=== PATIENT | male | born 1945 | race Caucasian/White ===

== ENCOUNTER → 2018-11-17 08:12 | Outpatient (CLI) | payer MEDICARE, OTHER, SELFPAY ==
[2018-11-17 09:04] LABS: Add Manual Diff / Slide Review NO; Basophils Absolute Auto 0 /uL (0-100); Basophils Percent Auto 0.6 % (0-2); Eosinophils Absolute Auto 200 /uL (0-450); Eosinophils Percent Auto 2.2 % (2-4); Hematocrit 45.5 % (41-53); Hemoglobin 15.7 g/dL (13.5-17.5); Lymphocytes Absolute Auto 2100 /uL (1100-4500); Lymphocytes Percent Auto 30.4 % (25-40); Mean Corpuscular HGB Conc 34.4 % (30-36); Mean Corpuscular Hemoglobin 31.4 PG (26-34); Mean Corpuscular Volume 91.2 fL (80-100); Monocytes Absolute Auto 500 /uL (0-900); Monocytes Percent Auto 7.4 % (3-14); Neutrophils Absolute Auto 4100 /uL (1500-7000); Neutrophils Percent Auto 59.4 % (50-75); Platelet Count 154 X10^3/uL (150-400); Red Blood Cell Count 4.99 X10^6/uL (4.5-5.9); Red Cell Distribution Width 13.3 % (11.6-14.8)
[2018-11-17 09:31] LABS: Alanine Aminotransferase 29 IU/L (21-72); Albumin 4.3 g/dL (3.5-5.0); Albumin Globulin Ratio 1.6 (1.0-2.8); Alkaline Phosphatase 43 U/L (38-126); Aspartate Aminotransferase 28 IU/L (17-59); Bilirubin Total 0.7 mg/dL (0.2-1.3); Blood Urea Nitrogen 20 mg/dL (9-20); Calcium 9.4 mg/dL (8.4-10.2); Carbon Dioxide 28 mmol/L (22-32); Chloride 106 mmol/L (98-107); Cholesterol 191 mg/dL (140-199); Estimated Glomerular Filt Rate > 60.0 mL/min (>60); Globulin 2.7 g/dL (1.7-4.1); Glucose 93 mg/dL (80-110); HDL Cholesterol 45 mg/dL (40-60); HEMOLYSIS < 15 (0-50); LDL Cholesterol Calculated 133 mg/dL (<100); Potassium 4.7 mmol/L (3.4-5.1); Sodium 143 mmol/L (137-145); Triglycerides 63 mg/dL (35-150)
[2018-11-17 09:59] LABS: Prostate Specific Antigen 1.28 ng/mL (0.10-4.00)
[2018-11-17 10:04] LABS: TSH w/ Reflex to FT4 3.96 uIU/mL (0.47-4.68)
== END ==
PROVIDERS: PCP Family Medicine; Visit Provider Family Medicine
DX: E78.00 Pure hypercholesterolemia, unspecified (principal); Z00.00 Encounter for general adult medical examination without abnormal findings; Z12.5 Encounter for screening for malignant neoplasm of prostate; Z13.220 Encounter for screening for lipoid disorders; Z13.29 Encounter for screening for other suspected endocrine disorder
CPT/HCPCS: 36415; 80053; 80061; 84153; 84443; 85025; G0103

== ENCOUNTER → 2020-01-18 11:17 | Outpatient (CLI) | payer MEDICARE, OTHER, SELFPAY ==
[2020-01-18 12:48] LABS: Free T3, Triiodothyronine Free 3.07 pg/mL (2.77-5.27); Free T4, Direct Thyroxine 0.95 ng/dL (0.78-2.19)
[2020-01-18 13:02] LABS: Thyroid Stimulating Hormone 2.58 uIU/mL (0.47-4.68)
== END ==
PROVIDERS: PCP Family Medicine; Referring Provider Family Medicine; Visit Provider Family Medicine
DX: T56.891A Toxic effect of other metals, accidental (unintentional), initial encounter (principal); E03.2 Hypothyroidism due to medicaments and other exogenous substances; R79.89 Other specified abnormal findings of blood chemistry
CPT/HCPCS: 36415; 83090; 84439; 84443; 84481

== ENCOUNTER → 2020-03-17 13:06 | Outpatient (CLI) | payer MEDICARE, OTHER, SELFPAY ==
[2020-03-19 02:36] LABS: Methylmalonic Acid,Serum 106 nmol/L (0-378)
== END ==
PROVIDERS: PCP Family Medicine; Referring Provider Family Medicine; Visit Provider Family Medicine
DX: R79.89 Other specified abnormal findings of blood chemistry (principal)
CPT/HCPCS: 36415; 83090; 83921

== ENCOUNTER 2020-09-15 14:15 | Outpatient (RCR) | payer MEDICARE, OTHER, SELFPAY ==
--- NOTE | 2020-08-18 15:55 | PT.OIE ---
Current Diagnoses Parkinson's disease (08/18/20) Past Medical History (Last Reviewed 08/12/20 @ 14:37 by Arnold Rogel MD) Allergic rhinitis (04/25/13) Cyst in hand Elevated homocysteine Foreign body of ear, left IBS (irritable bowel syndrome) Obstructive sleep apnea syndrome (04/25/13) Parkinson's disease (~09/2016) Pes planus Pure hypercholesterolemia (11/26/16) Past Surgical History (Last Reviewed 08/12/20 @ 14:37 by Arnold Rogel MD) History of tonsillectomy History of vasectomy Status post hernia repair Visit Care Team Role Provider Type Ashley Romano DO Attending Provider Physician Primary Care Provider Referring Provider Specialty: [facility] Address: [address] [place] [address], [address], [facility] Email: [email or web address] Physical Therapy Initial Evaluation PT-OP-A Visit Information Start: 08/13/20 08:05 Freq: Status: Active Protocol: Document 08/18/20 14:17 MB (Rec: 08/18/20 14:43 MB [id number]) Out-Patient Physical Therapy Visit Information Visit Information Visit Type Initial Evaluation Visit Note Medicare Visit Start Time 14:17 Visit Stop Time 15:19 Total Visit Minutes 62 Visit Number 1 Evaluation Information Evaluation Date 08/18/20 PT-OP-B Current Condition Start: 08/13/20 08:05 Freq: Status: Active Protocol: Document 08/18/20 14:17 MB (Rec: 08/18/20 14:43 MB [id number]) Current Condition History of Current Condition Onset Date 3 years since diagnosis Current Complaints Stiffness, tremor in right hand, not being able to walk as far as he'd like History of Current Condition Pt sees naturopathic doctor, Dr. Potter, for his PD. He takes Carbidopa Levodopa. He states he is on 3 pills a day but that he can take more if he does something strenuous. He has been taking four a day. He is taking a pill at 900, 1200, 1500 and 1800. His BIG referral was written by Dr. Romano, his DO and PCP. Pt states he bought the [employer] BIG videos because he was told it would be a few weeks getting into therapy. He was instructed by operations program manager to change his diet and was also put on [place] d/t he was found to have a deficiency per hair analysis. Pt states that his Carbidopa Levodopa helps him move more freely. Pt states that he gets up 3-4x/night to urinate. If he is really tired, he can get up just once a night. He notices that he wakes up and then feels like he needs to urinate. Pt reports that his first symptoms of PD was tremor in right hand. He has balance trouble. He feels like his legs are collapsing occ when he gets up to urinate at night and after he is up 15-20 minutes, he can move more readily. Pt lives with his . He has 3 steps and no rail to enter his home. Pt has a flight of steps with 1 rail once he is inside the house. Pt likes to walk for exercise. He walks 2-3 miles and would like to walk 4-5 miles. Pt has had 3 falls in the last year. He lost control of his legs one night and his had to help him up. Pt would like to work on stiffness. Pt participates with cooking and cleaning. Treatment Goals Patient/Caregiver Goals Decrease stiffness, no falls and walking further PT-OP-C Subjective Start: 08/13/20 08:05 Freq: Status: Active Protocol: Document 08/18/20 14:17 MB (Rec: 08/18/20 14:43 MB [id number]) OP-PT Subjective Patient Comments Patient Comments See history of current condition PT-OP-G Mobility & Gait Start: 08/13/20 08:05 Freq: Status: Active Protocol: Document 08/18/20 14:16 MB (Rec: 08/18/20 15:45 MB [id number]) OP Gait Assessment Gait Gait Assistance Required: Independent Distance (Feet) 1,693 Able to Maintain Weight Bearing Status Yes During Gait Assistive Devices Assistive Device Gait Belt Orthotic/Prosthetic Devices or Brace: No Comments Gait Comments Pt presents with little hip and pelvic movement with gait and decreased arm swing, greater on the left with most of arm swing happening at distal arms. He tends to keep fists closed with walking. His left shoulder is lower than the right and he occ has scuffing of his feet, right greater than left. His shoes are large as are his rain pants and this makes gait a little more difficult to assess as far as hip, knee and foot mechanics. His left knee appears to have a flexion and valgus component to weight acceptance compared to the right. PT-OP-K Range of Motion Start: 08/13/20 08:05 Freq: Status: Active Protocol: Document 08/18/20 14:16 MB (Rec: 08/18/20 15:45 MB [id number]) Shoulder Goniometric Range of Motion Shoulder Bilateral Shoulder ROM WFL Yes Testing Position Sitting PT-OP-M Strength Start: 08/13/20 08:05 Freq: Status: Active Protocol: Document 08/18/20 14:16 MB (Rec: 08/18/20 15:45 MB [id number]) Shoulder Strength Shoulder Manual Muscle Testing Left Flexion 5 Normal Abduction (C5) 5 Normal Right Flexion 5 Normal Abduction (C5) 5 Normal Elbow/Forearm Strength Elbow and Forearm Manual Muscle Testing Left Flexion (C6) 5 Normal Right Flexion (C6) 5 Normal Hip Strength Hip Manual Muscle Testing Left Flexion (L2) 4 Good Abduction 4 Good Right Flexion (L2) 4 Good Abduction 4 Good Ankle/Foot Strength Ankle and Foot Manual Muscle Testing Left Dorsiflexion (L4) 4 Good Right Dorsiflexion (L4) 5 Normal Toe Strength Toe Manual Muscle Testing Left Great Toe Extension 4 Good Right Great Toe Extension 5 Normal PT-OP-Q Treatments Start: 08/13/20 08:05 Freq: Status: Active Protocol: Document 08/18/20 14:16 MB (Rec: 08/18/20 15:45 MB [id number]) Therapeutic Exercises Sitting Exercises Sit to stands Comments 15 in 30 sec Gait Training Gait Activity 6MWT Comments Pt gait trains 1693 feet in 6 minutes, see gait comments for gait assessment. He is I with gait Self-Care/Home Management Treatment Education Other Education Education on BIG course, goals for amplitude and speed increasing with good form and amplitude, education and handouts about orthostatic hypotension and what to do and not to do, ed to talk with Dr Charisse Romano about his medication questions about how much Carbidopa Levodopa to take and at what time, Kary, can bring in , Talon, for next PT appointment to ask any questions about today, orthostasis and compression PT-OP-T Assessment and Plan Start: 08/13/20 08:05 Freq: Status: Active Protocol: Document 08/18/20 14:16 MB (Rec: 08/18/20 15:45 MB [id number]) Physical Therapy Assessment Rehab Potential Rehabilitation Potential Good Evaluation Complexity Number of Personal Factors/Comorbidities 3 or More Number of Body Systems Impaired 1-2 Clinical Presentation at Evaluation Evolving Impairments Impairments Balance,Coordination, Functional Activities,Gait, Posture,Strength Other Impairments Impaired rapid supination and pronation, worse on the left. Impaired [id number] on the left, pt is right handed. Slower B toe tap over opposite foot, [place], some memory changes. Body systems include memory, neurological and orthostatic changes. Other Concerns Fall Risk Yes Goals 4 Affiliate Marketing Coordinator Goal (LTG) Pt will perform 17 reps of sit to stand without UE support in 30 sec to improve functional strength by 09/22/20. LTG Duration 16 treatments 3 Affiliate Marketing Coordinator Goal (LTG) Pt will gait train at least 1700 feet in 6 minutes performing a cognitive task for at least 3 minutes to improve community ambulation by 09/22/20. LTG Duration 16 treatments 2 Mcfp Goal (LTG) Pt will perform WNLs on a standardized balance test to decrease fall risk by 09/22/20. LTG Duration 16 treatments 1 Affiliate Marketing Coordinator Goal (LTG) Pt will perform BIG exercises and functional activities daily with I to improve amplitude, balance and gait by 09/22/20. LTG Duration 16 treatments Assessment Summary Assessment Pt is a pleasant 65 y/o male presenting with at least 3 year history diagnosis of PD. His first symptom was a tremor in his right arm and he now has B UE tremors. He reports imbalance and that he would like to be able to walk further and be less stiff when he first gets up. He sees a operations program manager for his PD and has tried diet modification and is taking what he thinks is a lower dose of Carbidopa Levodopa than other PD patients in his support group and he wonders if he should take more. PT encourages him to talk with Dr. Romano about this concern and to make sure that Dr. Romano knows all the supplements and medications he is taking (pt reports he is taking [place] after a hair sample test). Pt reports his legs give out when he gets up to urinate and that he feels better when he is up 15 minutes or longer. Given this complaint, PT checks orthostatics and he is positive with the following large systolic and diastolic drops with BP and HR in LUE: supine 158/89, 70, standing 131/82, 77, standing 1' 115/64 , 80, standing 2' 101/73, 84, standing 3' 122/75, 80. Pt presents with postural changes with gait, dysmetric UE movement, greater on the left, and some mildly left LE weakness with MMT. He will benefit from BIG therapy course to improve gait, balance, amplitude and strength. Barriers include orthostasis and mild cognitive changes. Physical Therapy Plan Frequency and Duration Frequency of Treatment 16 treatments Duration of Treatment 16 treatments Plan of Care Start Date 08/18/20 Plan of Care End Date 09/22/20 Therapeutic Interventions Therapeutic Interventions Balance Training,Coordination Training,Gait Training,Home Exercise Program,Neuromuscular Re-education,Patient/ Caregiver Education,Self-Care/ Home Management,Therapeutic Activities,Therapeutic Exercises Modalities Cold Pack/Ice Massage,Hot Packs Other Referrals/Consults Referrals/Consults Recommended Follow-up with Dr. Romano about his medications (pt is unsure if she knows about [place] and his Carbidopa Levodopa instructions), follow -up with Dr. Romano about orthostatic hypotension Next Visit Focus/Plan Next Note Type Treatment Note Next Visit Plan Answer any questions from pt and , initiate BIG exercises
--- NOTE | 2020-08-18 15:55 | PT.OPPOC ---
Physical, Occupational & Speech Therapy At [facility] Current Diagnoses Parkinson's disease (08/18/20) Visit Care Team Role Provider Type Ashley Romano DO Attending Provider Physician Primary Care Provider Referring Provider Specialty: Family Practice Address: [address] [place] [address], [facility] [address], [place], [address] Email: [email or web address] Plan Of Care PT-OP-T Assessment and Plan Start: 08/13/20 08:05 Freq: Status: Active Protocol: Document 08/18/20 14:16 MB (Rec: 08/18/20 15:45 MB [id number]) Physical Therapy Assessment Rehab Potential Rehabilitation Potential Good Evaluation Complexity Number of Personal Factors/Comorbidities 3 or More Number of Body Systems Impaired 1-2 Clinical Presentation at Evaluation Evolving Impairments Impairments Balance,Coordination, Functional Activities,Gait, Posture,Strength Other Impairments Impaired rapid supination and pronation, worse on the left. Impaired [id number]-[id number] on the left, pt is right handed. Slower B toe tap over opposite foot, [place], some memory changes. Body systems include memory, neurological and orthostatic changes. Other Concerns Fall Risk Yes Goals 4 Staffing Branch Manager Goal (LTG) Pt will perform 17 reps of sit to stand without UE support in 30 sec to improve functional strength by 09/22/20. LTG Duration 16 treatments 3 Longterm Goal (LTG) Pt will gait train at least 1700 feet in 6 minutes performing a cognitive task for at least 3 minutes to improve community ambulation by 09/22/20. LTG Duration 16 treatments 2 Longterm Goal (LTG) Pt will perform WNLs on a standardized balance test to decrease fall risk by 09/22/20. LTG Duration 16 treatments 1 Staffing Branch Manager Goal (LTG) Pt will perform BIG exercises and functional activities daily with I to improve amplitude, balance and gait by 09/22/20. LTG Duration 16 treatments Assessment Summary Assessment Pt is a pleasant 65 y/o male presenting with at least 3 year history diagnosis of PD. His first symptom was a tremor in his right arm and he now has B UE tremors. He reports imbalance and that he would like to be able to walk further and be less stiff when he first gets up. He sees a quantitative manager for his PD and has tried diet modification and is taking what he thinks is a lower dose of Carbidopa Levodopa than other PD patients in his support group and he wonders if he should take more. PT encourages him to talk with Dr. Romano about this concern and to make sure that Dr. Romano knows all the supplements and medications he is taking (pt reports he is taking [place] after a hair sample test). Pt reports his legs give out when he gets up to urinate and that he feels better when he is up 15 minutes or longer. Given this complaint, PT checks orthostatics and he is positive with the following large systolic and diastolic drops with BP and HR in LUE: supine 158/89, 70, standing 131/82, 77, standing 1' 115/64 , 80, standing 2' 101/73, 84, standing 3' 122/75, 80. Pt presents with postural changes with gait, dysmetric UE movement, greater on the left, and some mildly left LE weakness with MMT. He will benefit from BIG therapy course to improve gait, balance, amplitude and strength. Barriers include orthostasis and mild cognitive changes. Physical Therapy Plan Frequency and Duration Frequency of Treatment 16 treatments Duration of Treatment 16 treatments Plan of Care Start Date 08/18/20 Plan of Care End Date 09/22/20 Therapeutic Interventions Therapeutic Interventions Balance Training,Coordination Training,Gait Training,Home Exercise Program,Neuromuscular Re-education,Patient/ Caregiver Education,Self-Care/ Home Management,Therapeutic Activities,Therapeutic Exercises Modalities Cold Pack/Ice Massage,Hot Packs Other Referrals/Consults Referrals/Consults Recommended Follow-up with Dr. Romano about his medications (pt is unsure if she knows about [place] and his Carbidopa Levodopa instructions), follow -up with Dr. Romano about orthostatic hypotension Next Visit Focus/Plan Next Note Type Treatment Note Next Visit Plan Answer any questions from pt and , initiate BIG exercises Plan of Care Dates Plan of Care Start Date 08/18/20 Plan of Care End Date 09/22/20 Electronically Signed by: Yeimi Meyers PT 08/18/20 [id number] Please Sign and Return: I have reviewed this Plan of Care and certify that the skilled therapy services above are required to meet the patient?s needs. Physician Signature Date Printed Name and Credentials Clinical Instructor Signature Printed Name and Credentials
--- NOTE | 2020-08-19 15:27 | PT.OTN ---
Current Diagnoses Parkinson's disease (08/19/20) Physical Therapy Treatment Note PT-OP-A Visit Information Start: 08/13/20 08:05 Freq: Status: Active Protocol: Document 08/19/20 14:15 MB (Rec: 08/19/20 14:07 MB [id number]) Out-Patient Physical Therapy Visit Information Visit Information Visit Type Treatment Note Visit Start Time 14:15 Visit Stop Time 15:15 Total Visit Minutes 60 Visit Number 2 PT-OP-B Current Condition Start: 08/13/20 08:05 Freq: Status: Active Protocol: Document 08/18/20 14:17 MB (Rec: 08/18/20 14:43 MB [id number]) Current Condition History of Current Condition Onset Date 3 years since diagnosis Current Complaints Stiffness, tremor in right hand, not being able to walk as far as he'd like History of Current Condition Pt sees naturopathic doctor, Dr. Potter, for his PD. He takes Carbidopa Levodopa. He states he is on 3 pills a day but that he can take more if he does something strenuous. He has been taking four a day. He is taking a pill at 900, 1200, 1500 and 1800. His BIG referral was written by Dr. Romano, his DO and PCP. Pt states he bought the [employer] BIG videos because he was told it would be a few weeks getting into therapy. He was instructed by regional company truck driver to change his diet and was also put on [place] d/t he was found to have a deficiency per hair analysis. Pt states that his Carbidopa Levodopa helps him move more freely. Pt states that he gets up 3-4x/night to urinate. If he is really tired, he can get up just once a night. He notices that he wakes up and then feels like he needs to urinate. Pt reports that his first symptoms of PD was tremor in right hand. He has balance trouble. He feels like his legs are collapsing occ when he gets up to urinate at night and after he is up 15-20 minutes, he can move more readily. Pt lives with his . He has 3 steps and no rail to enter his home. Pt has a flight of steps with 1 rail once he is inside the house. Pt likes to walk for exercise. He walks 2-3 miles and would like to walk 4-5 miles. Pt has had 3 falls in the last year. He lost control of his legs one night and his had to help him up. Pt would like to work on stiffness. Pt participates with cooking and cleaning. Treatment Goals Patient/Caregiver Goals Decrease stiffness, no falls and walking further PT-OP-C Subjective Start: 08/13/20 08:05 Freq: Status: Active Protocol: Document 08/19/20 14:15 MB (Rec: 08/19/20 15:27 MB [id number]) OP-PT Subjective Patient Comments Patient Comments Pt brings in worn running shoes that are most worn on B heels, greater on the left. Talon, his , comes to treatment. They are not yet interested in compression hose and he is practicing moving his legs and feet before sitting and standing to help with BP. PT-OP-G Mobility & Gait Start: 08/13/20 08:05 Freq: Status: Active Protocol: Document 08/18/20 14:16 MB (Rec: 08/18/20 15:45 MB [id number]) OP Gait Assessment Gait Gait Assistance Required: Independent Distance (Feet) 1,693 Able to Maintain Weight Bearing Status Yes During Gait Assistive Devices Assistive Device Gait Belt Orthotic/Prosthetic Devices or Brace: No Comments Gait Comments Pt presents with little hip and pelvic movement with gait and decreased arm swing, greater on the left with most of arm swing happening at distal arms. He tends to keep fists closed with walking. His left shoulder is lower than the right and he occ has scuffing of his feet, right greater than left. His shoes are large as are his rain pants and this makes gait a little more difficult to assess as far as hip, knee and foot mechanics. His left knee appears to have a flexion and valgus component to weight acceptance compared to the right. PT-OP-K Range of Motion Start: 08/13/20 08:05 Freq: Status: Active Protocol: Document 08/18/20 14:16 MB (Rec: 08/18/20 15:45 MB [id number]) Shoulder Goniometric Range of Motion Shoulder Bilateral Shoulder ROM WFL Yes Testing Position Sitting PT-OP-M Strength Start: 08/13/20 08:05 Freq: Status: Active Protocol: Document 08/18/20 14:16 MB (Rec: 03/29/21 15:45 MB [id number]) Shoulder Strength Shoulder Manual Muscle Testing Left Flexion 5 Normal Abduction (C5) 5 Normal Right Flexion 5 Normal Abduction (C5) 5 Normal Elbow/Forearm Strength Elbow and Forearm Manual Muscle Testing Left Flexion (C6) 5 Normal Right Flexion (C6) 5 Normal Hip Strength Hip Manual Muscle Testing Left Flexion (L2) 4 Good Abduction 4 Good Right Flexion (L2) 4 Good Abduction 4 Good Ankle/Foot Strength Ankle and Foot Manual Muscle Testing Left Dorsiflexion (L4) 4 Good Right Dorsiflexion (L4) 5 Normal Toe Strength Toe Manual Muscle Testing Left Great Toe Extension 4 Good Right Great Toe Extension 5 Normal PT-OP-Q Treatments Start: 08/13/20 08:05 Freq: Status: Active Protocol: Document 08/19/20 14:15 MB (Rec: 08/19/20 14:07 MB [id number]) Therapeutic Exercises Sitting Exercises BIG forward reach Sitting Exercise Name Floor to ceiling Equipment Used Mat in therapy room Reps/Minutes 5 reps after education Comments Cues for BIG reach, BIG hands, BIG finish BIG sit to stands Equipment Used Mat in therapy room Reps/Minutes 10 reps after education Comments Cues for BIG reach and hands back BIG side to side Side bilateral Equipment Used Mat in therapy room Reps/Minutes 7 reps to each side Comments Cues for BIG back leg and BIG reach with palm up Standing Exercises Side rock and reach Side bilateral Reps/Minutes 5 reps each side after education Comments Cues for BIGness, form-- feet and upper body first Forward rock and reach Side bilateral Reps/Minutes 10 reps in each position after educated Comments Cues for stance, feet and arms, decreased arm swing left Backward stepping Side bilateral Reps/Minutes 5 reps to each side after educated Comments BIG start, BIG forward hands, BIG finish Side step Side bilateral Equipment Used 5 reps to each side after educated Comments Cues for BIG start stance, BIG reach, look direction stepping and BIG finis Forward step Side bilateral Reps/Minutes 10 to each side after education Comments Cues for BIG stance start, BIG step and BIG finish. Pt tends to fall forwar PT-OP-T Assessment and Plan Start: 08/13/20 08:05 Freq: Status: Active Protocol: Document 08/19/20 14:15 MB (Rec: 08/19/20 14:07 MB [id number]) Physical Therapy Assessment Rehab Potential Rehabilitation Potential Good Evaluation Complexity Number of Personal Factors/Comorbidities 3 or More Number of Body Systems Impaired 1-2 Clinical Presentation at Evaluation Evolving Impairments Impairments Balance,Coordination, Functional Activities,Gait, Posture,Strength Other Impairments Impaired rapid supination and pronation, worse on the left. Impaired [id number] on the left, pt is right handed. Slower B toe tap over opposite foot, [place], some memory changes. Body systems include memory, neurological and orthostatic changes. Other Concerns Fall Risk Yes Goals 4 Frame Aligner Goal (LTG) Pt will perform 17 reps of sit to stand without UE support in 30 sec to improve functional strength by 09/22/20. LTG Duration 16 treatments 3 Frame Aligner Goal (LTG) Pt will gait train at least 1700 feet in 6 minutes performing a cognitive task for at least 3 minutes to improve community ambulation by 09/22/20. LTG Duration 16 treatments 2 Frame Aligner Goal (LTG) Pt will perform WNLs on a standardized balance test to decrease fall risk by 09/22/20. LTG Duration 16 treatments 1 Frame Aligner Goal (LTG) Pt will perform BIG exercises and functional activities daily with I to improve amplitude, balance and gait by 09/22/20. LTG Duration 16 treatments Assessment Summary Assessment Initiated BIG exercises today. Overall, pt has trouble coordinating lower body and upper body and tends to lunge with trunk rather than control step, picking up foot and then putting it back BIG and controlled. He has decreased left arm extension and BIG hand with forward rock and reach and this is something that we will work on with PT. His shoes appear cumbersome as far as wide toe box and his increased Enrique angle stance but unsure if this can be changed--he likes his shoes. His functional tasks will be moving in and out of bed, in and out of car, carrying golf bag and golf swing and writing a check. Physical Therapy Plan Frequency and Duration Frequency of Treatment 16 treatments Duration of Treatment 16 treatments Plan of Care Start Date 08/18/20 Plan of Care End Date 09/22/20 Therapeutic Interventions Therapeutic Interventions Balance Training,Coordination Training,Gait Training,Home Exercise Program,Neuromuscular Re-education,Patient/ Caregiver Education,Self-Care/ Home Management,Therapeutic Activities,Therapeutic Exercises Modalities Cold Pack/Ice Massage,Hot Packs Other Referrals/Consults Referrals/Consults Recommended Follow-up with Dr. Romano about his medications (pt is unsure if she knows about [place] and his Carbidopa Levodopa instructions), follow -up with Dr. Romano about orthostatic hypotension Next Visit Focus/Plan Next Note Type Treatment Note Next Visit Plan BIG exercises, start functional tasks: moving and out of bed, walking with golf bag and golf swing, getting in and out of car and writing check.
--- NOTE | 2020-08-20 15:20 | PT.OTN ---
Current Diagnoses Parkinson's disease (08/20/20) Physical Therapy Treatment Note PT-OP-A Visit Information Start: 08/13/20 08:05 Freq: Status: Active Protocol: Document 08/20/20 15:20 AW (Rec: 08/20/20 16:47 AW [id number]) Out-Patient Physical Therapy Visit Information Visit Information Visit Type Treatment Note Visit Start Time 14:30 Visit Stop Time 15:20 Total Visit Minutes 50 Visit Number 3 PT-OP-B Current Condition Start: 08/13/20 08:05 Freq: Status: Active Protocol: Document 08/18/20 14:17 MB (Rec: 08/18/20 14:43 MB [id number]) Current Condition History of Current Condition Onset Date 3 years since diagnosis Current Complaints Stiffness, tremor in right hand, not being able to walk as far as he'd like History of Current Condition Pt sees naturopathic doctor, Dr. Potter, for his PD. He takes Carbidopa Levodopa. He states he is on 3 pills a day but that he can take more if he does something strenuous. He has been taking four a day. He is taking a pill at 900, 1200, 1500 and 1800. His BIG referral was written by Dr. Romano, his DO and PCP. Pt states he bought the [email or web address] BIG videos because he was told it would be a few weeks getting into therapy. He was instructed by case aide to change his diet and was also put on [place] d/t he was found to have a deficiency per hair analysis. Pt states that his Carbidopa Levodopa helps him move more freely. Pt states that he gets up 3-4x/night to urinate. If he is really tired, he can get up just once a night. He notices that he wakes up and then feels like he needs to urinate. Pt reports that his first symptoms of PD was tremor in right hand. He has balance trouble. He feels like his legs are collapsing occ when he gets up to urinate at night and after he is up 15-20 minutes, he can move more readily. Pt lives with his . He has 3 steps and no rail to enter his home. Pt has a flight of steps with 1 rail once he is inside the house. Pt likes to walk for exercise. He walks 2-3 miles and would like to walk 4-5 miles. Pt has had 3 falls in the last year. He lost control of his legs one night and his had to help him up. Pt would like to work on stiffness. Pt participates with cooking and cleaning. Treatment Goals Patient/Caregiver Goals Decrease stiffness, no falls and walking further PT-OP-C Subjective Start: 08/13/20 08:05 Freq: Status: Active Protocol: Document 08/20/20 15:20 AW (Rec: 08/20/20 16:47 AW [id number]) OP-PT Subjective Patient Comments Patient Comments Pt arrived with his packet, ready to work. PT-OP-G Mobility & Gait Start: 08/13/20 08:05 Freq: Status: Active Protocol: Document 08/18/20 14:16 MB (Rec: 08/18/20 15:45 MB [id number]) OP Gait Assessment Gait Gait Assistance Required: Independent Distance (Feet) 1,693 Able to Maintain Weight Bearing Status Yes During Gait Assistive Devices Assistive Device Gait Belt Orthotic/Prosthetic Devices or Brace: No Comments Gait Comments Pt presents with little hip and pelvic movement with gait and decreased arm swing, greater on the left with most of arm swing happening at distal arms. He tends to keep fists closed with walking. His left shoulder is lower than the right and he occ has scuffing of his feet, right greater than left. His shoes are large as are his rain pants and this makes gait a little more difficult to assess as far as hip, knee and foot mechanics. His left knee appears to have a flexion and valgus component to weight acceptance compared to the right. PT-OP-K Range of Motion Start: 08/13/20 08:05 Freq: Status: Active Protocol: Document 08/18/20 14:16 MB (Rec: 08/18/20 15:45 MB [id number]) Shoulder Goniometric Range of Motion Shoulder Bilateral Shoulder ROM WFL Yes Testing Position Sitting PT-OP-M Strength Start: 08/13/20 08:05 Freq: Status: Active Protocol: Document 08/18/20 14:16 MB (Rec: 08/18/20 15:45 MB [id number]) Shoulder Strength Shoulder Manual Muscle Testing Left Flexion 5 Normal Abduction (C5) 5 Normal Right Flexion 5 Normal Abduction (C5) 5 Normal Elbow/Forearm Strength Elbow and Forearm Manual Muscle Testing Left Flexion (C6) 5 Normal Right Flexion (C6) 5 Normal Hip Strength Hip Manual Muscle Testing Left Flexion (L2) 4 Good Abduction 4 Good Right Flexion (L2) 4 Good Abduction 4 Good Ankle/Foot Strength Ankle and Foot Manual Muscle Testing Left Dorsiflexion (L4) 4 Good Right Dorsiflexion (L4) 5 Normal Toe Strength Toe Manual Muscle Testing Left Great Toe Extension 4 Good Right Great Toe Extension 5 Normal PT-OP-Q Treatments Start: 08/13/20 08:05 Freq: Status: Active Protocol: Document 08/20/20 15:20 AW (Rec: 08/20/20 16:47 AW [id number]) Therapeutic Exercises Sitting Exercises BIG forward reach Sitting Exercise Name Floor to ceiling Equipment Used Mat in therapy room Reps/Minutes 10 reps Comments Cues for BIG effort BIG sit to stands Equipment Used Mat in therapy room Reps/Minutes 10 reps Comments Cues for BIG forward reach on ascent and descent to improve control BIG side to side Side bilateral Equipment Used Mat in therapy room Reps/Minutes 5 reps to each side Comments Cued upright posture for increased hip flexor stretch Standing Exercises Side rock and reach Side bilateral Reps/Minutes 10 reps each side Comments Cues for increased rotation Forward rock and reach Side bilateral Reps/Minutes 10 reps each side Comments max cues for arm swing Backward stepping Side bilateral Reps/Minutes 10 reps each side Comments cued BIG step back to start position Side step Side bilateral Equipment Used 10 reps each side Comments cued BIG step back to start position Forward step Side bilateral Reps/Minutes 10 reps each side Comments cued BIG step back to start position Therapeutic Activity Therapeutic Activity writing Name checks and signature Reps/Minutes 5 min Comments Assessed writing today with little evidence of micrographia but pt tends to use hand/wrist motion only. Demonstrated use of entire UE and trunk to increase efficiency and maintain amplitude Gait Training Gait Activity BIG walking Device Used 0 Surface tile, carpet Distance/Duration 10 min Treatment Focus step length Comments Cued pt to think BIG and to focus on step length. He shows good stimulability and is able to increase speed and step length with simple cues. Will need to work on arm swing in future sessions. Self-Care/Home Management Treatment Education Other Education Education on primary impairments in PD and BIG tx focus on amplitude. Pt receptive to cueing for increased effort, rating his own effort at 7/10 during exercise. Activities Self-Care/Home Management Activities Homework/carryover: Pt agrees to spend time walking with simple cue to think BIG in mind, focusing on step length. PT-OP-T Assessment and Plan Start: 08/13/20 08:05 Freq: Status: Active Protocol: Document 08/20/20 15:20 AW (Rec: 08/20/20 16:47 AW [email or web address]) Physical Therapy Assessment Rehab Potential Rehabilitation Potential Good Evaluation Complexity Number of Personal Factors/Comorbidities 3 or More Number of Body Systems Impaired 1-2 Clinical Presentation at Evaluation Evolving Impairments Impairments Balance,Coordination, Functional Activities,Gait, Posture,Strength Other Impairments Impaired rapid supination and pronation, worse on the left. Impaired [id number] on the left, pt is right handed. Slower B toe tap over opposite foot, [place], some memory changes. Body systems include memory, neurological and orthostatic changes. Other Concerns Fall Risk Yes Goals 4 [facility] Goal (LTG) Pt will perform 17 reps of sit to stand without UE support in 30 sec to improve functional strength by 09/22/20. LTG Duration 16 treatments 3 Director Of Nurses Registry Goal (LTG) Pt will gait train at least 1700 feet in 6 minutes performing a cognitive task for at least 3 minutes to improve community ambulation by 09/22/20. LTG Duration 16 treatments 2 Director Of Nurses Registry Goal (LTG) Pt will perform WNLs on a standardized balance test to decrease fall risk by 09/22/20. LTG Duration 16 treatments 1 Director Of Nurses Registry Goal (LTG) Pt will perform BIG exercises and functional activities daily with I to improve amplitude, balance and gait by 09/22/20. LTG Duration 16 treatments Assessment Summary Assessment Pt improved with execution of daily maximal exercises and definitely shows good stimulability. Pt had one posterior LOB during side step exercise. BP before exercise was 141/84 and 128/82 after stumble. Pt denied symptoms. Pt very open to education on BIG approach and has good buy- in. Physical Therapy Plan Frequency and Duration Frequency of Treatment 16 treatments Duration of Treatment 16 treatments Plan of Care Start Date 08/18/20 Plan of Care End Date 09/22/20 Therapeutic Interventions Therapeutic Interventions Balance Training,Coordination Training,Gait Training,Home Exercise Program,Neuromuscular Re-education,Patient/ Caregiver Education,Self-Care/ Home Management,Therapeutic Activities,Therapeutic Exercises Modalities Cold Pack/Ice Massage,Hot Packs Other Referrals/Consults Referrals/Consults Recommended Follow-up with Dr. Romano about his medications (pt is unsure if she knows about [place] and his Carbidopa Levodopa instructions), follow -up with Dr. Romano about orthostatic hypotension Next Visit Focus/Plan Next Note Type Treatment Note Next Visit Plan Increase functional task training; BIG walking; identify hierarchy task
--- NOTE | 2020-08-21 15:36 | PT.OTN ---
Current Diagnoses Parkinson's disease (08/21/20) Physical Therapy Treatment Note PT-OP-A Visit Information Start: 08/13/20 08:05 Freq: Status: Active Protocol: Document 08/21/20 14:15 MB (Rec: 08/21/20 15:36 MB [id number]) Out-Patient Physical Therapy Visit Information Visit Information Visit Type Treatment Note Visit Start Time 14:15 Visit Stop Time 15:15 Total Visit Minutes 60 Visit Number 4 PT-OP-B Current Condition Start: 08/13/20 08:05 Freq: Status: Active Protocol: Document 08/18/20 14:17 MB (Rec: 08/18/20 14:43 MB [id number]) Current Condition History of Current Condition Onset Date 3 years since diagnosis Current Complaints Stiffness, tremor in right hand, not being able to walk as far as he'd like History of Current Condition Pt sees naturopathic doctor, Dr. Potter, for his PD. He takes Carbidopa Levodopa. He states he is on 3 pills a day but that he can take more if he does something strenuous. He has been taking four a day. He is taking a pill at 900, 1200, 1500 and 1800. His BIG referral was written by Dr. Romano, his DO and PCP. Pt states he bought the [employer] BIG videos because he was told it would be a few weeks getting into therapy. He was instructed by ornamental iron worker apprentice to change his diet and was also put on [place] d/t he was found to have a deficiency per hair analysis. Pt states that his Carbidopa Levodopa helps him move more freely. Pt states that he gets up 3-4x/night to urinate. If he is really tired, he can get up just once a night. He notices that he wakes up and then feels like he needs to urinate. Pt reports that his first symptoms of PD was tremor in right hand. He has balance trouble. He feels like his legs are collapsing occ when he gets up to urinate at night and after he is up 15-20 minutes, he can move more readily. Pt lives with his . He has 3 steps and no rail to enter his home. Pt has a flight of steps with 1 rail once he is inside the house. Pt likes to walk for exercise. He walks 2-3 miles and would like to walk 4-5 miles. Pt has had 3 falls in the last year. He lost control of his legs one night and his had to help him up. Pt would like to work on stiffness. Pt participates with cooking and cleaning. Treatment Goals Patient/Caregiver Goals Decrease stiffness, no falls and walking further PT-OP-C Subjective Start: 08/13/20 08:05 Freq: Status: Active Protocol: Document 08/21/20 14:15 MB (Rec: 08/21/20 15:36 MB [id number]) OP-PT Subjective Patient Comments Patient Comments Pt states that he forgot to tell the PT that after he walks about 2-3 miles, he notices that he lists to one side and occ stumbles. PT-OP-G Mobility & Gait Start: 08/13/20 08:05 Freq: Status: Active Protocol: Document 08/18/20 14:16 MB (Rec: 08/18/20 15:45 MB [id number]) OP Gait Assessment Gait Gait Assistance Required: Independent Distance (Feet) 1,693 Able to Maintain Weight Bearing Status Yes During Gait Assistive Devices Assistive Device Gait Belt Orthotic/Prosthetic Devices or Brace: No Comments Gait Comments Pt presents with little hip and pelvic movement with gait and decreased arm swing, greater on the left with most of arm swing happening at distal arms. He tends to keep fists closed with walking. His left shoulder is lower than the right and he occ has scuffing of his feet, right greater than left. His shoes are large as are his rain pants and this makes gait a little more difficult to assess as far as hip, knee and foot mechanics. His left knee appears to have a flexion and valgus component to weight acceptance compared to the right. PT-OP-K Range of Motion Start: 08/13/20 08:05 Freq: Status: Active Protocol: Document 08/18/20 14:16 MB (Rec: 08/18/20 15:45 MB [id number]) Shoulder Goniometric Range of Motion Shoulder Bilateral Shoulder ROM WFL Yes Testing Position Sitting PT-OP-M Strength Start: 08/13/20 08:05 Freq: Status: Active Protocol: Document 08/18/20 14:16 MB (Rec: 08/18/20 15:45 MB [id number]) Shoulder Strength Shoulder Manual Muscle Testing Left Flexion 5 Normal Abduction (C5) 5 Normal Right Flexion 5 Normal Abduction (C5) 5 Normal Elbow/Forearm Strength Elbow and Forearm Manual Muscle Testing Left Flexion (C6) 5 Normal Right Flexion (C6) 5 Normal Hip Strength Hip Manual Muscle Testing Left Flexion (L2) 4 Good Abduction 4 Good Right Flexion (L2) 4 Good Abduction 4 Good Ankle/Foot Strength Ankle and Foot Manual Muscle Testing Left Dorsiflexion (L4) 4 Good Right Dorsiflexion (L4) 5 Normal Toe Strength Toe Manual Muscle Testing Left Great Toe Extension 4 Good Right Great Toe Extension 5 Normal PT-OP-Q Treatments Start: 08/13/20 08:05 Freq: Status: Active Protocol: Document 08/21/20 14:15 MB (Rec: 08/21/20 15:36 MB [id number]) Therapeutic Exercises Sitting Exercises BIG forward reach Sitting Exercise Name Floor to ceiling Equipment Used Brown mesh chair outside on cement Reps/Minutes 5 reps Comments Cues for BIG hands/wrists BIG sit to stands Equipment Used Brown mesh chair outside on cement Reps/Minutes 10 reps Comments Cues for BIG reach forward, shift forward and hips back to sit BIG side to side Side bilateral Equipment Used Brown mesh chair outside on cement Reps/Minutes 6 reps to each side, alternate Comments Cues for palm up, BIG back leg Standing Exercises Side rock and reach Side bilateral Equipment Used Outside on cement Reps/Minutes 7 reps each side Comments Cues for hand position, pivot on foot Forward rock and reach Side bilateral Reps/Minutes 10 reps x2 d/t education Comments Cues for stance and tactile asst for BIG left arm ( shoulder extension) Backward stepping Side bilateral Equipment Used Outside on cement Reps/Minutes 5 reps each side Comments Cues for BIG step back, BIG front toe and BIG hands/wrists Side step Side bilateral Equipment Used Outside on cement Comments Cues for BIG start stance, BIG reach, look direction stepping and BIG finis Forward step Side bilateral Equipment Used Outside on cement Reps/Minutes 10 steps, alternating Comments Cues for BIG stance Therapeutic Activity Therapeutic Activity BIG in and out of car Reps/Minutes 2 min Comments Initiated BIG in and out of his Forester, flatbed driver's side. Pt 's steering wheel is low and there is not too much clearance for getting leg in BIG but PT demos BIG in and out with BIG step back, big sit, big right leg in and then big left leg in and big door shut and reverse to get out. 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 His arm swing is uncoordinated with most movement occuring at elbows and in arms with mild circumduction movement, little shoulder extension, greatest on the left. Multiple cues, tactile, visual and verbal for arm swing on the left. He has the best carryover after stopping to perform arm swing statically in forward rock and reach position. His posture is slumped some and PT does not notice particular listing to one side with 20' walking Self-Care/Home Management Treatment Activities Self-Care/Home Management Activities Ed in homework: exercises x2 a day, BIG walking x2 a day for 10 minutes, focusing on arm swing, big on the left PT-OP-T Assessment and Plan Start: 08/13/20 08:05 Freq: Status: Active Protocol: Document 08/21/20 14:15 MB (Rec: 08/21/20 15:36 MB [id number]) Physical Therapy Assessment Rehab Potential Rehabilitation Potential Good Evaluation Complexity Number of Personal Factors/Comorbidities 3 or More Number of Body Systems Impaired 1-2 Clinical Presentation at Evaluation Evolving Impairments Impairments Balance,Coordination, Functional Activities,Gait, Posture,Strength Other Impairments Impaired rapid supination and pronation, worse on the left. Impaired [id number] on the left, pt is right handed. Slower B toe tap over opposite foot, [place], some memory changes. Body systems include memory, neurological and orthostatic changes. Other Concerns Fall Risk Yes Goals 4 Senior Care Goal (LTG) Pt will perform 17 reps of sit to stand without UE support in 30 sec to improve functional strength by 09/22/20. LTG Duration 16 treatments 3 Senior Care Goal (LTG) Pt will gait train at least 1700 feet in 6 minutes performing a cognitive task for at least 3 minutes to improve community ambulation by 09/22/20. LTG Duration 16 treatments 2 Senior Care Goal (LTG) Pt will perform WNLs on a standardized balance test to decrease fall risk by 09/22/20. LTG Duration 16 treatments 1 Weed Cooking Operator Goal (LTG) Pt will perform BIG exercises and functional activities daily with I to improve amplitude, balance and gait by 09/22/20. LTG Duration 16 treatments Assessment Summary Assessment Initiated BIG walking today. Pt does have trouble coordinating arm swing and especially left shoulder extension. He tends to keep smaller stance for big forward rock and reach and has trouble pivoting for side reach. Con't progression. Pt is very motivated, asks good questions, has no symptoms of light-headedness or legs giving way or listing today with gait. Physical Therapy Plan Frequency and Duration Frequency of Treatment 16 treatments Duration of Treatment 16 treatments Plan of Care Start Date 08/18/20 Plan of Care End Date 09/22/20 Therapeutic Interventions Therapeutic Interventions Balance Training,Coordination Training,Gait Training,Home Exercise Program,Neuromuscular Re-education,Patient/ Caregiver Education,Self-Care/ Home Management,Therapeutic Activities,Therapeutic Exercises Modalities Cold Pack/Ice Massage,Hot Packs Other Referrals/Consults Referrals/Consults Recommended Follow-up with Dr. Romano about his medications (pt is unsure if she knows about [place] and his Carbidopa Levodopa instructions), follow -up with Dr. Romano about orthostatic hypotension Next Visit Focus/Plan Next Note Type Treatment Note Next Visit Plan Review BIG in and out of car and initiate BIG bed mobility
--- NOTE | 2020-08-25 15:51 | PT.OTN ---
Current Diagnoses Parkinson's disease (08/25/20) Physical Therapy Treatment Note PT-OP-A Visit Information Start: 08/13/20 08:05 Freq: Status: Active Protocol: Document 08/25/20 14:16 MB (Rec: 08/25/20 15:50 MB [id number]) Out-Patient Physical Therapy Visit Information Visit Information Visit Type Treatment Note Visit Start Time 14:16 Visit Stop Time 15:16 Total Visit Minutes 60 Visit Number 5 PT-OP-B Current Condition Start: 08/13/20 08:05 Freq: Status: Active Protocol: Document 08/18/20 14:17 MB (Rec: 08/18/20 14:43 MB [id number]) Current Condition History of Current Condition Onset Date 3 years since diagnosis Current Complaints Stiffness, tremor in right hand, not being able to walk as far as he'd like History of Current Condition Pt sees naturopathic doctor, Dr. Potter, for his PD. He takes Carbidopa Levodopa. He states he is on 3 pills a day but that he can take more if he does something strenuous. He has been taking four a day. He is taking a pill at 900, 1200, 1500 and 1800. His BIG referral was written by Dr. Romano, his DO and PCP. Pt states he bought the [employer] BIG videos because he was told it would be a few weeks getting into therapy. He was instructed by bone grinder to change his diet and was also put on [place] d/t he was found to have a deficiency per hair analysis. Pt states that his Carbidopa Levodopa helps him move more freely. Pt states that he gets up 3-4x/night to urinate. If he is really tired, he can get up just once a night. He notices that he wakes up and then feels like he needs to urinate. Pt reports that his first symptoms of PD was tremor in right hand. He has balance trouble. He feels like his legs are collapsing occ when he gets up to urinate at night and after he is up 15-20 minutes, he can move more readily. Pt lives with his . He has 3 steps and no rail to enter his home. Pt has a flight of steps with 1 rail once he is inside the house. Pt likes to walk for exercise. He walks 2-3 miles and would like to walk 4-5 miles. Pt has had 3 falls in the last year. He lost control of his legs one night and his had to help him up. Pt would like to work on stiffness. Pt participates with cooking and cleaning. Treatment Goals Patient/Caregiver Goals Decrease stiffness, no falls and walking further PT-OP-C Subjective Start: 08/13/20 08:05 Freq: Status: Active Protocol: Document 08/25/20 14:16 MB (Rec: 08/25/20 15:50 MB [id number]) OP-PT Subjective Patient Comments Patient Comments Pt did his exercises yesterday morning and then only the hardest four yesterday evening . His family was visiting for [facility]. Pt did not perform exercises this morning and was going to do it tonight and now he thinks he should do them in the morning on therapy days. He had speech this morning. PT-OP-G Mobility & Gait Start: 08/13/20 08:05 Freq: Status: Active Protocol: Document 08/18/20 14:16 MB (Rec: 08/18/20 15:45 MB [id number]) OP Gait Assessment Gait Gait Assistance Required: Independent Distance (Feet) 1,693 Able to Maintain Weight Bearing Status Yes During Gait Assistive Devices Assistive Device Gait Belt Orthotic/Prosthetic Devices or Brace: No Comments Gait Comments Pt presents with little hip and pelvic movement with gait and decreased arm swing, greater on the left with most of arm swing happening at distal arms. He tends to keep fists closed with walking. His left shoulder is lower than the right and he occ has scuffing of his feet, right greater than left. His shoes are large as are his rain pants and this makes gait a little more difficult to assess as far as hip, knee and foot mechanics. His left knee appears to have a flexion and valgus component to weight acceptance compared to the right. PT-OP-K Range of Motion Start: 08/13/20 08:05 Freq: Status: Active Protocol: Document 08/18/20 14:16 MB (Rec: 08/18/20 15:45 MB [id number]) Shoulder Goniometric Range of Motion Shoulder Bilateral Shoulder ROM WFL Yes Testing Position Sitting PT-OP-M Strength Start: 08/13/20 08:05 Freq: Status: Active Protocol: Document 08/18/20 14:16 MB (Rec: 08/18/20 15:45 MB [id number]) Shoulder Strength Shoulder Manual Muscle Testing Left Flexion 5 Normal Abduction (C5) 5 Normal Right Flexion 5 Normal Abduction (C5) 5 Normal Elbow/Forearm Strength Elbow and Forearm Manual Muscle Testing Left Flexion (C6) 5 Normal Right Flexion (C6) 5 Normal Hip Strength Hip Manual Muscle Testing Left Flexion (L2) 4 Good Abduction 4 Good Right Flexion (L2) 4 Good Abduction 4 Good Ankle/Foot Strength Ankle and Foot Manual Muscle Testing Left Dorsiflexion (L4) 4 Good Right Dorsiflexion (L4) 5 Normal Toe Strength Toe Manual Muscle Testing Left Great Toe Extension 4 Good Right Great Toe Extension 5 Normal PT-OP-Q Treatments Start: 08/13/20 08:05 Freq: Status: Active Protocol: Document 08/25/20 14:16 MB (Rec: 08/25/20 15:50 MB [id number]) Therapeutic Exercises Sitting Exercises BIG forward reach Sitting Exercise Name Floor to ceiling Equipment Used Brown mesh chair outside on cement Reps/Minutes 5 reps Comments Milaer performance today, pt cannot yet reach the ground BIG sit to stands Equipment Used Brown mesh chair outside on cement Reps/Minutes 10 reps Comments Once again, cues to reach/ weight shift forward and not down BIG side to side Side bilateral Equipment Used Brown mesh chair outside on cement Reps/Minutes 5 reps each side Comments Cues for palm up, BIG back leg Standing Exercises Side rock and reach Side bilateral Equipment Used Outside on cement Reps/Minutes 5 reps each side Comments Better pivot, cues for hand position Forward rock and reach Side bilateral Reps/Minutes 10 reps x2 Comments Verbal and tactile cues for BIG left arm swing Backward stepping Side bilateral Equipment Used Outside on cement Reps/Minutes 5 reps each side Comments Cues for BIG step back, BIG front toe and BIG hands/wrists Side step Side bilateral Equipment Used Outside on cement Comments Cues for BIG start stance, BIG reach, look direction stepping and BIG finis Forward step Side bilateral Equipment Used Outside on cement Reps/Minutes 10 steps Comments Cues for BIG stance Therapeutic Activity Therapeutic Activity BIG in and out of car Reps/Minutes 3 min Comments 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 Several reps, cues to step BIG to car, open door BIG, step BIG and then sit BIG and move right leg BIG in and then the left, then BIG door shut. Reverse for getting out of car. Time is 21 sec at its best today Gait Training Gait Activity BIG walking Device Used Gait belt, 2 gait sets with two sticks for swing cues Level of Assistance Superv and occ tactile assist for BIG left arm Surface Sidewalk, parking lot, carpet and tile Distance/Duration 25 min Treatment Focus BIG left arm Comments Use metronome at 100 today and this does help francisco. His steps are BIG. His arm swing is uncoordinated with right arm moving much more than the left and turn his body to the left with forward swing. Decreased left arm swing, especially in extension. 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 Pt presents with improved arm swing momentarily after stopping and practicing forward rock and reach. PT-OP-T Assessment and Plan Start: 08/13/20 08:05 Freq: Status: Active Protocol: Document 08/25/20 14:16 MB (Rec: 08/25/20 15:50 MB [id number]) Physical Therapy Assessment Rehab Potential Rehabilitation Potential Good Evaluation Complexity Number of Personal Factors/Comorbidities 3 or More Number of Body Systems Impaired 1-2 Clinical Presentation at Evaluation Evolving Impairments Impairments Balance,Coordination, Functional Activities,Gait, Posture,Strength Other Impairments Impaired rapid supination and pronation, worse on the left. Impaired [id number] on the left, pt is right handed. Slower B toe tap over opposite foot, BIG LAGOON, some memory changes. Body systems include memory, neurological and orthostatic changes. Other Concerns Fall Risk Yes Goals 4 Correction Goal (LTG) Pt will perform 17 reps of sit to stand without UE support in 30 sec to improve functional strength by 09/22/20. LTG Duration 16 treatments 3 Communication And Outreach Manager Goal (LTG) Pt will gait train at least 1700 feet in 6 minutes performing a cognitive task for at least 3 minutes to improve community ambulation by 09/22/20. LTG Duration 16 treatments 2 Communication And Outreach Manager Goal (LTG) Pt will perform WNLs on a standardized balance test to decrease fall risk by 09/22/20. LTG Duration 16 treatments 1 Correction Goal (LTG) Pt will perform BIG exercises and functional activities daily with I to improve amplitude, balance and gait by 09/22/20. LTG Duration 16 treatments Assessment Summary Assessment Pt reports frustration with his performance today and PT encourages him that he is doing well and will just con't to work on BIGness. Pt con't with some mild and transient chorea-type head and neck movement when initiating some tasks. He has some delayed processing with commands (? cognitive vs decreased hearing or both) and very limited left shoulder swing with gait. Metronome does help francisco today. The weather was nice and so focused on gait and car transfers today rather than bed mobility. Physical Therapy Plan Frequency and Duration Frequency of Treatment 16 treatments Duration of Treatment 16 treatments Plan of Care Start Date 08/18/20 Plan of Care End Date 09/22/20 Therapeutic Interventions Therapeutic Interventions Balance Training,Coordination Training,Gait Training,Home Exercise Program,Neuromuscular Re-education,Patient/ Caregiver Education,Self-Care/ Home Management,Therapeutic Activities,Therapeutic Exercises Modalities Cold Pack/Ice Massage,Hot Packs Other Referrals/Consults Referrals/Consults Recommended Follow-up with Dr. Romano about his medications (pt is unsure if she knows about [place] and his Carbidopa Levodopa instructions), follow -up with Dr. Romano about orthostatic hypotension Next Visit Focus/Plan Next Note Type Treatment Note Next Visit Plan Ongoing work on BIG left arm swing and initiate BIG bed mobility, try at least one BIG car transfer with gait trials
--- NOTE | 2020-08-26 15:41 | PT.OTN ---
Current Diagnoses Parkinson's disease (08/26/20) Physical Therapy Treatment Note PT-OP-A Visit Information Start: 08/13/20 08:05 Freq: Status: Active Protocol: Document 08/26/20 14:16 MB (Rec: 08/26/20 15:41 MB [id number]) Out-Patient Physical Therapy Visit Information Visit Information Visit Type Treatment Note Visit Start Time 14:16 Visit Stop Time 15:18 Total Visit Minutes 62 Visit Number 6 PT-OP-B Current Condition Start: 08/13/20 08:05 Freq: Status: Active Protocol: Document 08/18/20 14:17 MB (Rec: 08/18/20 14:43 MB [id number]) Current Condition History of Current Condition Onset Date 3 years since diagnosis Current Complaints Stiffness, tremor in right hand, not being able to walk as far as he'd like History of Current Condition Pt sees naturopathic doctor, Dr. Potter, for his PD. He takes Carbidopa Levodopa. He states he is on 3 pills a day but that he can take more if he does something strenuous. He has been taking four a day. He is taking a pill at 900, 1200, 1500 and 1800. His BIG referral was written by Dr. Romano, his DO and PCP. Pt states he bought the [employer] BIG videos because he was told it would be a few weeks getting into therapy. He was instructed by waxer floor to change his diet and was also put on Woodfin d/t he was found to have a deficiency per hair analysis. Pt states that his Carbidopa Levodopa helps him move more freely. Pt states that he gets up 3-4x/night to urinate. If he is really tired, he can get up just once a night. He notices that he wakes up and then feels like he needs to urinate. Pt reports that his first symptoms of PD was tremor in right hand. He has balance trouble. He feels like his legs are collapsing occ when he gets up to urinate at night and after he is up 15-20 minutes, he can move more readily. Pt lives with his . He has 3 steps and no rail to enter his home. Pt has a flight of steps with 1 rail once he is inside the house. Pt likes to walk for exercise. He walks 2-3 miles and would like to walk 4-5 miles. Pt has had 3 falls in the last year. He lost control of his legs one night and his had to help him up. Pt would like to work on stiffness. Pt participates with cooking and cleaning. Treatment Goals Patient/Caregiver Goals Decrease stiffness, no falls and walking further PT-OP-C Subjective Start: 08/13/20 08:05 Freq: Status: Active Protocol: Document 08/26/20 14:16 MB (Rec: 08/26/20 15:41 MB [id number]) OP-PT Subjective Patient Comments Patient Comments Pt states that he was hard on himself this morning and practiced forward rock and reach about 1.5 hours with his , Talon. PT-OP-G Mobility & Gait Start: 08/13/20 08:05 Freq: Status: Active Protocol: Document 08/18/20 14:16 MB (Rec: 08/18/20 15:45 MB [id number]) OP Gait Assessment Gait Gait Assistance Required: Independent Distance (Feet) 1,693 Able to Maintain Weight Bearing Status Yes During Gait Assistive Devices Assistive Device Gait Belt Orthotic/Prosthetic Devices or Brace: No Comments Gait Comments Pt presents with little hip and pelvic movement with gait and decreased arm swing, greater on the left with most of arm swing happening at distal arms. He tends to keep fists closed with walking. His left shoulder is lower than the right and he occ has scuffing of his feet, right greater than left. His shoes are large as are his rain pants and this makes gait a little more difficult to assess as far as hip, knee and foot mechanics. His left knee appears to have a flexion and valgus component to weight acceptance compared to the right. PT-OP-K Range of Motion Start: 08/13/20 08:05 Freq: Status: Active Protocol: Document 08/18/20 14:16 MB (Rec: 08/18/20 15:45 MB [id number]) Shoulder Goniometric Range of Motion Shoulder Bilateral Shoulder ROM WFL Yes Testing Position Sitting PT-OP-M Strength Start: 08/13/20 08:05 Freq: Status: Active Protocol: Document 08/18/20 14:16 MB (Rec: 08/18/20 15:45 MB [id number]) Shoulder Strength Shoulder Manual Muscle Testing Left Flexion 5 Normal Abduction (C5) 5 Normal Right Flexion 5 Normal Abduction (C5) 5 Normal Elbow/Forearm Strength Elbow and Forearm Manual Muscle Testing Left Flexion (C6) 5 Normal Right Flexion (C6) 5 Normal Hip Strength Hip Manual Muscle Testing Left Flexion (L2) 4 Good Abduction 4 Good Right Flexion (L2) 4 Good Abduction 4 Good Ankle/Foot Strength Ankle and Foot Manual Muscle Testing Left Dorsiflexion (L4) 4 Good Right Dorsiflexion (L4) 5 Normal Toe Strength Toe Manual Muscle Testing Left Great Toe Extension 4 Good Right Great Toe Extension 5 Normal PT-OP-Q Treatments Start: 08/13/20 08:05 Freq: Status: Active Protocol: Document 08/26/20 14:16 MB (Rec: 08/26/20 15:41 MB [id number]) Therapeutic Exercises Sitting Exercises BIG forward reach Sitting Exercise Name Floor to ceiling Equipment Used Brown mesh chair in clinic gym Reps/Minutes 7 reps Comments Added flicks last 3 reps BIG sit to stands Equipment Used Brown mesh chair and blue mat under feet Reps/Minutes 10 reps Comments Cues for leaning forward and not downward to stand up, shift weight forward BIG side to side Side bilateral Equipment Used Brown mesh chair in gym Reps/Minutes 5 reps each side Comments Flicks added, better big hand up today Standing Exercises Side rock and reach Side bilateral Equipment Used On carpet Reps/Minutes 5 reps each side Comments Cues for arms up horizontal, john the left Forward rock and reach Side bilateral Equipment Used Standing on blue mat in gym Reps/Minutes 10 reps Comments Improvement in left arm swing, can tell pt has been working on it Backward stepping Side bilateral Equipment Used Standing on blue mat in gym Reps/Minutes 5 reps each side Comments Cues for BIG wrists/hands Side step Side bilateral Equipment Used Standing on blue mat Comments Cues for big back arm and look direction stepping Forward step Side bilateral Equipment Used Standing on blue mat Reps/Minutes 10 steps Comments Better BIG stance today Therapeutic Activity Therapeutic Activity BIG rolling and supine to sit, BIG sheet on and off Reps/Minutes 15' Comments Performing BIG rolling and sit to sidelying and BIG sheet on and off was too many tasks to perform at once and so divided up: BIG stepping to black mat the height of his bed, BIG sit down, BIG side lying on the left (log roll style), BIG roll to back, BIG right arm out to prepare to roll to left and then BIG left side lying to sit using UEs and legs coming off. Several trials. Cues for BIG bridge, lifting hips to scoot to edge of mat to check orthostatics. For sheet: PT holds it tight at the end of mat and cues to bend knees BIG, get right arm out BIG, flip sheet back to the right to prepare to roll to the left to get OOB Self-Care/Home Management Treatment Activities Self-Care/Home Management Activities Pt states that he gets OOB and lies on the floor before getting up to go to the bath room in order to stretch his quads on the floor in semi prone. Ed pt in sitting thoracic extension and arms back like floor to ceiling exercise on the EOB before getting OOB and LAQ to help with preparing sit to stand d/ t orthostasis. Ed pt in benefits of talking with doctor about magnesium for reports of hamstring/muscle stiffness at night, work on alternate arm swing and forward stepping with feet with gait, count out loud with BIG exercises PT-OP-T Assessment and Plan Start: 08/13/20 08:05 Freq: Status: Active Protocol: Document 08/26/20 14:16 MB (Rec: 08/26/20 15:41 MB [id number]) Physical Therapy Assessment Rehab Potential Rehabilitation Potential Good Evaluation Complexity Number of Personal Factors/Comorbidities 3 or More Number of Body Systems Impaired 1-2 Clinical Presentation at Evaluation Evolving Impairments Impairments Balance,Coordination, Functional Activities,Gait, Posture,Strength Other Impairments Impaired rapid supination and pronation, worse on the left. Impaired [id number] on the left, pt is right handed. Slower B toe tap over opposite foot, [place], some memory changes. Body systems include memory, neurological and orthostatic changes. Other Concerns Fall Risk Yes Goals 4 [employer] Goal (LTG) Pt will perform 17 reps of sit to stand without UE support in 30 sec to improve functional strength by 09/22/20. LTG Duration 16 treatments 3 [employer] Goal (LTG) Pt will gait train at least 1700 feet in 6 minutes performing a cognitive task for at least 3 minutes to improve community ambulation by 09/22/20. LTG Duration 16 treatments 2 [employer] Goal (LTG) Pt will perform WNLs on a standardized balance test to decrease fall risk by 09/22/20. LTG Duration 16 treatments 1 Detention Goal (LTG) Pt will perform BIG exercises and functional activities daily with I to improve amplitude, balance and gait by 09/22/20. LTG Duration 16 treatments Assessment Summary Assessment Pt demonstrates better left arm extension with forward rock and reach today. He con't with orthostatic hypotension with BP and HR in LUE: supine 161/92, 72; standing 143/84, 82; standing 1' 122/78, 82; standing 2' 119/78, 79; standing 3' 111/77, 81; standing 4' 113/75, 82. BP takes 4' to stabilize. Ed pt that it would be safer for him to sit on the EOB and gentle move before getting up to toilet rather than get down on the floor because it takes 4' for his BP to stabilize and by the time he gets off the floor to go to BR, his BP could drop again. Con't BIG walking, therapeutic activities, see below for exercise progression plan. Physical Therapy Plan Frequency and Duration Frequency of Treatment 16 treatments Duration of Treatment 16 treatments Plan of Care Start Date 08/18/20 Plan of Care End Date 09/22/20 Therapeutic Interventions Therapeutic Interventions Balance Training,Coordination Training,Gait Training,Home Exercise Program,Neuromuscular Re-education,Patient/ Caregiver Education,Self-Care/ Home Management,Therapeutic Activities,Therapeutic Exercises Modalities Cold Pack/Ice Massage,Hot Packs Other Referrals/Consults Referrals/Consults Recommended Follow-up with Dr. Romano about his medications (pt is unsure if she knows about Woodfin and his Carbidopa Levodopa instructions), follow -up with Dr. Romano about orthostatic hypotension and possible magnesium. Next Visit Focus/Plan Next Note Type Treatment Note Next Visit Plan BIG walking and check BP before, middle and after gait, BIG sheet on and off and BIG rolling and in and OOB. For exercises, con't flicks on floor to ceiling and side to side sitting exercises and advance to alternating sides for exercises
--- NOTE | 2020-08-27 15:37 | PT.OTN ---
Current Diagnoses Parkinson's disease (08/27/20) Physical Therapy Treatment Note PT-OP-A Visit Information Start: 08/13/20 08:05 Freq: Status: Active Protocol: Document 08/27/20 14:17 MB (Rec: 08/27/20 15:37 MB [id number]) Out-Patient Physical Therapy Visit Information Visit Information Visit Type Treatment Note Visit Start Time 14:17 Visit Stop Time 15:17 Total Visit Minutes 60 Visit Number 7 PT-OP-B Current Condition Start: 08/13/20 08:05 Freq: Status: Active Protocol: Document 08/18/20 14:17 MB (Rec: 08/18/20 14:43 MB [id number]) Current Condition History of Current Condition Onset Date 3 years since diagnosis Current Complaints Stiffness, tremor in right hand, not being able to walk as far as he'd like History of Current Condition Pt sees naturopathic doctor, Dr. Potter, for his PD. He takes Carbidopa Levodopa. He states he is on 3 pills a day but that he can take more if he does something strenuous. He has been taking four a day. He is taking a pill at 900, 1200, 1500 and 1800. His BIG referral was written by Dr. Romano, his DO and PCP. Pt states he bought the [employer] BIG videos because he was told it would be a few weeks getting into therapy. He was instructed by clerical grader to change his diet and was also put on [place] d/t he was found to have a deficiency per hair analysis. Pt states that his Carbidopa Levodopa helps him move more freely. Pt states that he gets up 3-4x/night to urinate. If he is really tired, he can get up just once a night. He notices that he wakes up and then feels like he needs to urinate. Pt reports that his first symptoms of PD was tremor in right hand. He has balance trouble. He feels like his legs are collapsing occ when he gets up to urinate at night and after he is up 15-20 minutes, he can move more readily. Pt lives with his . He has 3 steps and no rail to enter his home. Pt has a flight of steps with 1 rail once he is inside the house. Pt likes to walk for exercise. He walks 2-3 miles and would like to walk 4-5 miles. Pt has had 3 falls in the last year. He lost control of his legs one night and his had to help him up. Pt would like to work on stiffness. Pt participates with cooking and cleaning. Treatment Goals Patient/Caregiver Goals Decrease stiffness, no falls and walking further PT-OP-C Subjective Start: 08/13/20 08:05 Freq: Status: Active Protocol: Document 08/27/20 14:17 MB (Rec: 08/27/20 15:37 MB [id number]) OP-PT Subjective Patient Comments Patient Comments Pt states that he slept a long time last night, about 11 hours. He did get up 3-4 times and states that he sat on the edge of the bed rather than getting down on the floor. He wears a different pair of shoes today that are size 13 in order to accommodate his bunion. PT-OP-G Mobility & Gait Start: 08/13/20 08:05 Freq: Status: Active Protocol: Document 08/18/20 14:16 MB (Rec: 08/18/20 15:45 MB [id number]) OP Gait Assessment Gait Gait Assistance Required: Independent Distance (Feet) 1,693 Able to Maintain Weight Bearing Status Yes During Gait Assistive Devices Assistive Device Gait Belt Orthotic/Prosthetic Devices or Brace: No Comments Gait Comments Pt presents with little hip and pelvic movement with gait and decreased arm swing, greater on the left with most of arm swing happening at distal arms. He tends to keep fists closed with walking. His left shoulder is lower than the right and he occ has scuffing of his feet, right greater than left. His shoes are large as are his rain pants and this makes gait a little more difficult to assess as far as hip, knee and foot mechanics. His left knee appears to have a flexion and valgus component to weight acceptance compared to the right. PT-OP-K Range of Motion Start: 08/13/20 08:05 Freq: Status: Active Protocol: Document 08/18/20 14:16 MB (Rec: 08/18/20 15:45 MB [id number]) Shoulder Goniometric Range of Motion Shoulder Bilateral Shoulder ROM WFL Yes Testing Position Sitting PT-OP-M Strength Start: 08/13/20 08:05 Freq: Status: Active Protocol: Document 08/18/20 14:16 MB (Rec: 08/18/20 15:45 MB [id number]) Shoulder Strength Shoulder Manual Muscle Testing Left Flexion 5 Normal Abduction (C5) 5 Normal Right Flexion 5 Normal Abduction (C5) 5 Normal Elbow/Forearm Strength Elbow and Forearm Manual Muscle Testing Left Flexion (C6) 5 Normal Right Flexion (C6) 5 Normal Hip Strength Hip Manual Muscle Testing Left Flexion (L2) 4 Good Abduction 4 Good Right Flexion (L2) 4 Good Abduction 4 Good Ankle/Foot Strength Ankle and Foot Manual Muscle Testing Left Dorsiflexion (L4) 4 Good Right Dorsiflexion (L4) 5 Normal Toe Strength Toe Manual Muscle Testing Left Great Toe Extension 4 Good Right Great Toe Extension 5 Normal PT-OP-Q Treatments Start: 08/13/20 08:05 Freq: Status: Active Protocol: Document 08/27/20 14:17 MB (Rec: 08/27/20 15:37 MB [id number]) Therapeutic Exercises Sitting Exercises BIG forward reach Sitting Exercise Name Floor to ceiling Equipment Used Brown mesh chair in clinic gym Reps/Minutes 5 reps Comments Flicks, increased cervical movement with flicks BIG sit to stands Equipment Used Brown mesh chair and blue mat under feet Reps/Minutes 10 reps Comments Improvement in forward weight shift today BIG side to side Side bilateral Equipment Used Brown mesh chair in gym Reps/Minutes 5 reps each side, alternating Comments Flicks again today, head movement with flicks Standing Exercises Side rock and reach Side bilateral Equipment Used On blue mat Reps/Minutes 5 reps each side Comments Cues for arms up horizontal, john the left Forward rock and reach Side bilateral Equipment Used Standing on blue mat Reps/Minutes 10 reps Comments Improvement in left arm swing, pt does have trouble with BIG heel and toe Backward stepping Side bilateral Equipment Used Standing on blue mat Reps/Minutes 10 reps each side, alternating Comments Cues for BIG wrists/hands Side step Side bilateral Equipment Used Standing on blue mat Reps/Minutes 5 reps alternating Comments Cues for BIG left arm Forward step Side bilateral Equipment Used Standing on blue mat Reps/Minutes 15 reps, alternating Comments Better BIG stance today Therapeutic Activity Therapeutic Activity BIG rolling and supine to sit, BIG sheet on and off Name BIG transfer, sit to side lying and rolling Reps/Minutes 7' Comments Did not perform sheet training today. Focus on BIG steps to bed, BIG side lying to left, BIG rolling to back and then BIG right arm and roll back to left and then moving from side lying to sitting writing Reps/Minutes 7' Comments Check copies on pages, pt has trouble with sequencing writing date first, putting in numerical numbers and then writing out amount: he tends to draw a line under the cent amount on numerical line despite cues not to do this, he forgets - between fifty- five. His cursive is more legible than printing (he writes with capitals) and he has less space between words with printing. His writing appears labor intensive, con't to work on. Did use gel pen today. Gait Training Gait Activity BIG walking Device Used Gait belt Level of Assistance Superv and cues Surface Carpet, Tile Distance/Duration 8' Treatment Focus BIG upright, clear feet Comments Pt tends to drag the shoes he is wearing today and so gait training kept short and focused on BIG chest, arm swing and initiated ed on scanning ahead. Check BP before and after gait, see assessment PT-OP-T Assessment and Plan Start: 08/13/20 08:05 Freq: Status: Active Protocol: Document 08/27/20 14:17 MB (Rec: 08/27/20 15:37 MB [id number]) Physical Therapy Assessment Rehab Potential Rehabilitation Potential Good Evaluation Complexity Number of Personal Factors/Comorbidities 3 or More Number of Body Systems Impaired 1-2 Clinical Presentation at Evaluation Evolving Impairments Impairments Balance,Coordination, Functional Activities,Gait, Posture,Strength Other Impairments Impaired rapid supination and pronation, worse on the left. Impaired [id number] on the left, pt is right handed. Slower B toe tap over opposite foot, [place], some memory changes. Body systems include memory, neurological and orthostatic changes. Other Concerns Fall Risk Yes Goals 4 Longterm Goal (LTG) Pt will perform 17 reps of sit to stand without UE support in 30 sec to improve functional strength by 09/22/20. LTG Duration 16 treatments 3 Parcel Post Clerk Goal (LTG) Pt will gait train at least 1700 feet in 6 minutes performing a cognitive task for at least 3 minutes to improve community ambulation by 09/22/20. LTG Duration 16 treatments 2 Longterm Goal (LTG) Pt will perform WNLs on a standardized balance test to decrease fall risk by 09/22/20. LTG Duration 16 treatments 1 Longterm Goal (LTG) Pt will perform BIG exercises and functional activities daily with I to improve amplitude, balance and gait by 09/22/20. LTG Duration 16 treatments Assessment Summary Assessment Pt's shoes are large and he tends to scuff his feet with all stepping today. Ed for him to wear his other shoes tomorrow. Check writing is challenging with spacing between words and cognitive sequencing and recalling of amount. He presents with head movement with flicks and this appears neuromotor in nature. BP and HR in LUE sitting before gait: 125/77, 66; standing 114/79, 74 and after 8' gait 113/68, 78. Pt will ask Dr. Spangler about getting compression hose at next doctor's visit. Physical Therapy Plan Frequency and Duration Frequency of Treatment 16 treatments Duration of Treatment 16 treatments Plan of Care Start Date 08/18/20 Plan of Care End Date 09/22/20 Therapeutic Interventions Therapeutic Interventions Balance Training,Coordination Training,Gait Training,Home Exercise Program,Neuromuscular Re-education,Patient/ Caregiver Education,Self-Care/ Home Management,Therapeutic Activities,Therapeutic Exercises Modalities Cold Pack/Ice Massage,Hot Packs Other Referrals/Consults Referrals/Consults Recommended Follow-up with Dr. Romano about his medications (pt is unsure if she knows about [place] and his Carbidopa Levodopa instructions), follow -up with Dr. Romano about orthostatic hypotension and possible magnesium. Next Visit Focus/Plan Next Note Type Treatment Note Next Visit Plan Con't with cues for BIG posture with gait, scanning ahead, advance to pulling golf bag, ongoing BIG writing, progression of alternating all exercises and flicks
--- NOTE | 2020-08-28 15:48 | PT.OTN ---
Current Diagnoses Parkinson's disease (08/28/20) Physical Therapy Treatment Note PT-OP-A Visit Information Start: 08/13/20 08:05 Freq: Status: Active Protocol: Document 08/28/20 14:17 MB (Rec: 08/28/20 15:48 MB [id number]) Out-Patient Physical Therapy Visit Information Visit Information Visit Type Treatment Note Visit Start Time 14:17 Visit Stop Time 15:17 Total Visit Minutes 60 Visit Number 8 PT-OP-B Current Condition Start: 08/13/20 08:05 Freq: Status: Active Protocol: Document 08/18/20 14:17 MB (Rec: 08/18/20 14:43 MB [id number]) Current Condition History of Current Condition Onset Date 3 years since diagnosis Current Complaints Stiffness, tremor in right hand, not being able to walk as far as he'd like History of Current Condition Pt sees naturopathic doctor, Dr. Potter, for his PD. He takes Carbidopa Levodopa. He states he is on 3 pills a day but that he can take more if he does something strenuous. He has been taking four a day. He is taking a pill at 900, 1200, 1500 and 1800. His BIG referral was written by Dr. Romano, his DO and PCP. Pt states he bought the [employer] BIG videos because he was told it would be a few weeks getting into therapy. He was instructed by teacher ballet to change his diet and was also put on [place] d/t he was found to have a deficiency per hair analysis. Pt states that his Carbidopa Levodopa helps him move more freely. Pt states that he gets up 3-4x/night to urinate. If he is really tired, he can get up just once a night. He notices that he wakes up and then feels like he needs to urinate. Pt reports that his first symptoms of PD was tremor in right hand. He has balance trouble. He feels like his legs are collapsing occ when he gets up to urinate at night and after he is up 15-20 minutes, he can move more readily. Pt lives with his . He has 3 steps and no rail to enter his home. Pt has a flight of steps with 1 rail once he is inside the house. Pt likes to walk for exercise. He walks 2-3 miles and would like to walk 4-5 miles. Pt has had 3 falls in the last year. He lost control of his legs one night and his had to help him up. Pt would like to work on stiffness. Pt participates with cooking and cleaning. Treatment Goals Patient/Caregiver Goals Decrease stiffness, no falls and walking further PT-OP-C Subjective Start: 08/13/20 08:05 Freq: Status: Active Protocol: Document 08/28/20 14:17 MB (Rec: 08/28/20 15:48 MB [id number]) OP-PT Subjective Patient Comments Patient Comments Pt states that his right shoulder is hurting and he requests to stop the flicks today. He reports that the sit to stands are making getting off the commode easier. Rolling over in bed and getting in and out of bed are getting easier. PT-OP-G Mobility & Gait Start: 08/13/20 08:05 Freq: Status: Active Protocol: Document 08/18/20 14:16 MB (Rec: 08/18/20 15:45 MB [id number]) OP Gait Assessment Gait Gait Assistance Required: Independent Distance (Feet) 1,693 Able to Maintain Weight Bearing Status Yes During Gait Assistive Devices Assistive Device Gait Belt Orthotic/Prosthetic Devices or Brace: No Comments Gait Comments Pt presents with little hip and pelvic movement with gait and decreased arm swing, greater on the left with most of arm swing happening at distal arms. He tends to keep fists closed with walking. His left shoulder is lower than the right and he occ has scuffing of his feet, right greater than left. His shoes are large as are his rain pants and this makes gait a little more difficult to assess as far as hip, knee and foot mechanics. His left knee appears to have a flexion and valgus component to weight acceptance compared to the right. PT-OP-K Range of Motion Start: 08/13/20 08:05 Freq: Status: Active Protocol: Document 08/18/20 14:16 MB (Rec: 08/18/20 15:45 MB [id number]) Shoulder Goniometric Range of Motion Shoulder Bilateral Shoulder ROM WFL Yes Testing Position Sitting PT-OP-M Strength Start: 08/13/20 08:05 Freq: Status: Active Protocol: Document 08/18/20 14:16 MB (Rec: 08/18/20 15:45 MB [id number]) Shoulder Strength Shoulder Manual Muscle Testing Left Flexion 5 Normal Abduction (C5) 5 Normal Right Flexion 5 Normal Abduction (C5) 5 Normal Elbow/Forearm Strength Elbow and Forearm Manual Muscle Testing Left Flexion (C6) 5 Normal Right Flexion (C6) 5 Normal Hip Strength Hip Manual Muscle Testing Left Flexion (L2) 4 Good Abduction 4 Good Right Flexion (L2) 4 Good Abduction 4 Good Ankle/Foot Strength Ankle and Foot Manual Muscle Testing Left Dorsiflexion (L4) 4 Good Right Dorsiflexion (L4) 5 Normal Toe Strength Toe Manual Muscle Testing Left Great Toe Extension 4 Good Right Great Toe Extension 5 Normal PT-OP-Q Treatments Start: 08/13/20 08:05 Freq: Status: Active Protocol: Document 08/28/20 14:17 MB (Rec: 08/28/20 15:48 MB [id number]) Therapeutic Exercises Sitting Exercises BIG forward reach Sitting Exercise Name Floor to ceiling Equipment Used Brown mesh chair in clinic gym Reps/Minutes 5 reps Comments No flicks BIG sit to stands Equipment Used Brown mesh chair and blue mat under feet Reps/Minutes 15 reps Comments Cues to reach forward and not down, turn left hand out with standing BIG side to side Side bilateral Equipment Used Brown mesh chair in gym Reps/Minutes 5 reps each side, alternating Comments No flicks, better BIG back leg Standing Exercises Side rock and reach Side bilateral Equipment Used Pt cannot pivot on blue mat and so moved to carpet Reps/Minutes 5 reps each side Comments Cues for pivot and for arms up horizontal, john the left Forward rock and reach Side bilateral Equipment Used Standing on blue mat Reps/Minutes 10 reps Comments Improvement in left arm swing, pt does have trouble with BIG heel and toe Backward stepping Side bilateral Equipment Used Standing on blue mat Reps/Minutes 10 reps each side, alternating Comments Cues for BIG wrists/hands Side step Side bilateral Equipment Used Standing on blue mat Reps/Minutes 10 reps alternating Comments Cues for BIG left arm Forward step Side bilateral Equipment Used Standing on blue mat Reps/Minutes 15 reps, alternating Comments Better BIG stance today Therapeutic Activity Therapeutic Activity BIG rolling and supine to sit, BIG sheet on and off Name BIG transfer, sit to side lying and rolling Reps/Minutes 5' Comments Some improvement in BIG roll to the left using right arm today writing Reps/Minutes 5' Comments Check copies on pages, initial cues for sequencing writing date first, then payee name, and not putting 00/100 in amount line. Pt has trouble with spacing and remembering the numerical amount when writing it out. He fatigues of task quickly. Gait Training Gait Activity BIG walking Device Used Gait belt Level of Assistance Superv and cues Surface [place] side walk, parking lot Distance/Duration 20' Treatment Focus BIG upright, scan ahead, BIG left arm Comments Pt clears feet much better in the shoes he wears today. He tends to swing his left arm more when he is holding golf club in right hand, pt con't with trouble with coordinating BIG and alternating arm swing with stepping. He does look better when cued to look up to scan and lead with chest like a dara entering. PT-OP-T Assessment and Plan Start: 08/13/20 08:05 Freq: Status: Active Protocol: Document 08/28/20 14:17 MB (Rec: 08/28/20 15:48 MB [id number]) Physical Therapy Assessment Rehab Potential Rehabilitation Potential Good Evaluation Complexity Number of Personal Factors/Comorbidities 3 or More Number of Body Systems Impaired 1-2 Clinical Presentation at Evaluation Evolving Impairments Impairments Balance,Coordination, Functional Activities,Gait, Posture,Strength Other Impairments Impaired rapid supination and pronation, worse on the left. Impaired [id number] on the left, pt is right handed. Slower B toe tap over opposite foot, [place], some memory changes. Body systems include memory, neurological and orthostatic changes. Other Concerns Fall Risk Yes Goals 4 Turf Farmer Goal (LTG) Pt will perform 17 reps of sit to stand without UE support in 30 sec to improve functional strength by 09/22/20. LTG Duration 16 treatments 3 Turf Farmer Goal (LTG) Pt will gait train at least 1700 feet in 6 minutes performing a cognitive task for at least 3 minutes to improve community ambulation by 09/22/20. LTG Duration 16 treatments 2 Snf Goal (LTG) Pt will perform WNLs on a standardized balance test to decrease fall risk by 09/22/20. LTG Duration 16 treatments 1 Snf Goal (LTG) Pt will perform BIG exercises and functional activities daily with I to improve amplitude, balance and gait by 09/22/20. LTG Duration 16 treatments Assessment Summary Assessment Pt presents with right shoulder tension after flicks yesterday and PT performs short myofascial release of biceps and deltoids and it feels better to palpation and subjectively. Pt presents with improvements with exercises and bed mobility. He still has trouble with writing checks. Gait is challenging as far as arm swing coordination and left shoulder extension, will con't to work on. Physical Therapy Plan Frequency and Duration Frequency of Treatment 16 treatments Duration of Treatment 16 treatments Plan of Care Start Date 08/18/20 Plan of Care End Date 09/22/20 Therapeutic Interventions Therapeutic Interventions Balance Training,Coordination Training,Gait Training,Home Exercise Program,Neuromuscular Re-education,Patient/ Caregiver Education,Self-Care/ Home Management,Therapeutic Activities,Therapeutic Exercises Modalities Cold Pack/Ice Massage,Hot Packs Other Referrals/Consults Referrals/Consults Recommended Follow-up with Dr. Romano about his medications (pt is unsure if she knows about [place] and his Carbidopa Levodopa instructions), follow -up with Dr. Romano about orthostatic hypotension and possible magnesium. Next Visit Focus/Plan Next Note Type Treatment Note Next Visit Plan Back off flicks and con't alternating with exercises, advance gait with pulling his golf cart
--- NOTE | 2020-09-01 15:35 | PT.OTN ---
Current Diagnoses Parkinson's disease (09/01/20) Physical Therapy Treatment Note PT-OP-A Visit Information Start: 08/13/20 08:05 Freq: Status: Active Protocol: Document 09/01/20 14:16 MB (Rec: 09/01/20 15:35 MB [id number]) Out-Patient Physical Therapy Visit Information Visit Information Visit Type Treatment Note Visit Start Time 14:16 Visit Stop Time 15:10 Total Visit Minutes 54 Visit Number 9 PT-OP-B Current Condition Start: 08/13/20 08:05 Freq: Status: Active Protocol: Document 08/18/20 14:17 MB (Rec: 08/18/20 14:43 MB [id number]) Current Condition History of Current Condition Onset Date 3 years since diagnosis Current Complaints Stiffness, tremor in right hand, not being able to walk as far as he'd like History of Current Condition Pt sees naturopathic doctor, Dr. Potter, for his PD. He takes Carbidopa Levodopa. He states he is on 3 pills a day but that he can take more if he does something strenuous. He has been taking four a day. He is taking a pill at 900, 1200, 1500 and 1800. His BIG referral was written by Dr. Romano, his DO and PCP. Pt states he bought the [employer] BIG videos because he was told it would be a few weeks getting into therapy. He was instructed by car stereo installer to change his diet and was also put on [place] d/t he was found to have a deficiency per hair analysis. Pt states that his Carbidopa Levodopa helps him move more freely. Pt states that he gets up 3-4x/night to urinate. If he is really tired, he can get up just once a night. He notices that he wakes up and then feels like he needs to urinate. Pt reports that his first symptoms of PD was tremor in right hand. He has balance trouble. He feels like his legs are collapsing occ when he gets up to urinate at night and after he is up 15-20 minutes, he can move more readily. Pt lives with his . He has 3 steps and no rail to enter his home. Pt has a flight of steps with 1 rail once he is inside the house. Pt likes to walk for exercise. He walks 2-3 miles and would like to walk 4-5 miles. Pt has had 3 falls in the last year. He lost control of his legs one night and his had to help him up. Pt would like to work on stiffness. Pt participates with cooking and cleaning. Treatment Goals Patient/Caregiver Goals Decrease stiffness, no falls and walking further PT-OP-C Subjective Start: 08/13/20 08:05 Freq: Status: Active Protocol: Document 09/01/20 14:16 MB (Rec: 09/01/20 15:35 MB [id number]) OP-PT Subjective Patient Comments Patient Comments Pt states that he would like to work on the BIG exercises and walking and not on writing or BIG transfers. He reports he can do the transfers and BIG writing at home. PT-OP-G Mobility & Gait Start: 08/13/20 08:05 Freq: Status: Active Protocol: Document 08/18/20 14:16 MB (Rec: 08/18/20 15:45 MB [id number]) OP Gait Assessment Gait Gait Assistance Required: Independent Distance (Feet) 1,693 Able to Maintain Weight Bearing Status Yes During Gait Assistive Devices Assistive Device Gait Belt Orthotic/Prosthetic Devices or Brace: No Comments Gait Comments Pt presents with little hip and pelvic movement with gait and decreased arm swing, greater on the left with most of arm swing happening at distal arms. He tends to keep fists closed with walking. His left shoulder is lower than the right and he occ has scuffing of his feet, right greater than left. His shoes are large as are his rain pants and this makes gait a little more difficult to assess as far as hip, knee and foot mechanics. His left knee appears to have a flexion and valgus component to weight acceptance compared to the right. PT-OP-K Range of Motion Start: 08/13/20 08:05 Freq: Status: Active Protocol: Document 08/18/20 14:16 MB (Rec: 08/18/20 15:45 MB [id number]) Shoulder Goniometric Range of Motion Shoulder Bilateral Shoulder ROM WFL Yes Testing Position Sitting PT-OP-M Strength Start: 08/13/20 08:05 Freq: Status: Active Protocol: Document 08/18/20 14:16 MB (Rec: 08/18/20 15:45 MB [id number]) Shoulder Strength Shoulder Manual Muscle Testing Left Flexion 5 Normal Abduction (C5) 5 Normal Right Flexion 5 Normal Abduction (C5) 5 Normal Elbow/Forearm Strength Elbow and Forearm Manual Muscle Testing Left Flexion (C6) 5 Normal Right Flexion (C6) 5 Normal Hip Strength Hip Manual Muscle Testing Left Flexion (L2) 4 Good Abduction 4 Good Right Flexion (L2) 4 Good Abduction 4 Good Ankle/Foot Strength Ankle and Foot Manual Muscle Testing Left Dorsiflexion (L4) 4 Good Right Dorsiflexion (L4) 5 Normal Toe Strength Toe Manual Muscle Testing Left Great Toe Extension 4 Good Right Great Toe Extension 5 Normal PT-OP-Q Treatments Start: 08/13/20 08:05 Freq: Status: Active Protocol: Document 09/01/20 14:16 MB (Rec: 09/01/20 15:35 MB [id number]) Therapeutic Exercises Sitting Exercises BIG forward reach Sitting Exercise Name Floor to ceiling Equipment Used Brown mesh chair outside Reps/Minutes 10 reps Comments No flicks BIG sit to stands Equipment Used Brown mesh chair outside Reps/Minutes 10 reps Comments Cues to reach and shift weight forward BIG side to side Side bilateral Equipment Used Brown mesh chair outside Reps/Minutes 10 reps each side alternating Comments No flicks, better BIG back leg Standing Exercises Side rock and reach Side bilateral Equipment Used Sidewalk outside clinic Reps/Minutes 10 reps each side Comments Cues for pivot and pt tends to only lift heel on the left Forward rock and reach Side bilateral Equipment Used Outside on sidewalk Reps/Minutes 10 reps x2 Comments Improvement in left arm swing, pt does have trouble with BIG heel and toe Backward stepping Side bilateral Equipment Used Outside on sidewalk Reps/Minutes 10 reps each side, alternating Comments Better BIG hands today, pt does seem to get off a step every now and then Side step Side bilateral Equipment Used Outside on sidewalk Reps/Minutes 10 reps alternating Comments Better BIG arm today, cues to look to center and then to side stepping Forward step Side bilateral Equipment Used Outside on sidewalk Reps/Minutes 10 reps, alternating Comments Ongoing cues for BIG stance Gait Training Gait Activity BIG walking Device Used Gait belt Level of Assistance Superv and cues Surface Cement side walk, parking lot, grass Distance/Duration 24' Treatment Focus BIG upright, scan ahead, BIG left arm Comments Pt con't with decreased BIG left hand and arm swing and cues for this and pt can occ improve swing, john if right hand is resting on gait belt or immediately after rock and reach. Pt tends to loosely swing arms and have more forward flexed shoulders and thorax and then drive flexion with right arm that throws off left arm swing. He may have some postural/functional leg length changes that exacerbate this. PT-OP-T Assessment and Plan Start: 08/13/20 08:05 Freq: Status: Active Protocol: Document 09/01/20 14:16 MB (Rec: 09/01/20 15:35 MB [id number]) Physical Therapy Assessment Rehab Potential Rehabilitation Potential Good Evaluation Complexity Number of Personal Factors/Comorbidities 3 or More Number of Body Systems Impaired 1-2 Clinical Presentation at Evaluation Evolving Impairments Impairments Balance,Coordination, Functional Activities,Gait, Posture,Strength Other Impairments Impaired rapid supination and pronation, worse on the left. Impaired [id number] on the left, pt is right handed. Slower B toe tap over opposite foot, [place], some memory changes. Body systems include memory, neurological and orthostatic changes. Other Concerns Fall Risk Yes Goals 4 Fci Goal (LTG) Pt will perform 17 reps of sit to stand without UE support in 30 sec to improve functional strength by 09/22/20. LTG Duration 16 treatments 3 Lens Generator Goal (LTG) Pt will gait train at least 1700 feet in 6 minutes performing a cognitive task for at least 3 minutes to improve community ambulation by 09/22/20. LTG Duration 16 treatments 2 Lens Generator Goal (LTG) Pt will perform WNLs on a standardized balance test to decrease fall risk by 09/22/20. LTG Duration 16 treatments 1 Fci Goal (LTG) Pt will perform BIG exercises and functional activities daily with I to improve amplitude, balance and gait by 09/22/20. LTG Duration 16 treatments Assessment Summary Assessment Pt's right arm discomfort is better. He does not wish to con't with writing and transfer activities and would like to focus on gait and BIG exercises. Metronome is minimally helpful with gait today. He con't with difficulty with BIG arm swing. He con't to progress with BIG exercises. Physical Therapy Plan Frequency and Duration Frequency of Treatment 16 treatments Duration of Treatment 16 treatments Plan of Care Start Date 08/18/20 Plan of Care End Date 09/22/20 Therapeutic Interventions Therapeutic Interventions Balance Training,Coordination Training,Gait Training,Home Exercise Program,Neuromuscular Re-education,Patient/ Caregiver Education,Self-Care/ Home Management,Therapeutic Activities,Therapeutic Exercises Modalities Cold Pack/Ice Massage,Hot Packs Other Referrals/Consults Referrals/Consults Recommended Follow-up with Dr. Romano about his medications (pt is unsure if she knows about [place] and his Carbidopa Levodopa instructions), follow -up with Dr. Romano about orthostatic hypotension and possible magnesium. Next Visit Focus/Plan Next Note Type Progress Note Next Visit Plan Con't alternating with exercises including side to sides, advance gait with pulling his golf cart
--- NOTE | 2020-09-02 15:39 | PT.OTN ---
Current Diagnoses Parkinson's disease (09/02/20) Physical Therapy Treatment Note PT-OP-A Visit Information Start: 08/13/20 08:05 Freq: Status: Active Protocol: Document 09/02/20 14:19 MB (Rec: 09/02/20 15:38 MB [id number]) Out-Patient Physical Therapy Visit Information Visit Information Visit Type Progress Note Visit Start Time 14:19 Visit Stop Time 15:19 Total Visit Minutes 60 Visit Number 10 PT-OP-B Current Condition Start: 08/13/20 08:05 Freq: Status: Active Protocol: Document 08/18/20 14:17 MB (Rec: 08/18/20 14:43 MB [id number]) Current Condition History of Current Condition Onset Date 3 years since diagnosis Current Complaints Stiffness, tremor in right hand, not being able to walk as far as he'd like History of Current Condition Pt sees naturopathic doctor, Dr. Potter, for his PD. He takes Carbidopa Levodopa. He states he is on 3 pills a day but that he can take more if he does something strenuous. He has been taking four a day. He is taking a pill at 900, 1200, 1500 and 1800. His BIG referral was written by Dr. Romano, his DO and PCP. Pt states he bought the [employer] BIG videos because he was told it would be a few weeks getting into therapy. He was instructed by fisher net to change his diet and was also put on [place] d/t he was found to have a deficiency per hair analysis. Pt states that his Carbidopa Levodopa helps him move more freely. Pt states that he gets up 3-4x/night to urinate. If he is really tired, he can get up just once a night. He notices that he wakes up and then feels like he needs to urinate. Pt reports that his first symptoms of PD was tremor in right hand. He has balance trouble. He feels like his legs are collapsing occ when he gets up to urinate at night and after he is up 15-20 minutes, he can move more readily. Pt lives with his . He has 3 steps and no rail to enter his home. Pt has a flight of steps with 1 rail once he is inside the house. Pt likes to walk for exercise. He walks 2-3 miles and would like to walk 4-5 miles. Pt has had 3 falls in the last year. He lost control of his legs one night and his had to help him up. Pt would like to work on stiffness. Pt participates with cooking and cleaning. Treatment Goals Patient/Caregiver Goals Decrease stiffness, no falls and walking further PT-OP-C Subjective Start: 08/13/20 08:05 Freq: Status: Active Protocol: Document 09/02/20 14:19 MB (Rec: 09/02/20 15:38 MB [id number]) OP-PT Subjective Patient Comments Patient Comments I have a question for you. How come I'm getting up a lot less at night? Pt states that he has not been having to get up 3-4x/night to urinate. PT-OP-G Mobility & Gait Start: 08/13/20 08:05 Freq: Status: Active Protocol: Document 08/18/20 14:16 MB (Rec: 08/18/20 15:45 MB [id number]) OP Gait Assessment Gait Gait Assistance Required: Independent Distance (Feet) 1,693 Able to Maintain Weight Bearing Status Yes During Gait Assistive Devices Assistive Device Gait Belt Orthotic/Prosthetic Devices or Brace: No Comments Gait Comments Pt presents with little hip and pelvic movement with gait and decreased arm swing, greater on the left with most of arm swing happening at distal arms. He tends to keep fists closed with walking. His left shoulder is lower than the right and he occ has scuffing of his feet, right greater than left. His shoes are large as are his rain pants and this makes gait a little more difficult to assess as far as hip, knee and foot mechanics. His left knee appears to have a flexion and valgus component to weight acceptance compared to the right. PT-OP-K Range of Motion Start: 08/13/20 08:05 Freq: Status: Active Protocol: Document 08/18/20 14:16 MB (Rec: 08/18/20 15:45 MB [id number]) Shoulder Goniometric Range of Motion Shoulder Bilateral Shoulder ROM WFL Yes Testing Position Sitting PT-OP-M Strength Start: 08/13/20 08:05 Freq: Status: Active Protocol: Document 08/18/20 14:16 MB (Rec: 08/18/20 15:45 MB [id number]) Shoulder Strength Shoulder Manual Muscle Testing Left Flexion 5 Normal Abduction (C5) 5 Normal Right Flexion 5 Normal Abduction (C5) 5 Normal Elbow/Forearm Strength Elbow and Forearm Manual Muscle Testing Left Flexion (C6) 5 Normal Right Flexion (C6) 5 Normal Hip Strength Hip Manual Muscle Testing Left Flexion (L2) 4 Good Abduction 4 Good Right Flexion (L2) 4 Good Abduction 4 Good Ankle/Foot Strength Ankle and Foot Manual Muscle Testing Left Dorsiflexion (L4) 4 Good Right Dorsiflexion (L4) 5 Normal Toe Strength Toe Manual Muscle Testing Left Great Toe Extension 4 Good Right Great Toe Extension 5 Normal PT-OP-Q Treatments Start: 08/13/20 08:05 Freq: Status: Active Protocol: Document 09/02/20 14:19 MB (Rec: 09/02/20 15:38 MB [id number]) Therapeutic Exercises Sitting Exercises BIG forward reach Sitting Exercise Name Floor to ceiling Equipment Used Brown mesh chair outside Reps/Minutes 10 reps Comments No flicks BIG sit to stands Equipment Used Brown mesh chair outside Reps/Minutes 10 reps Comments Cues to reach and shift forward, squeeze glutes BIG side to side Side bilateral Equipment Used Brown mesh chair outside Reps/Minutes 10 reps each side alternating Comments Cues for BIG reach Standing Exercises Side rock and reach Side bilateral Equipment Used Sidewalk outside clinic Reps/Minutes 10 reps each side, alternating Comments Cues for better pivot, slow down and BIG arms Forward rock and reach Side bilateral Equipment Used Outside on sidewalk Reps/Minutes 10 reps Comments Occ cues for BIG left arm Backward stepping Side bilateral Equipment Used Outside on sidewalk Reps/Minutes 10 reps each side, alternating Comments Pt gets mixed up with which foot he should be stepping with occ Side step Side bilateral Equipment Used Outside on sidewalk Reps/Minutes 10 reps alternating Comments Cues to increase work/ amplitude Forward step Side bilateral Equipment Used Outside on sidewalk Reps/Minutes 10 reps, alternating Comments Improvement in BIG stance, only one cue today Therapeutic Activity Therapeutic Activity Swinging golf club Reps/Minutes 3' Comments Cues for BIG pivot, bigger stance and bigger movement through thorax. Pt is able to hit the ball 10' on grass with controlled movement. With hitting the ball back towards golf bag, too much power and ball bounces into parking lot and it misses two cars and so stopped putting in order to not cause any vehicular damage writing Reps/Minutes 5' Comments Pt writing grocery list on unlined paper, tends to start shifting start of writing to the right with progressive items listed. Occ mis-spelling Gait Training Gait Activity BIG walking Device Used Gait belt Level of Assistance VCs, demo Surface Cement, curb, side walk, parking lot Distance/Duration 15' Treatment Focus BIG left arm swing, BIG steps Comments Pt occ pushes golf cart with both hands and then with right hand to allow left arm swing. Cues for BIG up on curb and BIG steps. Then, gait without pushing cart, cues for BIG left arm swing and pt con't to have trouble with it. After stopping to practice forward rock and reach, he does better with BIG left arm swing for several steps PT-OP-T Assessment and Plan Start: 08/13/20 08:05 Freq: Status: Active Protocol: Document 09/02/20 14:19 MB (Rec: 09/02/20 15:38 MB [id number]) Physical Therapy Assessment Rehab Potential Rehabilitation Potential Good Evaluation Complexity Number of Personal Factors/Comorbidities 3 or More Number of Body Systems Impaired 1-2 Clinical Presentation at Evaluation Evolving Impairments Impairments Balance,Coordination, Functional Activities,Gait, Posture,Strength Other Impairments Impaired rapid supination and pronation, worse on the left. Impaired [id number] on the left, pt is right handed. Slower B toe tap over opposite foot, [place], some memory changes. Body systems include memory, neurological and orthostatic changes. Other Concerns Fall Risk Yes Goals 4 Detention Goal (LTG) Pt will perform 17 reps of sit to stand without UE support in 30 sec to improve functional strength by 09/22/20. 09/02/20: Deferred today in favor of progressing BIG exercises LTG Duration 16 treatments 3 Detention Goal (LTG) Pt will gait train at least 1700 feet in 6 minutes performing a cognitive task for at least 3 minutes to improve community ambulation by 09/22/20. 09/02/20: Deferred today in favor of trying hierarchy task of pushing golf cart LTG Duration 16 treatments 2 Safety And Security Manager Goal (LTG) Pt will perform WNLs on a standardized balance test to decrease fall risk by 09/22/20. 09/02/20: Standardized testing not performed but pt is able to alterate side rock and reach without LOB and swing golf club LTG Duration 16 treatments 1 Safety And Security Manager Goal (LTG) Pt will perform BIG exercises and functional activities daily with I to improve amplitude, balance and gait by 09/22/20. 09/02/20: Pt is progressing with BIG exercise rep, form and alternating exercises. Left BIG arm is improving with forward rock and reach LTG Duration 16 treatments Assessment Summary Assessment Pt has progressed towards BIG exercises since starting PT. His balance is improved with side rock and reach and he performed golf swings today. BIG walking technique con't to be challenging with arm swing and he con't with decreased left arm swing (extension), forward flexed posture and right arm driving his body to the left rotation with forward arm swing. Will con't to work on this. Pt reports that he is getting up less at night to urinate and this is a positive life change since starting BIG. Recommend he follow-up with Dr. Romano about a neurologist consult and his medication questions. Physical Therapy Plan Frequency and Duration Frequency of Treatment 16 treatments Duration of Treatment 16 treatments Plan of Care Start Date 08/18/20 Plan of Care End Date 09/22/20 Therapeutic Interventions Therapeutic Interventions Balance Training,Coordination Training,Gait Training,Home Exercise Program,Neuromuscular Re-education,Patient/ Caregiver Education,Self-Care/ Home Management,Therapeutic Activities,Therapeutic Exercises Modalities Cold Pack/Ice Massage,Hot Packs Other Referrals/Consults Referrals/Consults Recommended Follow-up with Dr. Romano about his medications (pt is unsure if she knows about [place] and his Carbidopa Levodopa instructions), follow -up with Dr. Romano about orthostatic hypotension and possible magnesium. Next Visit Focus/Plan Next Note Type Treatment Note Next Visit Plan Advance gait, balance activities with gait such as up and down curbs, stairs and turn pivot/change direction
--- NOTE | 2020-09-03 16:58 | PT.OTN ---
Current Diagnoses Parkinson's disease (09/03/20) Physical Therapy Treatment Note PT-OP-A Visit Information Start: 08/13/20 08:05 Freq: Status: Active Protocol: Document 09/03/20 16:45 AW (Rec: 09/03/20 16:58 AW [email or web address]) Out-Patient Physical Therapy Visit Information Visit Information Visit Type Treatment Note Visit Start Time 14:30 Visit Stop Time 15:30 Total Visit Minutes 60 Visit Number 11 Evaluation Information Evaluation Date 08/18/20 PT-OP-B Current Condition Start: 08/13/20 08:05 Freq: Status: Active Protocol: Document 08/18/20 14:17 MB (Rec: 08/18/20 14:43 MB [id number]) Current Condition History of Current Condition Onset Date 3 years since diagnosis Current Complaints Stiffness, tremor in right hand, not being able to walk as far as he'd like History of Current Condition Pt sees naturopathic doctor, Dr. Potter, for his PD. He takes Carbidopa Levodopa. He states he is on 3 pills a day but that he can take more if he does something strenuous. He has been taking four a day. He is taking a pill at 900, 1200, 1500 and 1800. His BIG referral was written by Dr. Romano, his DO and PCP. Pt states he bought the tagga BIG videos because he was told it would be a few weeks getting into therapy. He was instructed by sql engineer to change his diet and was also put on [place] d/t he was found to have a deficiency per hair analysis. Pt states that his Carbidopa Levodopa helps him move more freely. Pt states that he gets up 3-4x/night to urinate. If he is really tired, he can get up just once a night. He notices that he wakes up and then feels like he needs to urinate. Pt reports that his first symptoms of PD was tremor in right hand. He has balance trouble. He feels like his legs are collapsing occ when he gets up to urinate at night and after he is up 15-20 minutes, he can move more readily. Pt lives with his . He has 3 steps and no rail to enter his home. Pt has a flight of steps with 1 rail once he is inside the house. Pt likes to walk for exercise. He walks 2-3 miles and would like to walk 4-5 miles. Pt has had 3 falls in the last year. He lost control of his legs one night and his had to help him up. Pt would like to work on stiffness. Pt participates with cooking and cleaning. Treatment Goals Patient/Caregiver Goals Decrease stiffness, no falls and walking further PT-OP-C Subjective Start: 08/13/20 08:05 Freq: Status: Active Protocol: Document 09/03/20 16:45 AW (Rec: 09/03/20 16:58 AW [email or web address]) OP-PT Subjective Patient Comments Patient Comments I just took my last dose of carbidopa levodopa 15 minutes ago so hopefully my balance will be better today. PT-OP-G Mobility & Gait Start: 08/13/20 08:05 Freq: Status: Active Protocol: Document 08/18/20 14:16 MB (Rec: 08/18/20 15:45 MB [id number]) OP Gait Assessment Gait Gait Assistance Required: Independent Distance (Feet) 1,693 Able to Maintain Weight Bearing Status Yes During Gait Assistive Devices Assistive Device Gait Belt Orthotic/Prosthetic Devices or Brace: No Comments Gait Comments Pt presents with little hip and pelvic movement with gait and decreased arm swing, greater on the left with most of arm swing happening at distal arms. He tends to keep fists closed with walking. His left shoulder is lower than the right and he occ has scuffing of his feet, right greater than left. His shoes are large as are his rain pants and this makes gait a little more difficult to assess as far as hip, knee and foot mechanics. His left knee appears to have a flexion and valgus component to weight acceptance compared to the right. PT-OP-K Range of Motion Start: 08/13/20 08:05 Freq: Status: Active Protocol: Document 08/18/20 14:16 MB (Rec: 08/18/20 15:45 MB [id number]) Shoulder Goniometric Range of Motion Shoulder Bilateral Shoulder ROM WFL Yes Testing Position Sitting PT-OP-M Strength Start: 08/13/20 08:05 Freq: Status: Active Protocol: Document 08/18/20 14:16 MB (Rec: 08/18/20 15:45 MB [id number]) Shoulder Strength Shoulder Manual Muscle Testing Left Flexion 5 Normal Abduction (C5) 5 Normal Right Flexion 5 Normal Abduction (C5) 5 Normal Elbow/Forearm Strength Elbow and Forearm Manual Muscle Testing Left Flexion (C6) 5 Normal Right Flexion (C6) 5 Normal Hip Strength Hip Manual Muscle Testing Left Flexion (L2) 4 Good Abduction 4 Good Right Flexion (L2) 4 Good Abduction 4 Good Ankle/Foot Strength Ankle and Foot Manual Muscle Testing Left Dorsiflexion (L4) 4 Good Right Dorsiflexion (L4) 5 Normal Toe Strength Toe Manual Muscle Testing Left Great Toe Extension 4 Good Right Great Toe Extension 5 Normal PT-OP-Q Treatments Start: 08/13/20 08:05 Freq: Status: Active Protocol: Document 09/03/20 16:45 AW (Rec: 09/03/20 16:58 AW [email or web address]) Therapeutic Exercises Sitting Exercises BIG forward reach Sitting Exercise Name Floor to ceiling Equipment Used Brown mesh chair outside Reps/Minutes 10 reps Comments No flicks BIG sit to stands Equipment Used brown mesh chair, low chair next to fish bowl, 2 blue foam Reps/Minutes 5 reps x 3 Comments 1 set mesh chair, 1 set low chair, last set mesh chair with foam under feet BIG side to side Side bilateral Equipment Used Brown mesh chair outside Reps/Minutes 10 reps each side alternating Comments Cues for BIG reach, upright posture Standing Exercises Side rock and reach Side bilateral Equipment Used Sidewalk outside clinic Reps/Minutes 10 reps each side, alternating Comments cues to maintain BIG arms throughout movement Forward rock and reach Side bilateral Equipment Used Outside on sidewalk Reps/Minutes 10 reps Comments Occ tactile cues for BIG left arm Backward stepping Side bilateral Equipment Used Outside on sidewalk Reps/Minutes 10 reps each side, alternating Side step Side bilateral Equipment Used Outside on sidewalk Reps/Minutes 10 reps alternating Comments good rotation Forward step Side bilateral Equipment Used Outside on sidewalk Reps/Minutes 10 reps, alternating Comments cues for big return step (foot clearance) Therapeutic Activity Therapeutic Activity writing Reps/Minutes 5' Comments Grocery list on unlined paper. Micrographia evident toward end of line. Pt needed cues for bigger UE movement. Gait Training Gait Activity BIG walking Device Used Gait belt Level of Assistance VCs, demo Surface Cement, curb, side walk, parking lot Distance/Duration 25' Treatment Focus BIG steps (foot clearance) Comments Walked outside on sidewalk with focus on foot clearance. Using singular focus on feet, pt able to improve BUE arm swing. Also worked on turns with emphasis on clearing feet to reduce shuffling turns. Practiced 20 feet walking laps with verbal cue for 1/2 turn at the end. Pt was able to improve foot clearance in turns. Assigned as homework. PT-OP-T Assessment and Plan Start: 08/13/20 08:05 Freq: Status: Active Protocol: Document 09/03/20 16:45 AW (Rec: 09/03/20 16:58 AW [email or web address]) Physical Therapy Assessment Rehab Potential Rehabilitation Potential Good Evaluation Complexity Number of Personal Factors/Comorbidities 3 or More Number of Body Systems Impaired 1-2 Clinical Presentation at Evaluation Evolving Impairments Impairments Balance,Coordination, Functional Activities,Gait, Posture,Strength Other Impairments Impaired rapid supination and pronation, worse on the left. Impaired [id number] on the left, pt is right handed. Slower B toe tap over opposite foot, [employer], some memory changes. Body systems include memory, neurological and orthostatic changes. Other Concerns Fall Risk Yes Goals 4 Belt Brander Goal (LTG) Pt will perform 17 reps of sit to stand without UE support in 30 sec to improve functional strength by 09/22/20. 09/02/20: Deferred today in favor of progressing BIG exercises LTG Duration 16 treatments 3 Belt Brander Goal (LTG) Pt will gait train at least 1700 feet in 6 minutes performing a cognitive task for at least 3 minutes to improve community ambulation by 09/22/20. 09/02/20: Deferred today in favor of trying hierarchy task of pushing golf cart LTG Duration 16 treatments 2 Detention Goal (LTG) Pt will perform WNLs on a standardized balance test to decrease fall risk by 09/22/20. 09/02/20: Standardized testing not performed but pt is able to alterate side rock and reach without LOB and swing golf club LTG Duration 16 treatments 1 Belt Brander Goal (LTG) Pt will perform BIG exercises and functional activities daily with I to improve amplitude, balance and gait by 09/22/20. 09/02/20: Pt is progressing with BIG exercise rep, form and alternating exercises. Left BIG arm is improving with forward rock and reach LTG Duration 16 treatments Assessment Summary Assessment Pt expresses concern about his balance so spent considerable time focused on foot clearance today during figure 8's and 1/2 turns. Pt shows good stimulability with this task after multiple reps. Balance already has improved during exercise performance. Physical Therapy Plan Frequency and Duration Frequency of Treatment 16 treatments Duration of Treatment 16 treatments Plan of Care Start Date 08/18/20 Plan of Care End Date 09/22/20 Therapeutic Interventions Therapeutic Interventions Balance Training,Coordination Training,Gait Training,Home Exercise Program,Neuromuscular Re-education,Patient/ Caregiver Education,Self-Care/ Home Management,Therapeutic Activities,Therapeutic Exercises Modalities Cold Pack/Ice Massage,Hot Packs Other Referrals/Consults Referrals/Consults Recommended Follow-up with Dr. Romano about his medications (pt is unsure if she knows about [place] and his Carbidopa Levodopa instructions), follow -up with Dr. Romano about orthostatic hypotension and possible magnesium. Next Visit Focus/Plan Next Note Type Treatment Note Next Visit Plan Advance gait, balance activities with gait such as up and down curbs, stairs and turn pivot/change direction
--- NOTE | 2020-09-04 15:37 | PT.OTN ---
Current Diagnoses Parkinson's disease (09/04/20) Physical Therapy Treatment Note PT-OP-A Visit Information Start: 08/13/20 08:05 Freq: Status: Active Protocol: Document 09/04/20 14:20 MB (Rec: 09/04/20 15:37 MB [id number]) Out-Patient Physical Therapy Visit Information Visit Information Visit Type Treatment Note Visit Start Time 14:20 Visit Stop Time 15:17 Total Visit Minutes 57 Visit Number 12 PT-OP-B Current Condition Start: 08/13/20 08:05 Freq: Status: Active Protocol: Document 08/18/20 14:17 MB (Rec: 08/18/20 14:43 MB [id number]) Current Condition History of Current Condition Onset Date 3 years since diagnosis Current Complaints Stiffness, tremor in right hand, not being able to walk as far as he'd like History of Current Condition Pt sees naturopathic doctor, Dr. Potter, for his PD. He takes Carbidopa Levodopa. He states he is on 3 pills a day but that he can take more if he does something strenuous. He has been taking four a day. He is taking a pill at 900, 1200, 1500 and 1800. His BIG referral was written by Dr. Romano, his DO and PCP. Pt states he bought the [employer] BIG videos because he was told it would be a few weeks getting into therapy. He was instructed by coil connector to change his diet and was also put on Teton d/t he was found to have a deficiency per hair analysis. Pt states that his Carbidopa Levodopa helps him move more freely. Pt states that he gets up 3-4x/night to urinate. If he is really tired, he can get up just once a night. He notices that he wakes up and then feels like he needs to urinate. Pt reports that his first symptoms of PD was tremor in right hand. He has balance trouble. He feels like his legs are collapsing occ when he gets up to urinate at night and after he is up 15-20 minutes, he can move more readily. Pt lives with his . He has 3 steps and no rail to enter his home. Pt has a flight of steps with 1 rail once he is inside the house. Pt likes to walk for exercise. He walks 2-3 miles and would like to walk 4-5 miles. Pt has had 3 falls in the last year. He lost control of his legs one night and his had to help him up. Pt would like to work on stiffness. Pt participates with cooking and cleaning. Treatment Goals Patient/Caregiver Goals Decrease stiffness, no falls and walking further PT-OP-C Subjective Start: 08/13/20 08:05 Freq: Status: Active Protocol: Document 09/04/20 14:20 MB (Rec: 09/04/20 15:37 MB [id number]) OP-PT Subjective Patient Comments Patient Comments Pt on local PD support group Zoom call before PT and asks PT to say a few words about [employer] BIG, LSVT LOUD and about what the different disciplines do. PT-OP-G Mobility & Gait Start: 08/13/20 08:05 Freq: Status: Active Protocol: Document 08/18/20 14:16 MB (Rec: 08/18/20 15:45 MB [id number]) OP Gait Assessment Gait Gait Assistance Required: Independent Distance (Feet) 1,693 Able to Maintain Weight Bearing Status Yes During Gait Assistive Devices Assistive Device Gait Belt Orthotic/Prosthetic Devices or Brace: No Comments Gait Comments Pt presents with little hip and pelvic movement with gait and decreased arm swing, greater on the left with most of arm swing happening at distal arms. He tends to keep fists closed with walking. His left shoulder is lower than the right and he occ has scuffing of his feet, right greater than left. His shoes are large as are his rain pants and this makes gait a little more difficult to assess as far as hip, knee and foot mechanics. His left knee appears to have a flexion and valgus component to weight acceptance compared to the right. PT-OP-K Range of Motion Start: 08/13/20 08:05 Freq: Status: Active Protocol: Document 08/18/20 14:16 MB (Rec: 08/18/20 15:45 MB [id number]) Shoulder Goniometric Range of Motion Shoulder Bilateral Shoulder ROM WFL Yes Testing Position Sitting PT-OP-M Strength Start: 08/13/20 08:05 Freq: Status: Active Protocol: Document 08/18/20 14:16 MB (Rec: 08/18/20 15:45 MB [id number]) Shoulder Strength Shoulder Manual Muscle Testing Left Flexion 5 Normal Abduction (C5) 5 Normal Right Flexion 5 Normal Abduction (C5) 5 Normal Elbow/Forearm Strength Elbow and Forearm Manual Muscle Testing Left Flexion (C6) 5 Normal Right Flexion (C6) 5 Normal Hip Strength Hip Manual Muscle Testing Left Flexion (L2) 4 Good Abduction 4 Good Right Flexion (L2) 4 Good Abduction 4 Good Ankle/Foot Strength Ankle and Foot Manual Muscle Testing Left Dorsiflexion (L4) 4 Good Right Dorsiflexion (L4) 5 Normal Toe Strength Toe Manual Muscle Testing Left Great Toe Extension 4 Good Right Great Toe Extension 5 Normal PT-OP-Q Treatments Start: 08/13/20 08:05 Freq: Status: Active Protocol: Document 09/04/20 14:20 MB (Rec: 09/04/20 15:37 MB [id number]) Therapeutic Exercises Sitting Exercises BIG forward reach Sitting Exercise Name Floor to ceiling Equipment Used Brown mesh chair outside Reps/Minutes 10 reps Comments No flicks BIG sit to stands Equipment Used Brown mesh chair outside Reps/Minutes 10 reps Comments Pt reaches forward better today BIG side to side Side bilateral Equipment Used Brown mesh chair outside Reps/Minutes 5 reps side to side, alternating Comments Cues for BIG reach Standing Exercises Side rock and reach Side bilateral Equipment Used Sidewalk outside clinic Reps/Minutes 10 reps each side, alternating Comments Better pivot today and cues for BIG arm Forward rock and reach Side bilateral Equipment Used Outside on sidewalk Reps/Minutes 10 reps Comments Improved arm swing and occ cues to increase length between feet Backward stepping Side bilateral Equipment Used Outside on sidewalk Reps/Minutes 10 reps each side, alternating Comments Pt occ forgets to alternate, cognitive challenge Side step Side bilateral Equipment Used Outside on sidewalk Reps/Minutes 10 reps alternating Comments Improvement with form today Forward step Side bilateral Equipment Used Outside on sidewalk Reps/Minutes 10 reps, alternating Comments Ongoing cues to keep his feet BIG apart Gait Training Gait Activity BIG walking Device Used Gait belt Level of Assistance VCs Surface Cement, parking lot, side walk , steps Distance/Duration 15' Treatment Focus BIG feet Comments With cues for BIG feet, left arm swing is more consistent today and he does require cues for BIG left hand. Steps inside outside of clinic x2 descend and x1 ascend and pt does not use rail. Cues to make steps slow and controlled like giant steps Self-Care/Home Management Treatment Education Other Education Pt communicates again about his concerns about medications , states that he is taking Carbidopa Levodopa every 3-4 hours but not consistently every 3 or 4 hours (same time difference), 4x/day, 1 pill. He also wonders if the Teton is helpful. Encouraged pt to follow-up with Autoclave Operator, Dr. Romano and Pharmacist who dispenses his medication about usage frequency and dose and Teton. Also, recommend a neurologist consult. PT-OP-T Assessment and Plan Start: 08/13/20 08:05 Freq: Status: Active Protocol: Document 09/04/20 14:20 MB (Rec: 09/04/20 15:37 MB [id number]) Physical Therapy Assessment Rehab Potential Rehabilitation Potential Good Evaluation Complexity Number of Personal Factors/Comorbidities 3 or More Number of Body Systems Impaired 1-2 Clinical Presentation at Evaluation Evolving Impairments Impairments Balance,Coordination, Functional Activities,Gait, Posture,Strength Other Impairments Impaired rapid supination and pronation, worse on the left. Impaired [id number] on the left, pt is right handed. Slower B toe tap over opposite foot, [place], some memory changes. Body systems include memory, neurological and orthostatic changes. Other Concerns Fall Risk Yes Goals 4 Penitentiary Goal (LTG) Pt will perform 17 reps of sit to stand without UE support in 30 sec to improve functional strength by 09/22/20. 09/02/20: Deferred today in favor of progressing BIG exercises LTG Duration 16 treatments 3 Penitentiary Goal (LTG) Pt will gait train at least 1700 feet in 6 minutes performing a cognitive task for at least 3 minutes to improve community ambulation by 09/22/20. 09/02/20: Deferred today in favor of trying hierarchy task of pushing golf cart LTG Duration 16 treatments 2 Italian Tutor Goal (LTG) Pt will perform WNLs on a standardized balance test to decrease fall risk by 09/22/20. 09/02/20: Standardized testing not performed but pt is able to alterate side rock and reach without LOB and swing golf club LTG Duration 16 treatments 1 Italian Tutor Goal (LTG) Pt will perform BIG exercises and functional activities daily with I to improve amplitude, balance and gait by 09/22/20. 09/02/20: Pt is progressing with BIG exercise rep, form and alternating exercises. Left BIG arm is improving with forward rock and reach LTG Duration 16 treatments Assessment Summary Assessment Pt con't to perform BIG exercises better. He tends to move his left arm better when cued to work on picking up his feet with walking BIG. Con't balance challenges with gait. Physical Therapy Plan Frequency and Duration Frequency of Treatment 16 treatments Duration of Treatment 16 treatments Plan of Care Start Date 08/18/20 Plan of Care End Date 09/22/20 Therapeutic Interventions Therapeutic Interventions Balance Training,Coordination Training,Gait Training,Home Exercise Program,Neuromuscular Re-education,Patient/ Caregiver Education,Self-Care/ Home Management,Therapeutic Activities,Therapeutic Exercises Modalities Cold Pack/Ice Massage,Hot Packs Other Referrals/Consults Referrals/Consults Recommended Follow-up with Dr. Romano about his medications (pt is unsure if she knows about Teton and his Carbidopa Levodopa instructions), follow -up with Dr. Romano about orthostatic hypotension and possible magnesium. Recommend neurology consult. Next Visit Focus/Plan Next Note Type Treatment Note Next Visit Plan Similar: con't to advance gait , balance activities with gait such as up and down curbs, stairs and turn pivot/change direction
--- NOTE | 2020-09-08 14:02 | PT.OTN ---
Current Diagnoses Parkinson's disease (09/08/20) Physical Therapy Treatment Note PT-OP-A Visit Information Start: 08/13/20 08:05 Freq: Status: Active Protocol: Document 09/08/20 13:00 MB (Rec: 09/08/20 14:02 MB [id number]) Out-Patient Physical Therapy Visit Information Visit Information Visit Type Treatment Note Visit Start Time 13:00 Visit Stop Time 13:54 Total Visit Minutes 54 Visit Number 13 PT-OP-B Current Condition Start: 08/13/20 08:05 Freq: Status: Active Protocol: Document 08/18/20 14:17 MB (Rec: 08/18/20 14:43 MB [id number]) Current Condition History of Current Condition Onset Date 3 years since diagnosis Current Complaints Stiffness, tremor in right hand, not being able to walk as far as he'd like History of Current Condition Pt sees naturopathic doctor, Dr. Potter, for his PD. He takes Carbidopa Levodopa. He states he is on 3 pills a day but that he can take more if he does something strenuous. He has been taking four a day. He is taking a pill at 900, 1200, 1500 and 1800. His BIG referral was written by Dr. Romano, his DO and PCP. Pt states he bought the [email or web address] BIG videos because he was told it would be a few weeks getting into therapy. He was instructed by armed security guard to change his diet and was also put on [place] d/t he was found to have a deficiency per hair analysis. Pt states that his Carbidopa Levodopa helps him move more freely. Pt states that he gets up 3-4x/night to urinate. If he is really tired, he can get up just once a night. He notices that he wakes up and then feels like he needs to urinate. Pt reports that his first symptoms of PD was tremor in right hand. He has balance trouble. He feels like his legs are collapsing occ when he gets up to urinate at night and after he is up 15-20 minutes, he can move more readily. Pt lives with his . He has 3 steps and no rail to enter his home. Pt has a flight of steps with 1 rail once he is inside the house. Pt likes to walk for exercise. He walks 2-3 miles and would like to walk 4-5 miles. Pt has had 3 falls in the last year. He lost control of his legs one night and his had to help him up. Pt would like to work on stiffness. Pt participates with cooking and cleaning. Treatment Goals Patient/Caregiver Goals Decrease stiffness, no falls and walking further PT-OP-C Subjective Start: 08/13/20 08:05 Freq: Status: Active Protocol: Document 09/08/20 13:00 MB (Rec: 09/08/20 14:02 MB [id number]) OP-PT Subjective Patient Comments Patient Comments I can't believe it. I hit harder and higher than I have in my whole life! 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 PT-OP-G Mobility & Gait Start: 08/13/20 08:05 Freq: Status: Active Protocol: Document 08/18/20 14:16 MB (Rec: 08/18/20 15:45 MB [id number]) OP Gait Assessment Gait Gait Assistance Required: Independent Distance (Feet) 1,693 Able to Maintain Weight Bearing Status Yes During Gait Assistive Devices Assistive Device Gait Belt Orthotic/Prosthetic Devices or Brace: No Comments Gait Comments Pt presents with little hip and pelvic movement with gait and decreased arm swing, greater on the left with most of arm swing happening at distal arms. He tends to keep fists closed with walking. His left shoulder is lower than the right and he occ has scuffing of his feet, right greater than left. His shoes are large as are his rain pants and this makes gait a little more difficult to assess as far as hip, knee and foot mechanics. His left knee appears to have a flexion and valgus component to weight acceptance compared to the right. PT-OP-K Range of Motion Start: 08/13/20 08:05 Freq: Status: Active Protocol: Document 08/18/20 14:16 MB (Rec: 08/18/20 15:45 MB [id number]) Shoulder Goniometric Range of Motion Shoulder Bilateral Shoulder ROM WFL Yes Testing Position Sitting PT-OP-M Strength Start: 08/13/20 08:05 Freq: Status: Active Protocol: Document 08/18/20 14:16 MB (Rec: 08/18/20 15:45 MB [id number]) Shoulder Strength Shoulder Manual Muscle Testing Left Flexion 5 Normal Abduction (C5) 5 Normal Right Flexion 5 Normal Abduction (C5) 5 Normal Elbow/Forearm Strength Elbow and Forearm Manual Muscle Testing Left Flexion (C6) 5 Normal Right Flexion (C6) 5 Normal Hip Strength Hip Manual Muscle Testing Left Flexion (L2) 4 Good Abduction 4 Good Right Flexion (L2) 4 Good Abduction 4 Good Ankle/Foot Strength Ankle and Foot Manual Muscle Testing Left Dorsiflexion (L4) 4 Good Right Dorsiflexion (L4) 5 Normal Toe Strength Toe Manual Muscle Testing Left Great Toe Extension 4 Good Right Great Toe Extension 5 Normal PT-OP-Q Treatments Start: 08/13/20 08:05 Freq: Status: Active Protocol: Document 09/08/20 13:00 MB (Rec: 09/08/20 14:02 MB [id number]) Therapeutic Exercises Sitting Exercises BIG forward reach Sitting Exercise Name Floor to ceiling Equipment Used Brown mesh chair outside Reps/Minutes 10 reps Comments No flicks BIG sit to stands Equipment Used Brown mesh chair outside Reps/Minutes 10 reps BIG side to side Side bilateral Equipment Used Brown mesh chair outside Reps/Minutes 6 reps each side alternating Comments Decreased left arm and leg reach today, re-tried after gait and better Standing Exercises Side rock and reach Side bilateral Equipment Used Sidewalk outside clinic Reps/Minutes 10 reps each side, alternating Comments Better pivot today and cues for BIG arm Forward rock and reach Side bilateral Equipment Used Outside on sidewalk Reps/Minutes 10 reps Comments Cues for arm swing and BIG stance and front toe Backward stepping Side bilateral Equipment Used Outside on sidewalk Reps/Minutes 10 reps each side, alternating Comments Better consistency with stepping today Side step Side bilateral Equipment Used Outside on sidewalk Reps/Minutes 10 reps alternating Comments Improvement with form today Forward step Side bilateral Equipment Used Outside on sidewalk Reps/Minutes 10 reps, alternating Comments Improvement in BIG stance today Gait Training Gait Activity BIG walking Device Used Gait belt Level of Assistance VCs, superv, CGA Surface Parking lot, curbs, grass, side walk, steps Distance/Duration 25' Treatment Focus BIG scan and posture, BIG steps Comments BIG gait is much better today and he is able to gait train on variable surfaces including side step on and off the curb from grass to parking lot while walking forward and keep BIG steps, over and off the curb, changing from grass to side walk, weaving around parking space cement PT-OP-T Assessment and Plan Start: 08/13/20 08:05 Freq: Status: Active Protocol: Document 09/08/20 13:00 MB (Rec: 09/08/20 14:02 MB [id number]) Physical Therapy Assessment Rehab Potential Rehabilitation Potential Good Evaluation Complexity Number of Personal Factors/Comorbidities 3 or More Number of Body Systems Impaired 1-2 Clinical Presentation at Evaluation Evolving Impairments Impairments Balance,Coordination, Functional Activities,Gait, Posture,Strength Other Impairments Impaired rapid supination and pronation, worse on the left. Impaired [id number] on the left, pt is right handed. Slower B toe tap over opposite foot, [place], some memory changes. Body systems include memory, neurological and orthostatic changes. Other Concerns Fall Risk Yes Goals 4 Boring Mill Set Up Operator Goal (LTG) Pt will perform 17 reps of sit to stand without UE support in 30 sec to improve functional strength by 09/22/20. 09/02/20: Deferred today in favor of progressing BIG exercises LTG Duration 16 treatments 3 Boring Mill Set Up Operator Goal (LTG) Pt will gait train at least 1700 feet in 6 minutes performing a cognitive task for at least 3 minutes to improve community ambulation by 09/22/20. 09/02/20: Deferred today in favor of trying hierarchy task of pushing golf cart LTG Duration 16 treatments 2 Group Home Goal (LTG) Pt will perform WNLs on a standardized balance test to decrease fall risk by 09/22/20. 09/02/20: Standardized testing not performed but pt is able to alterate side rock and reach without LOB and swing golf club LTG Duration 16 treatments 1 Boring Mill Set Up Operator Goal (LTG) Pt will perform BIG exercises and functional activities daily with I to improve amplitude, balance and gait by 09/22/20. 09/02/20: Pt is progressing with BIG exercise rep, form and alternating exercises. Left BIG arm is improving with forward rock and reach LTG Duration 16 treatments Assessment Summary Assessment Pt is doing a lot better with gait and exercises. He has decreased left hip and left arm movement with sitting side to side today that improves on harder blue chair in gym after gait. He will perform a couple of reps after BIG walking at home and con't with exercises. Physical Therapy Plan Frequency and Duration Frequency of Treatment 16 treatments Duration of Treatment 16 treatments Plan of Care Start Date 08/18/20 Plan of Care End Date 09/22/20 Therapeutic Interventions Therapeutic Interventions Balance Training,Coordination Training,Gait Training,Home Exercise Program,Neuromuscular Re-education,Patient/ Caregiver Education,Self-Care/ Home Management,Therapeutic Activities,Therapeutic Exercises Modalities Cold Pack/Ice Massage,Hot Packs Other Referrals/Consults Referrals/Consults Recommended Follow-up with Dr. Romano about his medications (pt is unsure if she knows about Montesano and his Carbidopa Levodopa instructions), follow -up with Dr. Romano about orthostatic hypotension and possible magnesium. Recommend neurology consult. Next Visit Focus/Plan Next Note Type Treatment Note Next Visit Plan Ongoing gait challanges and consider quick turn pivot and change directions with gait
--- NOTE | 2020-09-09 15:37 | PT.OTN ---
Current Diagnoses Parkinson's disease (09/09/20) Physical Therapy Treatment Note PT-OP-A Visit Information Start: 08/13/20 08:05 Freq: Status: Active Protocol: Document 09/09/20 14:17 MB (Rec: 09/09/20 15:37 MB [id number]) Out-Patient Physical Therapy Visit Information Visit Information Visit Type Treatment Note Visit Start Time 14:17 Visit Stop Time 15:15 Total Visit Minutes 58 Visit Number 14 PT-OP-B Current Condition Start: 08/13/20 08:05 Freq: Status: Active Protocol: Document 08/18/20 14:17 MB (Rec: 08/18/20 14:43 MB [id number]) Current Condition History of Current Condition Onset Date 3 years since diagnosis Current Complaints Stiffness, tremor in right hand, not being able to walk as far as he'd like History of Current Condition Pt sees naturopathic doctor, Dr. Potter, for his PD. He takes Carbidopa Levodopa. He states he is on 3 pills a day but that he can take more if he does something strenuous. He has been taking four a day. He is taking a pill at 900, 1200, 1500 and 1800. His BIG referral was written by Dr. Romano, his DO and PCP. Pt states he bought the [employer] BIG videos because he was told it would be a few weeks getting into therapy. He was instructed by project manager to change his diet and was also put on [place] d/t he was found to have a deficiency per hair analysis. Pt states that his Carbidopa Levodopa helps him move more freely. Pt states that he gets up 3-4x/night to urinate. If he is really tired, he can get up just once a night. He notices that he wakes up and then feels like he needs to urinate. Pt reports that his first symptoms of PD was tremor in right hand. He has balance trouble. He feels like his legs are collapsing occ when he gets up to urinate at night and after he is up 15-20 minutes, he can move more readily. Pt lives with his . He has 3 steps and no rail to enter his home. Pt has a flight of steps with 1 rail once he is inside the house. Pt likes to walk for exercise. He walks 2-3 miles and would like to walk 4-5 miles. Pt has had 3 falls in the last year. He lost control of his legs one night and his had to help him up. Pt would like to work on stiffness. Pt participates with cooking and cleaning. Treatment Goals Patient/Caregiver Goals Decrease stiffness, no falls and walking further PT-OP-C Subjective Start: 08/13/20 08:05 Freq: Status: Active Protocol: Document 09/09/20 14:17 MB (Rec: 09/09/20 15:37 MB [id number]) OP-PT Subjective Patient Comments Patient Comments Pt with no new reports today. PT-OP-G Mobility & Gait Start: 08/13/20 08:05 Freq: Status: Active Protocol: Document 08/18/20 14:16 MB (Rec: 08/18/20 15:45 MB [id number]) OP Gait Assessment Gait Gait Assistance Required: Independent Distance (Feet) 1,693 Able to Maintain Weight Bearing Status Yes During Gait Assistive Devices Assistive Device Gait Belt Orthotic/Prosthetic Devices or Brace: No Comments Gait Comments Pt presents with little hip and pelvic movement with gait and decreased arm swing, greater on the left with most of arm swing happening at distal arms. He tends to keep fists closed with walking. His left shoulder is lower than the right and he occ has scuffing of his feet, right greater than left. His shoes are large as are his rain pants and this makes gait a little more difficult to assess as far as hip, knee and foot mechanics. His left knee appears to have a flexion and valgus component to weight acceptance compared to the right. PT-OP-K Range of Motion Start: 08/13/20 08:05 Freq: Status: Active Protocol: Document 08/18/20 14:16 MB (Rec: 08/18/20 15:45 MB [id number]) Shoulder Goniometric Range of Motion Shoulder Bilateral Shoulder ROM WFL Yes Testing Position Sitting PT-OP-M Strength Start: 08/13/20 08:05 Freq: Status: Active Protocol: Document 08/18/20 14:16 MB (Rec: 08/18/20 15:45 MB [id number]) Shoulder Strength Shoulder Manual Muscle Testing Left Flexion 5 Normal Abduction (C5) 5 Normal Right Flexion 5 Normal Abduction (C5) 5 Normal Elbow/Forearm Strength Elbow and Forearm Manual Muscle Testing Left Flexion (C6) 5 Normal Right Flexion (C6) 5 Normal Hip Strength Hip Manual Muscle Testing Left Flexion (L2) 4 Good Abduction 4 Good Right Flexion (L2) 4 Good Abduction 4 Good Ankle/Foot Strength Ankle and Foot Manual Muscle Testing Left Dorsiflexion (L4) 4 Good Right Dorsiflexion (L4) 5 Normal Toe Strength Toe Manual Muscle Testing Left Great Toe Extension 4 Good Right Great Toe Extension 5 Normal PT-OP-Q Treatments Start: 08/13/20 08:05 Freq: Status: Active Protocol: Document 09/09/20 14:17 MB (Rec: 09/09/20 15:37 MB [id number]) Therapeutic Exercises Sitting Exercises BIG forward reach Sitting Exercise Name Floor to ceiling Equipment Used Blue cushion, brown mesh chair outside Reps/Minutes 10 reps BIG sit to stands Equipment Used Blue cushion, brown mesh chair outside Reps/Minutes 10 reps BIG side to side Side bilateral Equipment Used Blue cushion, brown mesh chair outside Reps/Minutes 5 reps each side alternating Comments Decreased left arm and leg reach today, re-tried after gait and better Standing Exercises Side rock and reach Side bilateral Equipment Used Sidewalk outside clinic Reps/Minutes 10 reps each side, alternating Comments Improved today Forward rock and reach Side bilateral Equipment Used Outside on sidewalk Reps/Minutes 10 reps Comments Improved today Backward stepping Side bilateral Equipment Used Outside on sidewalk Reps/Minutes 10 reps each side, alternating Comments Improved today Side step Side bilateral Equipment Used Outside on sidewalk Reps/Minutes 10 reps alternating Comments Improvement with form today Forward step Side bilateral Equipment Used Outside on sidewalk Reps/Minutes 10 reps, alternating Comments Cues for BIG step Gait Training Gait Activity BIG walking Device Used Gait belt Level of Assistance Superv and cues Surface Grass, curb, side walk, steps Distance/Duration 30' Treatment Focus BIG posture, scanning ahead and quick [place] today Comments Pt con't to progress with gait , his is doing better picking up his feet with more challenges on the grass and more time on the grass today and walking up and down grassy inclines. He does require cues for BIG posture and to keep up franc[place]. He has trouble with quick turns with big steps PT-OP-T Assessment and Plan Start: 08/13/20 08:05 Freq: Status: Active Protocol: Document 09/09/20 14:17 MB (Rec: 09/09/20 15:37 MB [id number]) Physical Therapy Assessment Rehab Potential Rehabilitation Potential Good Evaluation Complexity Number of Personal Factors/Comorbidities 3 or More Number of Body Systems Impaired 1-2 Clinical Presentation at Evaluation Evolving Impairments Impairments Balance,Coordination, Functional Activities,Gait, Posture,Strength Other Impairments Impaired rapid supination and pronation, worse on the left. Impaired [id number] on the left, pt is right handed. Slower B toe tap over opposite foot, [place], some memory changes. Body systems include memory, neurological and orthostatic changes. Other Concerns Fall Risk Yes Goals 4 Field Representatives Director Goal (LTG) Pt will perform 17 reps of sit to stand without UE support in 30 sec to improve functional strength by 09/22/20. 09/02/20: Deferred today in favor of progressing BIG exercises LTG Duration 16 treatments 3 Skilled Nursing Goal (LTG) Pt will gait train at least 1700 feet in 6 minutes performing a cognitive task for at least 3 minutes to improve community ambulation by 09/22/20. 09/02/20: Deferred today in favor of trying hierarchy task of pushing golf cart LTG Duration 16 treatments 2 Skilled Nursing Goal (LTG) Pt will perform WNLs on a standardized balance test to decrease fall risk by 09/22/20. 09/02/20: Standardized testing not performed but pt is able to alterate side rock and reach without LOB and swing golf club LTG Duration 16 treatments 1 Field Representatives Director Goal (LTG) Pt will perform BIG exercises and functional activities daily with I to improve amplitude, balance and gait by 09/22/20. 09/02/20: Pt is progressing with BIG exercise rep, form and alternating exercises. Left BIG arm is improving with forward rock and reach LTG Duration 16 treatments Assessment Summary Assessment Pt con't to improve with gait and he is able to walk with bigger posture and faster [place] today, even off roading on the taller grass on uneven ground. He does fatigue with BIG walking today . His exercise performance is similar to last date and is improved, especially with pivot side to side in standing . Physical Therapy Plan Frequency and Duration Frequency of Treatment 16 treatments Duration of Treatment 16 treatments Plan of Care Start Date 08/18/20 Plan of Care End Date 09/22/20 Therapeutic Interventions Therapeutic Interventions Balance Training,Coordination Training,Gait Training,Home Exercise Program,Neuromuscular Re-education,Patient/ Caregiver Education,Self-Care/ Home Management,Therapeutic Activities,Therapeutic Exercises Modalities Cold Pack/Ice Massage,Hot Packs Other Referrals/Consults Referrals/Consults Recommended Follow-up with Dr. Romano about his medications (pt is unsure if she knows about [place] and his Carbidopa Levodopa instructions), follow -up with Dr. Romano about orthostatic hypotension and possible magnesium. Recommend neurology consult. Next Visit Focus/Plan Next Note Type Treatment Note Next Visit Plan Ongoing gait challanges, quick turn pivot and change directions and carrying a cup of water with gait
--- NOTE | 2020-09-10 16:40 | PT.OTN ---
Current Diagnoses Parkinson's disease (09/10/20) Physical Therapy Treatment Note PT-OP-A Visit Information Start: 08/13/20 08:05 Freq: Status: Active Protocol: Document 09/10/20 15:30 AW (Rec: 09/10/20 15:33 AW [id number]) Out-Patient Physical Therapy Visit Information Visit Information Visit Type Treatment Note Visit Start Time 14:30 Visit Stop Time 15:25 Total Visit Minutes 55 Visit Number 15 PT-OP-B Current Condition Start: 08/13/20 08:05 Freq: Status: Active Protocol: Document 08/18/20 14:17 MB (Rec: 08/18/20 14:43 MB [id number]) Current Condition History of Current Condition Onset Date 3 years since diagnosis Current Complaints Stiffness, tremor in right hand, not being able to walk as far as he'd like History of Current Condition Pt sees naturopathic doctor, Dr. Potter, for his PD. He takes Carbidopa Levodopa. He states he is on 3 pills a day but that he can take more if he does something strenuous. He has been taking four a day. He is taking a pill at 900, 1200, 1500 and 1800. His BIG referral was written by Dr. Romano, his DO and PCP. Pt states he bought the [employer] BIG videos because he was told it would be a few weeks getting into therapy. He was instructed by equestrian trainer to change his diet and was also put on [place] d/t he was found to have a deficiency per hair analysis. Pt states that his Carbidopa Levodopa helps him move more freely. Pt states that he gets up 3-4x/night to urinate. If he is really tired, he can get up just once a night. He notices that he wakes up and then feels like he needs to urinate. Pt reports that his first symptoms of PD was tremor in right hand. He has balance trouble. He feels like his legs are collapsing occ when he gets up to urinate at night and after he is up 15-20 minutes, he can move more readily. Pt lives with his . He has 3 steps and no rail to enter his home. Pt has a flight of steps with 1 rail once he is inside the house. Pt likes to walk for exercise. He walks 2-3 miles and would like to walk 4-5 miles. Pt has had 3 falls in the last year. He lost control of his legs one night and his had to help him up. Pt would like to work on stiffness. Pt participates with cooking and cleaning. Treatment Goals Patient/Caregiver Goals Decrease stiffness, no falls and walking further PT-OP-C Subjective Start: 08/13/20 08:05 Freq: Status: Active Protocol: Document 09/10/20 15:30 AW (Rec: 09/10/20 15:33 AW [id number]) OP-PT Subjective Patient Comments Patient Comments Last dose of carbidopa levodopa at 1340. PT-OP-G Mobility & Gait Start: 08/13/20 08:05 Freq: Status: Active Protocol: Document 08/18/20 14:16 MB (Rec: 08/18/20 15:45 MB [id number]) OP Gait Assessment Gait Gait Assistance Required: Independent Distance (Feet) 1,693 Able to Maintain Weight Bearing Status Yes During Gait Assistive Devices Assistive Device Gait Belt Orthotic/Prosthetic Devices or Brace: No Comments Gait Comments Pt presents with little hip and pelvic movement with gait and decreased arm swing, greater on the left with most of arm swing happening at distal arms. He tends to keep fists closed with walking. His left shoulder is lower than the right and he occ has scuffing of his feet, right greater than left. His shoes are large as are his rain pants and this makes gait a little more difficult to assess as far as hip, knee and foot mechanics. His left knee appears to have a flexion and valgus component to weight acceptance compared to the right. PT-OP-K Range of Motion Start: 08/13/20 08:05 Freq: Status: Active Protocol: Document 08/18/20 14:16 MB (Rec: 08/18/20 15:45 MB [id number]) Shoulder Goniometric Range of Motion Shoulder Bilateral Shoulder ROM WFL Yes Testing Position Sitting PT-OP-M Strength Start: 08/13/20 08:05 Freq: Status: Active Protocol: Document 08/18/20 14:16 MB (Rec: 08/18/20 15:45 MB [id number]) Shoulder Strength Shoulder Manual Muscle Testing Left Flexion 5 Normal Abduction (C5) 5 Normal Right Flexion 5 Normal Abduction (C5) 5 Normal Elbow/Forearm Strength Elbow and Forearm Manual Muscle Testing Left Flexion (C6) 5 Normal Right Flexion (C6) 5 Normal Hip Strength Hip Manual Muscle Testing Left Flexion (L2) 4 Good Abduction 4 Good Right Flexion (L2) 4 Good Abduction 4 Good Ankle/Foot Strength Ankle and Foot Manual Muscle Testing Left Dorsiflexion (L4) 4 Good Right Dorsiflexion (L4) 5 Normal Toe Strength Toe Manual Muscle Testing Left Great Toe Extension 4 Good Right Great Toe Extension 5 Normal PT-OP-Q Treatments Start: 08/13/20 08:05 Freq: Status: Active Protocol: Document 09/10/20 15:30 AW (Rec: 09/10/20 15:33 AW [id number]) Therapeutic Exercises Sitting Exercises BIG forward reach Sitting Exercise Name Floor to ceiling Equipment Used large black mat in gym Reps/Minutes 10 reps BIG sit to stands Equipment Used large black mat in gym, ligia stood Reps/Minutes 10 reps BIG side to side Side bilateral Equipment Used large black mat in gym Reps/Minutes 5 reps each side alternating Comments shaping for increased trunk extension Standing Exercises Side rock and reach Side bilateral Reps/Minutes 10 reps each side, alternating Comments IND no cues Forward rock and reach Side bilateral Reps/Minutes 10 reps Comments shaping for L arm swing Backward stepping Side bilateral Reps/Minutes 10 reps each side, alternating Comments Cues for bigger return step/ foot clearance Side step Side bilateral Reps/Minutes 10 reps alternating Comments Improvement with form today Forward step Side bilateral Reps/Minutes 10 reps, alternating Comments Cues for BIG step Gait Training Gait Activity BIG walking Device Used Gait belt Level of Assistance Superv and cues Surface Grass, curb, side walk, steps Distance/Duration 30' Treatment Focus BIG posture, scanning ahead and quick [place] today Comments Continued work on BIG quick turns. Had pt name cities in alphabetical order while carrying cup of water. Improved steps with water only , deteriorated with cog task. PT-OP-T Assessment and Plan Start: 08/13/20 08:05 Freq: Status: Active Protocol: Document 09/10/20 15:30 AW (Rec: 09/10/20 15:33 AW [id number]) Physical Therapy Assessment Rehab Potential Rehabilitation Potential Good Evaluation Complexity Number of Personal Factors/Comorbidities 3 or More Number of Body Systems Impaired 1-2 Clinical Presentation at Evaluation Evolving Impairments Impairments Balance,Coordination, Functional Activities,Gait, Posture,Strength Other Impairments Impaired rapid supination and pronation, worse on the left. Impaired [id number] on the left, pt is right handed. Slower B toe tap over opposite foot, [place], some memory changes. Body systems include memory, neurological and orthostatic changes. Other Concerns Fall Risk Yes Goals 4 Shelter Goal (LTG) Pt will perform 17 reps of sit to stand without UE support in 30 sec to improve functional strength by 09/22/20. 09/02/20: Deferred today in favor of progressing BIG exercises LTG Duration 16 treatments 3 Clinical Academic Allergist Goal (LTG) Pt will gait train at least 1700 feet in 6 minutes performing a cognitive task for at least 3 minutes to improve community ambulation by 09/22/20. 09/02/20: Deferred today in favor of trying hierarchy task of pushing golf cart LTG Duration 16 treatments 2 Clinical Academic Allergist Goal (LTG) Pt will perform WNLs on a standardized balance test to decrease fall risk by 09/22/20. 09/02/20: Standardized testing not performed but pt is able to alterate side rock and reach without LOB and swing golf club LTG Duration 16 treatments 1 Shelter Goal (LTG) Pt will perform BIG exercises and functional activities daily with I to improve amplitude, balance and gait by 09/22/20. 09/02/20: Pt is progressing with BIG exercise rep, form and alternating exercises. Left BIG arm is improving with forward rock and reach LTG Duration 16 treatments Assessment Summary Assessment Continued to challenge pt in gait training with addition of cognitive task and carrying water. Good carryover of BIG amplitude was observed with water only but when cognitive task is added, foot scuff returns. Educated pt on carrying over BIG steps from exercises to walking and turns with good uncued performance following education. Physical Therapy Plan Frequency and Duration Frequency of Treatment 16 treatments Duration of Treatment 16 treatments Plan of Care Start Date 08/18/20 Plan of Care End Date 09/22/20 Therapeutic Interventions Therapeutic Interventions Balance Training,Coordination Training,Gait Training,Home Exercise Program,Neuromuscular Re-education,Patient/ Caregiver Education,Self-Care/ Home Management,Therapeutic Activities,Therapeutic Exercises Modalities Cold Pack/Ice Massage,Hot Packs Other Referrals/Consults Referrals/Consults Recommended Follow-up with Dr. Romano about his medications (pt is unsure if she knows about [place] and his Carbidopa Levodopa instructions), follow -up with Dr. Romano about orthostatic hypotension and possible magnesium. Recommend neurology consult. Next Visit Focus/Plan Next Note Type Treatment Note Next Visit Plan Ongoing gait challanges, quick turn pivot and change directions and carrying a cup of water with gait
--- NOTE | 2020-09-11 15:33 | PT.OTN ---
Current Diagnoses Parkinson's disease (09/11/20) Physical Therapy Treatment Note PT-OP-A Visit Information Start: 08/13/20 08:05 Freq: Status: Active Protocol: Document 09/11/20 15:22 MB (Rec: 09/11/20 15:33 MB [id number]) Out-Patient Physical Therapy Visit Information Visit Information Visit Type Treatment Note Visit Start Time 14:28 Visit Stop Time 14:21 Total Visit Minutes 53 Visit Number 16 PT-OP-B Current Condition Start: 08/13/20 08:05 Freq: Status: Active Protocol: Document 08/18/20 14:17 MB (Rec: 08/18/20 14:43 MB [id number]) Current Condition History of Current Condition Onset Date 3 years since diagnosis Current Complaints Stiffness, tremor in right hand, not being able to walk as far as he'd like History of Current Condition Pt sees naturopathic doctor, Dr. Potter, for his PD. He takes Carbidopa Levodopa. He states he is on 3 pills a day but that he can take more if he does something strenuous. He has been taking four a day. He is taking a pill at 900, 1200, 1500 and 1800. His BIG referral was written by Dr. Romano, his DO and PCP. Pt states he bought the [employer] BIG videos because he was told it would be a few weeks getting into therapy. He was instructed by unhairer to change his diet and was also put on [place] d/t he was found to have a deficiency per hair analysis. Pt states that his Carbidopa Levodopa helps him move more freely. Pt states that he gets up 3-4x/night to urinate. If he is really tired, he can get up just once a night. He notices that he wakes up and then feels like he needs to urinate. Pt reports that his first symptoms of PD was tremor in right hand. He has balance trouble. He feels like his legs are collapsing occ when he gets up to urinate at night and after he is up 15-20 minutes, he can move more readily. Pt lives with his . He has 3 steps and no rail to enter his home. Pt has a flight of steps with 1 rail once he is inside the house. Pt likes to walk for exercise. He walks 2-3 miles and would like to walk 4-5 miles. Pt has had 3 falls in the last year. He lost control of his legs one night and his had to help him up. Pt would like to work on stiffness. Pt participates with cooking and cleaning. Treatment Goals Patient/Caregiver Goals Decrease stiffness, no falls and walking further PT-OP-C Subjective Start: 08/13/20 08:05 Freq: Status: Active Protocol: Document 09/11/20 15:22 MB (Rec: 09/11/20 15:33 MB [id number]) OP-PT Subjective Patient Comments Patient Comments Pt states that he has been getting tired with PT. PT-OP-G Mobility & Gait Start: 08/13/20 08:05 Freq: Status: Active Protocol: Document 08/18/20 14:16 MB (Rec: 08/18/20 15:45 MB [id number]) OP Gait Assessment Gait Gait Assistance Required: Independent Distance (Feet) 1,693 Able to Maintain Weight Bearing Status Yes During Gait Assistive Devices Assistive Device Gait Belt Orthotic/Prosthetic Devices or Brace: No Comments Gait Comments Pt presents with little hip and pelvic movement with gait and decreased arm swing, greater on the left with most of arm swing happening at distal arms. He tends to keep fists closed with walking. His left shoulder is lower than the right and he occ has scuffing of his feet, right greater than left. His shoes are large as are his rain pants and this makes gait a little more difficult to assess as far as hip, knee and foot mechanics. His left knee appears to have a flexion and valgus component to weight acceptance compared to the right. PT-OP-K Range of Motion Start: 08/13/20 08:05 Freq: Status: Active Protocol: Document 08/18/20 14:16 MB (Rec: 08/18/20 15:45 MB [id number]) Shoulder Goniometric Range of Motion Shoulder Bilateral Shoulder ROM WFL Yes Testing Position Sitting PT-OP-M Strength Start: 08/13/20 08:05 Freq: Status: Active Protocol: Document 08/18/20 14:16 MB (Rec: 08/18/20 15:45 MB [id number]) Shoulder Strength Shoulder Manual Muscle Testing Left Flexion 5 Normal Abduction (C5) 5 Normal Right Flexion 5 Normal Abduction (C5) 5 Normal Elbow/Forearm Strength Elbow and Forearm Manual Muscle Testing Left Flexion (C6) 5 Normal Right Flexion (C6) 5 Normal Hip Strength Hip Manual Muscle Testing Left Flexion (L2) 4 Good Abduction 4 Good Right Flexion (L2) 4 Good Abduction 4 Good Ankle/Foot Strength Ankle and Foot Manual Muscle Testing Left Dorsiflexion (L4) 4 Good Right Dorsiflexion (L4) 5 Normal Toe Strength Toe Manual Muscle Testing Left Great Toe Extension 4 Good Right Great Toe Extension 5 Normal PT-OP-Q Treatments Start: 08/13/20 08:05 Freq: Status: Active Protocol: Document 09/11/20 15:22 MB (Rec: 09/11/20 15:33 MB [id number]) Therapeutic Exercises Sitting Exercises BIG forward reach Sitting Exercise Name Floor to ceiling Equipment Used Mesh chair outside Reps/Minutes 10 reps BIG sit to stands Equipment Used Blue cushion in mesh chair outside Reps/Minutes 10 reps BIG side to side Side bilateral Equipment Used Blue cushion on mesh chair outside Reps/Minutes 5 reps each side alternating Comments Tactile cues for BIG leg and arm Standing Exercises Side rock and reach Side bilateral Equipment Used Sidewalk outside clinic Reps/Minutes 10 reps each side, alternating Comments Improved today Forward rock and reach Side bilateral Equipment Used Outside on sidewalk Reps/Minutes 10 reps Comments Improved today Backward stepping Side bilateral Equipment Used Outside on sidewalk Reps/Minutes 10 reps each side, alternating Comments Improved today Side step Side bilateral Equipment Used Outside on sidewalk Reps/Minutes 10 reps alternating Comments Improved today Forward step Side bilateral Equipment Used Outside on sidewalk Reps/Minutes 10 reps, alternating Comments Improved BIG stance today Gait Training Gait Activity BIG walking Device Used Gait belt Level of Assistance Superv and cues Surface Grass, curb, side walk, steps Distance/Duration 23' Treatment Focus BIG posture, scanning ahead and tile picker feet Comments More time in grass today working on BIG step over altering terrain, also practicing stepping over curb and on and off curb, BIG turns right and left 90 deg and cues for clear feet and BIG arms occ PT-OP-T Assessment and Plan Start: 08/13/20 08:05 Freq: Status: Active Protocol: Document 09/11/20 15:22 MB (Rec: 09/11/20 15:33 MB [id number]) Physical Therapy Assessment Rehab Potential Rehabilitation Potential Good Evaluation Complexity Number of Personal Factors/Comorbidities 3 or More Number of Body Systems Impaired 1-2 Clinical Presentation at Evaluation Evolving Impairments Impairments Balance,Coordination, Functional Activities,Gait, Posture,Strength Other Impairments Impaired rapid supination and pronation, worse on the left. Impaired [id number] on the left, pt is right handed. Slower B toe tap over opposite foot, [place], some memory changes. Body systems include memory, neurological and orthostatic changes. Other Concerns Fall Risk Yes Goals 4 Cherry Sorter Goal (LTG) Pt will perform 17 reps of sit to stand without UE support in 30 sec to improve functional strength by 09/22/20. 09/02/20: Deferred today in favor of progressing BIG exercises LTG Duration 16 treatments 3 Cherry Sorter Goal (LTG) Pt will gait train at least 1700 feet in 6 minutes performing a cognitive task for at least 3 minutes to improve community ambulation by 09/22/20. 09/02/20: Deferred today in favor of trying hierarchy task of pushing golf cart LTG Duration 16 treatments 2 Cherry Sorter Goal (LTG) Pt will perform WNLs on a standardized balance test to decrease fall risk by 09/22/20. 09/02/20: Standardized testing not performed but pt is able to alterate side rock and reach without LOB and swing golf club LTG Duration 16 treatments 1 Retirement Goal (LTG) Pt will perform BIG exercises and functional activities daily with I to improve amplitude, balance and gait by 09/22/20. 09/02/20: Pt is progressing with BIG exercise rep, form and alternating exercises. Left BIG arm is improving with forward rock and reach LTG Duration 16 treatments Assessment Summary Assessment Pt con't to improve with gait and exercises and he does require cues for BIG hand and BIG steps with gait. Anticipate d/c next treatment date. Physical Therapy Plan Frequency and Duration Frequency of Treatment 16 treatments Duration of Treatment 16 treatments Plan of Care Start Date 08/18/20 Plan of Care End Date 09/22/20 Therapeutic Interventions Therapeutic Interventions Balance Training,Coordination Training,Gait Training,Home Exercise Program,Neuromuscular Re-education,Patient/ Caregiver Education,Self-Care/ Home Management,Therapeutic Activities,Therapeutic Exercises Modalities Cold Pack/Ice Massage,Hot Packs Other Referrals/Consults Referrals/Consults Recommended Follow-up with Dr. Romano about his medications (pt is unsure if she knows about [place] and his Carbidopa Levodopa instructions), follow -up with Dr. Romano about orthostatic hypotension and possible magnesium. Recommend neurology consult. Next Visit Focus/Plan Next Note Type Discharge Summary
--- NOTE | 2020-09-15 15:31 | PT.OTN ---
Current Diagnoses Parkinson's disease (09/15/20) Physical Therapy Treatment Note PT-OP-A Visit Information Start: 08/13/20 08:05 Freq: Status: Active Protocol: Document 09/15/20 14:17 MB (Rec: 09/15/20 14:45 MB [id number]) Out-Patient Physical Therapy Visit Information Visit Information Visit Type Treatment Note Visit Start Time 14:17 Visit Stop Time 15:12 Total Visit Minutes 55 Visit Number 17 PT-OP-B Current Condition Start: 08/13/20 08:05 Freq: Status: Active Protocol: Document 08/18/20 14:17 MB (Rec: 08/18/20 14:43 MB [id number]) Current Condition History of Current Condition Onset Date 3 years since diagnosis Current Complaints Stiffness, tremor in right hand, not being able to walk as far as he'd like History of Current Condition Pt sees naturopathic doctor, Dr. Potter, for his PD. He takes Carbidopa Levodopa. He states he is on 3 pills a day but that he can take more if he does something strenuous. He has been taking four a day. He is taking a pill at 900, 1200, 1500 and 1800. His BIG referral was written by Dr. Romano, his DO and PCP. Pt states he bought the [employer] BIG videos because he was told it would be a few weeks getting into therapy. He was instructed by junior software engineer to change his diet and was also put on [place] d/t he was found to have a deficiency per hair analysis. Pt states that his Carbidopa Levodopa helps him move more freely. Pt states that he gets up 3-4x/night to urinate. If he is really tired, he can get up just once a night. He notices that he wakes up and then feels like he needs to urinate. Pt reports that his first symptoms of PD was tremor in right hand. He has balance trouble. He feels like his legs are collapsing occ when he gets up to urinate at night and after he is up 15-20 minutes, he can move more readily. Pt lives with his . He has 3 steps and no rail to enter his home. Pt has a flight of steps with 1 rail once he is inside the house. Pt likes to walk for exercise. He walks 2-3 miles and would like to walk 4-5 miles. Pt has had 3 falls in the last year. He lost control of his legs one night and his had to help him up. Pt would like to work on stiffness. Pt participates with cooking and cleaning. Treatment Goals Patient/Caregiver Goals Decrease stiffness, no falls and walking further PT-OP-C Subjective Start: 08/13/20 08:05 Freq: Status: Active Protocol: Document 09/15/20 14:17 MB (Rec: 09/15/20 14:45 MB [id number]) OP-PT Subjective Patient Comments Patient Comments Feeling good. Pt states that he didn't feel well yesterday d/t food issue and he is better today. PT-OP-G Mobility & Gait Start: 08/13/20 08:05 Freq: Status: Active Protocol: Document 08/18/20 14:16 MB (Rec: 08/18/20 15:45 MB [id number]) OP Gait Assessment Gait Gait Assistance Required: Independent Distance (Feet) 1,693 Able to Maintain Weight Bearing Status Yes During Gait Assistive Devices Assistive Device Gait Belt Orthotic/Prosthetic Devices or Brace: No Comments Gait Comments Pt presents with little hip and pelvic movement with gait and decreased arm swing, greater on the left with most of arm swing happening at distal arms. He tends to keep fists closed with walking. His left shoulder is lower than the right and he occ has scuffing of his feet, right greater than left. His shoes are large as are his rain pants and this makes gait a little more difficult to assess as far as hip, knee and foot mechanics. His left knee appears to have a flexion and valgus component to weight acceptance compared to the right. PT-OP-K Range of Motion Start: 08/13/20 08:05 Freq: Status: Active Protocol: Document 08/18/20 14:16 MB (Rec: 08/18/20 15:45 MB [id number]) Shoulder Goniometric Range of Motion Shoulder Bilateral Shoulder ROM WFL Yes Testing Position Sitting PT-OP-M Strength Start: 08/13/20 08:05 Freq: Status: Active Protocol: Document 08/18/20 14:16 MB (Rec: 08/18/20 15:45 MB [id number]) Shoulder Strength Shoulder Manual Muscle Testing Left Flexion 5 Normal Abduction (C5) 5 Normal Right Flexion 5 Normal Abduction (C5) 5 Normal Elbow/Forearm Strength Elbow and Forearm Manual Muscle Testing Left Flexion (C6) 5 Normal Right Flexion (C6) 5 Normal Hip Strength Hip Manual Muscle Testing Left Flexion (L2) 4 Good Abduction 4 Good Right Flexion (L2) 4 Good Abduction 4 Good Ankle/Foot Strength Ankle and Foot Manual Muscle Testing Left Dorsiflexion (L4) 4 Good Right Dorsiflexion (L4) 5 Normal Toe Strength Toe Manual Muscle Testing Left Great Toe Extension 4 Good Right Great Toe Extension 5 Normal PT-OP-Q Treatments Start: 08/13/20 08:05 Freq: Status: Active Protocol: Document 09/15/20 14:17 MB (Rec: 09/15/20 15:26 MB [id number]) Therapeutic Exercises Sitting Exercises Sit to stands Comments 13 reps in 30 sec on d/c date Other Exercises Answered questions Comments Answered BIG exercise questions, ed pt to con't them and BIG walking 1x/day Gait Training Gait Activity BIG walking Device Used Gait belt Level of Assistance Superv and cues Surface Grass, curb, side walk, steps Distance/Duration 25' Treatment Focus Increased gait speed today Comments Pt fatigues much more quickly and has more scuffing of feet with each step with increased gait speed, he improves with slowing down. Ongoing decreased left greater than right arm swing and cues for upright and scanning. 6MWT Comments 1673 feet in 6 minutes with cognitive task and occ scuffing feet Neuro Re-Education Treatment Balance Activities FGA Comments See comments below for balance testing today PT-OP-T Assessment and Plan Start: 08/13/20 08:05 Freq: Status: Active Protocol: Document 09/15/20 14:17 MB (Rec: 09/15/20 14:45 MB [id number]) Physical Therapy Assessment Rehab Potential Rehabilitation Potential Good Evaluation Complexity Number of Personal Factors/Comorbidities 3 or More Number of Body Systems Impaired 1-2 Clinical Presentation at Evaluation Evolving Impairments Impairments Balance,Coordination, Functional Activities,Gait, Posture,Strength Other Impairments Impaired rapid supination and pronation, worse on the left. Impaired [id number] on the left, pt is right handed. Slower B toe tap over opposite foot, LITTLE SHELL TRIBE, some memory changes. Body systems include memory, neurological and orthostatic changes. Other Concerns Fall Risk Yes Goals 4 Usp Goal (LTG) Pt will perform 17 reps of sit to stand without UE support in 30 sec to improve functional strength by 09/22/20. 09/15/20: Pt performs 13 reps sit to stand without UE support in 30 sec LTG Duration Partially met 3 Payroll Accountant Goal (LTG) Pt will gait train at least 1700 feet in 6 minutes performing a cognitive task for at least 3 minutes to improve community ambulation by 09/22/20. 09/15/20: Pt gait trains 1673 feet in 6 minutes with task of talking about fruit in [place] and [place]. He has occ scuffing of feet LTG Duration Partially met 2 Payroll Accountant Goal (LTG) Pt will perform WNLs on a standardized balance test to decrease fall risk by 09/22/20. 09/15/20: FGA score is 23/30 and score is reduced by trouble with Tandem walking and head turns LTG Duration Partially met 1 Usp Goal (LTG) Pt will perform BIG exercises and functional activities daily with I to improve amplitude, balance and gait by 09/22/20. 09/15/20: Answered exercise questions including education about reps to continue and BIG walking LTG Duration Met Assessment Summary Assessment Pt has progressed towards all PT goals since starting BIG therapy. He reports that his writing is better, his golf swing is the best it has ever been and that he is toileting 2-3 times at night rather than twice that. PT answers all BIG exercise and gait questions and con't to encourage pt to perform BIG posture, scan and steps. He is ready to d/c PT. Recommend follow-up in 6 months to see how he is doing. Recommend neurology consult. Recommend follow-up with Dr. Romano about his current medications. Physical Therapy Plan Other Referrals/Consults Referrals/Consults Recommended Follow-up with Dr. Romano about his medications (pt is unsure if she knows about [place] and his Carbidopa Levodopa instructions), follow -up with Dr. Romano about orthostatic hypotension and possible magnesium. Recommend neurology consult. Discharge Physical Therapy Discharge Comments BIG course finished
== END 2020-09-16 08:50 | disposition home or self-care (01) ==
LOC: PHYS 14:15
PROVIDERS: PCP Family Medicine; Referring Provider Family Medicine; Visit Provider Family Medicine
DX: G20 Parkinson's disease (principal)
CPT/HCPCS: 97110; 97112; 97116; 97163; 97530; 97535

== ENCOUNTER 2021-01-05 10:30 | Outpatient (RCR) | payer MEDICARE, OTHER, SELFPAY ==
--- NOTE | 2020-08-25 17:59 | ST.OPIE ---
Visit Care Team Role Provider Type Ashley Romano DO Attending Provider Physician Primary Care Provider Referring Provider Specialty: [facility] Address: [address] [place] [address], [address], [address] Email: [email or web address] Speech-Language Pathology Initial Evaluation [facility] Voice Resonance Evaluation Start: 08/25/20 10:29 Freq: Status: Active Protocol: Document 08/25/20 10:30 TRESA (Rec: 08/25/20 11:37 TRESA [id number]) Voice and Resonance Assessment Session Time Visit Start Time 10:30 Visit Stop Time 11:40 Total Visit Minutes 70 Visit Information Visit Number Initial Evaluation Plan of Care Dates 08/25/20 - 11/24/20 Insurance Information Medicare Next Note Type Next Note Type Treatment Note Referral Referring Physician Dr. Ashley Romano Reason for Referral Parkinson's disease Setting Setting Outpatient Care Patient History General Information The pt is a 75-yr-old male diagnosed with Parkinson's disease (PD) 3 yrs ago. First apparent symptom was a tremor. The pt denies difficulty being heard or understood by others. He reports drooling during conversation as a challenge, as well as coughing with dry crumbly textures such as nuts. The pt is currently participating in [facility]IG Physical Therapy treatment, in week 2 at this time. He was unfamiliar with LSVT-LOUD and attends today to learn more about it and other Speech Therapy options. 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 Oral-Motor Eval Completed Yes Oral-Motor Assessment Mildly decreased left side facial tone observed with facial movements. Mild lingual tremor; mild lingual, labial and buccal weakness; and reduced buccal coordination. Soft palate elevates upon phonation. Hyolaryngeal elevation and anterior excursion WNL via palpation. The pt is missing one lower right molar; all other teeth are present and in good condition. Subjective Subjective The pt arrived on time and provided case history supplemental to medical records. He had questions about LSVT-Loud, unsure if he wished to pursue that treatment or not. - Laryngeal Performance Voice Handicap Index Function Subtotal 8 - Minimal Impact Physical Subtotal 6 - Minimal Impact Emotional Subtotal 8 - Mild Impact Total Score 22 Severity Mild (0-30) CAPE-V Overall Severity 22%, Mild Roughness 20%, Mild Breathiness WNL Strain 5%, Minimal Pitch 12%, Mild with occasional pitch breaks Loudness 3%, Minimal Normal Resonance? Yes Maximum Phonation Time MPT Norms: Women (15-25) Men (25-35) Loudness (50-60 dB); Speaking Rate: Oral Reading of Sentences (190 Words Per Minute); Oral Reading of Paragraphs (160-170 WPM); Speaking Rate in Conversation (150-250 WPM) Maximum Phonation Time 20s Maximum Phonation Time Adequate for Speech Jitter/Shimmer Norms: Jitter (Less than or equal to 1.040% - Frequency) Norms: Shimmer (Less than or equal to 3.810% - Amplitude) Jitter 0.33%, WNL Shimmer 1/63%, WNL Pitch [place] Pitch [place] WFL,Pitch Breaks Pitch [place] Comments Increased roughness and occasional pitch breaks. Mildly monotone. Breath Support Speaks on Room Air Yes Voice Pitch Range Norms: Women (100-300 Hz) Men (70-250 Hz) Fundamental Frequency Norms: Women (Mean: 225 Hz; Range: 155-334 Hz) Men ( Mean: 128 Hz; Range: 85-196 Hz) Fundamental Frequency 142.3 Intensity 68 dB, WNL; Occ reduction in loudness over duration of speech Paradoxical Vocal Fold Movement No Indications Resonance Nasal Resonance Normal Oral Resonance Normal Therapeutic Techniques Therapy Tactics Breath Support,Increase Loudness Findings Findings Mild Impairment Observations Mildly reduced facial expression and monotone voice. Voice/Resonance Assessment Assessment The pt presents with mildly rough vocal quality that varies in speech and improved in sustained phonation tasks and with increased vocal loudness. Minimal strain perceived. Loudness is generally WNL but does decrease to lower limits or just below occasionally over duration of speech. Discussed LSVT-Loud therapy. While it is anticipated the pt would certainly benefit from intensive treatment, less intense voice therapy would also be beneficial and would provide greater opportunity to directly address the pt's swallow and saliva management concerns. The pt agreed and requested therapy 2x/wk to start, with the option of transitioning to LSVT-Loud therapy if desired. GLASSBLOWER was agreeable to this. Prognosis Rehabilitation Potential Excellent - Recommendations Treatment Recommended Yes Treatment Frequency/Duration 2x/wk for 8 wks Therapy Recommendations Improve vocal quality and endurance; Swallow evaluation and treatment as indicated; Oral motor exercises to improve saliva management and maintain speech intelligibility. Short Term Goals 1. The pt will participate in clinical swallow evaluation to assess swallow safety and guide POC. 2. The pt will perform oral motor exercises independently to improve saliva management and facial expression and maintain speech intelligibility. 3. The pt will sustain phonation for 25 sec with clear voicing to improve breath support for voice/ speech and vocal quality and endurance. 4. The pt will perform pitch glide exercises (high & low) to improve vocal quality and reduce monotone voice. 5. The pt will read paragraphs of moderate length with clear vocal quality to improve vocal endurance over extended speech duration. Skilled Nursing Goals 1. The pt will manage saliva WNL. 2. The pt will produce vocal quality and loudness WNL in conversational speech to improve his ability to communicate effectively with others. Patient/Caregiver Education Patient/Family Education Described results of evaluation,Patient Understanding
--- NOTE | 2020-08-26 18:00 | ST.OPIE ---
Visit Care Team Role Provider Type Ashley Romano DO Attending Provider Physician Primary Care Provider Referring Provider Specialty: [facility] Address: [address] [place] [address], [address], [address] Email: [email or web address] Speech-Language Pathology Initial Evaluation [employer] Clinical Swallow Evaluation Start: 08/26/20 15:35 Freq: Status: Active Protocol: Document 08/26/20 15:35 TRESA (Rec: 08/26/20 15:57 TRESA [id number]) Clinical Swallow Evaluation Session Time Visit Start Time 15:30 Visit Stop Time 16:15 Total Visit Minutes 45 Visit Information Visit Number 06/01 Plan of Care Dates 08/25/20 - 11/24/20 Insurance Information Medicare Referral Referring Provider Dr. Ashley Romano Reason for Referral Parkinson's Disease Setting Assessment Location Outpatient Care Visit Type Note Type Initial evaluation Next Note Type Next Note Type Treatment Note Patient Information History The pt is a 75-yr-old male diagnosed with Parkinson's disease (PD) 3 yrs ago. First apparent symptom was a tremor. The pt denies difficulty being heard or understood by others. He reports drooling during conversation as a challenge, as well as coughing with dry crumbly textures such as nuts. The pt is currently participating in [facility] treatment, in week 2 at this time. He was unfamiliar with [facility] and attends today to learn more about it and other Speech Therapy options. Subjective Observations Pt arrived on time. No new complaints. Pt is gluten intolerant. Reported by Patient Other Symptoms Coughing Comment Coughing on dry crumbly textures such as nuts. Also c/ o drooling. Current Diet Regular,Thin liquids Baseline Feeding Method Independent in self-feeding Patient Questionnaire Yes Type of Patient Questionnaire (e.g., EAT EAT-10 -10, MDADI, etc.) Results : The pleasure of eating is affected by my swallowing ( 1); When I swallow food sticks in my throat (1); I cough when I eat (2). Objective Assessment Mental Status Alert,Responsive,Cooperative Oral Integrity WFL Dentition Within normal limits Lip Function Mild impairment Observation of Lips at Rest Symmetrical Pucker Reduced strength Lip Retraction Within normal limits Alternating Pucker/Lip Retraction Within normal limits Tongue Function Mild impairment Observations of Tongue at Rest Involuntary movement(s) Tongue Protrusion Within normal limits Tongue Retraction Within normal limits Tongue Lateralization Reduced strength Jaw Function Within normal limits Observations of Jaw at Rest Within normal limits Jaw Opening Within normal limits Jaw Closing Within normal limits Jaw Lateralization Within normal limits Hard/Soft Palate Function Within normal limits Observations of Hard/Soft Palate Within normal limits Nasality Within normal limits Phonation Within normal limits Respiratory Sufficiency Within normal limits Comment Mildly decreased left side facial tone observed with facial movements. Mild lingual tremor; mild lingual, labial and buccal weakness; and reduced buccal coordination. Soft palate elevates upon phonation. Hyolaryngeal elevation and anterior excursion WNL via palpation. The pt is missing one lower right molar; all other teeth are present and in good condition. Food and Liquid Trials Position During Assessment Upright (90 degrees) Liquids Trialed Thin Solids Trialed Mechanical Soft Administration Type Cup single sip,Cup consecutive sips,Self-feeding Oral Impairment Mildly impaired Oral Phase Comments Mild impairment of saliva management. Wetness around lips noted bilaterally throughout eval. Pt reports moderate drooling. Pt maintained open mouth at rest throughout session. Pharyngeal Impairment Mildly impaired Pharyngeal Phase Comments No overt s/sx of aspiration were observed with limited trial of diced fruit in liquid . Unable to assess dry crumbly texture d/t gluten intolerance and limited trial options. Pt will bring food with him to next session for further evaluation of troublesome texture. Fatigue/Endurance Endurance WNL Findings Swallowing Function Oropharyngeal phase dysphagia Severity of Swallow Impairment Mildly impaired Contributing Factors to Swallow Reduced oral strength/ Impairment coordination/sensation, Impaired airway protection Prognosis Good Based on Cognitive status,Family support,Duration of symptoms/ severity Comment Initiated education of normal vs abnormal swallow function, swallow safety, and oral motor exercises. Trained pt in exercises orally with demonstration and in writing. Pt returned demonstration. Will continue training of additional exercises at next session. Impact on Safety and Functioning Risk for aspiration Recommendations Instrumental Assessment No Swallowing Treatment Yes Frequency 2x/wk in conjuction with voice therapy Duration 8 wks Recommended Solids Regular Recommended Liquids Thin Other Recommendations Avoid dry crumbly textures Safety Precautions/Swallowing Reduce distractions,Remain Recommendations upright (90 degrees) during all oral intake,Small bites and sips when eating,Slow rate ; swallow between bites Medication Recommendations As Tolerated Education Patient/Caregiver Education Described results of evaluation,Patient expressed understanding of evaluation, Patient expressed agreement with goals & treatment plans, Patient expressed understanding of safety precautions,Patient expressed understanding of feeding recommendations Goals Short-term Goals 1. The pt will complete exercises to increase strength and coordination of swallow musculature to reduce risk of aspiration. 2. The pt will perform oral motor exercises to improve saliva management. Long-term Goals 1. The pt will tolerate all desired textures and thin liquids without overt s/sx of aspiration. 2. The pt will exhibit saliva management WNL.
--- NOTE | 2020-09-03 15:21 | ST.OPTN ---
Visit Care Team Role Provider Type Ashley Romano DO Attending Provider Physician Primary Care Provider Referring Provider Address: [address] [place] [address], [address], [place], [address] NANOTECHNOLOGY ENGINEERING TECHNOLOGIST Treatment Note NANOTECHNOLOGY ENGINEERING TECHNOLOGIST Treatment Note Start: 08/25/20 10:29 Freq: Status: Active Protocol: Document 09/03/20 12:13 TRESA (Rec: 09/03/20 12:14 TRESA [id number]) Speech Pathology Treatment Note Session Time Visit Start Time 10:30 Visit Stop Time 11:15 Total Visit Minutes 45 Visit Information Visit Number 07/02 Plan of Care Dates 08/25/20 - 11/24/20 Insurance Information Medicare Setting Treatment Setting Outpatient Care Visit Type Note Type Treatment Note Next Note Type Next Note Type Treatment Note General Information General Information The pt is a 75-yr-old male diagnosed with Parkinson's disease (PD) 3 yrs ago. First apparent symptom was a tremor. The pt denies difficulty being heard or understood by others. He reports drooling during conversation as a challenge, as well as coughing with dry crumbly textures such as nuts. The pt is currently participating in [facility] treatment, in week 2 at this time. He was unfamiliar with [facility] and attends today to learn more about it and other Speech Therapy options. Subjective Observations/Patient Presentation The pt arrived on time. No new complaints. Has been compliant with HEP. Chief Complaint(s) Swallowing,Voice Additional Areas of Concern Saliva management Rehab Expectation/Goals: Patient Goals Eliminate hoarseness of voice, drooling, coughing with oral intake Patient Knowledge/Awareness of NANOTECHNOLOGY ENGINEERING TECHNOLOGIST Role Good in Treatment Patient/Caregiver Compliance with Home Good Exercise Program Objective Short Term Goals Voice: 1. The pt will participate in clinical swallow evaluation to assess swallow safety and guide POC. 2. The pt will perform oral motor exercises independently to improve saliva management and facial expression and maintain speech intelligibility. 3. The pt will sustain phonation for 25 sec with clear voicing to improve breath support for voice/ speech and vocal quality and endurance. 4. The pt will perform pitch glide exercises (high & low) to improve vocal quality and reduce monotone voice. 5. The pt will read paragraphs of moderate length with clear vocal quality to improve vocal endurance over extended speech duration. Dysphagia: 1. The pt will complete exercises to increase strength and coordination of swallow musculature to reduce risk of aspiration. 2. The pt will perform oral motor exercises to improve saliva management. Electronics Assembler Goals Voice: 1. The pt will manage saliva WNL. 2. The pt will produce vocal quality and loudness WNL in conversational speech to improve his ability to communicate effectively with others. Dysphagia: 1. The pt will tolerate all desired textures and thin liquids without overt s/sx of aspiration. 2. The pt will exhibit saliva management WNL. Treatment Activities Continued training of swallow and oral motor/saliva management exercises. Also instructed pt to increase awareness of mouth opening/ closing to improve saliva management. Pt returned demonstration of all exercises as instructed and verbalized understanding. Instructions provided in writing for home practice. Initiated education of subsystems of voice, particularly diaphragmatic breathing as breath support for voice, and effects of laryngeal tension/relaxation on vocal quality. The pt performed diphragmatic breaths with hands on belly and chest for biofeedback, and yawn/ sigh technique with clear voicing as laryngeal relaxation strategy. Needs reinforcement. Assessment Patient Response to Treatment Good Rehab Potential Excellent Impairments Identified Dysphagia,Parkinson's Disease, Vocal Quality,Vocal Hygiene Additional Impairments Identified Saliva management Progress Towards Goals Good Progress Assessment of Overall Progress Improving Assessment of Improvement The pt is doing well with swallow exercises and experiencing initial improvement of swallow. He was receptive and responsive to all education and training provided today and demonstrated his understanding by completing exercises as instructed. Reviewed with Patient Goals,Progress Being Made,Home Exercise Program Patient/Caregiver Understanding Good Plan Amount of Therapy Recommended 2-3 Months Frequency of Treatment Twice a Week Length of Session 45 Minutes Treatment Emphasis Next Session Continue voice training Therapeutic Contents Client Education,Home Exercise Program,Swallowing/Feeding, Voice Training Provided Patient/Caregiver Instruction Home Exercise Program,Plan of Care,Questions/Concerns Therapy Recommendations Continue with Current Program
--- NOTE | 2020-09-09 16:03 | ST.OPTN ---
Visit Care Team Role Provider Type Ashley Romano DO Attending Provider Physician Primary Care Provider Referring Provider Address: [address] [place] [address], [address], [place], [address] DENTAL BILLER Treatment Note DENTAL BILLER Treatment Note Start: 08/25/20 10:29 Freq: Status: Active Protocol: Document 09/09/20 15:50 TRESA (Rec: 09/09/20 16:02 TRESA [id number]) Speech Pathology Treatment Note Session Time Visit Start Time 12:30 Visit Stop Time 13:15 Total Visit Minutes 45 Visit Information Visit Number 07/30 Plan of Care Dates 08/25/20 - 11/24/20 Insurance Information Medicare Setting Treatment Setting Outpatient Care Visit Type Note Type Treatment Note Next Note Type Next Note Type Treatment Note General Information General Information The pt is a 75-yr-old male diagnosed with Parkinson's disease (PD) 3 yrs ago. First apparent symptom was a tremor. The pt denies difficulty being heard or understood by others. He reports drooling during conversation as a challenge, as well as coughing with dry crumbly textures such as nuts. The pt is currently participating in [facility] Physical Therapy treatment, in week 2 at this time. He was unfamiliar with [facility] and attends today to learn more about it and other Speech Therapy options. Subjective Observations/Patient Presentation The pt arrived on time. No new complaints. Has been compliant with HEP. Reported reduced drooling and coughing, although continues occ coughing and throat irritation when eating nuts. He expressed suspicion of a nut allergy, which, if present, may contribute to symptoms. Chief Complaint(s) Swallowing,Voice Additional Areas of Concern Saliva management Rehab Expectation/Goals: Patient Goals Eliminate hoarseness of voice, drooling, coughing with oral intake Patient Knowledge/Awareness of DENTAL BILLER Role Good in Treatment Patient/Caregiver Compliance with Home Good Exercise Program Objective Short Term Goals Voice: 1. The pt will participate in clinical swallow evaluation to assess swallow safety and guide POC. 2. The pt will perform oral motor exercises independently to improve saliva management and facial expression and maintain speech intelligibility. 3. The pt will sustain phonation for 25 sec with clear voicing to improve breath support for voice/ speech and vocal quality and endurance. 4. The pt will perform pitch glide exercises (high & low) to improve vocal quality and reduce monotone voice. 5. The pt will read paragraphs of moderate length with clear vocal quality to improve vocal endurance over extended speech duration. Dysphagia: 1. The pt will complete exercises to increase strength and coordination of swallow musculature to reduce risk of aspiration. 2. The pt will perform oral motor exercises to improve saliva management. Applications Support Specialist Goals Voice: 1. The pt will manage saliva WNL. 2. The pt will produce vocal quality and loudness WNL in conversational speech to improve his ability to communicate effectively with others. Dysphagia: 1. The pt will tolerate all desired textures and thin liquids without overt s/sx of aspiration. 2. The pt will exhibit saliva management WNL. Treatment Activities The pt had a question about one swallow exercise, which was answered. Pt able to demonstrate proper performance . Initiated voice training with education RE subsystems of voice, diaphragmatic breathing , and laryngeal relaxation. Trained pt in diaphragmatic breathing through nose, both for inhalation and exhalation. Instructed pt to inhale through nose to ~85% of lung capacity on a 4-count; hold for 2 counts; and exhale through nose on a 4-count. Pt performed breathing pattern, initially engagine mixed diaphragmatic and thoracic breathing, then shifting to diaphragmatic. Trained pt in yawn/sigh technique for laryngeal relaxation, which he performed as instructed. Using breathing and laryngeal relaxation techniques, trained pt in sustained phonation, which he performed with moderately quiet voice, increased loudness with prompts. Voice remained clear until pt was almost out of breath, which mild hoarseness was perceived. Skilled feedback provided. HEP tasks instructions were provided in writing for home practice. Pt instructed to continue with swallow exercises as well. He agreed. Assessment Patient Response to Treatment Good Rehab Potential Excellent Impairments Identified Dysphagia,Parkinson's Disease, Vocal Quality,Vocal Hygiene Additional Impairments Identified Saliva management Progress Towards Goals Good Progress Assessment of Overall Progress Improving Assessment of Improvement Improved saliva management and swallow safety reported by pt . The pt breathed through his mouth during most of the treatment today, except when instructed to breathe through nose during breathing exercises. No obstruction was observed to prevent the pt from breathing through nose. Mouth breathing appears to have been habituated secondary to severe nasal congestion from allergies as a child. The pt demonstrated understanding of benefits of nasal vs mouth breathing. He was also responsive to all training provided today and exhibited improved vocal clarity in structured tasks vs conversation, during which moderate roughness was noted consistently. The pt may be an excellent candidate for [place] breathing. Reviewed with Patient Goals,Progress Being Made,Home Exercise Program Patient/Caregiver Understanding Good Plan Amount of Therapy Recommended 2-3 Months Frequency of Treatment Twice a Week Length of Session 45 Minutes Treatment Emphasis Next Session Continue training in voice and breath support Therapeutic Contents Client Education,Home Exercise Program,Swallowing/Feeding, Voice Training Provided Patient/Caregiver Instruction Home Exercise Program,Plan of Care,Questions/Concerns Therapy Recommendations Continue with Current Program
--- NOTE | 2020-09-22 14:40 | ST.OPTN ---
Visit Care Team Role Provider Type Ashley Romano DO Attending Provider Physician Primary Care Provider Referring Provider Address: [address] [place] [address], [address], [place], [address] GARDEN EQUIPMENT MECHANIC Treatment Note GARDEN EQUIPMENT MECHANIC Treatment Note Start: 08/25/20 10:29 Freq: Status: Active Protocol: Document 09/22/20 14:33 TRESA (Rec: 09/22/20 14:40 TRESA [email or web address]) Speech Pathology Treatment Note Session Time Visit Start Time 13:30 Visit Stop Time 14:20 Total Visit Minutes 50 Visit Information Visit Number 08/30 Plan of Care Dates 08/25/20 - 11/24/20 Insurance Information Medicare Setting Treatment Setting Outpatient Care Visit Type Note Type Treatment Note Next Note Type Next Note Type Treatment Note General Information General Information The pt is a 75-yr-old male diagnosed with Parkinson's disease (PD) 3 yrs ago. First apparent symptom was a tremor. The pt denies difficulty being heard or understood by others. He reports drooling during conversation as a challenge, as well as coughing with dry crumbly textures such as nuts. The pt is currently participating in [facility] Physical Therapy treatment, in week 2 at this time. He was unfamiliar with [facility] and attends today to learn more about it and other Speech Therapy options. Subjective Observations/Patient Presentation The pt arrived on time. No new complaints. Has been compliant with HEP. Reported reduced drooling even during sleep and reduced coughing with previously troublesome foods such as cereal. Chief Complaint(s) Swallowing,Voice Additional Areas of Concern Saliva management Rehab Expectation/Goals: Patient Goals Eliminate hoarseness of voice, drooling, coughing with oral intake Patient Knowledge/Awareness of GARDEN EQUIPMENT MECHANIC Role Good in Treatment Patient/Caregiver Compliance with Home Good Exercise Program Objective Short Term Goals Voice: 1. The pt will participate in clinical swallow evaluation to assess swallow safety and guide POC. 2. The pt will perform oral motor exercises independently to improve saliva management and facial expression and maintain speech intelligibility. 3. The pt will sustain phonation for 25 sec with clear voicing to improve breath support for voice/ speech and vocal quality and endurance. 4. The pt will perform pitch glide exercises (high & low) to improve vocal quality and reduce monotone voice. 5. The pt will read paragraphs of moderate length with clear vocal quality to improve vocal endurance over extended speech duration. Dysphagia: 1. The pt will complete exercises to increase strength and coordination of swallow musculature to reduce risk of aspiration. 2. The pt will perform oral motor exercises to improve saliva management. Filter Tip Inspector Goals Voice: 1. The pt will manage saliva WNL. 2. The pt will produce vocal quality and loudness WNL in conversational speech to improve his ability to communicate effectively with others. Dysphagia: 1. The pt will tolerate all desired textures and thin liquids without overt s/sx of aspiration. 2. The pt will exhibit saliva management WNL. Treatment Activities Education provided RE benefits of nasal vs mouth breathing and importance of repiratory muscle strength for vocal quality and loudness and for airway protection. All questions were answered. Continued training of diaphragmatic breathing through the nose with use of focus on breath passing through nose, yawn sigh, and sustained phonation. Sustained phonation range = 12.5-19.9 s with increased duration and improved vocal quality and endurance with increased loudness. Skilled feedback provided. Pt verbalized understanding of all education and training. Assessment Patient Response to Treatment Good Rehab Potential Excellent Impairments Identified Dysphagia,Parkinson's Disease, Vocal Quality,Vocal Hygiene Additional Impairments Identified Saliva management Progress Towards Goals Good Progress Assessment of Overall Progress Improving Assessment of Improvement Improved saliva management, swallow safety, and awareness of nasal vs oral breathing reported by pt. Pt maintained closed mouth during the session when not talking or performing exercises in ~70% of opportunities. He was responsive to all education and training, with increased phonation time and vocal quality with increased loudness levels. Reviewed with Patient Goals,Progress Being Made,Home Exercise Program Patient/Caregiver Understanding Good Plan Amount of Therapy Recommended 2-3 Months Frequency of Treatment Twice a Week Length of Session 45 Minutes Treatment Emphasis Next Session Continue training in voice and breath support Therapeutic Contents Client Education,Home Exercise Program,Swallowing/Feeding, Voice Training Provided Patient/Caregiver Instruction Home Exercise Program,Plan of Care,Questions/Concerns Therapy Recommendations Continue with Current Program
--- NOTE | 2020-09-24 15:35 | ST.OPTN ---
Visit Care Team Role Provider Type Ashley Romano DO Attending Provider Physician Primary Care Provider Referring Provider Address: [address] [place] [address], [address], [place], [address] CHIEF BUILDING INSPECTOR Treatment Note CHIEF BUILDING INSPECTOR Treatment Note Start: 08/25/20 10:29 Freq: Status: Active Protocol: Document 09/24/20 15:28 TRESA (Rec: 09/24/20 15:35 TRESA [email or web address]) Speech Pathology Treatment Note Session Time Visit Start Time 13:30 Visit Stop Time 14:15 Total Visit Minutes 45 Visit Information Visit Number 09/29 Plan of Care Dates 08/25/20 - 11/24/20 Insurance Information Medicare Setting Treatment Setting Outpatient Care Visit Type Note Type Treatment Note Next Note Type Next Note Type Treatment Note General Information General Information The pt is a 75-yr-old male diagnosed with Parkinson's disease (PD) 3 yrs ago. First apparent symptom was a tremor. The pt denies difficulty being heard or understood by others. He reports drooling during conversation as a challenge, as well as coughing with dry crumbly textures such as nuts. The pt is currently participating in [facility] Physical Therapy treatment, in week 2 at this time. He was unfamiliar with [facility] and attends today to learn more about it and other Speech Therapy options. Subjective Observations/Patient Presentation The pt arrived on time. No new complaints. Has been compliant with HEP. Chief Complaint(s) Swallowing,Voice Additional Areas of Concern Saliva management Rehab Expectation/Goals: Patient Goals Eliminate hoarseness of voice, drooling, coughing with oral intake Patient Knowledge/Awareness of CHIEF BUILDING INSPECTOR Role Good in Treatment Patient/Caregiver Compliance with Home Good Exercise Program Objective Short Term Goals Voice: 1. The pt will participate in clinical swallow evaluation to assess swallow safety and guide POC. 2. The pt will perform oral motor exercises independently to improve saliva management and facial expression and maintain speech intelligibility. 3. The pt will sustain phonation for 25 sec with clear voicing to improve breath support for voice/ speech and vocal quality and endurance. 4. The pt will perform pitch glide exercises (high & low) to improve vocal quality and reduce monotone voice. 5. The pt will read paragraphs of moderate length with clear vocal quality to improve vocal endurance over extended speech duration. Dysphagia: 1. The pt will complete exercises to increase strength and coordination of swallow musculature to reduce risk of aspiration. 2. The pt will perform oral motor exercises to improve saliva management. Tractor Operator Goals Voice: 1. The pt will manage saliva WNL. 2. The pt will produce vocal quality and loudness WNL in conversational speech to improve his ability to communicate effectively with others. Dysphagia: 1. The pt will tolerate all desired textures and thin liquids without overt s/sx of aspiration. 2. The pt will exhibit saliva management WNL. Treatment Activities Continued training of voice exercises, shaping production toward loud voice, relaxed throat, and open mouth. The pt exhibited improved nasal breathing (~75% of the session time when not performing tasks). Pt improved MPT from 16.7s at 66 dB to 20.2s at 77 dB. Pitch range = 109-303 Hz with mostly clear vocal quality, some diplophonia perceived at high pitches. This mostly resolved with increased diaphragmatic effort and open throat techniques. Instructions for exercises, including form, were provided in writing for home practice. Assessment Patient Response to Treatment Excellent Rehab Potential Excellent Impairments Identified Dysphagia,Parkinson's Disease, Vocal Quality,Vocal Hygiene Additional Impairments Identified Saliva management Progress Towards Goals Good Progress Assessment of Overall Progress Improving Assessment of Improvement The pt was highly responsive to training and feedback. Increased independent nasal breathing was observed, as well as improved vocal quality and endurance with increased vocal loudness. Reviewed with Patient Goals,Progress Being Made,Home Exercise Program Patient/Caregiver Understanding Good Plan Amount of Therapy Recommended 2-3 Months Frequency of Treatment Twice a Week Length of Session 45 Minutes Treatment Emphasis Next Session Continue training in voice and breath support Therapeutic Contents Client Education,Home Exercise Program,Swallowing/Feeding, Voice Training Provided Patient/Caregiver Instruction Home Exercise Program,Plan of Care,Questions/Concerns Therapy Recommendations Continue with Current Program
--- NOTE | 2020-10-01 16:47 | ST.OPTN ---
Visit Care Team Role Provider Type Ashley Romano DO Attending Provider Physician Primary Care Provider Referring Provider Address: [address] [place] [address], [address], [place], [address] VOICE PATHOLOGIST Treatment Note VOICE PATHOLOGIST Treatment Note Start: 08/25/20 10:29 Freq: Status: Active Protocol: Document 10/01/20 14:28 TRESA (Rec: 10/01/20 14:29 TRESA [email or web address]) Speech Pathology Treatment Note Session Time Visit Start Time 13:30 Visit Stop Time 14:20 Total Visit Minutes 50 Visit Information Visit Number 10/30 Plan of Care Dates 08/25/20 - 11/24/20 Insurance Information Medicare Setting Treatment Setting Outpatient Care Visit Type Note Type Treatment Note Next Note Type Next Note Type Treatment Note General Information General Information The pt is a 75-yr-old male diagnosed with Parkinson's disease (PD) 3 yrs ago. First apparent symptom was a tremor. The pt denies difficulty being heard or understood by others. He reports drooling during conversation as a challenge, as well as coughing with dry crumbly textures such as nuts. The pt is currently participating in [facility] Physical Therapy treatment, in week 2 at this time. He was unfamiliar with [facility] and attends today to learn more about it and other Speech Therapy options. Subjective Others Present Additional Therapist Observations/Patient Presentation The pt arrived on time. No new complaints. Has been compliant with HEP. Student VOICE PATHOLOGIST was present throughout with the pt's verbal permission. Chief Complaint(s) Swallowing,Voice Additional Areas of Concern Saliva management Rehab Expectation/Goals: Patient Goals Eliminate hoarseness of voice, drooling, coughing with oral intake Patient Knowledge/Awareness of VOICE PATHOLOGIST Role Good in Treatment Patient/Caregiver Compliance with Home Good Exercise Program Objective Short Term Goals Voice: 1. The pt will participate in clinical swallow evaluation to assess swallow safety and guide POC. 2. The pt will perform oral motor exercises independently to improve saliva management and facial expression and maintain speech intelligibility. 3. The pt will sustain phonation for 25 sec with clear voicing to improve breath support for voice/ speech and vocal quality and endurance. 4. The pt will perform pitch glide exercises (high & low) to improve vocal quality and reduce monotone voice. 5. The pt will read paragraphs of moderate length with clear vocal quality to improve vocal endurance over extended speech duration. Dysphagia: 1. The pt will complete exercises to increase strength and coordination of swallow musculature to reduce risk of aspiration. 2. The pt will perform oral motor exercises to improve saliva management. Vice President Of Talent Acquisition Goals Voice: 1. The pt will manage saliva WNL. 2. The pt will produce vocal quality and loudness WNL in conversational speech to improve his ability to communicate effectively with others. Dysphagia: 1. The pt will tolerate all desired textures and thin liquids without overt s/sx of aspiration. 2. The pt will exhibit saliva management WNL. Treatment Activities Assessed pt's swallow safety/ function with oral trials of pudding, diced fruit and thin liquid. Did not administer cracker d/t pt's gluten intolerance. Pt consumed without overt s/sx of aspiration. Voice remained clear throughout. Education provided RE general aspiration precautions. Pt verbalized understanding. Pt completed voice exercises including sustained phonation and pitch glides. MPT = 25 sec (range = 21-25s); avg loudness, avg loudness 77.8 dB . Pitch range: 109-525 Hz. Pt exhibited diplophonia at high pitches (above falsetto), which improved but did not completely clear with prompts for laryngeal relaxation. Trained pt in exercises to increase/maintain facial expression including ee-oo with exaggerated motor movements and raising/lowering of eyebrows, squinting/ opening of eyes. Pt performed with good motor movement. Given written script and list of varying emotions, the pt read the script exhibiting a target emotion both with vocal inflection and facial expression. Task added to HEP. Assessment Patient Response to Treatment Excellent Rehab Potential Excellent Impairments Identified Dysphagia,Parkinson's Disease, Vocal Quality,Vocal Hygiene Additional Impairments Identified Saliva management Progress Towards Goals Good Progress Assessment of Overall Progress Improving Assessment of Improvement Pt demonstrated good tolerance of oral trials. Exhibited initial strain in voice with pitch exercises but responded well to prompts for laryngeal relaxation. Needs reinforcement. The pt demonstrated good ROM of facial muscles and ability to express emotion vocally and via facial expression. In conversation, pt's affect was moderately flat, improved with increased interest in conversation topics; socially appropriate. Reviewed with Patient Goals,Progress Being Made,Home Exercise Program Patient/Caregiver Understanding Good Plan Amount of Therapy Recommended 2-3 Months Frequency of Treatment Once a Week Comment Reduce frequency to 1x/wk Length of Session 45 Minutes Therapeutic Contents Client Education,Home Exercise Program,Swallowing/Feeding, Voice Training Provided Patient/Caregiver Instruction Home Exercise Program,Plan of Care,Questions/Concerns Therapy Recommendations Continue with Current Program
--- NOTE | 2020-10-15 09:54 | ST.OPTN ---
Visit Care Team Role Provider Type Ashley Romano DO Attending Provider Physician Primary Care Provider Referring Provider Address: [address] [place] [address], [address], [place], [address] QUILL MACHINE TENDER Treatment Note QUILL MACHINE TENDER Treatment Note Start: 08/25/20 10:29 Freq: Status: Active Protocol: Document 10/15/20 09:41 TRESA (Rec: 10/15/20 09:54 TRESA [email or web address]) Speech Pathology Treatment Note Session Time Visit Start Time 08:30 Visit Stop Time 09:25 Total Visit Minutes 55 Visit Information Visit Number 11/29 Plan of Care Dates 08/25/20 - 11/24/20 Insurance Information Medicare Setting Treatment Setting Outpatient Care Visit Type Note Type Treatment Note Next Note Type Next Note Type Treatment Note General Information General Information The pt is a 75-yr-old male diagnosed with Parkinson's disease (PD) 3 yrs ago. First apparent symptom was a tremor. The pt denies difficulty being heard or understood by others. He reports drooling during conversation as a challenge, as well as coughing with dry crumbly textures such as nuts. The pt is currently participating in [facility] Physical Therapy treatment, in week 2 at this time. He was unfamiliar with LSVT-LOUD and attends today to learn more about it and other Speech Therapy options. Subjective Others Present Additional Therapist Observations/Patient Presentation The pt arrived on time. No new complaints. Has been compliant with HEP. Student QUILL MACHINE TENDER was present throughout with the pt's verbal permission. Pt had questions about LSVT-Loud, which were answered. Chief Complaint(s) Swallowing,Voice Additional Areas of Concern Saliva management Rehab Expectation/Goals: Patient Goals Eliminate hoarseness of voice, drooling, coughing with oral intake Patient Knowledge/Awareness of QUILL MACHINE TENDER Role Good in Treatment Patient/Caregiver Compliance with Home Good Exercise Program Objective Short Term Goals Voice: 1. The pt will participate in clinical swallow evaluation to assess swallow safety and guide POC. 2. The pt will perform oral motor exercises independently to improve saliva management and facial expression and maintain speech intelligibility. 3. The pt will sustain phonation for 25 sec with clear voicing to improve breath support for voice/ speech and vocal quality and endurance. 4. The pt will perform pitch glide exercises (high & low) to improve vocal quality and reduce monotone voice. 5. The pt will read paragraphs of moderate length with clear vocal quality to improve vocal endurance over extended speech duration. Dysphagia: 1. The pt will complete exercises to increase strength and coordination of swallow musculature to reduce risk of aspiration. 2. The pt will perform oral motor exercises to improve saliva management. [facility] Goals Voice: 1. The pt will manage saliva WNL. 2. The pt will produce vocal quality and loudness WNL in conversational speech to improve his ability to communicate effectively with others. Dysphagia: 1. The pt will tolerate all desired textures and thin liquids without overt s/sx of aspiration. 2. The pt will exhibit saliva management WNL. Treatment Activities Consulted with pt RE POC and HEP. Pt is completing voice exercises 5x/wk, swallow and oral motor exercises periodically throughout the week. Reported no coughing with oral intake and improved saliva management. Continues with excesss saliva when doing tasks that include bending body or head downward, but has increased awareness and ability to manage with increased swallowing. Continued education RE nose vs mouth breathing. Pt benefiting from nasal pillow for sleep apnea. Education provided RE LSVT- Loud therapy, process and benefits. Discussed prevention vs treatment of symptoms. Assessed pt's vocal loudness in conversation, which was an avg of 67 dB (range = 60-74 db ), which is the lower end of normal range. Feedback provided to pt regarding this. Pt expressed interest in LSVT -Loud and likely desire to participate in the fall. Will consult with and inform at next session. Recommendations were made for frequency of HEP tasks. Pt in agreement. Pt demonstrates independence with all exercises. Agreed to reduce frequency to 1 visit every 3 wks. Assessment Patient Response to Treatment Excellent Rehab Potential Excellent Impairments Identified Dysphagia,Parkinson's Disease, Vocal Quality,Vocal Hygiene Additional Impairments Identified Saliva management Progress Towards Goals Good Progress Assessment of Overall Progress Improving Assessment of Improvement The pt is making excellent progress toward goals. Significant improvement in swallow safety and saliva management has been made. Pt continues with vocal loudness at low end of normal limits in conversation. Vocal quality remains mildly-moderately rough. No excess saliva observed. Pt was observed to frequently breathe through mouth when at rest. He is an excellent candidate for LSVT- Loud tx, which is recommended. Reviewed with Patient Goals,Progress Being Made,Home Exercise Program Patient/Caregiver Understanding Excellent Plan Amount of Therapy Recommended 1-2 Months Frequency of Treatment Once a Week Comment Reduce frequency to 1 visit every 3 wks Length of Session 45 Minutes Therapeutic Contents Client Education,Home Exercise Program,Swallowing/Feeding, Voice Training Provided Patient/Caregiver Instruction Home Exercise Program,Plan of Care,Questions/Concerns Therapy Recommendations Continue with Current Program
--- NOTE | 2020-11-05 16:23 | ST.OPTN ---
Visit Care Team Role Provider Type Ashley Romano DO Attending Provider Physician Primary Care Provider Referring Provider Address: [address] [place] [address], [address], [place], [address] BRIDGE MAINTAINER Treatment Note BRIDGE MAINTAINER Treatment Note Start: 08/25/20 10:29 Freq: Status: Active Protocol: Document 11/04/20 18:11 TRESA (Rec: 11/04/20 18:11 TRESA [email or web address]) Speech Pathology Treatment Note Session Time Visit Start Time 12:30 Visit Stop Time 13:20 Total Visit Minutes 50 Visit Information Visit Number 12/30 Plan of Care Dates 08/25/20 - 11/24/20 Insurance Information Medicare Setting Treatment Setting Outpatient Care Visit Type Note Type Treatment Note Next Note Type Next Note Type Treatment Note General Information General Information The pt is a 75-yr-old male diagnosed with Parkinson's disease (PD) 3 yrs ago. First apparent symptom was a tremor. The pt denies difficulty being heard or understood by others. He reports drooling during conversation as a challenge, as well as coughing with dry crumbly textures such as nuts. The pt is currently participating in LSVT-BIG Physical Therapy treatment, in week 2 at this time. He was unfamiliar with LSVT-LOUD and attends today to learn more about it and other Speech Therapy options. Subjective Observations/Patient Presentation The pt arrived on time. No new complaints. Has been compliant with HEP and had questions related to breathing strategies to reduce drooling and promote general health. The pt's participated briefly by phone to provide feedback RE her observations. She stated that when the pt was away from treatment for a few weeks, she noticed a decline in speech intelligibility, particularly loudness, commenting that she recognized the benefit of ongoing routine therapy. Chief Complaint(s) Swallowing,Voice Additional Areas of Concern Saliva management Rehab Expectation/Goals: Patient Goals Eliminate hoarseness of voice, drooling, coughing with oral intake Patient Knowledge/Awareness of BRIDGE MAINTAINER Role Good in Treatment Patient/Caregiver Compliance with Home Good Exercise Program Objective Short Term Goals Voice: 1. The pt will participate in clinical swallow evaluation to assess swallow safety and guide POC. 2. The pt will perform oral motor exercises independently to improve saliva management and facial expression and maintain speech intelligibility. 3. The pt will sustain phonation for 25 sec with clear voicing to improve breath support for voice/ speech and vocal quality and endurance. 4. The pt will perform pitch glide exercises (high & low) to improve vocal quality and reduce monotone voice. 5. The pt will read paragraphs of moderate length with clear vocal quality to improve vocal endurance over extended speech duration. Dysphagia: 1. The pt will complete exercises to increase strength and coordination of swallow musculature to reduce risk of aspiration. 2. The pt will perform oral motor exercises to improve saliva management. Computer Science Professor Goals Voice: 1. The pt will manage saliva WNL. 2. The pt will produce vocal quality and loudness WNL in conversational speech to improve his ability to communicate effectively with others. Dysphagia: 1. The pt will tolerate all desired textures and thin liquids without overt s/sx of aspiration. 2. The pt will exhibit saliva management WNL. Treatment Activities Education/Training was provided RE breathing exercises/strategies to promote optimal breath support for speech and airway protection, as well as saliva management. Instructed pt to breath through nose whenever possible to for benefits of moisture, filtering, and warming of air as well as adding nitric oxide to air to increase distribution of oxygen in lungs and release of oxygen to body cells. Instructed pt to practice nasal breathing while walking at normal pace to increase awareness of and tolerance to nasal vs mouth breathing. Assessed pt's breath support for voice and vocal quality with sustained phonation task. Pt sustained phonation at normal loudness level (avg = 70 dB) for 26.3 sec with increasing hoarseness exending to diplophonia across the duration of the task. With increased loudness (avg = 77 dB), the pt sustained phonation for 32.2 sec with clear vocal quality throughout . Skilled feedback was provided and pt was instructed to complete HEP tasks with increased loudness. Pt verbalized understanding and agreement. Assessment Patient Response to Treatment Excellent Rehab Potential Excellent Impairments Identified Dysphagia,Parkinson's Disease, Vocal Quality,Vocal Hygiene Additional Impairments Identified Saliva management Progress Towards Goals Good Progress Assessment of Overall Progress Improving Assessment of Improvement Significant improvement in vocal quality and duration of sustained phonation observed with increased vocal loudness. The pt was responsive to all education and feedback provided today. Family has noted decline in speech intelligibility when consistent treatment and home practice is not achieved, further indicating need for continued therapy. Reviewed with Patient Goals,Progress Being Made,Home Exercise Program Patient/Caregiver Understanding Excellent Plan Amount of Therapy Recommended 1-2 Months Frequency of Treatment Once a Week Comment Reduce frequency to 1 visit every 3 wks Length of Session 45 Minutes Therapeutic Contents Client Education,Home Exercise Program,Swallowing/Feeding, Voice Training Provided Patient/Caregiver Instruction Home Exercise Program,Plan of Care,Questions/Concerns Therapy Recommendations Continue with Current Program
--- NOTE | 2020-11-12 09:03 | ST.OPTN ---
Visit Care Team Role Provider Type Ashley Romano DO Attending Provider Physician Primary Care Provider Referring Provider Address: [address] [place] [address], [address], [place], [address] SKILLS TRAINER Treatment Note SKILLS TRAINER Treatment Note Start: 08/25/20 10:29 Freq: Status: Active Protocol: Document 11/11/20 18:05 TRESA (Rec: 11/11/20 18:05 TRESA [email or web address]) Speech Pathology Treatment Note Session Time Visit Start Time 13:30 Visit Stop Time 14:20 Total Visit Minutes 50 Visit Information Visit Number 01/30 Plan of Care Dates 08/25/20 - 11/24/20 Insurance Information Medicare Setting Treatment Setting Outpatient Care Visit Type Note Type Treatment Note Next Note Type Next Note Type Progress Note General Information General Information The pt is a 75-yr-old male diagnosed with Parkinson's disease (PD) 3 yrs ago. First apparent symptom was a tremor. The pt denies difficulty being heard or understood by others. He reports drooling during conversation as a challenge, as well as coughing with dry crumbly textures such as nuts. The pt is currently participating in LSVT-BIG Physical Therapy treatment, in week 2 at this time. He was unfamiliar with LSVT-LOUD and attends today to learn more about it and other Speech Therapy options. Subjective Observations/Patient Presentation The pt arrived on time. No new complaints. Has been compliant with HEP and had questions related to breathing strategies to reduce drooling and promote general health. Has started a fast-walking routine to increase exercise. Chief Complaint(s) Swallowing,Voice Additional Areas of Concern Saliva management Rehab Expectation/Goals: Patient Goals Eliminate hoarseness of voice, drooling, coughing with oral intake Patient Knowledge/Awareness of SKILLS TRAINER Role Good in Treatment Patient/Caregiver Compliance with Home Good Exercise Program Objective Short Term Goals Voice: 1. The pt will participate in clinical swallow evaluation to assess swallow safety and guide POC. 2. The pt will perform oral motor exercises independently to improve saliva management and facial expression and maintain speech intelligibility. 3. The pt will sustain phonation for 25 sec with clear voicing to improve breath support for voice/ speech and vocal quality and endurance. 4. The pt will perform pitch glide exercises (high & low) to improve vocal quality and reduce monotone voice. 5. The pt will read paragraphs of moderate length with clear vocal quality to improve vocal endurance over extended speech duration. Dysphagia: 1. The pt will complete exercises to increase strength and coordination of swallow musculature to reduce risk of aspiration. 2. The pt will perform oral motor exercises to improve saliva management. Route Jumper Goals Voice: 1. The pt will manage saliva WNL. 2. The pt will produce vocal quality and loudness WNL in conversational speech to improve his ability to communicate effectively with others. Dysphagia: 1. The pt will tolerate all desired textures and thin liquids without overt s/sx of aspiration. 2. The pt will exhibit saliva management WNL. Treatment Activities Conitinued education and initiated training in [employer] diaphragmatic breathing technique to optimize breath support for voice and swallow and general health. Control pause (CP) = 9.1 sec ( avg across 3 trials) Under verbal guidance from SKILLS TRAINER , pt completed slow breathing exercise x5 min, short breath holds (5 sec with 10 sec break between reps) x10 reps. Pt reported tolerable air hunger and relaxation with exercises. All breathing patterns were performed nasally and with appropriate diaphragmatic engagement. Established breathing HEP and reviewed with pt orally and in writing. Instructed pt to continue with voice and swallow exercises as prescribed. Pt in agreement. Assessment Patient Response to Treatment Excellent Rehab Potential Excellent Impairments Identified Dysphagia,Parkinson's Disease, Vocal Quality,Vocal Hygiene Additional Impairments Identified Saliva management Progress Towards Goals Good Progress Assessment of Overall Progress Improving Assessment of Improvement Pt was responsive to diaphragmatic breathing exercises and demonstrated understanding and performance accuracy for independent home practice. He demonstrated increased independent spontaneous nasal breathing and no evidence of saliva pooling at lips. Reviewed with Patient Goals,Progress Being Made,Home Exercise Program Patient/Caregiver Understanding Excellent Plan Amount of Therapy Recommended 1-2 Months Frequency of Treatment Once a Week Comment Reduce frequency to 1 visit every 3 wks Length of Session 45 Minutes Therapeutic Contents Client Education,Home Exercise Program,Swallowing/Feeding, Voice Training Provided Patient/Caregiver Instruction Home Exercise Program,Plan of Care,Questions/Concerns Therapy Recommendations Continue with Current Program
--- NOTE | 2020-11-18 16:36 | ST.OPTN ---
Visit Care Team Role Provider Type Ashley Romano DO Attending Provider Physician Primary Care Provider Referring Provider Address: [address] [place] [address], [address], [place], [address] POLISHER DIAL Treatment Note POLISHER DIAL Treatment Note Start: 08/25/20 10:29 Freq: Status: Active Protocol: Document 11/18/20 17:52 TRESA (Rec: 11/18/20 17:56 TRESA [email or web address]) Speech Pathology Treatment Note Session Time Visit Start Time 13:30 Visit Stop Time 14:20 Total Visit Minutes 50 Visit Information Visit Number 03/01 Plan of Care Dates 11/18/20 - 02/18/21 Insurance Information Medicare Setting Treatment Setting Outpatient Care Visit Type Note Type Progress Note Next Note Type Next Note Type Treatment Note General Information General Information The pt is a 75-yr-old male diagnosed with Parkinson's disease (PD) 3 yrs ago. First apparent symptom was a tremor. The pt denies difficulty being heard or understood by others. He reports drooling during conversation as a challenge, as well as coughing with dry crumbly textures such as nuts. The pt is currently participating in LSVT-BIG Physical Therapy treatment, in week 2 at this time. He was unfamiliar with LSVT-LOUD and attends today to learn more about it and other Speech Therapy options. Subjective Others Present Student Observations/Patient Presentation Pt arrived on time. No new complaints. Reported HEP compliance and notably reduced anxiety after completing [employer] breathing exercises at home. Chief Complaint(s) Swallowing,Voice Additional Areas of Concern Saliva management Rehab Expectation/Goals: Patient Goals Eliminate hoarseness of voice, drooling, coughing with oral intake Patient Knowledge/Awareness of POLISHER DIAL Role Good in Treatment Patient/Caregiver Compliance with Home Good Exercise Program Objective Short Term Goals Voice: 1. The pt will participate in clinical swallow evaluation to assess swallow safety and guide POC. 2. The pt will perform oral motor exercises independently to improve saliva management and facial expression and maintain speech intelligibility. 3. The pt will sustain phonation for 25 sec with clear voicing to improve breath support for voice/ speech and vocal quality and endurance. 4. The pt will perform pitch glide exercises (high & low) to improve vocal quality and reduce monotone voice. 5. The pt will read paragraphs of moderate length with clear vocal quality to improve vocal endurance over extended speech duration. Dysphagia: 1. The pt will complete exercises to increase strength and coordination of swallow musculature to reduce risk of aspiration. 2. The pt will perform oral motor exercises to improve saliva management. Warehouse Examiner Goals Voice: 1. The pt will manage saliva WNL. 2. The pt will produce vocal quality and loudness WNL in conversational speech to improve his ability to communicate effectively with others. Dysphagia: 1. The pt will tolerate all desired textures and thin liquids without overt s/sx of aspiration. 2. The pt will exhibit saliva management WNL. Treatment Activities Continued education and training in [employer] diaphragmatic breathing technique to optimize breath support for voice and swallow and general health. Pt completed exercise for unblocking nose to be used as needed. Also completed many- breath-holds exercise x6 repetitions, demonstrating appropriate form and understanding. Voice exercises: MPT = 23 sec, avg loudness 76 dB. Strong diplophonia was perceived by both POLISHER DIAL and student during much of initial sustained phonation task, indicating significant laryngeal tension. Skilled feedback provided. Trained pt in yawn/sigh technique to reduce laryngeal tension. With use of this technique, as well as increased loudness, the pt then sustained phonation with minimal diplophonia perceived only at the end of the phonation, secondary to reduced breath support. Pt educated RE target vocal quality and loudness for home practice. He verbalized and demonstrated understanding. The pt wore a mask through most of the session as COVID- 19 safety measure. He was observed with mouth breathing x1 during times when he removed his mask for therapeutic exercises. Assessment Patient Response to Treatment Excellent Rehab Potential Excellent Impairments Identified Dysphagia,Parkinson's Disease, Vocal Quality,Vocal Hygiene Additional Impairments Identified Saliva management; breath support for speech and voice Progress Towards Goals Good Progress Assessment of Overall Progress Improving Assessment of Improvement Over the course of treatment, the pt has made good progress toward goals. He is benefiting from breathing exercises, both in reduced mouth breathing and in anxiety in functional environment. Nasal breathing and oral motor exercises have improved his ability to manage saliva and reduce drooling. Today, he performed new exercises as instructed. Significant diplophonia was perceived initially in sustained phonation, which improved with increased loudness and use of laryngeal relaxation technique. The pt continues with mild- moderate dysphonia characterized by roughness, strain, and reduced loudness. In addition to Parkinson's disease, suspect long-term mouth breathing has contributed to dryness of throat and voice and, subsequently, to dysphonia. He has been responsive to nasal breathing exercises. Continued skilled intervention is medically necessary to improve pt's vocal quality, breath support for voice and speech, and ability to effectively communicate with a variety of conversation partners and within various environments. Reviewed with Patient Goals,Progress Being Made,Home Exercise Program Patient/Caregiver Understanding Excellent Plan Amount of Therapy Recommended 2-3 Months Frequency of Treatment Once a Week Length of Session 45 Minutes Therapeutic Contents Client Education,Home Exercise Program,Swallowing/Feeding, Voice Training Additional Areas of Treatment Nasal breathing Provided Patient/Caregiver Instruction Home Exercise Program,Plan of Care,Questions/Concerns Therapy Recommendations Continue with Current Program
--- NOTE | 2020-11-26 16:35 | ST.OPTN ---
Visit Care Team Role Provider Type Ashley Romano DO Attending Provider Physician Primary Care Provider Referring Provider Address: [address] [place] [address], [address], [place], [address] PILOT SUPERVISOR Treatment Note PILOT SUPERVISOR Treatment Note Start: 08/25/20 10:29 Freq: Status: Active Protocol: Document 11/26/20 17:10 TRESA (Rec: 11/26/20 17:19 TRESA [email or web address]) Speech Pathology Treatment Note Session Time Visit Start Time 15:30 Visit Stop Time 16:25 Total Visit Minutes 55 Visit Information Visit Number 06/01 Plan of Care Dates 11/18/20 - 02/18/21 Insurance Information Medicare Setting Treatment Setting Outpatient Care Visit Type Note Type Treatment Note Next Note Type Next Note Type Treatment Note General Information General Information The pt is a 75-yr-old male diagnosed with Parkinson's disease (PD) 3 yrs ago. First apparent symptom was a tremor. The pt denies difficulty being heard or understood by others. He reports drooling during conversation as a challenge, as well as coughing with dry crumbly textures such as nuts. The pt is currently participating in [facility] treatment, in week 2 at this time. He was unfamiliar with [facility] and attends today to learn more about it and other Speech Therapy options. Subjective Others Present Student Observations/Patient Presentation Pt arrived on time. No new complaints. Reported HEP compliance and notably reduced anxiety after completing Buteyko breathing exercises at home. Reported frequent nasal obstruction that restricts ability to breath nasally. Chief Complaint(s) Swallowing,Voice Additional Areas of Concern Saliva management Rehab Expectation/Goals: Patient Goals Eliminate hoarseness of voice, drooling, coughing with oral intake Patient Knowledge/Awareness of PILOT SUPERVISOR Role Good in Treatment Patient/Caregiver Compliance with Home Good Exercise Program Objective Short Term Goals Voice: 1. The pt will participate in clinical swallow evaluation to assess swallow safety and guide POC. 2. The pt will perform oral motor exercises independently to improve saliva management and facial expression and maintain speech intelligibility. 3. The pt will sustain phonation for 25 sec with clear voicing to improve breath support for voice/ speech and vocal quality and endurance. 4. The pt will perform pitch glide exercises (high & low) to improve vocal quality and reduce monotone voice. 5. The pt will read paragraphs of moderate length with clear vocal quality to improve vocal endurance over extended speech duration. Dysphagia: 1. The pt will complete exercises to increase strength and coordination of swallow musculature to reduce risk of aspiration. 2. The pt will perform oral motor exercises to improve saliva management. Driver Utility Worker Goals Voice: 1. The pt will manage saliva WNL. 2. The pt will produce vocal quality and loudness WNL in conversational speech to improve his ability to communicate effectively with others. Dysphagia: 1. The pt will tolerate all desired textures and thin liquids without overt s/sx of aspiration. 2. The pt will exhibit saliva management WNL. Treatment Activities Trained pt in Buteyko nose unblocking exercise, which he performed and resulted in unblocking of nasal passage. MPT = 22 s Initiated training of vocal loudness via Functional Phrases. Pt exhibited rough voice throughout, with avg loudness of 68 dB. Increased loudness to 72 dB with improved quality with exception of ends of sentences , where glottal hathaway was frequently present. Education provided RE glottal hathaway; needs further education and training. Pt reports improved swallow but occ continued coughing throughout day. Possibly saliva or mucus from mouth breathing. Education provided. EAT-10 = 1 (improved from 4). Assessment Patient Response to Treatment Excellent Rehab Potential Excellent Impairments Identified Dysphagia,Parkinson's Disease, Vocal Quality,Vocal Hygiene Additional Impairments Identified Saliva management; breath support for speech and voice Progress Towards Goals Good Progress Assessment of Overall Progress Improving Assessment of Improvement Pt continues with rough vocal quality and reduced loudness in conversation. Frequent presence of glottal hathaway observed in conversation and reduced but occ presence of diplophonia during sustained phonation when breath support wanes. The pt was receptive to all education and able to identify glottal hathaway when presented by clinician; needs reinforcement. Pt reports improved swallow but continued occ coughing with oral intake. Recommended continues swallow exercises; pt in agreement. Reviewed with Patient Goals,Progress Being Made,Home Exercise Program Patient/Caregiver Understanding Excellent Plan Amount of Therapy Recommended 2-3 Months Frequency of Treatment Once a Week Length of Session 45 Minutes Therapeutic Contents Client Education,Home Exercise Program,Swallowing/Feeding, Voice Training Additional Areas of Treatment Nasal breathing Provided Patient/Caregiver Instruction Home Exercise Program,Plan of Care,Questions/Concerns Therapy Recommendations Continue with Current Program
--- NOTE | 2020-12-01 18:15 | ST.OPTN ---
Visit Care Team Role Provider Type Ashley Romano DO Attending Provider Physician Primary Care Provider Referring Provider Address: [address] [place] [address], [address], [place], [address] NET MOBILE DEVELOPER Treatment Note NET MOBILE DEVELOPER Treatment Note Start: 08/25/20 10:29 Freq: Status: Active Protocol: Document 12/01/20 14:02 TRESA (Rec: 12/02/20 14:30 TRESA [email or web address]) Speech Pathology Treatment Note Session Time Visit Start Time 15:30 Visit Stop Time 16:20 Total Visit Minutes 50 Visit Information Visit Number 07/02 Plan of Care Dates 11/18/20 - 02/18/21 Insurance Information Medicare Setting Treatment Setting Outpatient Care Visit Type Note Type Treatment Note Next Note Type Next Note Type Treatment Note General Information General Information The pt is a 75-yr-old male diagnosed with Parkinson's disease (PD) 3 yrs ago. First apparent symptom was a tremor. The pt denies difficulty being heard or understood by others. He reports drooling during conversation as a challenge, as well as coughing with dry crumbly textures such as nuts. The pt is currently participating in [facility] treatment, in week 2 at this time. He was unfamiliar with [facility] and attends today to learn more about it and other Speech Therapy options. Subjective Others Present Student Observations/Patient Presentation Pt arrived on time. No new complaints. Reported HEP compliance and continued notably reduced anxiety and improved ability to fall asleep after completing Buteyko breathing exercises at home. Chief Complaint(s) Swallowing,Voice Additional Areas of Concern Saliva management Rehab Expectation/Goals: Patient Goals Eliminate hoarseness of voice, drooling, coughing with oral intake Patient Knowledge/Awareness of NET MOBILE DEVELOPER Role Good in Treatment Patient/Caregiver Compliance with Home Good Exercise Program Objective Short Term Goals Voice: 1. The pt will participate in clinical swallow evaluation to assess swallow safety and guide POC. 2. The pt will perform oral motor exercises independently to improve saliva management and facial expression and maintain speech intelligibility. 3. The pt will sustain phonation for 25 sec with clear voicing to improve breath support for voice/ speech and vocal quality and endurance. 4. The pt will perform pitch glide exercises (high & low) to improve vocal quality and reduce monotone voice. 5. The pt will read paragraphs of moderate length with clear vocal quality to improve vocal endurance over extended speech duration. Dysphagia: 1. The pt will complete exercises to increase strength and coordination of swallow musculature to reduce risk of aspiration. 2. The pt will perform oral motor exercises to improve saliva management. Science Analyst Goals Voice: 1. The pt will manage saliva WNL. 2. The pt will produce vocal quality and loudness WNL in conversational speech to improve his ability to communicate effectively with others. Dysphagia: 1. The pt will tolerate all desired textures and thin liquids without overt s/sx of aspiration. 2. The pt will exhibit saliva management WNL. Treatment Activities Consulted with pt RE swallow status. Re-educated and trained pt in normal swallow function and exercises to improve airway closure and pharyngeal clearance. Pt returned demonstration of all exercises, able to perform as instructed. Continued training in elimination of glottal hathaway using question/statement pairs , reducing glottal hathaway at end of statements. Pt read functional phrases initially with frequent glottal hathaway present at ends of statements. Following training, pt eliminated glottal hathaway in 45% of opportunities. Assessment Patient Response to Treatment Excellent Rehab Potential Excellent Impairments Identified Dysphagia,Parkinson's Disease, Vocal Quality,Vocal Hygiene Additional Impairments Identified Saliva management; breath support for speech and voice Progress Towards Goals Good Progress Assessment of Overall Progress Improving Assessment of Improvement Pt demonstrated good ability to perform swallow exercises, as well as understanding of targets of exercises. He demonstrated good progress in identifying and reducing glottal hathaway in structured reading tasks. Needs reinforcement. Reviewed with Patient Goals,Progress Being Made,Home Exercise Program Patient/Caregiver Understanding Excellent Plan Amount of Therapy Recommended 2-3 Months Frequency of Treatment Once a Week Length of Session 45 Minutes Therapeutic Contents Client Education,Home Exercise Program,Swallowing/Feeding, Voice Training Additional Areas of Treatment Nasal breathing Provided Patient/Caregiver Instruction Home Exercise Program,Plan of Care,Questions/Concerns Therapy Recommendations Continue with Current Program
--- NOTE | 2020-12-08 16:58 | ST.OPTN ---
Visit Care Team Role Provider Type Ashely Romano DO Attending Provider Physician Primary Care Provider Referring Provider Address: [address] [place] [address], [address], [place], [address] WINDOW MAKER Treatment Note WINDOW MAKER Treatment Note Start: 08/25/20 10:29 Freq: Status: Active Protocol: Document 12/08/20 16:45 TRESA (Rec: 12/08/20 16:58 TRESA [email or web address]) Speech Pathology Treatment Note Session Time Visit Start Time 14:30 Visit Stop Time 15:20 Total Visit Minutes 50 Visit Information Visit Number 07/30 Plan of Care Dates 11/18/20 - 02/18/21 Insurance Information Medicare Setting Treatment Setting Outpatient Care Visit Type Note Type Treatment Note Next Note Type Next Note Type Treatment Note General Information General Information The pt is a 75-yr-old male diagnosed with Parkinson's disease (PD) 3 yrs ago. First apparent symptom was a tremor. The pt denies difficulty being heard or understood by others. He reports drooling during conversation as a challenge, as well as coughing with dry crumbly textures such as nuts. The pt is currently participating in [facility] treatment, in week 2 at this time. He was unfamiliar with [facility] and attends today to learn more about it and other Speech Therapy options. Subjective Others Present Student Observations/Patient Presentation Pt arrived on time. No new complaints. Reported HEP compliance. Noticed vocal quality improved upon taking fish oil supplement. Chief Complaint(s) Swallowing,Voice Additional Areas of Concern Saliva management Rehab Expectation/Goals: Patient Goals Eliminate hoarseness of voice, drooling, coughing with oral intake Patient Knowledge/Awareness of WINDOW MAKER Role Good in Treatment Patient/Caregiver Compliance with Home Good Exercise Program Objective Short Term Goals Voice: 1. The pt will participate in clinical swallow evaluation to assess swallow safety and guide POC. 2. The pt will perform oral motor exercises independently to improve saliva management and facial expression and maintain speech intelligibility. 3. The pt will sustain phonation for 25 sec with clear voicing to improve breath support for voice/ speech and vocal quality and endurance. 4. The pt will perform pitch glide exercises (high & low) to improve vocal quality and reduce monotone voice. 5. The pt will read paragraphs of moderate length with clear vocal quality to improve vocal endurance over extended speech duration. Dysphagia: 1. The pt will complete exercises to increase strength and coordination of swallow musculature to reduce risk of aspiration. 2. The pt will perform oral motor exercises to improve saliva management. Cushion Maker Goals Voice: 1. The pt will manage saliva WNL. 2. The pt will produce vocal quality and loudness WNL in conversational speech to improve his ability to communicate effectively with others. Dysphagia: 1. The pt will tolerate all desired textures and thin liquids without overt s/sx of aspiration. 2. The pt will exhibit saliva management WNL. Treatment Activities Educated pt RE potential of improved hydration/lubrication of VFs with fish oil supplement and additional recommendations of vocal hygiene. Answered questions related to swallow exercises. Pt reported no significant swallow difficulty and improved saliva management with occasional drooling when he is bent forward. Pt completed voice exercises: MPT = 25.16 sec with varying vocal quality, improved with increased diaphragmatic effort and reduced laryngeal tension via open throat strategy. Trained pt in VF adduction exercises with and without vocal use. Pt returned demonstration with initial imprecise vowel onset in staccato phonation, improved with push/pull technique incorporated. Assessment Patient Response to Treatment Excellent Rehab Potential Excellent Impairments Identified Dysphagia,Parkinson's Disease, Vocal Quality,Vocal Hygiene Additional Impairments Identified Saliva management; breath support for speech and voice Progress Towards Goals Good Progress Assessment of Overall Progress Improving Assessment of Improvement Pt is proficient with swallow and voice exercises. Was able to improve vocal quality with use of strategies to increase breath support and reduced laryngeal tension. Recommend reducing frequency of treatment to 1 visit every 3-4 wks. Pt in agreement. Reviewed with Patient Goals,Progress Being Made,Home Exercise Program Patient/Caregiver Understanding Excellent Plan Amount of Therapy Recommended 1-2 Months Comment 1 visit every 3-4 wks for up to 3 visits. Length of Session 45 Minutes Therapeutic Contents Client Education,Home Exercise Program,Swallowing/Feeding, Voice Training Additional Areas of Treatment Nasal breathing Provided Patient/Caregiver Instruction Home Exercise Program,Plan of Care,Questions/Concerns Therapy Recommendations Continue with Current Program
--- NOTE | 2021-01-05 11:40 | ST.OPDS ---
Visit Care Team Role Provider Type Ashley Romano DO Attending Provider Physician Primary Care Provider Referring Provider Address: [address] [place] [address], [address], [place], [address] SUPERVISOR TELLERS Treatment Note SUPERVISOR TELLERS Treatment Note Start: 08/25/20 10:29 Freq: Status: Active Protocol: Document 01/05/21 11:27 TRESA (Rec: 01/05/21 11:40 TRESA [email or web address]) Speech Pathology Treatment Note Session Time Visit Start Time 10:30 Visit Stop Time 11:25 Total Visit Minutes 55 Visit Information Visit Number 08/30 Plan of Care Dates 11/18/20 - 02/18/21 Insurance Information Medicare Setting Treatment Setting Outpatient Care Visit Type Note Type Discharge Summary General Information General Information The pt is a 75-yr-old male diagnosed with Parkinson's disease (PD) 3 yrs ago. First apparent symptom was a tremor. The pt denies difficulty being heard or understood by others. He reports drooling during conversation as a challenge, as well as coughing with dry crumbly textures such as nuts. The pt is currently participating in [email or web address] treatment, in week 2 at this time. He was unfamiliar with [facility] and attends today to learn more about it and other Speech Therapy options. Subjective Observations/Patient Presentation Pt arrived on time. No new complaints. Reported HEP compliance. Reported continued drooling when leaning over, particularly. Effectively manages by resting tongue tip at alveolar ridge. Chief Complaint(s) Swallowing,Voice Additional Areas of Concern Saliva management Rehab Expectation/Goals: Patient Goals Eliminate hoarseness of voice, drooling, coughing with oral intake Patient Knowledge/Awareness of SUPERVISOR TELLERS Role Good in Treatment Patient/Caregiver Compliance with Home Good Exercise Program Objective Short Term Goals Voice: 1. The pt will perform oral motor exercises independently to improve saliva management and facial expression and maintain speech intelligibility. GOAL MET 2. The pt will sustain phonation for 25 sec with clear voicing to improve breath support for voice/ speech and vocal quality and endurance. GOAL MET 3. The pt will perform pitch glide exercises (high & low) to improve vocal quality and reduce monotone voice. GOAL MET 4. The pt will read paragraphs of moderate length with clear vocal quality to improve vocal endurance over extended speech duration. EXCELLENT IMPROVEMENT Dysphagia: 1. The pt will complete exercises to increase strength and coordination of swallow musculature to reduce risk of aspiration. GOAL MET 2. The pt will perform oral motor exercises to improve saliva management. GOAL MET Pulmonology Technician Goals Voice: 1. The pt will manage saliva WNL. PT IS WFL AND ABLE TO MANAGE WITH LINGUAL POSTURE TECHNIQUE 2. The pt will produce vocal quality and loudness WNL in conversational speech to improve his ability to communicate effectively with others. PT IS WFL Dysphagia: 1. The pt will tolerate all desired textures and thin liquids without overt s/sx of aspiration. GOAL MET 2. The pt will exhibit saliva management WNL. PT IS WFL Treatment Activities Trained pt in RMST exercises using The Breather resistance operational trainer and educated on benefits of (improved diaphragmatic breathing, respiratory muscle strength/ ROM, cough protection, hyolaryngeal complex for voice inflection and airway protection). Provided pt with written information for purchase of device. Modified long-term Speech Therapy exercise program to include Buteyko (nasal) breathing exercises, RMST exercises, and voice exercises including sustained phonation, pitch glide, functional phrases and reading aloud. Recommended pt target specific swallow and voice exercises if he experiences dysphagia and/or dysphonia symptoms. Pt verbalized understanding and agreement. Discussed POC and agreed to discharge at this time. Pt to return with new MD orders should symptoms worsen or new symptoms appear. Pt in agreement. Assessment Patient Response to Treatment Excellent Rehab Potential Excellent Impairments Identified Dysphagia,Parkinson's Disease, Vocal Quality,Vocal Hygiene Additional Impairments Identified Saliva management; breath support for speech and voice Progress Towards Goals Good Progress Assessment of Overall Progress Improving Assessment of Improvement Pt is proficient with swallow and voice exercises. as well as Buteyko breathing exercises . Anticipate benefit from RMST exercises as well. Pt demonstrates good understanding and ability to perform HEP. He has achieved WFL/WNL with all goals and is appropriate for discharge at this time. The pt remains a good candidate for [facility] therapy should he desire that in the future. Reviewed with Patient Goals,Progress Being Made,Home Exercise Program Patient/Caregiver Understanding Excellent Plan Frequency of Treatment No Further Therapy Therapeutic Contents Client Education,Home Exercise Program,Swallowing/Feeding, Voice Training Additional Areas of Treatment Nasal breathing Provided Patient/Caregiver Instruction Home Exercise Program,Plan of Care,Questions/Concerns Therapy Recommendations Discharge to Home Exercise Program
== END 2021-06-23 09:39 ==
LOC: SP 10:30
PROVIDERS: PCP Family Medicine; Referring Provider Family Medicine; Visit Provider Family Medicine
DX: G20 Parkinson's disease (principal)
CPT/HCPCS: 92507; 92520; 92524; 92526; 92610

== ENCOUNTER 2021-03-03 15:19 | Inpatient (IN) | payer MEDICARE, OTHER, SELFPAY ==
[2021-03-03] VITALS (11 sets, daily range): BP systolic 141–156; BP diastolic 72–90; PULSE 79–89; RESP 19–20; TEMP 36.2–36.9; O2SAT 94–97; BMI 19.3
[2021-03-03 16:00] LABS: Add Manual Diff / Slide Review NO; Basophils Absolute Auto 100 /uL (0-100); Basophils Percent Auto 0.3 % (0-2); Eosinophils Absolute Auto 0 /uL (0-450); Eosinophils Percent Auto 0.2 % (2-4); Hematocrit 43.5 % (41-53); Hemoglobin 14.7 g/dL (13.5-17.5); Lymphocytes Absolute Auto 800 /uL (1100-4500); Lymphocytes Percent Auto 4.8 % (25-40); Mean Corpuscular HGB Conc 33.8 % (30-36); Mean Corpuscular Hemoglobin 30.9 PG (26-34); Mean Corpuscular Volume 91.4 fL (80-100); Monocytes Absolute Auto 900 /uL (0-900); Monocytes Percent Auto 5.5 % (3-14); Neutrophils Absolute Auto 14000 /uL (1500-7000); Neutrophils Percent Auto 89.2 % (50-75); Platelet Count 149 X10^3/uL (150-400); Red Blood Cell Count 4.76 X10^6/uL (4.5-5.9); White Blood Cell Count 15.7 X10^3/uL (4.5-11.0)
--- NOTE | 2021-03-03 16:03 | DI.CT.S_ITS ---
PROCEDURE: CT ABDOMEN PELVIS W CON INDICATIONS: Abdominal pain, ? SBO TECHNIQUE: After the administration of oral and IV contrast, axial sections were acquired from the lung bases to the pubic symphysis. Coronal and sagittal reformats were performed. For radiation dose reduction, the following was used: automated exposure control, adjustment of mA and/or kV according to patient size. COMPARISON: None. FINDINGS: Image quality: Excellent. Lung bases: Dependent changes are present within the bases, including trace effusions. Heart: Heart is mildly prominent. ABDOMEN: Liver: Unremarkable. Gallbladder: The gallbladder is unremarkable. Biliary ducts: Unremarkable. Pancreas: Unremarkable. Spleen: Unremarkable. Adrenal Glands: Unremarkable. Kidneys and Ureters: Kidneys are mildly atrophic. Low-attenuation foci are present with the larger foci most suggestive of simple cysts. Stomach and Bowel: Significant colonic stool is present. The sigmoid colon is markedly collapsed. Within the midportion of the pelvis on series 2 images 68 through 75, there is a swirled appearance of the mesenteric fat with a narrow transition point leading into a markedly dilated loop of bowel, projecting anteriorly, measuring 11.5 cm. Peritoneum: Mild dependent pelvic fluid is present. No free air. Ventral Wall: No hernia. Abdominal Nodes: No retroperitoneal or mesenteric adenopathy by size criteria. Vessels: Aorta and inferior vena cava are normal in size. PELVIS: Pelvic Organs: Unremarkable. Bladder: Unremarkable. Pelvic Nodes: No enlarged lymph nodes. Bones: Unremarkable. IMPRESSION: 1. Significant colonic stool consistent with constipation. 2. Collapsed sigmoid colon with swirled appearance of the bowel loop as well as mesenteric fat within the more proximal portion. Distal to this is a markedly dilated anteriorly located loop of bowel as described above. Overall appearance is concerning for volvulus. No free air. Free fluid is noted within the pelvis. The above findings were discussed with Rajendra LUCIO on 03/03/2021 at 6:16 p.m.. Dictated by: Ana Mejia M.D. on 03/03/2021 at 18:12 Approved by: Ana Mejia M.D. on 03/03/2021 at 18:19
--- NOTE | 2021-03-03 16:03 | DI.RAD.S_ITS ---
PROCEDURE: XR CHEST 2V INDICATIONS: Chest pain, SOB TECHNIQUE: 2 views of the chest were acquired. COMPARISON: None. FINDINGS: Surgical changes and devices: None. Lungs and pleura: Probable atelectasis noted in the posterior aspect of the left lung base. No pleural effusions or pneumothorax. Mediastinum: Mediastinal contours are normal. Heart size is normal. Bones and chest wall: No suspicious bony abnormalities. Soft tissues appear unremarkable. There is marked gaseous distention of the visualized colon with the splenic flexure dilated up to 13.4 centimeters. IMPRESSION: 1. Probable left basilar atelectasis. 2. Dilated loop of colon measuring up to 13.4 centimeters. Findings concerning for large bowel obstruction. Recommend CT scan of the abdomen and pelvis with contrast for additional evaluation Dictated by: Tabitha Spence MD, PhD on 03/03/2021 at 16:45 Approved by: Tabitha Spence MD, PhD on 03/03/2021 at 16:47
[2021-03-03 16:09] LABS: Alanine Aminotransferase 5 IU/L (<50); Albumin 4.3 g/dL (3.5-5.0); Albumin Globulin Ratio 1.7 (1.0-2.8); Alkaline Phosphatase 54 U/L (38-126); Aspartate Aminotransferase 33 IU/L (17-59); BUN Creatinine Ratio 25.3 (6-22); Bilirubin Total 1.1 mg/dL (0.2-1.3); Blood Urea Nitrogen 21 mg/dL (9-20); Calcium 8.9 mg/dL (8.4-10.2); Carbon Dioxide 23 mmol/L (22-32); Chloride 106 mmol/L (98-107); Estimated Glomerular Filt Rate > 60.0 mL/min (>60); Globulin 2.6 g/dL (1.7-4.1); Glucose 119 mg/dL (80-110); HEMOLYSIS < 15 (0-50); Lipase 48 U/L (23-300); Potassium 3.7 mmol/L (3.4-5.1); Sodium 138 mmol/L (137-145); Total Protein 6.9 g/dL (6.3-8.2)
--- NOTE | 2021-03-03 16:12 | ED_ITS ---
HPI - Abdominal Pain <Rajendra Plaza PA-C - Last Filed: 03/03/21 19:46> General Chief Complaint: Abdominal Pain Stated Complaint: gastro issues Time Seen by Provider: 03/03/21 15:27 Source: patient Mode of arrival: Ambulatory History of Present Illness HPI narrative: 75-year-old male with past medical history Parkinson disease presents to the ED with 4 days of abdominal pain and constipation. Patient states that his last bowel movement was 4 days ago, complains of all over generalized abdominal pain and nausea Patient endorses a very distended abdomen, which is not normal for the patient. Patient denies fever, chills, chest pain, cough, vomiting, dysuria, lightheadedness, dizziness, syncope. Patient endorses anorexia, discomfort when he eats. Able to tolerate fluids. Patient takes dopamine for Parkinson disease. Related Data Home Medications Medication Instructions Recorded Confirmed alpha lipoic acid 200 mg tablet mg PO 06/27/19 02/24/21 ascorbic acid (vitamin C) 500 mg 500 mg PO DAILY 06/27/19 03/03/21 capsule cholecalciferol (vitamin D3) 125 5,000 unit PO DAILY 06/27/19 03/03/21 mcg (5,000 unit) capsule glutathione 50 mg capsule 50 mg PO DAILY 06/27/19 03/03/21 omega-3 fatty acids 1,000 mg 1,000 mg PO DAILY 06/27/19 03/03/21 capsule (Fish Oil Concentrate) vitamin B complex (Super B-50 1 cap PO DAILY 06/27/19 03/03/21 Complex) lithium orotate 1 tab PO DAILY 11/10/19 03/03/21 carbidopa 25 mg-levodopa 100 mg 1 tab PO TID 01/18/20 03/03/21 tablet Allergies Allergy/AdvReac Type Severity Reaction Status Date / Time apple Allergy Verified 03/03/21 23:25 gluten Allergy Verified 03/03/21 23:25 milk Allergy Verified 03/03/21 23:25 pear Allergy Verified 03/03/21 23:25 Review of Systems <Rajendra Plaza PA-C - Last Filed: 03/03/21 19:46> Constitutional Constitutional: Denies chills, Denies fatigue, Denies fever(s), Denies frequent falls, Denies lethargy and Denies weakness Eyes Eyes: Denies change in vision, Denies eye discharge, Denies irritation and Denies loss of vision ENT Ears, Nose, Mouth, and Throat: Denies change in voice, Denies dizziness, Denies neck pain, Denies sore throat and Denies throat swelling Cardiovascular Cardiovascular: Denies chest pain, Denies irregular heart rhythm, Denies lightheadedness, Denies palpitations, Reports dyspnea, Denies dyspnea on exertion and Denies orthopnea Respiratory Respiratory: Denies cough, Reports dyspnea, Denies dyspnea on exertion and Denies wheezing Gastrointestinal Gastrointestinal: Reports abdominal pain, Denies change in bowel habits, Reports constipation, Denies diarrhea, Reports nausea and Denies vomiting Musculoskeletal Musculoskeletal: Denies neck pain and Denies numbness Integumentary/Breasts Skin/Breast: Denies pruritus, Denies erythema, Denies rash and Denies wounds Neurologic Neurologic: Denies behavioral changes, Denies confusion, Denies dizziness, Denies frequent falls, Denies loss of vision, Denies numbness and Denies weakness Psychiatric Psychiatric: Denies anxiety, Denies behavioral changes, Denies confusion, Denies depression, Denies homicidal ideation and Denies suicidal ideation Endocrine Endocrine: Denies fatigue, Denies flushing and Denies palpitations Hematologic/Lymphatic Hematologic/Lymphatic: Denies easy bruising Allergic/Immunologic Allergic/Immunologic: Denies urticaria, Denies throat swelling and Denies wheezing Patient History <Rajendra Plaza PA-C - Last Filed: 03/03/21 19:46> Medical History Allergic rhinitis (04/25/13) Cuboid syndrome of right foot Cyst in hand Elevated homocysteine Foreign body of ear, left IBS (irritable bowel syndrome) Obstructive sleep apnea syndrome (04/25/13) Parkinson's disease (~09/2016) Pes planus Pure hypercholesterolemia (11/26/16) Surgical History History of tonsillectomy History of vasectomy Status post hernia repair Family History Brother Age: 70 Hypertension Heart disease Mother PAD (peripheral artery disease) Heart valve insufficiency Sister Age: 64 Depression with anxiety Osteoporosis Social History household members: spouse Smoking Status: Former smoker alcohol intake: current substance use type: does not use Smoking Status: Former smoker Exam <Rajendra Plaza PA-C - Last Filed: 03/03/21 19:46> Initial Vital Signs Initial Vital Signs: Vital Signs Temperature 98.4 F 03/03/21 15:28 Pulse Rate 84 03/03/21 15:28 Respiratory Rate 20 03/03/21 15:28 Blood Pressure 143/79 H 03/03/21 15:28 Pulse Oximetry 97 03/03/21 15:28 Const General: cooperative [facility] Head: normocephalic and atraumatic Ears: external ears normal and TM's normal bilaterally Nose: external nose normal and No nasal discharge Face and sinus: sinuses nontender, face symmetric, no sinus tenderness and No dry mucous membranes Mouth: oral mucosae normal and moist mucous membranes Teeth and gingiva: dentition normal Throat: tonsils normal and uvula midline Eyes General: appearance normal, both eyes and all related structures Eyelids: eyelids normal Conjunctivae: conjunctivae normal Sclera: sclerae normal Pupils: PERRL EOM: EOM intact bilaterally Neck Neck: normal visual inspection, trachea midline, No lymphadenopathy, No midline deformity and No JVD Lymphatic: No lymphedema Chest Chest: normal inspection of the chest Resp Effort & Inspection: normal respiratory effort, able to speak in complete sentences, no respiratory distress and no use of accessory muscles Auscultation: clear to auscultation bilaterally, no rales, no rhonchi and no wheezes Cardio Rate: regular rate Rhythm: regular rhythm Heart Sounds: no click, no gallops, no murmurs and no rubs Pulses: normal peripheral pulses GI Inspection: distended Palpation: no hepatosplenomegaly, No guarding, No pulsatile mass and No tender Auscultation: normal bowel sounds Other: Abdomen is distended, rigid. Diffuse tenderness to palpation. No rebound, guarding. No CVA tenderness. Back/Spine/Pelvis Back: No CVA tenderness Cervical Spine: cervical ROM normal and No pain with cervical ROM Thoracic/Lumbar Spine: thoracic and lumbar spine normal to inspection Skin General: no rashes or lesions noted, No jaundice and No petechiae Neuro General: patient alert, patient oriented x3, gait normal and no focal motor deficits Speech: speech normal Extrem General: full ROM, no clubbing, cyanosis or edema, no pedal edema and no calf tenderness Psych Appearance: well kempt Mental Status: mental status grossly normal Attitude: cooperative Thought Content: normal and suicidality Judgment: judgment good <Rashel JankimarcosDO - Last Filed: 03/04/21 07:00> Initial Vital Signs Initial Vital Signs: Vital Signs Temperature 98.4 F 03/03/21 15:28 Pulse Rate 84 03/03/21 15:28 Respiratory Rate 20 03/03/21 15:28 Blood Pressure 143/79 H 03/03/21 15:28 Pulse Oximetry 97 03/03/21 15:28 Course <Rajendra DEDE Plaza - Last Filed: 03/03/21 19:46> Course Course Narrative: CT abdomen pelvis positive for volvulus. WBC 15.7. Patient's symptoms improved with morphine, IV fluids. Dr. Payan from surgery consulted, who recommends patient be admitted to her service for possible surgery tomorrow. No antibiotics indicated at this time as per discussion with Dr. Paayn. Patient is currently NPO. Patient admitted to surgery under Dr. Payan service. Orders Ordered: Lactated Ringer's (Lactated Ringers) 1,000 mls @ 100 mls/hr IV CONT STEPHEN Last Infusion: 03/04/21 06:37 Dose: 100 mls/hr Documented by: Admin: 03/04/21 06:35 Dose: 100 mls/hr Documented by: Infusion: 03/04/21 06:35 Dose: 100 mls/hr Documented by: Admin: 03/03/21 20:39 Dose: 100 mls/hr Documented by: BAKARI Morphine Sulfate (Morphine 2 Mg/Ml Inj) 2 mg IV Q2HR PRN PRN Reason: Pain, Moderate (4-6) Last Admin: 03/04/21 03:31 Dose: 2 mg Documented by: Admin: 03/03/21 20:38 Dose: 2 mg Documented by: BAKARI Discontinued Medications Sodium Chloride (Normal Saline 0.9%) 1,000 mls @ 1,000 mls/hr IV BOLUS ONE Stop: 03/03/21 17:02 Last Infusion: 03/03/21 18:55 Dose: 0 mls/hr Documented by: Admin: 03/03/21 16:31 Dose: 1,000 mls/hr Documented by: AZUL Morphine Sulfate (Morphine 4 Mg/Ml Inj) 4 mg IV NOW ONE Stop: 03/03/21 16:04 Last Admin: 03/03/21 16:31 Dose: 4 mg Documented by: AZUL Ondansetron HCl (Ondansetron 4 Mg/2 Ml Inj) 4 mg IV NOW ONE Stop: 03/03/21 16:04 Last Admin: 03/03/21 16:31 Dose: 4 mg Documented by: AZUL Vital Signs Vital signs: Vital Signs - 8 hr 03/03/21 15:28 03/03/21 16:36 03/03/21 16:37 Temperature 98.4 F Pulse Rate 84 80 83 Respiratory Rate 20 Blood Pressure 143/79 H 148/72 H Pulse Oximetry 97 97 97 03/03/21 17:00 03/03/21 17:34 03/03/21 18:00 Temperature Pulse Rate 81 84 79 Respiratory Rate Blood Pressure 150/80 H Pulse Oximetry 97 95 95 03/03/21 18:30 Temperature Pulse Rate 81 Respiratory Rate Blood Pressure Pulse Oximetry 95 <Rashel Pierce, - Last Filed: 03/04/21 07:00> Orders Ordered: Lactated Ringer's (Lactated Ringers) 1,000 mls @ 100 mls/hr IV CONT STEPHEN Last Infusion: 03/04/21 06:37 Dose: 100 mls/hr Documented by: Admin: 03/04/21 06:35 Dose: 100 mls/hr Documented by: Infusion: 03/04/21 06:35 Dose: 100 mls/hr Documented by: Admin: 03/03/21 20:39 Dose: 100 mls/hr Documented by: BAKARI Morphine Sulfate (Morphine 2 Mg/Ml Inj) 2 mg IV Q2HR PRN PRN Reason: Pain, Moderate (4-6) Last Admin: 03/04/21 03:31 Dose: 2 mg Documented by: Admin: 03/03/21 20:38 Dose: 2 mg Documented by: BAKARI Discontinued Medications Sodium Chloride (Normal Saline 0.9%) 1,000 mls @ 1,000 mls/hr IV BOLUS ONE Stop: 03/03/21 17:02 Last Infusion: 03/03/21 18:55 Dose: 0 mls/hr Documented by: Admin: 03/03/21 16:31 Dose: 1,000 mls/hr Documented by: AZUL Morphine Sulfate (Morphine 4 Mg/Ml Inj) 4 mg IV NOW ONE Stop: 03/03/21 16:04 Last Admin: 03/03/21 16:31 Dose: 4 mg Documented by: AZUL Ondansetron HCl (Ondansetron 4 Mg/2 Ml Inj) 4 mg IV NOW ONE Stop: 03/03/21 16:04 Last Admin: 03/03/21 16:31 Dose: 4 mg Documented by: AZUL Vital Signs Vital signs: Vital Signs - 8 hr 03/03/21 15:28 03/03/21 16:36 03/03/21 16:37 Temperature 98.4 F Pulse Rate 84 80 83 Respiratory Rate 20 Blood Pressure 143/79 H 148/72 H Pulse Oximetry 97 97 97 03/03/21 17:00 03/03/21 17:34 03/03/21 18:00 Temperature Pulse Rate 81 84 79 Respiratory Rate Blood Pressure 150/80 H Pulse Oximetry 97 95 95 03/03/21 18:30 Temperature Pulse Rate 81 Respiratory Rate Blood Pressure Pulse Oximetry 95 MDM - Abdominal Pain <Rajendra Plaza PA-C - Last Filed: 03/03/21 19:46> Lab Data Lab results narrative: WBC elevated to 15.7 Result diagrams: 03/03/21 15:52 03/03/21 15:52 Labs: Lab Results 03/03/21 03/03/21 03/03/21 Range/Units 15:52 15:52 15:52 WBC 15.7 H (4.5-11.0) X10^3/uL RBC 4.76 (4.5-5.9) X10^6/uL Hgb 14.7 (13.5-17.5) g/dL Hct 43.5 (41-53) % MCV 91.4 (80-100) fL MCH 30.9 (26-34) PG MCHC 33.8 (30-36) % RDW 14.0 (11.6-14.8) % Plt Count 149 L (150-400) X10^3/uL Neut % (Auto) 89.2 H (50-75) % Lymph % (Auto) 4.8 L (25-40) % [place] % (Auto) 5.5 (3-14) % Eos % (Auto) 0.2 L (2-4) % Baso % (Auto) 0.3 (0-2) % Neut # (Auto) 30972 H (7826-9660) /uL Lymph # (Auto) 800 L (5912-0988) /uL [place] # (Auto) 900 (0-900) /uL Eos # (Auto) 0 (0-450) /uL Baso # (Auto) 100 (0-100) /uL Sodium 138 (137-145) mmol/L Potassium 3.7 (3.4-5.1) mmol/L Chloride 106 (98-107) mmol/L Carbon Dioxide 23 (22-32) mmol/L BUN 21 H (9-20) mg/dL Creatinine 0.83 (0.66-1.25) mg/dL Estimated GFR > 60.0 (>60) mL/min BUN/Creatinine Ratio 25.3 H (6-22) Glucose 119 H (80-110) mg/dL Lactate (0.7-2.1) mmol/L Calcium 8.9 (8.4-10.2) mg/dL Total Bilirubin 1.1 (0.2-1.3) mg/dL AST 33 (17-59) IU/L ALT 5 (<50) IU/L Alkaline Phosphatase 54 (38-126) U/L Troponin I < 0.012 (0.01-0.034) ng/mL NT-Pro-B Natriuret Pep (<125) pg/mL Total Protein 6.9 (6.3-8.2) g/dL Albumin 4.3 (3.5-5.0) g/dL Globulin 2.6 (1.7-4.1) g/dL Albumin/Globulin Ratio 1.7 (1.0-2.8) Lipase 48 (23-300) U/L 03/03/21 03/03/21 Range/Units 15:52 15:53 WBC (4.5-11.0) X10^3/uL RBC (4.5-5.9) X10^6/uL Hgb (13.5-17.5) g/dL Hct (41-53) % MCV (80-100) fL MCH (26-34) PG MCHC (30-36) % RDW (11.6-14.8) % Plt Count (150-400) X10^3/uL Neut % (Auto) (50-75) % Lymph % (Auto) (25-40) % [place] % (Auto) (3-14) % Eos % (Auto) (2-4) % Baso % (Auto) (0-2) % Neut # (Auto) (2906-6466) /uL Lymph # (Auto) (1697-8322) /uL [place] # (Auto) (0-900) /uL Eos # (Auto) (0-450) /uL Baso # (Auto) (0-100) /uL Sodium (137-145) mmol/L Potassium (3.4-5.1) mmol/L Chloride (98-107) mmol/L Carbon Dioxide (22-32) mmol/L BUN (9-20) mg/dL Creatinine (0.66-1.25) mg/dL Estimated GFR (>60) mL/min BUN/Creatinine Ratio (6-22) Glucose (80-110) mg/dL Lactate 1.2 (0.7-2.1) mmol/L Calcium (8.4-10.2) mg/dL Total Bilirubin (0.2-1.3) mg/dL AST (17-59) IU/L ALT (<50) IU/L Alkaline Phosphatase (38-126) U/L Troponin I (0.01-0.034) ng/mL NT-Pro-B Natriuret Pep 931 H (<125) pg/mL Total Protein (6.3-8.2) g/dL Albumin (3.5-5.0) g/dL Globulin (1.7-4.1) g/dL Albumin/Globulin Ratio (1.0-2.8) Lipase (23-300) U/L Imaging Data Chest x-ray: Radiologist's Impression: PROCEDURE:? XR CHEST 2V ? INDICATIONS:? Chest pain, SOB ? TECHNIQUE:? 2 views of the chest were acquired.? ? COMPARISON:? None. ? FINDINGS:? ? Surgical changes and devices:? None.? ? Lungs and pleura:? Probable atelectasis noted in the posterior aspect of the left lung base.? No pleural effusions or pneumothorax.? ? Mediastinum:? Mediastinal contours are normal.? Heart size is normal.? ? Bones and chest wall:? No suspicious bony abnormalities.? Soft tissues appear unremarkable.? There is marked gaseous distention of the visualized colon with the splenic flexure dilated up to 13.4 centimeters.? ? IMPRESSION:? ? 1. Probable left basilar atelectasis. ? 2. Dilated loop of colon measuring up to 13.4 centimeters.? Findings concerning for large bowel obstruction.? Recommend CT scan of the abdomen and pelvis with contrast for additional evaluation ? ? Dictated by: Tabitha Spence MD, PhD on 03/03/2021 at 16:45 ? ? Approved by: Tabitha Spence MD, PhD on 03/03/2021 at 16:47 ? CT scan - abdomen/pelvis: Radiologist's Impression: PROCEDURE:? CT ABDOMEN PELVIS W CON ? INDICATIONS:? Abdominal pain, ?? SBO ? TECHNIQUE:? After the administration of oral and IV contrast, axial sections were acquired from the lung bases to the pubic symphysis.? Coronal and sagittal reformats were performed.? For radiation dose reduction, the following was used:? automated exposure control, adjustment of mA and/or kV according to patient size. ? COMPARISON:? None. ? FINDINGS:? Image quality:? Excellent.? ? Lung bases:? Dependent changes are present within the bases, including trace effusions. Heart:? Heart is mildly prominent. ? ? ABDOMEN: Liver:? Unremarkable.? ? Gallbladder:? The gallbladder is unremarkable. Biliary ducts:? Unremarkable.? ? Pancreas:? Unremarkable.? ? Spleen:? Unremarkable.? ? Adrenal Glands:? Unremarkable.? ? Kidneys and Ureters:? Kidneys are mildly atrophic.? Low-attenuation foci are present with the larger foci most suggestive of simple cysts. ? Stomach and Bowel:? Significant colonic stool is present.? The sigmoid colon is markedly collapsed.? Within the midportion of the pelvis on series 2 images 68 through 75, there is a swirled appearance of the mesenteric fat with a narrow transition point leading into a markedly dilated loop of bowel, projecting anteriorly, measuring 11.5 cm. Peritoneum:? Mild dependent pelvic fluid is present.? No free air.? ? Ventral Wall: ? No hernia.? Abdominal Nodes:? No retroperitoneal or mesenteric adenopathy by size criteria.? Vessels:? Aorta and inferior vena cava are normal in size.? ? PELVIS: Pelvic Organs:? Unremarkable.? ? Bladder:? Unremarkable.? ? Pelvic Nodes: No enlarged lymph nodes.? ? Bones:? Unremarkable.? IMPRESSION:? ? 1. Significant colonic stool consistent with constipation. ? 2. Collapsed sigmoid colon with swirled appearance of the bowel loop as well as mesenteric fat within the more proximal portion.? Distal to this is a markedly dilated anteriorly located loop of bowel as described above.? Overall appearance is concerning for volvulus.? No free air.? Free fluid is noted within the pelvis. ? The above findings were discussed with Rajendra Plaza PAC on 03/03/2021 at 6:16 p.m..? ? ? Dictated by: Ana Mejia M.D. on 03/03/2021 at 18:12 ? ? Approved by: Ana Mejia M.D. on 03/03/2021 at 18:19 ? ECG Data Interpretation: Sinus rhythm with frequent PVCs, nonspecific ST-T abnormality, no axis deviation. [facility] Narrative Medical decision making narrative: 75-year-old male with past medical history Parkinson disease presents to the ED with 4 days of abdominal pain and constipation. Concern for SBO versus appendicitis versus diverticulitis versus constipation versus ACS versus pneumonia. Will order labs, chest x-ray, EKG, troponin, lipase, CT abdomen pelvis. Will give Zofran, morphine, IV fluids. Will reassess. <Rashel Pierce, - Last Filed: 03/04/21 07:00> Lab Data Labs: Lab Results 03/03/21 03/03/21 03/03/21 Range/Units 15:52 15:52 15:52 WBC 15.7 H (4.5-11.0) X10^3/uL RBC 4.76 (4.5-5.9) X10^6/uL Hgb 14.7 (13.5-17.5) g/dL Hct 43.5 (41-53) % MCV 91.4 (80-100) fL MCH 30.9 (26-34) PG MCHC 33.8 (30-36) % RDW 14.0 (11.6-14.8) % Plt Count 149 L (150-400) X10^3/uL Neut % (Auto) 89.2 H (50-75) % Lymph % (Auto) 4.8 L (25-40) % [place] % (Auto) 5.5 (3-14) % Eos % (Auto) 0.2 L (2-4) % Baso % (Auto) 0.3 (0-2) % Neut # (Auto) 05313 H (0709-1574) /uL Lymph # (Auto) 800 L (1463-5721) /uL [place] # (Auto) 900 (0-900) /uL Eos # (Auto) 0 (0-450) /uL Baso # (Auto) 100 (0-100) /uL Sodium 138 (137-145) mmol/L Potassium 3.7 (3.4-5.1) mmol/L Chloride 106 (98-107) mmol/L Carbon Dioxide 23 (22-32) mmol/L BUN 21 H (9-20) mg/dL Creatinine 0.83 (0.66-1.25) mg/dL Estimated GFR > 60.0 (>60) mL/min BUN/Creatinine Ratio 25.3 H (6-22) Glucose 119 H (80-110) mg/dL Lactate (0.7-2.1) mmol/L Calcium 8.9 (8.4-10.2) mg/dL Total Bilirubin 1.1 (0.2-1.3) mg/dL AST 33 (17-59) IU/L ALT 5 (<50) IU/L Alkaline Phosphatase 54 (38-126) U/L Troponin I < 0.012 (0.01-0.034) ng/mL NT-Pro-B Natriuret Pep (<125) pg/mL Total Protein 6.9 (6.3-8.2) g/dL Albumin 4.3 (3.5-5.0) g/dL Globulin 2.6 (1.7-4.1) g/dL Albumin/Globulin Ratio 1.7 (1.0-2.8) Lipase 48 (23-300) U/L 03/03/21 03/03/21 Range/Units 15:52 15:53 WBC (4.5-11.0) X10^3/uL RBC (4.5-5.9) X10^6/uL Hgb (13.5-17.5) g/dL Hct (41-53) % MCV (80-100) fL MCH (26-34) PG MCHC (30-36) % RDW (11.6-14.8) % Plt Count (150-400) X10^3/uL Neut % (Auto) (50-75) % Lymph % (Auto) (25-40) % [place] % (Auto) (3-14) % Eos % (Auto) (2-4) % Baso % (Auto) (0-2) % Neut # (Auto) (8833-8072) /uL Lymph # (Auto) (1992-0967) /uL [place] # (Auto) (0-900) /uL Eos # (Auto) (0-450) /uL Baso # (Auto) (0-100) /uL Sodium (137-145) mmol/L Potassium (3.4-5.1) mmol/L Chloride (98-107) mmol/L Carbon Dioxide (22-32) mmol/L BUN (9-20) mg/dL Creatinine (0.66-1.25) mg/dL Estimated GFR (>60) mL/min BUN/Creatinine Ratio (6-22) Glucose (80-110) mg/dL Lactate 1.2 (0.7-2.1) mmol/L Calcium (8.4-10.2) mg/dL Total Bilirubin (0.2-1.3) mg/dL AST (17-59) IU/L ALT (<50) IU/L Alkaline Phosphatase (38-126) U/L Troponin I (0.01-0.034) ng/mL NT-Pro-B Natriuret Pep 931 H (<125) pg/mL Total Protein (6.3-8.2) g/dL Albumin (3.5-5.0) g/dL Globulin (1.7-4.1) g/dL Albumin/Globulin Ratio (1.0-2.8) Lipase (23-300) U/L Discharge Plan Departure Patient Disposition: Admitted to Surgery Clinical Impression: Volvulus Admit Date/Time: 03/03/21 18:46 Admit Provider: Jennifer Payan <Rashel Pierce, DO - Last Filed: 03/04/21 07:00> Cosign ED Attending Cosignature Attestation: Dr Pierce Co-Sign Statement: I was available for consultation during this patient's emergency department visit. This chart is signed by myself for administrative purposes only. I did not have direct contact with this patient during this visit. They were seen independently by the APC.
[2021-03-03] MEDS: SODIUM CHLORIDE 0.9% 1,000 ML 1000 ML IV (16:31)
[2021-03-03] MEDS: MORPHINE 4 MG/ML INJ IV (16:31)
[2021-03-03] MEDS: ONDANSETRON 4 MG/2 ML INJ IV (16:31)
[2021-03-03 20:05] LABS: COVID19 - ADMIT (NP swab/PCR) Negative (Negative)
[2021-03-03 20:26] LABS: Lactate (Lactic Acid) 1.2 mmol/L (0.7-2.1)
[2021-03-03 20:28] LABS: Appearance Urine UA CLEAR; Bilirubin Urine UA 1+ (NEGATIVE); Glucose Urine UA NEGATIVE (Negative); Ketones Urine UA 2+ (NEGATIVE); Leukocyte Esterase Urine UA TRACE (NEGATIVE); Nitrite Urine UA NEGATIVE (Negative); Occult Blood Urine UA NEGATIVE (Negative); Protein Urine UA 2+ (Negative); Specific Gravity Urine UA 1.015 (1.000-1.035); pH Urine UA 6.5 (4.5-8.0)
[2021-03-03 20:29] LABS: Color Urine UA Dark Yellow
[2021-03-03 20:35] LABS: NT-proBNP (BNP-Adult 18+) 931 pg/mL (<125)
[2021-03-03 20:38] LABS: Troponin I < 0.012 ng/mL (0.01-0.034)
[2021-03-03] MEDS: MORPHINE 2 MG/ML INJ IV (20:38)
[2021-03-03] MEDS: LACTATED RINGERS 1,000 ML 100 ML IV (20:39)
[2021-03-03 20:43] LABS: Ictotest Urine Negative (Negative)
[2021-03-03 20:44] LABS: Bacteria Urine Occasional (0-1); Culture Indicated Urine Specimen Cultured; Hyaline Casts Urine 1-5/LPF; RBC Urine 0-1/HPF (0-5/HPF); Squamous Epithelial Cell Urine 0-1 /HPF (0-5/HPF); Transitional Epi Cells Urine 0-1/HPF (0-5/HPF); WBC Urine 5-10/HPF (0-5/HPF)
[2021-03-04] VITALS (19 sets, daily range): BP systolic 70–146; BP diastolic 41–88; PULSE 67–86; RESP 12–22; TEMP 35.6–36.8; O2SAT 93–100; BMI 19.3; BMI 24.4
--- NOTE | 2021-03-04 | PATH_ITS ---
[facility] Accession Number: [id number] . 01 Material submitted: . sigmoid colon - SIGMOID COLON . 02 Diagnosis: Sigmoid Colon, Segmental Resection: Ischemic colitis with severe neutrophilic activity, transmural necrosis, perforation, and serositis. No evidence of thrombosis or vasculitis. Negative for granulomas, dysplasia and malignancy. MRV 03/06/2021 0942 Local . 02 Electronically signed: . Mary Kate Gonsalves MD, Pathologist NPI- [id number] . 01 Gross description: . The specimen is received in formalin labeled sigmoid colon and consists of an unoriented portion of colon measuring 55 cm in length and ranging from 5.5 cm in diameter to 8.5 cm in diameter. The serosa is aguilar-pink, focally hemorrhagic, and smooth with focal areas of fibrinous adhesions. There are multiple transmural defects ranging from 0.2 to 2.0 cm, located greater than 10 cm from both margins. One defect has a black suture. Opening reveals a predominantly dusky red, granular to attenuated mucosa. The wall thickness measures 0.1 cm. Sectioning through the attached adipose tissue reveals multiple lymph nodes ranging from 0.1 to 0.4 cm. Registration Manager sections are submitted. . A1-A2 - Stapled margins, circulation representative perpendicular sections (blue and black). A3-A4 - Registration Manager transmural defect (defect with black suture in A3). A5-A6 - Registration Manager colon. A7 - Lymph nodes. A8 - Cross sections of mesenteric vessels. ([id number]) /[facility] 03/05/2021 1546 Local . 02 Pathologist provided ICD-10: K55.9 . 02 CPT . 923192 Performed at: 01 [facility] [address] [place], [place] [address], [place] [id number] MD Oswald Kingsley MD Phone: [phone] Performed at: 02 [facility] [address] [place] [id number] MD Mary Kate Gonsalves MD Phone: [phone]
[2021-03-04] MEDS: MORPHINE 2 MG/ML INJ IV (03:31)
[2021-03-04] MEDS: LACTATED RINGERS 1,000 ML 100 ML IV ×3 (06:35→11:35)
--- NOTE | 2021-03-04 07:26 | P.HP_ITS ---
History of Present Illness History of Present Illness Date Patient Seen: 03/04/21 Time Patient Seen: 07:26 Chief complaint: gastro issues Narrative: 4 days of no BM or gas. H/o chronic constipation. Generalized abdominal pain and distention. Nausea but no emesis. Nothing gives relief except IV narcotic. Patient History Medical History Allergic rhinitis (04/25/13) Cuboid syndrome of right foot Cyst in hand Elevated homocysteine Foreign body of ear, left IBS (irritable bowel syndrome) Obstructive sleep apnea syndrome (04/25/13) Parkinson's disease (~09/2016) Pes planus Pure hypercholesterolemia (11/26/16) Surgical History History of tonsillectomy History of vasectomy Status post hernia repair Family & Social History Family History Brother Age: 70 Hypertension Heart disease Mother PAD (peripheral artery disease) Heart valve insufficiency Sister Age: 64 Depression with anxiety Osteoporosis Social History: household members spouse Prior Living Arrangements House Safety & Behavioral: Feels Safe in Current Yes Environment Been Physically Hurt or No Threatened By a Person Suicidal Ideation Description None Suicide Plan Description No Plan Tobacco & Substance use: Smoking Status Former smoker alcohol intake current alcohol intake frequency 0-2 drinks per day Substance Use Type does not use Meds Home Medications and Allergies Home Medications Medication Instructions Recorded Confirmed Type alpha lipoic acid 200 mg tablet mg PO 06/27/19 02/24/21 History ascorbic acid (vitamin C) 500 mg 500 mg PO DAILY 06/27/19 03/03/21 History capsule cholecalciferol (vitamin D3) 125 5,000 unit PO DAILY 06/27/19 03/03/21 History mcg (5,000 unit) capsule glutathione 50 mg capsule 50 mg PO DAILY 06/27/19 03/03/21 History omega-3 fatty acids 1,000 mg 1,000 mg PO DAILY 06/27/19 03/03/21 History capsule (Fish Oil Concentrate) vitamin B complex (Super B-50 1 cap PO DAILY 06/27/19 03/03/21 History Complex) lithium orotate 1 tab PO DAILY 11/10/19 03/03/21 History carbidopa 25 mg-levodopa 100 mg 1 tab PO TID 01/18/20 03/03/21 History tablet Allergies Allergy/AdvReac Type Severity Reaction Status Date / Time apple Allergy Verified 03/03/21 23:25 gluten Allergy Verified 03/03/21 23:25 milk Allergy Verified 03/03/21 23:25 pear Allergy Verified 03/03/21 23:25 Review of Systems Review of Systems ROS: Yes All systems reviewed with the patient and are negative except as otherwise documented Exam Vital Signs (past 8 hours): - 03/04/21 00:00 03/04/21 04:51 Temperature 97.0 F L 97.3 F L Pulse Rate 77 80 Respiratory Rate 16 18 Blood Pressure 140/82 146/88 H Pulse Oximetry 94 94 Oxygen Delivery Method Room Air Oxygen Flow Rate 0 Const General: cooperative and in distress Nutritional Appearance: thin Orientation: alert and awake HENMT Head: normocephalic and atraumatic Ears: hearing grossly impaired Nose: nasal mucous membranes and turbinates normal Face and sinus: normal facial exam Eyes General: appearance normal, both eyes and all related structures Sclera: sclerae normal Neck Neck: trachea midline Chest Chest: normal inspection of the chest Resp Effort & Inspection: normal respiratory effort and able to speak in complete sentences Other: decreased lung bases Cardio Rate: regular rate and tachycardic Rhythm: regular rhythm GI Inspection: distended Palpation: firm and tender (generalized tenderness) Skin General: no rashes or lesions noted, atrophy and ecchymosis Neuro General: patient alert, patient awake and moves all extremities Cognition: normal cognition Motor: tremor (bilateral essential tremor) Extrem General: normal to inspection Psych Appearance: grossly normal Affect: normal affect Judgment: judgment good Objective Labs Result Diagrams: 03/03/21 15:52 03/03/21 15:52 Labs: Laboratory Results - last 24 hr 03/03/21 03/03/21 03/03/21 15:52 15:52 15:52 WBC 15.7 H RBC 4.76 Hgb 14.7 Hct 43.5 MCV 91.4 MCH 30.9 MCHC 33.8 RDW 14.0 Plt Count 149 L Neut % (Auto) 89.2 H Lymph % (Auto) 4.8 L [place] % (Auto) 5.5 Eos % (Auto) 0.2 L Baso % (Auto) 0.3 Neut # (Auto) 57802 H Lymph # (Auto) 800 L [place] # (Auto) 900 Eos # (Auto) 0 Baso # (Auto) 100 Sodium 138 Potassium 3.7 Chloride 106 Carbon Dioxide 23 BUN 21 H Creatinine 0.83 Estimated GFR > 60.0 BUN/Creatinine Ratio 25.3 H Glucose 119 H Lactate Calcium 8.9 Total Bilirubin 1.1 AST 33 ALT 5 Alkaline Phosphatase 54 Troponin I < 0.012 NT-Pro-B Natriuret Pep Total Protein 6.9 Albumin 4.3 Globulin 2.6 Albumin/Globulin Ratio 1.7 Lipase 48 Urine Color Urine Appearance Urine pH Ur Specific [place] Urine Protein Urine Glucose (UA) Urine Ketones Urine Occult Blood Urine Nitrate Urine Bilirubin Ur Bilirubin Confirm Urine Urobilinogen Ur Leukocyte Esterase Urine RBC Urine WBC Ur Squamous Epith Cells Ur Transition Epith Cell Urine Bacteria Hyaline Casts Ur Culture Indicated? SARS-CoV-2 (PCR) 03/03/21 03/03/21 03/03/21 15:52 15:53 19:01 WBC RBC Hgb Hct MCV MCH MCHC RDW Plt Count Neut % (Auto) Lymph % (Auto) [place] % (Auto) Eos % (Auto) Baso % (Auto) Neut # (Auto) Lymph # (Auto) [place] # (Auto) Eos # (Auto) Baso # (Auto) Sodium Potassium Chloride Carbon Dioxide BUN Creatinine Estimated GFR BUN/Creatinine Ratio Glucose Lactate 1.2 Calcium Total Bilirubin AST ALT Alkaline Phosphatase Troponin I NT-Pro-B Natriuret Pep 931 H Total Protein Albumin Globulin Albumin/Globulin Ratio Lipase Urine Color Urine Appearance Urine pH Ur Specific [place] Urine Protein Urine Glucose (UA) Urine Ketones Urine Occult Blood Urine Nitrate Urine Bilirubin Ur Bilirubin Confirm Urine Urobilinogen Ur Leukocyte Esterase Urine RBC Urine WBC Ur Squamous Epith Cells Ur Transition Epith Cell Urine Bacteria Hyaline Casts Ur Culture Indicated? SARS-CoV-2 (PCR) Negative 03/03/21 20:09 WBC RBC Hgb Hct MCV MCH MCHC RDW Plt Count Neut % (Auto) Lymph % (Auto) [place] % (Auto) Eos % (Auto) Baso % (Auto) Neut # (Auto) Lymph # (Auto) [place] # (Auto) Eos # (Auto) Baso # (Auto) Sodium Potassium Chloride Carbon Dioxide BUN Creatinine Estimated GFR BUN/Creatinine Ratio Glucose Lactate Calcium Total Bilirubin AST ALT Alkaline Phosphatase Troponin I NT-Pro-B Natriuret Pep Total Protein Albumin Globulin Albumin/Globulin Ratio Lipase Urine Color Dark yellow Urine Appearance Clear Urine pH 6.5 Ur Specific [place] 1.015 Urine Protein 2+ H Urine Glucose (UA) Negative Urine Ketones 2+ H Urine Occult Blood Negative Urine Nitrate Negative Urine Bilirubin 1+ H Ur Bilirubin Confirm Negative Urine Urobilinogen 1.0 Ur Leukocyte Esterase Trace H Urine RBC 0-1/hpf Urine WBC 5-10/hpf H Ur Squamous Epith Cells 0-1 /hpf Ur Transition Epith Cell 0-1/hpf Urine Bacteria Occasional (0-1) Hyaline Casts 1-5/lpf Ur Culture Indicated? Specimen cultured SARS-CoV-2 (PCR) Assessment & Plan Assessment & Plan narrative: Chronic constipation, Parkinson's, acute colonic obstruction possible volvulus in transverse. acute constipation Plan: Xlap with colon resection, possible diverting colostomy. COVID-19 COVID-19 status: Negative Time Spent With Patient Time with patient: 50 to 69 minutes with 50% spent counseling/coordinating care Critical Care time: I spent a total of [] minutes of critical care time on this patient's care today; this time is exclusive of procedural time.
--- NOTE | 2021-03-04 08:17 | PC.NURSE ---
Addendum entered by Eden Licea R.N. 03/04/21 15:35: Patients blood pressure down to 70/41, systolic now up to 80s. called and ordered a bolus 1000cc over one hour. This has been started. Patient reclined with legs up in the chair. Distal part of aquacel dressing leaking bloody drainage, covered with an allevyn foam dressing and groin cleaned up. Patient has 100cc of dark urine in his cohen, he came back from surgery around 1200 Addendum entered by Eden Licea R.N. 03/04/21 12:27: Patient back from surgery, he had an exp lap with sigmoid collectomy and colostomy bag. Stoma is beefy red, with ss fluid in bag. Him and his are aware of this and have no issues, is very involved in patients care. He is tolerating clear liquids now and he denies pain. Original Note: Assess- Patient is sitting up in his chair with his legs elevated. His abdomen is distended with hypoactive bowel tones. Patient up with one person assist and walker, his is attentive to patients needs. He is voiding per urinal. He will be going to surgery at 0945, consent on chart. He denies pain at this time and has been npo since 0000. His states that he is more comfortable in the chair than the bed.
[2021-03-04] MEDS: metroNIDAZOLE 500 MG/100 ML PIGGYBACK 100 MG IV (09:49)
[2021-03-04] MEDS: PIPERACILLIN/TAZO 3.375 GM in SODIUM CHLORIDE 0.9% 100 ML 25 ML IV ×2 (10:05→17:42)
--- NOTE | 2021-03-04 10:19 | SUR.OPER ---
Supine on padded OR bed, head on pillow, arms secured on padded arm boards at <90 degrees abduction, legs uncrossed, safety belt at thigh, tape over blanket over lower legs.
[2021-03-04] MEDS: ACETAMINOPHEN IV 1,000 MG/100 ML VIAL 400 MG IV (10:25)
--- NOTE | 2021-03-04 11:02 | P.OP_ITS ---
Operative Date/Time/Diagnoses Date of procedure: 03/04/21 Time of procedure: 11:03 Pre-op diagnosis: colonic volvulus Post-op diagnosis: same Procedure & Clinicians Procedure: Sports for laparotomy with sigmoid colon resection with diverting colostomy Same procedure as scheduled: Yes Indications: Sigmoid volvulus Surgeon: Jennifer Payan Click Yes if Unassisted: Yes Anesthesia Type: General Operative Notes Findings: Sigmoid volvulus Closure Type: primary Specimen(s): other (Sigmoid colon) Estimated Blood Loss (mL): 20 Blood products transfused: none Procedure in detail: Prep diagnosis: Colonic volvulus Postop diagnosis: Same Operative procedure: Exploratory laparotomy with sigmoid colon resection and diverting colostomy Surgeon: Nancy Payan MD Anesthetic: General with ET tube intubation Findings: Your tensely dilated sigmoid colon encompassing the majority of the abdomen, stool filled colon ascending and descending. Procedure: Patient placed in a supine position. Prepped and draped in sterile fashion to expose his abdomen. Midline incision was created using electrocautery and blunt dissection. Then was able to decompress the volvulus component of the sigmoid colon without spillage. This was done with a 2-0 silk pursestring. Once we had decompression. I would did transection of the proximal descending colon as well as transection of the rectum. The mesentery was taken down with LigaSure device. We had excellent hemostasis. Due to the circumstances and poor nutrition I chose to do a diverting colostomy rather than a primary anastomosis Stoma was created in the left lower quadrant of the abdomen. Proximal colon was brought into the abdominal wall defect through the rectus muscle. We then irrigated the abdomen to a clear return hold omentum down across the exposed bowel and closed fascia. Fascia was closed with a running looped 1 PDS. Subcutaneous tissue was irrigated and skin was closed with surgical donnie. Colon was opened and the stoma was matured typical [place] fashion using inter rupted 2 and 3-0 Vicryl. Stoma device and sterile dressings were placed. Patient was awakened, extubated, taken to recovery room stable condition with needle, instrument, sponge counts correct Blood loss: 20 mL Specimen: Sigmoid colon.
--- NOTE | 2021-03-04 12:10 | CM.DANOTE ---
DCP: Case received, EMR reviewed. Patient was down at surgery, spouse, Isabella, was in the room. Introduced self and role. Was able to obtain information regarding patient's baseline activity status prior to hospitalization. DCP assessment completed with information currently available. Patient is a 75 year old male who admitted yesterday afternoon to the care of the hospitalist team. PCP: Dr. Romano. Payer: confirmed: Medicare. Patient came to the hospital via private vehicle secondary to increased abdominal pain, and some distention. Patient is having colon resection with diverting colostomy. Met with patient's in the room. Confirmed that patient is independent, alert and oriented. They both reside here in [place], and confirmed that his primary care provider is Dr. Romano. P: DCP to continue to follow for any needs. Regina Grace RN/Rehab Nurse Discharge Planning/Care Management CM Discharge Assessment Start: 03/04/21 12:08 Freq: Status: Active Protocol: Document 03/04/21 12:08 (Rec: 03/04/21 12:09 [id number]) Discharge Planning Assessment Assigned [place] Regina Grace RN/Rehab Nurse Advance Directives? No History Provided By Patient,Medical Record Prior Living Arrangements House Household Members spouse Type of transporation used prior to Drives own vehicle admit Independent with ADL's Yes Is patient alert and oriented? Yes Caregiver for Another No Barriers to Discharge No Discharge Plan Home Transportation Arrangement Spouse Referrals Initiated None needed Whiteboard Updated in Patient Room with Yes name and ext. # of [place] Review Status In Process Next Review Type Continued Stay Review
--- NOTE | 2021-03-04 13:50 | PT.IIE ---
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) Surgery Performed Operation Date: 03/04/21 09:45 Actual Procedures p Exploratory Laparotomy with sigmoid colon resection and diverting colostomy - Jennifer Payan MD Surgical History (Last Reviewed 03/04/21 @ 07:28 by Jennifer Payan MD) History of tonsillectomy History of vasectomy Status post hernia repair Medical History (Last Reviewed 03/04/21 @ 07:28 by Jennifer Payan MD) Allergic rhinitis (04/25/13) Cuboid syndrome of right foot Cyst in hand Elevated homocysteine Foreign body of ear, left IBS (irritable bowel syndrome) Obstructive sleep apnea syndrome (04/25/13) Parkinson's disease (~09/2016) Pes planus Pure hypercholesterolemia (11/26/16) Physical Therapy Inpatient Evaluation/Re-Eval M1 PT/OT-IP Prior Functional Status Start: 03/04/21 15:04 Freq: NEEDED Status: Active Protocol: Document 03/04/21 13:50 AB (Rec: 03/04/21 15:26 AB [id number]) Medical Review Prior Functional Status Medical History Reviewed Yes Communication able to answer questions but is [place] Mobility and Gait per spouse: pt is independent with all mobilities and ambulation without AD Social History Household Members spouse Living Arrangements House Number of Floors (Floors) Two Floors Number of Stairs To Enter/Railing? 2 steps to enter without rails from the front 1 step to enter from the back door but has a farther walk 12 steps B rails to 2nd level bedroom but pt can also stay on the first level of the house Home Environment Standard Height Toilet,Walk in Shower Home Equipment Shower Seat without Backrest M2 PT-IP Current Condition Start: 03/04/21 15:04 Freq: NEEDED Status: Active Protocol: Document 03/04/21 13:50 AB (Rec: 03/04/21 15:26 AB [id number]) Physical Therapy Current Condition Current Condition Evaluation Date 03/04/21 Treatment Diagnosis ex lap w/ colon resection and colostomy; difficulty in walking Onset Date 03/03/21 Precautions Abdominal Surgery Precautions Log Roll,Lifting Restrictions, Gait Belt above Incisional Area M3 PT-IP Subjective Start: 03/04/21 15:04 Freq: NEEDED Status: Active Protocol: Document 03/04/21 13:50 AB (Rec: 03/04/21 15:26 AB [id number]) Subjective Physical Therapy Visit Type Type Initial Evaluation Visit Start Time 13:50 Visit Stop Time 14:37 Total Visit Minutes 47 Number of MANAGER ROOFING Visits 0 Physical Therapy Visit Comments Patient Comments agreeable to do PT M4 PT-IP Mobility and Gait Start: 03/04/21 15:04 Freq: NEEDED Status: Active Protocol: Document 03/04/21 13:50 AB (Rec: 03/04/21 15:26 AB [id number]) PT-Bed Mobility Assessment Rolling Type of Rolling Log Rolling Level of Assist Maximal Assistance Supine to Sit Supine to Sit Maximum Assistance Scooting Scooting to Edge of Bed Contact Guard Assistance PT-Transfer Assessment Sit to and From Stand Sit to and from Stand Maximum Assistance,1 Person Assistance,Use of Upper Extremities Equipment Transfer Assistive Device Gait Belt,Front Wheeled Walker Orthotic/Prosthetic Devices or Brace: No Transfers Transfer Destination Toilet Transfer Technique ambulated Transfer Ability Level of Assist Maximum Assistance,1 Person Assistance,Use of Upper Extremities Comments Mobility Comments pt and spouse educated on abdominal precautions and log roll bed mobility. BP in supine: 91/55. pt completed log roll supine to sit max A and max cues. Able to sit on on EOB initially requiring max A but after repositioning and cues, able to sit on EOB SBA. no c/o dizziness. BP in sittin/65. Nurse in room . pt completed sit to stand max A and cues. increase posterior trunk lean and increase trunk stiffness. pt has PD and due to sx today, has not had his PD medication. pt ambulated in room using FWW max A ~ 15 ft. requires assist with FWW management. presents with ataxic gait with narrow ESTUARDO. pt wants to sit up on chair. ambulated back on chair. pt instructed to stay standing using fWW for support mod A while nurse manage abdominal dressing. pt then instructed to sit down on chair, max A for controlled descent. BP at end of PT session: 100/60. Left pt with NAC since NAC still has to assist pt with gown change. pt does not have FWW at home and spouse stated that she can get one for pt. Gait Assessment Gait Gait Assistance Required: Maximum Assistance Distance (Feet) 15 Able to Maintain Weight Bearing Status Yes During Gait Assistive Devices Assistive Device Gait Belt,Front Wheeled Walker Orthotic/Prosthetic Devices or Brace: No Gait Deviations General Gait Pattern Ataxic,Decreased Stride Length ,Decreased Feet Clearance, Narrow Based Gait,Step-to Gait Factors Limiting Gait Function Factors Limiting Gait Function Abnormal Tonal Influences, Decreased Activity Tolerance, Decreased Strength,Difficulty Following Directions, Incoordination,Limited Range of Motion,Poor Balance,Poor Safety Awareness Comments Gait Comments pls refer to mobility section for details PT-Balance Assessment Sitting Balance and Reactions Static Sitting Balance Ability Good Dynamic Sitting Balance Ability Poor Standing Balance and Reactions Static Standing Balance Ability Poor Dynamic Standing Balance Ability Poor Device Used FWW M5 PT-IP Objective Assessments Start: 03/04/21 15:04 Freq: NEEDED Status: Active Protocol: Document 03/04/21 13:50 AB (Rec: 03/04/21 15:26 AB [email or web address]) Orientation Orientation/Cognition Level of Alertness Alert Orientation Name,Place,Situation Language Function Ability Hard of Hearing Safety Awareness Decreased Safety Awareness Memory Description Short Term Impaired Gross Range of Motion Lower Extremity ROM Assessment Within Functional Limits Strength Lower Extremity Strength Assessment Within Functional Limits M6 PT-IP Treatment Start: 03/04/21 15:04 Freq: NEEDED Status: Active Protocol: Document 03/04/21 13:50 AB (Rec: 03/04/21 15:26 AB [email or web address]) Physical Therapy Treatment Education Education Provided Precautions,Safety M7 PT-IP Assessment and Plan Start: 03/04/21 15:04 Freq: NEEDED Status: Active Protocol: Document 03/04/21 13:50 AB (Rec: 03/04/21 15:26 AB [email or web address]) PT Summary Assessment and Plan Potential Rehabilitation Potential Fair Status of Condition at Evaluation Evolving Summary Impairments Pain,ROM,Strength,Balance, Coordination,Sensation,Tone, Cognition,Bed Mobility, Transfers,Gait,Activity Tolerance Assessment Summary pt s/p ex lap colon resection and colostomy POD 0. pt also has PD affecting mobility. pt currently requiring max A with mobility but has not gotten his PD medications due to this morning's surgery. pt's spouse will be able to assist pt at home and will conduct caregiver training when appropriate. stair climbing training also will be completed prior to d/c home. will continue to assess pt's progress. Goals Bed Mobility Goal Standby Assistance Transfer Goal Standby Assistance,Front Wheeled Walker Gait Goal Standby Assistance,Front Wheel Walker Gait Distance 200 Other Goals up/down 1 step using FWW CGA up/down 12 steps B rails SBA Days to Meet Goals 10 Frequency of Treatment Frequency Of Treatment Once a Day Treatment Plan Physical Therapy Treatment Plan Bed Mobility Training,Transfer Training,Gait Training, Therapeutic Exercise,Balance Retraining,Post Op Education, Discharge Planning,Hot or Cold Pack,Neuromuscular Re-ed, Coordination Retraining,Manual Therapy Other Recommendations and Next Treatment log roll bed mobility, Focus ambulation, caregiver training when appropriate Precautions Abdominal Surgery Precautions Log Roll,Lifting Restrictions, Gait Belt above Incisional Area Recommendations To Nursing Amount of Assist Needed 1 Person Assist Discharge Recommendations PT Discharge Recommendations Home with 13/12 Assist Available,Home Health Transportation Needs at Discharge Private Vehicle
[2021-03-04] MEDS: CARBIDOPA-LEVODOPA 25/100 TABLET 1 EACH PO ×2 (14:53→17:36)
[2021-03-04] MEDS: CELECOXIB 100 MG CAPSULE 200 MG PO (14:53)
[2021-03-04] MEDS: SODIUM CHLORIDE 0.9% 1,000 ML 1000 ML IV (15:29)
--- NOTE | 2021-03-04 16:52 | DIET.CONS2 ---
Dietary Inpatient Consultation Note Admission Date: 03/03/2021 18:46 Please note weight on file was in error, pt is 79.3kg which is WNL for pt. 75y M admitted for volvulus in transverse colon with temporary colostomy (8w) referred to nutrition for malnutrition. RD met c pt and spouse at bedside. Pt confirmed pt has not lost weight recently and is at UBW. Pt hasn't eaten x3d, however, secondary to abd px and distension. Pt has hx IBS (alternating constipation and diarrhea), has avoided gluten and dairy for quite a while and started low FODMAP diet last year with good results. Pt's BMs normalized with avoidance of pears, apples, gluten, and dairy. Pt started GAPS diet with good results: focused on daily intake homemade bone broth with adin, grass-fed meat, veggies, 24h yogurt, kefir. Last week pt ate large apple with peel and large glass kefir to test his tolerance. Gas and bloating started later that day. Pt currently on clear liquid diet. JOSE knapp'd pts to bring in bone broth and strained fruit/veggie juice as tolerated. EER: 2,000kcals (25kcal/kg), 96g PRO (1.2g/kg per post-surgical) Monitoring/Evaluation: diet progression, colostomy nutrition teaching Diet: 03/04/21 Lunch Clear Liquid Diet Diet Modifications: General Nutrition Dietary Nutrition Intervention Start: 03/04/21 16:48 Freq: Status: Active Protocol: Document 03/04/21 16:49 AP (Rec: 03/04/21 16:52 AP [id number]) Nutritional Calculations Patient Data Protocol: NUTR.AMPUT Height 180.3 cm Weight 79.379 kg Percent of [place] Body Weight (%) 102 BMI Protocol: NUTR.BMI Body Mass Index (BMI) 24.4 Body Mass Index (BMI) Classification Normal BEE - Busch-Riparius Equation Protocol: NUTR.BEE Basal Energy Expenditure (BEE) (kcal) 1558.65 RMR - [place]-St.Jeor Equation Protocol: NUTR.RMR Resting Metabolic Rate (kcal) 1560.79 Estimated Protein Requirements Based on Age and Weight Protocol: NUTR.EPR1 Electronically Signed by: Rossy Fowler 03/04/21 16:52 Clinical [address] [id number]
--- NOTE | 2021-03-04 22:27 | PM.CN ---
History of Present Illness Consult details Date Patient Seen: 03/04/21 Time Patient Seen: 22:30 Chief complaint: gastro issues Reason for consult: parkinsons Requesting provider: Jennifer Payan Narrative: Mr. Claros is a 75M with H Parkinsons disease who presented to the hospital with abdominal pain. He stated that he has not had a bowel movement in 4 days, he has had increasing abodminal pain and nausea. He has noticed his abdomen becoming more distended. He has not had significant vomiting, he has noticed decreased appetite. CT abdomen was ordered and concerning for sigmoid volvulus. He was take to the OR with Dr. Payan where ex-lap was performed along with sigmoid resection and diverting colostomy. He is seen post-operatively. Consult is for medical management of his parkinsons disease. His abdominal pain is well controlled. Meds Home Medications and Allergies Home Medications Medication Instructions Recorded Confirmed Type alpha lipoic acid 200 mg tablet mg PO 06/27/19 02/24/21 History ascorbic acid (vitamin C) 500 mg 500 mg PO DAILY 06/27/19 03/03/21 History capsule cholecalciferol (vitamin D3) 125 5,000 unit PO DAILY 06/27/19 03/03/21 History mcg (5,000 unit) capsule glutathione 50 mg capsule 50 mg PO DAILY 06/27/19 03/03/21 History omega-3 fatty acids 1,000 mg 1,000 mg PO DAILY 06/27/19 03/03/21 History capsule (Fish Oil Concentrate) vitamin B complex (Super B-50 1 cap PO DAILY 06/27/19 03/03/21 History Complex) lithium orotate 1 tab PO DAILY 11/10/19 03/03/21 History carbidopa 25 mg-levodopa 100 mg 1 tab PO TID 01/18/20 03/03/21 History tablet Allergies Allergy/AdvReac Type Severity Reaction Status Date / Time apple Allergy Verified 03/03/21 23:25 gluten Allergy Verified 03/03/21 23:25 milk Allergy Verified 03/03/21 23:25 pear Allergy Verified 03/03/21 23:25 Review of Systems Review of Systems Narrative: 14 systems reviewed and negative aside from HPI Exam Vital Signs (past 8 hours): - 03/04/21 23:50 03/05/21 04:20 Temperature 97.7 F 97.9 F Pulse Rate 78 82 Respiratory Rate 18 16 Blood Pressure 103/66 102/65 Pulse Oximetry 95 95 Oxygen Delivery Method Nasal Cannula Oxygen Flow Rate 0 Narrative Exam Narrative: GEN: no acute distress HEENT: moist mucous membranes, PERRL NECK: no JVD, trachea midline CV: regular rate and rhythm, no murmurs PULM: clear bilaterally ABD: soft, expected post op tenderness, no rebound/guarding, colostomy in place EXT: warm and well perfused, no edema NEURO: awake and alert, moving all extremities PSYCH: pleasant, cooperative Objective Labs Result Diagrams: 03/03/21 15:52 03/03/21 15:52 [facility] Medical History Allergic rhinitis (04/25/13) Cuboid syndrome of right foot Cyst in hand Elevated homocysteine Foreign body of ear, left IBS (irritable bowel syndrome) Obstructive sleep apnea syndrome (04/25/13) Parkinson's disease (~09/2016) Pes planus Pure hypercholesterolemia (11/26/16) Surgical History History of tonsillectomy History of vasectomy Status post hernia repair Family History Brother Age: 70 Hypertension Heart disease Mother PAD (peripheral artery disease) Heart valve insufficiency Sister Age: 64 Depression with anxiety Osteoporosis Social History household members: spouse Tobacco & Substance Use Smoking Status: Former smoker alcohol intake: current substance use type: does not use Assessment & Plan Assessment & Plan narrative: Mr. Claros is a 75M with H parkinsons disease who presents with abdominal pain found to have sigmoid volvulus now s/p sigmoid resection with diverting colostomy. 1. Acute sigmoid volvolus -s/p ex-lap with sigmoid colon resection and diverting colostomy on 03/04 -management per surgery, currently on zosyn/flagyl, clear liquid diet, IV pain meds, IV fluids 2. Positive UA -culture pending, no symtoms currently -already on antibiotcis as above 3. Thrombocytopenia, mild -likely secondary to illness -continue to trend -no indication for transfusion 4. Parkinsons disease -continue sinemet CODE: Full code Proxy: Isabella Liz, spouse I have utilized all available immediate resources to obtain, update, or review the patient's current medications. Time Spent With Patient Critical Care time: I spent a total of [] minutes of critical care time on this patient's care today; this time is exclusive of procedural time.
[2021-03-05] MEDS: PIPERACILLIN/TAZO 3.375 GM in SODIUM CHLORIDE 0.9% 100 ML 25 ML IV ×2 (01:38→10:40)
[2021-03-05 04:20] VITALS: BP 102/65; PULSE 82; RESP 16; TEMP 36.6; O2SAT 95
[2021-03-05] MEDS: LACTATED RINGERS 1,000 ML 100 ML IV (06:42)
[2021-03-05 08:05] VITALS: BP 110/72; PULSE 76; RESP 14; TEMP 36.2; O2SAT 96
[2021-03-05] MEDS: CARBIDOPA-LEVODOPA 25/100 TABLET 1 EACH PO ×4 (08:07→17:25)
[2021-03-05] MEDS: CELECOXIB 100 MG CAPSULE 200 MG PO (08:07)
--- NOTE | 2021-03-05 11:05 | PM.PNPO.1 ---
Exam Vital Signs (past 8 hours): - 03/05/21 04:20 03/05/21 08:05 Temperature 97.9 F 97.1 F L Pulse Rate 82 76 Respiratory Rate 16 14 Blood Pressure 102/65 110/72 Pulse Oximetry 95 96 Oxygen Delivery Method Nasal Cannula Oxygen Flow Rate 0 Const General: cooperative and comfortable Resp Effort & Inspection: normal respiratory effort and able to speak in complete sentences GI Other: Abdomen is soft, stoma is functioning. Objective Labs Result Diagrams: 03/03/21 15:52 03/03/21 15:52 [facility] Medical History Allergic rhinitis (04/25/13) Cuboid syndrome of right foot Cyst in hand Elevated homocysteine Foreign body of ear, left IBS (irritable bowel syndrome) Obstructive sleep apnea syndrome (04/25/13) Parkinson's disease (~09/2016) Pes planus Pure hypercholesterolemia (11/26/16) Surgical History History of tonsillectomy History of vasectomy Status post hernia repair Family History Brother Age: 70 Hypertension Heart disease Mother PAD (peripheral artery disease) Heart valve insufficiency Sister Age: 64 Depression with anxiety Osteoporosis Social History household members: spouse Smoking Status: Former smoker alcohol intake: current substance use type: does not use Assessment & Plan Post-op Postoperative Procedures: Procedures Operation Date: 03/04/21 09:45 Actual Procedure Side Surgeon p Exploratory Laparotomy with sigmoid colon resection and diverting colostomy Jennifer Payan MD Postoperative day: 1 Postoperative status: doing well Postoperative status narrative: No complications, tolerating clear liquid diet. Stoma is working Postoperative plan narrative: Advance to full liquid diet. Stoma care teaching. Labs in am. Stop IVF and antibiotics
--- NOTE | 2021-03-05 11:25 | PT.IPTN ---
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) Surgery Performed Operation Date: 03/04/21 09:45 Actual Procedures p Exploratory Laparotomy with sigmoid colon resection and diverting colostomy - Jennifer Payan MD Physical Therapy Treatment Note M2 PT-IP Current Condition Start: 03/04/21 15:04 Freq: NEEDED Status: Active Protocol: Document 03/04/21 13:50 AB (Rec: 03/04/21 15:26 AB [id number]) Physical Therapy Current Condition Current Condition Evaluation Date 03/04/21 Treatment Diagnosis ex lap w/ colon resection and colostomy; difficulty in walking Onset Date 03/03/21 Precautions Abdominal Surgery Precautions Log Roll,Lifting Restrictions, Gait Belt above Incisional Area M3 PT-IP Subjective Start: 03/04/21 15:04 Freq: NEEDED Status: Active Protocol: Document 03/05/21 10:58 CLB (Rec: 03/05/21 13:30 CLB [id number]) Subjective Physical Therapy Visit Type Type Treatment Note Visit Start Time 10:58 Visit Stop Time 11:25 Total Visit Minutes 27 Number of HAND DEICER ELEMENT WINDER Visits 1 Physical Therapy Visit Comments Patient Comments agreeable to do PT M4 PT-IP Mobility and Gait Start: 03/04/21 15:04 Freq: NEEDED Status: Active Protocol: Document 03/05/21 10:58 CLB (Rec: 03/05/21 13:30 CLB [id number]) PT-Bed Mobility Assessment Rolling Type of Rolling Log Rolling Level of Assist Standby Assistance,1 Person Assistance Supine to Sit Supine to Sit Standby Assistance,1 Person Assistance Scooting Scooting to Edge of Bed Standby Assistance PT-Transfer Assessment Sit to and From Stand Sit to and from Stand Contact Guard Assistance,1 Person Assistance,Use of Upper Extremities Equipment Transfer Assistive Device Gait Belt,Front Wheeled Walker Orthotic/Prosthetic Devices or Brace: No Transfers Transfer Destination Chair Transfer Technique ambulated Transfer Ability Level of Assist Contact Guard Assistance,1 Person Assistance,Use of Upper Extremities Comments Mobility Comments Pt able to perform LR to left and sidelying to sit SBA with good pain control. Pt stood CGA and ambulated in room ~ 60ft w/FWW and assist of IV lines. Pt sat in chair for seated rest break while RN disconnects IV. Pt stood from chair SBA and ambulated in kaur ~100ft requiring CGA. Pt returned to room sitting in chair CGA. Pt left in chair with all need within reach and chair alarm on. Gait Assessment Gait Gait Assistance Required: Contact Guard Assist,1 Person Assist Distance (Feet) 100 Able to Maintain Weight Bearing Status Yes During Gait Assistive Devices Assistive Device Gait Belt,Front Wheeled Walker Orthotic/Prosthetic Devices or Brace: No Gait Deviations General Gait Pattern Ataxic,Decreased Stride Length ,Decreased Feet Clearance, Narrow Based Gait Factors Limiting Gait Function Factors Limiting Gait Function Abnormal Tonal Influences, Decreased Activity Tolerance, Decreased Strength,Difficulty Following Directions, Incoordination,Limited Range of Motion,Poor Balance,Poor Safety Awareness Comments Gait Comments pls refer to mobility section for details PT-Balance Assessment Sitting Balance and Reactions Static Sitting Balance Ability Good Dynamic Sitting Balance Ability Poor Standing Balance and Reactions Static Standing Balance Ability Poor Dynamic Standing Balance Ability Poor Device Used FWW M5 PT-IP Objective Assessments Start: 03/04/21 15:04 Freq: NEEDED Status: Active Protocol: Document 03/04/21 13:50 AB (Rec: 03/04/21 15:26 AB [id number]) Orientation Orientation/Cognition Level of Alertness Alert Orientation Name,Place,Situation Language Function Ability Hard of Hearing Safety Awareness Decreased Safety Awareness Memory Description Short Term Impaired Gross Range of Motion Lower Extremity ROM Assessment Within Functional Limits Strength Lower Extremity Strength Assessment Within Functional Limits M6 PT-IP Treatment Start: 03/04/21 15:04 Freq: NEEDED Status: Active Protocol: Document 03/04/21 13:50 AB (Rec: 03/04/21 15:26 AB [id number]) Physical Therapy Treatment Education Education Provided Precautions,Safety M7 PT-IP Assessment and Plan Start: 03/04/21 15:04 Freq: NEEDED Status: Active Protocol: Document 03/05/21 10:58 CLB (Rec: 03/05/21 13:30 CLB [id number]) PT Summary Assessment and Plan Potential Rehabilitation Potential Fair Status of Condition at Evaluation Evolving Summary Impairments Pain,ROM,Strength,Balance, Coordination,Sensation,Tone, Cognition,Bed Mobility, Transfers,Gait,Activity Tolerance Progress Towards Goals Progressing Toward Goals Assessment Summary Pt with decreased pain during mobility. Pt able to get to EOB SBA. Pt able to ambulate in kaur CGA w/FWW ~100ft. Will continue to assess pt for d/c plan. CG training before d/c if needed. Goals Bed Mobility Goal Standby Assistance Transfer Goal Standby Assistance,Front Wheeled Walker Gait Goal Standby Assistance,Front Wheel Walker Gait Distance 200 Other Goals up/down 1 step using FWW CGA up/down 12 steps B rails SBA Days to Meet Goals 10 Frequency of Treatment Frequency Of Treatment Once a Day Treatment Plan Physical Therapy Treatment Plan Bed Mobility Training,Transfer Training,Gait Training, Therapeutic Exercise,Balance Retraining,Post Op Education, Discharge Planning,Hot or Cold Pack,Neuromuscular Re-ed, Coordination Retraining,Manual Therapy Other Recommendations and Next Treatment log roll bed mobility, Focus ambulation, caregiver training when appropriate Precautions Abdominal Surgery Precautions Log Roll,Lifting Restrictions, Gait Belt above Incisional Area Recommendations To Nursing Amount of Assist Needed 1 Person Assist Discharge Recommendations PT Discharge Recommendations Home with 13/12 Assist Available,Home Health Transportation Needs at Discharge Private Vehicle
[2021-03-05 12:00] VITALS: BP 90/49; PULSE 64; RESP 16; TEMP 36.1; O2SAT 99
--- NOTE | 2021-03-05 12:06 | DIET.PN1 ---
Dietary Progress Note RD attempted to visit patient and spouse for colostomy nutrition therapy teaching. Spouse off campus midday to meet daughter, plans to return this afternoon, RD will visit pt and spouse at bedside this afternoon for teaching. Nursing actively providing stoma care and colostomy bag teaching. Ht: 180.3 cm Wt: 79.379 kg BMI: 24.4 UBW: Last BM: 02/27/21 (03/04/21 09:20) MNA: 11 Jamarcus Score: 19 Diet: 03/05/21 Lunch Full Liquid Diet Diet Modifications: Nutrition Percent Meal Consumed 75% 03/05/21 09:52 Labs: RBC 4.76 X10^6/uL (4.5-5.9) 03/03/21 15:52 Hgb 14.7 g/dL (13.5-17.5) 03/03/21 15:52 Hct 43.5 % (41-53) 03/03/21 15:52 Creatinine 0.83 mg/dL (0.66-1.25) 03/03/21 15:52 Lactate 1.2 mmol/L (0.7-2.1) 03/03/21 15:53 NT-Pro-B Natriuret Pep 931 pg/mL (<125) H 03/03/21 15:52 Electronically Signed by: Rossy Fowler 03/05/21 12:06 Clinical Dietitian [address] [id number]
[2021-03-05 15:20] VITALS: BP 106/55; PULSE 68; RESP 18; TEMP 36.5; O2SAT 96
--- NOTE | 2021-03-05 16:23 | P.PN_ITS ---
Subjective Subjective Date Patient Seen: 03/05/21 Time Patient Seen: 16:23 Interval history: Some mild abdominal pain with gas type pains. Resolves with bowel movements and gas via stoma. No nausea or vomiting. Tolerating clears and medications today. Has chronically low BP mainly at night, does exercises and is usually minimally symptomatic. Denies dizziness today. Exam Vital Signs (past 8 hours): - 03/05/21 12:00 03/05/21 15:20 Temperature 96.9 F L 97.7 F Pulse Rate 64 68 Respiratory Rate 16 18 Blood Pressure 90/49 L 106/55 L Pulse Oximetry 99 96 Oxygen Delivery Method Nasal Cannula Oxygen Flow Rate 0 Narrative Exam Narrative: GEN: no acute distress HEENT: moist mucous membranes, PERRL NECK: no JVD, trachea midline CV: regular rate and rhythm, no murmurs PULM: clear bilaterally ABD: soft, expected post op tenderness, no rebound/guarding, colostomy in place with gas and stool. EXT: warm and well perfused, no edema NEURO: awake and alert, moving all extremities. Mild tremor. PSYCH: pleasant, cooperative Objective Labs Result Diagrams: 03/03/21 15:52 03/03/21 15:52 [facility] Medical History Allergic rhinitis (04/25/13) Cuboid syndrome of right foot Cyst in hand Elevated homocysteine Foreign body of ear, left IBS (irritable bowel syndrome) Obstructive sleep apnea syndrome (04/25/13) Parkinson's disease (~09/2016) Pes planus Pure hypercholesterolemia (11/26/16) Surgical History History of tonsillectomy History of vasectomy Status post hernia repair Family History Brother Age: 70 Hypertension Heart disease Mother PAD (peripheral artery disease) Heart valve insufficiency Sister Age: 64 Depression with anxiety Osteoporosis Social History household members: spouse Smoking Status: Former smoker alcohol intake: current substance use type: does not use Assessment & Plan Assessment & Plan narrative: Mr. Claros is a 75M with H parkinsons disease who presents with abdominal pain found to have sigmoid volvulus now s/p sigmoid resection with diverting colostomy. 1. Acute sigmoid volvolus -s/p ex-lap with sigmoid colon resection and diverting colostomy on 03/04 -management per surgery, tolerating diet and oral medications. Antibiotics discontinued today. 2. Positive UA -likely asymptomatic bacteuria. Urine cultures negative. Any infection likely treated with antibiotics given for volvulus. 3. Thrombocytopenia, mild -likely secondary to illness, borderline at 149. -continue to trend, if improved and no signs of bleeding can stop following. -no indication for transfusion 4. Parkinsons disease -continue sinemet. If issues with dizziness or orthostatic hypotension attempt fluids, but can trial midodrine to see if improvement given his parkinson's di sease. CODE: Full code Proxy: Isabella Liz, spouse I have utilized all available immediate resources to obtain, update, or review the patient's current medications. Patient appears to be medically stable and tolerating his medications. Medicine / hospitalist team will sign off. Please do not hesitate to contact hospitalist service with additional questions. Time Spent With Patient Critical Care time: I spent a total of [] minutes of critical care time on this patient's care today; this time is exclusive of procedural time.
[2021-03-05 19:31] VITALS: BP 96/57; PULSE 61; RESP 18; TEMP 36.8; O2SAT 98
[2021-03-05 23:25] VITALS: BP 123/73; PULSE 68; RESP 18; TEMP 36.6; O2SAT 96
--- NOTE | 2021-03-06 02:41 | PC.NURSE ---
Patient is alert and oriented. Breath sounds CTA with RA sat of 96%; using home CPAP for sleep. HRR. Denied nausea. BT present; abdomen is mildly distended and tender to touch but denies pain. Midline aquacel dressing is CDI. Ostomy with brown stool noted in bag. Indwelling catheter is patent. Is able to move himself in bed. Gait not assessed at this time. Fall risk score is high and bed alarm is activated.
[2021-03-06 04:54] VITALS: BP 126/77; PULSE 60; RESP 18; TEMP 36.4; O2SAT 94
[2021-03-06 06:25] LABS: Add Manual Diff / Slide Review NO; Basophils Absolute Auto 0 /uL (0-100); Basophils Percent Auto 0.2 % (0-2); Eosinophils Absolute Auto 200 /uL (0-450); Eosinophils Percent Auto 2.5 % (2-4); Hematocrit 37.6 % (41-53); Hemoglobin 12.5 g/dL (13.5-17.5); Lymphocytes Absolute Auto 900 /uL (1100-4500); Lymphocytes Percent Auto 9.5 % (25-40); Mean Corpuscular HGB Conc 33.1 % (30-36); Mean Corpuscular Hemoglobin 30.4 PG (26-34); Mean Corpuscular Volume 91.8 fL (80-100); Monocytes Absolute Auto 400 /uL (0-900); Monocytes Percent Auto 4.4 % (3-14); Neutrophils Absolute Auto 8300 /uL (1500-7000); Neutrophils Percent Auto 83.4 % (50-75); Platelet Count 124 X10^3/uL (150-400); Red Cell Distribution Width 14.6 % (11.6-14.8); White Blood Cell Count 9.9 X10^3/uL (4.5-11.0)
[2021-03-06 06:31] LABS: Alanine Aminotransferase 12 IU/L (<50); Albumin 2.9 g/dL (3.5-5.0); Albumin Globulin Ratio 1.2 (1.0-2.8); Alkaline Phosphatase 41 U/L (38-126); Aspartate Aminotransferase 42 IU/L (17-59); BUN Creatinine Ratio 22.8 (6-22); Bilirubin Total 0.4 mg/dL (0.2-1.3); Blood Urea Nitrogen 21 mg/dL (9-20); Calcium 7.8 mg/dL (8.4-10.2); Carbon Dioxide 24 mmol/L (22-32); Chloride 111 mmol/L (98-107); Estimated Glomerular Filt Rate > 60.0 mL/min (>60); Globulin 2.4 g/dL (1.7-4.1); Glucose 84 mg/dL (80-110); HEMOLYSIS < 15 (0-50); Potassium 3.7 mmol/L (3.4-5.1); Sodium 138 mmol/L (137-145); Total Protein 5.3 g/dL (6.3-8.2)
[2021-03-06 06:39] LABS: Prealbumin 11.9 mg/dL (17.6-36.0)
[2021-03-06] MEDS: CARBIDOPA-LEVODOPA 25/100 TABLET 1 EACH PO ×4 (07:57→18:11)
[2021-03-06] MEDS: SODIUM CHLORIDE 0.9% FLUSH 10 ML IV ×2 (07:57→21:13)
[2021-03-06 08:00] VITALS: BP 135/70; PULSE 69; RESP 17; TEMP 36.7; O2SAT 97
[2021-03-06] MEDS: ENOXAPARIN 40 MG/0.4 ML SYRINGE SUBCUT (09:27)
--- NOTE | 2021-03-06 10:46 | PC.NURSE ---
Patient alert, oriented denies pain and nausea. Tolerating full liquid diet, removed cohen as ordered and patient has voided 200cc without difficulty. Patient ambulated in kaur with FWW gait steady, patient showered.
--- NOTE | 2021-03-06 10:59 | P.PN_ITS ---
Subjective Subjective Date Patient Seen: 03/06/21 Time Patient Seen: 10:59 Interval history: no issues over night. Exam Vital Signs (past 8 hours): - 03/06/21 04:54 03/06/21 08:00 Temperature 97.5 F L 98.1 F Pulse Rate 60 69 Respiratory Rate 18 17 Blood Pressure 126/77 135/70 Pulse Oximetry 94 97 Oxygen Delivery Method Room Air Oxygen Flow Rate 0 Narrative Exam Narrative: stoma functioning. wound dry and covered. abdomen is soft Objective Labs Result Diagrams: 03/06/21 06:07 03/06/21 06:07 Labs: Laboratory Results - last 24 hr 03/06/21 03/06/21 06:07 06:07 WBC 9.9 RBC 4.10 L Hgb 12.5 L Hct 37.6 L MCV 91.8 MCH 30.4 MCHC 33.1 RDW 14.6 Plt Count 124 L Neut % (Auto) 83.4 H Lymph % (Auto) 9.5 L Isabela % (Auto) 4.4 Eos % (Auto) 2.5 Baso % (Auto) 0.2 Neut # (Auto) 8300 H Lymph # (Auto) 900 L Isabela # (Auto) 400 Eos # (Auto) 200 Baso # (Auto) 0 Sodium 138 Potassium 3.7 Chloride 111 H Carbon Dioxide 24 BUN 21 H Creatinine 0.92 Estimated GFR > 60.0 BUN/Creatinine Ratio 22.8 H Glucose 84 Calcium 7.8 L Total Bilirubin 0.4 AST 42 ALT 12 Alkaline Phosphatase 41 Total Protein 5.3 L Albumin 2.9 L Globulin 2.4 Albumin/Globulin Ratio 1.2 Prealbumin 11.9 L [facility] Medical History Allergic rhinitis (04/25/13) Cuboid syndrome of right foot Cyst in hand Elevated homocysteine Foreign body of ear, left IBS (irritable bowel syndrome) Obstructive sleep apnea syndrome (04/25/13) Parkinson's disease (~09/2016) Pes planus Pure hypercholesterolemia (11/26/16) Surgical History History of tonsillectomy History of vasectomy Status post hernia repair Family History Brother Age: 70 Hypertension Heart disease Mother PAD (peripheral artery disease) Heart valve insufficiency Sister Age: 64 Depression with anxiety Osteoporosis Social History household members: spouse Smoking Status: Former smoker alcohol intake: current substance use type: does not use Assessment & Plan Assessment & Plan narrative: No complications: remove cohen today, advance diet. Discuss his low prealbumin and the need for 2500 Kcal/day with focus on protein. Time Spent With Patient Critical Care time: I spent a total of [] minutes of critical care time on this patient's care today; this time is exclusive of procedural time.
--- NOTE | 2021-03-06 11:21 | PT.IPTN ---
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) Surgery Performed Operation Date: 03/04/21 09:45 Actual Procedures p Exploratory Laparotomy with sigmoid colon resection and diverting colostomy - Jennifer Payan MD Physical Therapy Treatment Note M2 PT-IP Current Condition Start: 03/04/21 15:04 Freq: NEEDED Status: Active Protocol: Document 03/04/21 13:50 AB (Rec: 03/04/21 15:26 AB [id number]) Physical Therapy Current Condition Current Condition Evaluation Date 03/04/21 Treatment Diagnosis ex lap w/ colon resection and colostomy; difficulty in walking Onset Date 03/03/21 Precautions Abdominal Surgery Precautions Log Roll,Lifting Restrictions, Gait Belt above Incisional Area M3 PT-IP Subjective Start: 03/04/21 15:04 Freq: NEEDED Status: Active Protocol: Document 03/06/21 10:54 CLB (Rec: 03/06/21 13:06 CLB [id number]) Subjective Physical Therapy Visit Type Type Treatment Note Visit Start Time 10:54 Visit Stop Time 11:21 Total Visit Minutes 27 Notes Talon present during tx. Number of PRODUCT STRATEGY DIRECTOR Visits 2 Physical Therapy Visit Comments Patient Comments agreeable to do PT M4 PT-IP Mobility and Gait Start: 03/04/21 15:04 Freq: NEEDED Status: Active Protocol: Document 03/06/21 10:54 CLB (Rec: 03/06/21 13:06 CLB [id number]) PT-Transfer Assessment Sit to and From Stand Sit to and from Stand Standby Assistance,1 Person Assistance Equipment Transfer Assistive Device Gait Belt,Front Wheeled Walker Orthotic/Prosthetic Devices or Brace: No Transfers Transfer Destination Chair Transfer Technique ambulated Transfer Ability Level of Assist Standby Assistance,1 Person Assistance Comments Mobility Comments Pt stood ambulating into BR with assisting. GB donned and pt ambulated in kaur w/ FWW/SBA. Pt climbed platform step with FWW CGA then climbed 3 sets of 3 steps with bilateral rails SBA. Pt returned to room sitting in chair SBA. Pt performed ther ex in chair. Discussed benefits of HH PT with pt and and the need to use FWW for safety at this time. Pt left in chair with all needs within reach and present. Gait Assessment Gait Gait Assistance Required: Standby Assistance,1 Person Assist Distance (Feet) 300 Able to Maintain Weight Bearing Status Yes During Gait Assistive Devices Assistive Device Gait Belt,Front Wheeled Walker Orthotic/Prosthetic Devices or Brace: No Gait Deviations General Gait Pattern Ataxic,Decreased Stride Length ,Decreased Feet Clearance, Narrow Based Gait Factors Limiting Gait Function Factors Limiting Gait Function Abnormal Tonal Influences, Decreased Activity Tolerance, Decreased Strength,Difficulty Following Directions, Incoordination,Limited Range of Motion,Poor Balance,Poor Safety Awareness Comments Gait Comments pls refer to mobility section for details Stair Climbing Assessment Evaluation Level of Assist On Stairs Standby Assistance,1 Person Assistance Devices Stair Climbing Assistive Devices Left Railing,Right Railing Technique/Endurance Stair Climbing Direction Ascend and Descend Stair Climbing Technique Step Over Step Number of Steps Climbed 3 Stair Climbing Set # Repetitions (reps) 3 Comments Stair Climbing Comments Platform step with FWW CGA PT-Balance Assessment Sitting Balance and Reactions Static Sitting Balance Ability Good Dynamic Sitting Balance Ability Poor Standing Balance and Reactions Static Standing Balance Ability Poor Dynamic Standing Balance Ability Poor Device Used FWW M5 PT-IP Objective Assessments Start: 03/04/21 15:04 Freq: NEEDED Status: Active Protocol: Document 03/04/21 13:50 AB (Rec: 03/04/21 15:26 AB [id number]) Orientation Orientation/Cognition Level of Alertness Alert Orientation Name,Place,Situation Language Function Ability Hard of Hearing Safety Awareness Decreased Safety Awareness Memory Description Short Term Impaired Gross Range of Motion Lower Extremity ROM Assessment Within Functional Limits Strength Lower Extremity Strength Assessment Within Functional Limits M6 PT-IP Treatment Start: 03/04/21 15:04 Freq: NEEDED Status: Active Protocol: Document 03/06/21 10:54 CLB (Rec: 03/06/21 13:06 CLB [id number]) Physical Therapy Treatment Exercises Exercises Ankle Pumps,Gluteal Sets,Quad Sets,Seated Knee Flexion/ Extension Education Education Provided Safety M7 PT-IP Assessment and Plan Start: 03/04/21 15:04 Freq: NEEDED Status: Active Protocol: Document 03/06/21 10:54 CLB (Rec: 03/06/21 13:06 CLB [id number]) PT Summary Assessment and Plan Potential Rehabilitation Potential Fair Status of Condition at Evaluation Evolving Summary Impairments Pain,ROM,Strength,Balance, Coordination,Sensation,Tone, Cognition,Bed Mobility, Transfers,Gait,Activity Tolerance Progress Towards Goals Progressing Toward Goals Assessment Summary Pt with improved mobility able to ambulate ~300ft w/FWW/SBA and climb three steps x3 with SBA. Pt also climbed one step with FWW CGA. Pt will be able to assist pt at home. Pt will get FWW today from [facility] and has a FWW being delivered on Tuesday. Pt seems able to d/c home with to assist when medically stable, pt would benefit from PT. Goals Bed Mobility Goal Standby Assistance Transfer Goal Standby Assistance,Front Wheeled Walker Gait Goal Standby Assistance,Front Wheel Walker Gait Distance 200 Other Goals up/down 1 step using FWW CGA up/down 12 steps B rails SBA Days to Meet Goals 10 Frequency of Treatment Frequency Of Treatment Once a Day Treatment Plan Physical Therapy Treatment Plan Bed Mobility Training,Transfer Training,Gait Training, Therapeutic Exercise,Balance Retraining,Post Op Education, Discharge Planning,Hot or Cold Pack,Neuromuscular Re-ed, Coordination Retraining,Manual Therapy Precautions Abdominal Surgery Precautions Log Roll,Lifting Restrictions, Gait Belt above Incisional Area Recommendations To Nursing Amount of Assist Needed 1 Person Assist Discharge Recommendations PT Discharge Recommendations Home with 13/12 Assist Available,Home Health Transportation Needs at Discharge Private Vehicle
--- NOTE | 2021-03-06 11:29 | CM.DPC ---
DCP Cont: Patient most likely will discharge tomorrow. Nurse, Francia, came in and indicated that he would benefit with home health, due to new ostomy. Dr. Payan is not here to sign face to face, and hospitalist has already discharged him from services, so will need surgeon to sign face to face in the am. Met with patient and spouse, Isabella. Patient will go home with some ostomy supplies, and will have ostomy teaching at discharge. Home Health nurse can assess stoma, and also do teach back, and may be able to assist patient in ordering supplies. Patient's is very supportive. Met with patient and . They are opened to [facility], with no preference. The calendar this week lists [facility]. Gave them an [facility] brochure, and explained their services. PADMINI Mckeon, is also recommending P.T/O.T. Called Salima at [facility] about referral, and she indicated that they should be able to see patient on Tuesday. Faxed over referral including face sheet, H&P, today's progress note from surgeon, P.T, and dietary notes. Did not fax face to face, since it is not yet signed. Did not yet place home health orders until surgeon can sign face to face. Let Salima at [facility] know that patient most likely will discharge tomorrow, and that he will benefit from nursing, as well as P.T, and O.T. P: DCP to continue to follow. Plan is home with [facility], will need to get face to face signed, it has been completed, and place orders. Can then fax [facility] DC Summary, face to face, and orders. Regina Grace RN/Devulcanizer Loader
[2021-03-06 11:30] VITALS: BP 133/74; PULSE 62; RESP 17; TEMP 36.8; O2SAT 97
--- NOTE | 2021-03-06 14:53 | PC.NURSE ---
CHanged patients ostomy appliance, instructed patients spouse. Stoma is beefy red, edematous,diameter of stoma is to the edge of the 57mm wafer. Cleansed stoma and placed 57mm wafer with drainable pouch. Soft, brown liquid stool in pouch. Also replaced aqua cell to midline abdominal incision. [place] intact with scant sanguineous drianage.
[2021-03-06 15:23] VITALS: BP 117/70; PULSE 81; RESP 18; TEMP 36.4; O2SAT 97
--- NOTE | 2021-03-06 16:10 | DIET.PN1 ---
Dietary Progress Note Assessment: 75 y/o with new ostomy. Yrn reports needing some clarification on new diet recs for ostomy MNT. He has a pretty good working knowledge since receiving the handout from Rossy GARCIA yesterday. His was not present, but this RD (and Rossy yesterday) has come by twice and was not available. Yrn reports some frustrations with receiving non gluten free options while admitted. Ht: 180.3 cm Wt: 79.379 kg BMI: 19.3 UBW: Last BM: 03/06/21 (03/06/21 04:56) MNA: 11 Jamarcus Score: 20 Diet: 03/06/21 Lunch General (Regular) Diet Diet Modifications: Nutrition Percent Meal Consumed 75% 03/06/21 12:48 Percent Meal Consumed 100% 03/06/21 09:38 Percent Meal Consumed 75% 03/05/21 17:36 Percent Meal Consumed 100% 03/05/21 12:59 Percent Meal Consumed 75% 03/05/21 09:52 Labs: RBC 4.10 X10^6/uL (4.5-5.9) L 03/06/21 06:07 Hgb 12.5 g/dL (13.5-17.5) L 03/06/21 06:07 Hct 37.6 % (41-53) L 03/06/21 06:07 Creatinine 0.92 mg/dL (0.66-1.25) 03/06/21 06:07 Lactate 1.2 mmol/L (0.7-2.1) 03/03/21 15:53 NT-Pro-B Natriuret Pep 931 pg/mL (<125) H 03/03/21 15:52 Nutrition Diagnosis: Nutrition and food related knowledge deficit r/t no previous MNT for ostomy aeb pt report and new ostomy Interventions: 1. Reviewed ostomy MNT, reviewing fiber recs and foods to avoid 2. Provided RD contact info if has questions or needing OP services 3. Changed diet order to reflect GF status. Monitoring/Evaluations: consult prn Electronically Signed by: Swati Caldwell 03/06/21 16:10 Clinical Dietitian [address] [id number]
[2021-03-06 19:38] VITALS: BP 143/74; PULSE 62; RESP 18; TEMP 36.7; O2SAT 96
[2021-03-06 23:15] VITALS: BP 146/81; PULSE 62; RESP 14; TEMP 36.5; O2SAT 95
[2021-03-07 04:52] VITALS: BP 119/66; PULSE 64; RESP 12; TEMP 36.4; O2SAT 97
[2021-03-07] MEDS: CARBIDOPA-LEVODOPA 25/100 TABLET 1 EACH PO ×2 (07:13→11:35)
[2021-03-07 08:00] VITALS: BP 110/62; PULSE 65; RESP 18; TEMP 36; O2SAT 96
--- NOTE | 2021-03-07 09:00 | PM.DS.1 ---
History of Present Illness History of Present Illness Date Patient Seen: 03/07/21 Time Patient Seen: 09:00 Chief complaint: gastro issues Narrative: 4 days of no BM or gas. H/o chronic constipation. Generalized abdominal pain and distention. Nausea but no emesis. Nothing gives relief except IV narcotic. Discharge Providers Provider Date of admission: 03/03/21 18:46 Discharge Date: 03/07/21 Primary care physician: Ashley Romano DO Consults: 03/04/21 12:07 Consult to Dietitian, Adult Routine Comment: Reason For Exam: malnutrition Consult to Physical Therapy Evaluate & Treat Comment: Physician Instructions: Evaluate and Treat Consult to Physician Routine Comment: Consulting Provider: Catherine Burgos Reason for consultation: Parkinson's and malnutrition Has provider been notified: Yes 03/05/21 10:25 Consult to Dietitian, Adult Urgent Comment: Reason For Exam: stoma teaching. New stoma Consult to Wound Care Routine Comment: Consulting Provider: [facility] 03/06/21 15:48 Consult to Home Health Routine Comment: Reason For Exam: Home Health RN, P.T, O.T. Discharge provider: Jennifer Payan MD Summary Hospital Course Discharge Diagnosis: sigmoid volvulus, Parkinson Hospital Course: OR for sigmoid resection and diverting colostomy Status at Discharge Cognitive/behavioral status at discharge: oriented Functional status at discharge: uses cane/walker Overall status at discharge: patient is progressing back to baseline Time Spent with Patient Time spent: Greater than 30 minutes Exam Vital Signs (past 8 hours): - 03/07/21 04:52 Temperature 97.6 F Pulse Rate 64 Respiratory Rate 12 Blood Pressure 119/66 Pulse Oximetry 97 Oxygen Delivery Method Room Air,CPAP Oxygen Flow Rate 0 Psych Other: Abdomen is soft with mild serous drainage of wound, no infection, stoma working Objective Labs Result Diagrams: 03/06/21 06:07 03/06/21 06:07 [facility] Medical History Allergic rhinitis (04/25/13) Cuboid syndrome of right foot Cyst in hand Elevated homocysteine Foreign body of ear, left IBS (irritable bowel syndrome) Obstructive sleep apnea syndrome (04/25/13) Parkinson's disease (~09/2016) Pes planus Pure hypercholesterolemia (07/07/17) Surgical History History of tonsillectomy History of vasectomy Status post hernia repair Family History Brother Age: 70 Hypertension Heart disease Mother PAD (peripheral artery disease) Heart valve insufficiency Sister Age: 64 Depression with anxiety Osteoporosis Social History household members: spouse Smoking Status: Former smoker alcohol intake: current substance use type: does not use Discharge Assessment & Plan Assessment and Plan Assessment: s/p sigmoid colectomy with diverting colostomy. Plan of Treatment: Home with high protein diet, follow up in 7-10 days for staple removal. Colonoscopy in 6-8 weeks with plans for colostomy takedown. Discharge Plan Discharge Plan Patient Disposition: Home Provider Discharge Comment: VNS for stoma teaching Discharge orders & Medications Prescriptions: New celecoxib [Celebrex] 200 mg Capsule 200 mg PO BID Qty: 40 RF: 0 hydrocodone-acetaminophen 5-325 mg Tablet 2 tab PO Q6HR PRN (Reason: Pain, Severe (7-10)) Qty: 15 RF: 0 Continued glutathione 50 mg capsule 50 mg PO DAILY RF: 0 vitamin B complex [Super B-50 Complex] Capsule 1 cap PO DAILY RF: 0 cholecalciferol (vitamin D3) 125 mcg (5,000 unit) capsule 5,000 unit PO DAILY RF: 0 ascorbic acid (vitamin C) 500 mg capsule 500 mg PO DAILY RF: 0 alpha lipoic acid 200 mg tablet PO RF: 0 omega-3 fatty acids [Fish Oil Concentrate] 1,000 mg capsule 1,000 mg PO DAILY RF: 0 lithium orotate 20 mg 1 tab PO DAILY RF: 0 carbidopa-levodopa 25-100 mg tablet 1 tab PO TID RF: 0 Medication counseling provided by Pharmacist: Yes Follow up/Referrals: Jennifer Payan MD [Physician] - Ashley Romano DO [Primary Care Provider] - Diet/Activity/Treatments Diet: Diet as Tolerated Activity: no heavy lifting greater than 15 lbs Skin/Wound/Dressing Care Report to your healthcare provider any signs of infection, such as:: chills, fever, night sweats, increased pain, unusual drainage and unusual redness Visit Report/Discharge Packet Instructions: How to Care for Your Colostomy or Ileostomy, Colostomy / Ileostomy, [facility]: Wound Care Stand Alone Forms: Surgery Discharge Discharge Data Primary Care Provider: Ashley Romano
--- NOTE | 2021-03-07 09:05 | PT.IPTN ---
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) Surgery Performed Operation Date: 03/04/21 09:45 Actual Procedures p Exploratory Laparotomy with sigmoid colon resection and diverting colostomy - Jennifer Payan MD Physical Therapy Treatment Note M2 PT-IP Current Condition Start: 03/04/21 15:04 Freq: NEEDED Status: Active Protocol: Document 03/04/21 13:50 AB (Rec: 03/04/21 15:26 AB [id number]) Physical Therapy Current Condition Current Condition Evaluation Date 03/04/21 Treatment Diagnosis ex lap w/ colon resection and colostomy; difficulty in walking Onset Date 03/03/21 Precautions Abdominal Surgery Precautions Log Roll,Lifting Restrictions, Gait Belt above Incisional Area M3 PT-IP Subjective Start: 03/04/21 15:04 Freq: NEEDED Status: Active Protocol: Document 03/07/21 09:05 AB (Rec: 03/07/21 12:43 AB [id number]) Subjective Physical Therapy Visit Type Type Treatment Note Visit Start Time 09:05 Visit Stop Time 09:31 Total Visit Minutes 26 Number of CLINICAL STAFF ANESTHESIOLOGIST Visits 0 Physical Therapy Visit Comments Patient Comments pt is agreeable to do PT M4 PT-IP Mobility and Gait Start: 03/04/21 15:04 Freq: NEEDED Status: Active Protocol: Document 03/07/21 09:05 AB (Rec: 03/07/21 12:43 AB [id number]) PT-Bed Mobility Assessment Supine to Sit Supine to Sit Standby Assistance Sit to Supine Sit to Supine Standby Assistance PT-Transfer Assessment Sit to and From Stand Sit to and from Stand Standby Assistance,Contact Guard Assistance,1 Person Assistance,Use of Upper Extremities Equipment Transfer Assistive Device Gait Belt,Front Wheeled Walker Orthotic/Prosthetic Devices or Brace: No Transfers Transfer Destination Bed Transfer Technique Stand Step Pivot Transfer Ability Level of Assist Standby Assistance,Contact Guard Assistance,1 Person Assistance,Use of Upper Extremities Comments Mobility Comments pt in room with spouse. Pt stated that spouse is doing a class online at this time. Pt stated that they are comfortable with the caregiver training that was conducted yesterday and no concerns regarding that. pt agreed to do PT. reviewed abdominal precautions and pt required cues. completed sit to stand from chair SBA and step transfer to bed using FWW SBA to CGA. completed sit to supine SBA but initially requires cues on techniques. pt repeated again without cues needed. pt completed sit to stand from EOB SBA and ambulated in the hallway using FWW SBA to occasional CGA ~ 200 ft. presents with antalgic gait and narrow ESTUARDO. pt tends to have RLE crossover midline and cued pt to correct. pt completed up/down steps using B rails SBA step through pattern x 2 sets and also completed up/down platform step using fWW SBA to CGA. pt ambulated to his room using FWW SBA to CGA. sat back on chair and positioned. call light and table placed within reach. Gait Assessment Gait Gait Assistance Required: Standby Assistance,Contact Guard Assist Distance (Feet) 200 Able to Maintain Weight Bearing Status Yes During Gait Assistive Devices Assistive Device Gait Belt,Front Wheeled Walker Orthotic/Prosthetic Devices or Brace: No Gait Deviations General Gait Pattern Antalgic,Decreased Stride Length,Decreased Feet Clearance,Narrow Based Gait Factors Limiting Gait Function Factors Limiting Gait Function Decreased Activity Tolerance, Decreased Strength,Limited Range of Motion,Poor Balance, Poor Safety Awareness Stair Climbing Assessment Evaluation Level of Assist On Stairs Standby Assistance Devices Stair Climbing Assistive Devices Left Railing,Right Railing Technique/Endurance Stair Climbing Direction Ascend and Descend Stair Climbing Technique Step Over Step Number of Steps Climbed 3 Stair Climbing Set # Repetitions (reps) 2 Comments Stair Climbing Comments pls refer to mobility section for details M5 PT-IP Objective Assessments Start: 03/04/21 15:04 Freq: NEEDED Status: Active Protocol: Document 03/04/21 13:50 AB (Rec: 03/04/21 15:26 AB [id number]) Orientation Orientation/Cognition Level of Alertness Alert Orientation Name,Place,Situation Language Function Ability Hard of Hearing Safety Awareness Decreased Safety Awareness Memory Description Short Term Impaired Gross Range of Motion Lower Extremity ROM Assessment Within Functional Limits Strength Lower Extremity Strength Assessment Within Functional Limits M6 PT-IP Treatment Start: 03/04/21 15:04 Freq: NEEDED Status: Active Protocol: Document 03/07/21 09:05 AB (Rec: 03/07/21 12:43 AB [id number]) Physical Therapy Treatment Education Education Provided Precautions,Safety M7 PT-IP Assessment and Plan Start: 03/04/21 15:04 Freq: NEEDED Status: Active Protocol: Document 03/07/21 09:05 AB (Rec: 03/07/21 12:43 AB [id number]) PT Summary Assessment and Plan Potential Rehabilitation Potential Good Summary Impairments Pain,ROM,Strength,Balance, Coordination,Sensation,Tone, Cognition,Bed Mobility, Transfers,Gait,Activity Tolerance Progress Towards Goals Progressing Toward Goals Assessment Summary pt progressing with mobility and plans to go home with spouse to assist. caregiver training was conducted yesterday and pt without any other concerns. pt may go home when medically stable. Goals Bed Mobility Goal Standby Assistance Transfer Goal Standby Assistance,Front Wheeled Walker Gait Goal Standby Assistance,Front Wheel Walker Gait Distance 200 Other Goals up/down 1 step using FWW CGA up/down 12 steps B rails SBA Days to Meet Goals 10 Frequency of Treatment Frequency Of Treatment Once a Day Treatment Plan Physical Therapy Treatment Plan Bed Mobility Training,Transfer Training,Gait Training, Therapeutic Exercise,Balance Retraining,Post Op Education, Discharge Planning,Hot or Cold Pack,Neuromuscular Re-ed, Coordination Retraining,Manual Therapy Precautions Abdominal Surgery Precautions Log Roll,Lifting Restrictions, Gait Belt above Incisional Area Recommendations To Nursing Amount of Assist Needed 1 Person Assist Discharge Recommendations PT Discharge Recommendations Home with 13/12 Assist Available,Home Health Transportation Needs at Discharge Private Vehicle
[2021-03-07] MEDS: ENOXAPARIN 40 MG/0.4 ML SYRINGE SUBCUT (09:14)
[2021-03-07] MEDS: SODIUM CHLORIDE 0.9% FLUSH 10 ML IV (09:15)
[2021-03-07] MEDS: CELECOXIB 200 MG CAPSULE PO (11:35)
[2021-03-07 12:00] VITALS: BP 112/68; PULSE 64; RESP 18; TEMP 36.3; O2SAT 97
--- NOTE | 2021-03-07 13:54 | CM.DPNOTE ---
Addendum entered by SHAI Chester 03/07/21 16:33: ADD: sunshine KELLY f/u confirmed. start of care expected Tuesday or Tuesday. ROCHELLE Original Note: DC Note Spoke w/patient and spouse this morning as patient has been discharged this morning. Spouse feeling confident about their return home today and asks about sunshine KE[facility]. Provided brochure, confirmed that RN/PT/OT had been ordered, face to face signed by surgeon this morning. This TOBACCO BLENDER added TOBACCO BLENDER in addition... to assist in discussing adjusting to new ostomy, chronic disease management, support etc. Spouse appreciative. Spouse explains patient and she have hope for a good recovery and patient awaiting reversal and take down of ostomy. According to MIRIAN Cervantes, spouse has received teaching on assisting patient w/ostomy care once home. Placed call to sunshine KELLY, left detailed message to confirm receipt of this TOBACCO BLENDER's fax- DC Summary and completed and signed face to face form faxed IMM provided. Spouse very appreciative for the assist and will transport patient home this afternoon. ROCHELLE
--- NOTE | 2021-03-07 14:30 | PC.NURSE ---
Wheeled patient to car with driving; all belongings with patient.
== END 2021-03-07 14:31 | disposition home health service (06) | DRG 329 ==
LOC: ED 18:46 → AC 18:47
PROVIDERS: Emergency Medicine; Admitting Provider Surgery; Emergency Provider Student in an Organized Health Care Education/Training Program; PCP Family Medicine; Referring Provider Student in an Organized Health Care Education/Training Program; Visit Provider Surgery
PROC: 0DTN0ZZ Resection of Sigmoid Colon, Open Approach (ICD-10-PCS; CPT 49000; principal; 2021-03-04 09:45)
DX: K56.2 Volvulus (principal); K55.039 Acute (reversible) ischemia of large intestine, extent unspecified; K59.09 Other constipation; R82.71 Bacteriuria; G20 Parkinson's disease; G47.33 Obstructive sleep apnea (adult) (pediatric); Z20.822 Contact with and (suspected) exposure to COVID-19; R07.9 Chest pain, unspecified; Z87.891 Personal history of nicotine dependence
CPT/HCPCS: 36415; 44143; 71046; 74177; 80053; 81001; 83605; 83690; 83880; 84134; 84484; 85025; 87086; 87635; 93005; 93010; 96361; 96374; 96375; 97110; 97116; 97162; 97530; 99222; 99284; C9803; J0131; J0330; J1100; J1650; J2270; J2405; J2543; J2704; J3010; Q9967

== ENCOUNTER 2021-04-29 07:23 | Inpatient (IN) | payer MEDICARE, OTHER, SELFPAY ==
[2021-03-16 16:14] VITALS: BMI 19.3
[2021-04-27 12:45] VITALS: BMI 24.0
[2021-04-29] VITALS (18 sets, daily range): BP systolic 118–158; BP diastolic 66–109; PULSE 63–86; RESP 10–18; TEMP 36.2–37.2; O2SAT 96–100; BMI 24.0
--- NOTE | 2021-04-29 07:52 | PM.PREOP ---
Pre-operative Note COVID-19 COVID-19 status: Negative Interval Note History & Physical reviewed/Exam performed by Physician: Yes Changes to H&P: No
[2021-04-29] MEDS: LACTATED RINGERS 1,000 ML 84 ML IV (08:17)
--- NOTE | 2021-04-29 08:46 | SUR.OPER ---
Lithotomy on padded OR bed, head on pillow, arms secured on padded arm boards at <90 degrees abduction. Legs secured in padded yellow fins stirrups.
--- NOTE | 2021-04-29 10:44 | PM.OP.1 ---
Operative Date/Time/Diagnoses Date of procedure: 04/29/21 Time of procedure: 10:44 Pre-op diagnosis: Colostomy Post-op diagnosis: same Procedure & Clinicians Procedure: colostomy takedown, screening colonoscopy Same procedure as scheduled: Yes Indications: no prior colonoscopy. Status post diverting colostomy for sigmoid volvulus Click Yes if Unassisted: Yes Anesthesia Type: General Operative Notes Findings: colonoscopy showed no polyps or masses. Normal anatomy on laparotomy Closure Type: primary Specimen(s): other ( stoma, colo colo anastomotic donuts) Applied: catheter ( [place]) Estimated Blood Loss (mL): 50 Procedure in detail: preop diagnosis: screening colonoscopy Postop diagnosis: Same Operative procedure: Colonoscopy via Surgeon: Nancy Payan MD Anesthetic: General Findings: No polyps, no diverticula, no masses Procedure: Patient is placed in a supine position. Scope inserted into the colostomy and advanced into the colon down to the cecum with minimal difficulty. Insufflation extractions cope with the above findings. I also did a investigation with the scope from the rectum looking into the pouch and up to the staple lines again no polyps, no masses. Impression: Normal colonoscopy. Plan: Repeat colonoscopy in 10 years unless otherwise indicated by change in clinical condition Complications: none Post-operative Condition: stable Disposition: PACU
--- NOTE | 2021-04-29 10:49 | P.OP_ITS ---
Operative Date/Time/Diagnoses Date of procedure: 04/29/21 Time of procedure: 10:49 Pre-op diagnosis: diverting colostomy Post-op diagnosis: same Procedure & Clinicians Procedure: colostomy takedown, open Same procedure as scheduled: Yes Indications: diverting colostomy. Status post sigmoid colectomy for sigmoid volvulus Anesthesia Type: General Operative Notes Findings: normal anatomy Closure Type: primary Specimen(s): other ( stoma, colo colostomy donuts) Estimated Blood Loss (mL): 50 Procedure in detail: prep diagnosis: Diverting colostomy take down. Postop diagnosis: Same Operative procedure: Open colostomy takedown Surgeon: Nancy Payan MD Findings: Normal anatomy. Procedure: Patient is placed in a lithotomy position. Prepped and draped in a sterile fashion. Previous incision was reopened after having closed the stoma with running 0 silk suture. The stoma was immediately isolated and transected with a JOSIE stapling device. Portion of the left colon was mobilized from the flexure for increased flexibility. From below I was able to dilate up to 30 mm stapling device/EEA. the proximal portion of the colon intra-abdominal was prepped with a pursestring suture using an 0 Prolene. Anvil from the EEA stapling device was placed into the proximal portion. Staple was advanced into the rectum and abutted the staple line intra- abdominally through which the anvil was connected. After firing the stapling device, the donuts were examined to show healthy complete donuts both distal and proximal. Staple line was oversewn with 3-0 silk suture. Abdomen was irrigated. Then abdomen was closed with a running looped 0 PDS for fascia closure. Skin was reapproximated with surgical donnie. I then turned my attention to the stoma which was sharply incised circumferentially and with electrocautery I was able to remove the ruminative colon as well. This closure was closed similarly using a looped 0 PDS for fascial closure. Subcutaneous tissue was irrigated, and skin was closed with surgical donnie. Sterile dressings were placed. Patient was awakened, extubated, taken to recovery room in stable condition. Needle, instrument, sponge counts were correct. Blood loss: 50 mL Specimen: Stoma, colo colonic anastomotic donuts
--- NOTE | 2021-04-29 10:52 | SUR.PHASEI ---
1038 hrs: Pt arrives PACU breathing unassisted. Report from Kassy VELA and Dr Hardy. All questions answered.
[2021-04-29] MEDS: LACTATED RINGERS 1,000 ML 80 ML IV ×2 (11:10→12:35)
[2021-04-29] MEDS: fentaNYL 100 MCG/2 ML INJ IV (11:13)
[2021-04-29] MEDS: OXYCODONE/ACETAMINOPHEN 5/325 TABLET 1 TAB PO ×2 (11:39→15:55)
--- NOTE | 2021-04-29 12:04 | SUR.PHASEI ---
1255 hrs: Pt transported in stable condition to room 211 by RN and JACQUARD CARD CUTTER. Bedside report to MIRIAN Umaña. All questions answered.
[2021-04-29] MEDS: ONDANSETRON 4 MG/2 ML INJ IV ×2 (12:36→17:48)
[2021-04-29] MEDS: CELECOXIB 200 MG CAPSULE PO (13:01)
[2021-04-29] MEDS: CARBIDOPA-LEVODOPA 25/100 TABLET 1 EACH PO ×2 (14:44→17:48)
--- NOTE | 2021-04-29 14:45 | PT.IPTN ---
Current Diagnoses Volvulus (04/29/21) Encounter for screening for malignant neoplasm of colon (04/29/21) Surgery Performed Operation Date: 04/29/21 08:30 Actual Procedures p Colostomy Reversal - Jennifer Payan MD s Colonoscopy thru stoma(Not Applicable) - Jennifer Payan MD Physical Therapy Treatment Note M3 PT-IP Subjective Start: 04/29/21 16:27 Freq: NEEDED Status: Active Protocol: Document 04/29/21 14:45 AB (Rec: 04/29/21 16:31 AB [id number]) Subjective Physical Therapy Visit Type Type Administrative Note Notes checked on pt and pt stated that he is tired. asked if parkinson's medication was given since pt has not had parkinson's med due to today's surgery. pt was just about to give parkinson's medication to pt. pt is not ready for PT eval at this time and will f/ u tomorrow.
--- NOTE | 2021-04-29 15:54 | PT-IP ANOTE ---
checked with pt and stated that he is really tired. pt also has not had his parkinson's medication due to recent surgery and nurse will just be giving pt his medications and is not ready to do PT eval at this time. Pt agreed to do PT tomorrow.
--- NOTE | 2021-04-29 15:57 | PC.NURSE ---
ordered pt carbidopa-levadopa. per Dr. Schuyler marcano to resume usual dose. LLQ drsng was 50% saturated on the bottom half, reinforced with gauze and tegaderm.
--- NOTE | 2021-04-29 17:52 | PC.NURSE ---
pt tolerating clear liquid diet. he finished his whole tray for dinner. no nausea.
[2021-04-29] MEDS: GABAPENTIN 300 MG CAPSULE PO (20:33)
[2021-04-30] VITALS (8 sets, daily range): BP systolic 96–141; BP diastolic 51–70; PULSE 58–73; RESP 16–18; TEMP 36.6–37.7; O2SAT 94–100
[2021-04-30] MEDS: LACTATED RINGERS 1,000 ML 80 ML IV (01:15)
[2021-04-30] MEDS: OXYCODONE/ACETAMINOPHEN 5/325 TABLET 1 TAB PO (07:37)
[2021-04-30 07:39] LABS: Add Manual Diff / Slide Review NO; Basophils Absolute Auto 0 /uL (0-100); Basophils Percent Auto 0.3 % (0-2); Eosinophils Absolute Auto 0 /uL (0-450); Eosinophils Percent Auto 0.4 % (2-4); Hemoglobin 13.9 g/dL (13.5-17.5); Lymphocytes Absolute Auto 1700 /uL (1100-4500); Mean Corpuscular HGB Conc 33.8 % (30-36); Mean Corpuscular Hemoglobin 30.3 PG (26-34); Mean Corpuscular Volume 89.5 fL (80-100); Monocytes Absolute Auto 1000 /uL (0-900); Monocytes Percent Auto 8.8 % (3-14); Neutrophils Absolute Auto 8700 /uL (1500-7000); Neutrophils Percent Auto 75.5 % (50-75); Platelet Count 171 X10^3/uL (150-400); Red Blood Cell Count 4.58 X10^6/uL (4.5-5.9); White Blood Cell Count 11.5 X10^3/uL (4.5-11.0)
[2021-04-30] MEDS: GABAPENTIN 300 MG CAPSULE PO ×2 (08:07→20:32)
[2021-04-30] MEDS: ENOXAPARIN 40 MG/0.4 ML SYRINGE SUBCUT (08:07)
[2021-04-30] MEDS: CARBIDOPA-LEVODOPA 25/100 TABLET 1 EACH PO ×4 (08:07→17:10)
--- NOTE | 2021-04-30 09:55 | PT.IIE ---
Current Diagnoses Volvulus (04/29/21) Encounter for screening for malignant neoplasm of colon (04/29/21) Surgery Performed Operation Date: 04/29/21 08:30 Actual Procedures p Colostomy Reversal - Jennifer Payan MD s Colonoscopy thru stoma(Not Applicable) - Jennifer Payan MD Surgical History (Last Updated 04/27/21 @ 12:50 by Malu Lim, RN) History of tonsillectomy History of vasectomy Status post hernia repair (1978) Medical History (Last Updated 04/27/21 @ 12:53 by Malu Lim RN) Allergic rhinitis (04/25/13) Cuboid syndrome of right foot Cyst in hand Easy bruisability Elevated homocysteine Foreign body of ear, left History of sinus problem IBS (irritable bowel syndrome) Obstructive sleep apnea syndrome (04/25/13) Parkinson's disease (~09/2016) Pes planus Pure hypercholesterolemia (11/26/16) Physical Therapy Inpatient Evaluation/Re-Eval M1 PT/OT-IP Prior Functional Status Start: 04/29/21 16:27 Freq: NEEDED Status: Active Protocol: Document 04/30/21 09:55 AB (Rec: 04/30/21 13:05 [email or web address]) Medical Review Prior Functional Status Medical History Reviewed Yes Communication able to make needs known Mobility and Gait spouse in room and provided info: pt is modified independent with all mobilities and ambulation without AD; uses a FWW at night time Social History Household Members spouse Living Arrangements House Number of Floors (Floors) Two Floors Number of Stairs To Enter/Railing? 1 step to enter from the back has 12 steps with B rails to bedroom level but pt can stay on 1st level as well Home Environment Standard Height Toilet,Walk in Shower Home Equipment Front Wheel Walker,Shower Seat without Backrest M2 PT-IP Current Condition Start: 04/29/21 16:27 Freq: NEEDED Status: Active Protocol: Document 04/30/21 09:55 AB (Rec: 04/30/21 13:05 AB [email or web address]) Physical Therapy Current Condition Current Condition Evaluation Date 04/30/21 Treatment Diagnosis colostomy reversal; difficulty in walking Onset Date 04/29/21 M3 PT-IP Subjective Start: 04/29/21 16:27 Freq: NEEDED Status: Active Protocol: Document 04/30/21 09:55 (Rec: 04/30/21 13:05 [email or web address]) Subjective Physical Therapy Visit Type Type Initial Evaluation Visit Start Time 09:55 Visit Stop Time 10:25 Total Visit Minutes 30 Number of CONCRETE POURER Visits 0 Physical Therapy Visit Comments Patient Comments agreeable to do PT Therapy Pain Assessment Pain When Pain Assessed At Rest Pain Present Pain Present Pain Reported Location Abdomen Intensity 3 Scale Used Numeric (0 - 10) M4 PT-IP Mobility and Gait Start: 04/29/21 16:27 Freq: NEEDED Status: Active Protocol: Document 04/30/21 09:55 (Rec: 04/30/21 13:05 [email or web address]) PT-Bed Mobility Assessment Rolling Type of Rolling Log Rolling Level of Assist Minimal Assistance Supine to Sit Supine to Sit Minimal Assistance PT-Transfer Assessment Sit to and From Stand Sit to and from Stand Minimal Assistance,Moderate Assistance,1 Person Assistance ,Use of Upper Extremities Equipment Transfer Assistive Device Gait Belt,Front Wheeled Walker Orthotic/Prosthetic Devices or Brace: No Transfers Transfer Destination Chair Transfer Technique ambulated using FWW Transfer Ability Level of Assist Minimal Assistance,Moderate Assistance,1 Person Assistance ,Use of Upper Extremities Comments Mobility Comments educated pt regarding abdominal precautions and log roll bed mobility. completed log roll supine to sit min A and max cues. pt was able to sit on EOB CGA with increase posterior trunk lean and cued to correct position. pt with decrease safety awareness and is impulsive. completed sit to stand min to mod A and max cues. posterior LOB requiring mod A and cues to rebalance and use FWW for support. pt ambulated in room ~ 25 ft using FWW min to mod A and max cues. presents wtih staxic gait with decrease LE elevation L>R. pt is easily distracted and requires constant cues for safety. pt sat on chair. positioned on chair. call light and table placed within reach. Gait Assessment Gait Gait Assistance Required: Minimum Assistance,Moderate Assistance Distance (Feet) 25 Able to Maintain Weight Bearing Status Yes During Gait Assistive Devices Assistive Device Gait Belt,Front Wheeled Walker Orthotic/Prosthetic Devices or Brace: No Gait Deviations General Gait Pattern Ataxic,Decreased Stride Length ,Decreased Feet Clearance,Step -to Gait Factors Limiting Gait Function Factors Limiting Gait Function Decreased Activity Tolerance, Decreased Strength,Difficulty Following Directions,Limited Range of Motion,Poor Balance, Poor Safety Awareness PT-Balance Assessment Sitting Balance and Reactions Static Sitting Balance Ability Fair Dynamic Sitting Balance Ability Fair Standing Balance and Reactions Static Standing Balance Ability Poor Dynamic Standing Balance Ability Poor Device Used FWW M5 PT-IP Objective Assessments Start: 04/29/21 16:27 Freq: NEEDED Status: Active Protocol: Document 04/30/21 09:55 AB (Rec: 04/30/21 13:05 AB [email or web address]) Orientation Orientation/Cognition Level of Alertness Alert Orientation Name,Place,Situation Language Function Ability No Deficits Noted Safety Awareness Decreased Safety Awareness Memory Description Short Term Impaired Gross Range of Motion Lower Extremity ROM Assessment Within Functional Limits Strength Lower Extremity Strength Assessment Within Functional Limits M6 PT-IP Treatment Start: 04/29/21 16:27 Freq: NEEDED Status: Active Protocol: Document 04/30/21 09:55 AB (Rec: 04/30/21 13:05 AB [email or web address]) Physical Therapy Treatment Education Education Provided Precautions,Safety M7 PT-IP Assessment and Plan Start: 04/29/21 16:27 Freq: NEEDED Status: Active Protocol: Document 04/30/21 09:55 AB (Rec: 04/30/21 13:05 AB [email or web address]) PT Summary Assessment and Plan Potential Rehabilitation Potential Fair Status of Condition at Evaluation Evolving Summary Impairments Pain,ROM,Strength,Balance, Coordination,Sensation,Tone, Cognition,Bed Mobility, Transfers,Gait,Activity Tolerance Assessment Summary pt requiring min to mod A with mobility using FWW. pt s/p colostomy reversal but also has dx of parkinson's dse affecting mobility and safety awareness. pt will have his spouse to assist him at home. will conduct caregiver training when appropriate as well as stair climbing training. will continue to assess progress. Goals Bed Mobility Goal Independent Transfer Goal Independent,Front Wheeled Walker Gait Goal Independent,Front Wheel Walker Gait Distance 200 Other Goals improve ambulation without AD 100 ft SBA up/down 1 step FWW SBA up/down 12 steps B rails SBA Days to Meet Goals 10 Frequency of Treatment Frequency Of Treatment Once a Day Treatment Plan Physical Therapy Treatment Plan Bed Mobility Training,Transfer Training,Gait Training, Therapeutic Exercise,Balance Retraining,Post Op Education, Discharge Planning,Hot or Cold Pack,Neuromuscular Re-ed, Coordination Retraining,Manual Therapy Precautions Abdominal Surgery Precautions Log Roll,Lifting Restrictions, Gait Belt above Incisional Area Other Precautions falls Recommendations To Nursing Amount of Assist Needed 1 Person Assist Discharge Recommendations PT Discharge Recommendations Home with 13/12 Assist Available,Outpatient PT Transportation Needs at Discharge Private Vehicle
--- NOTE | 2021-04-30 10:31 | PM.PNPO.1 ---
Subjective Subjective Date Patient Seen: 04/30/21 Time Patient Seen: 10:31 Interval history: no complications, passing gas. Exam Vital Signs (past 8 hours): - 04/30/21 03:30 04/30/21 07:27 04/30/21 07:50 Temperature 98.5 F 99.6 F Pulse Rate 66 67 Respiratory Rate 18 18 Blood Pressure 112/60 109/52 L Pulse Oximetry 94 98 98 Oxygen Delivery Method Room Air Oxygen Flow Rate 0 Narrative Exam Narrative: dressing saturated but no active bleeding. soft abdomen, passing flatus. Const General: cooperative and comfortable Objective Labs Result Diagrams: 04/30/21 06:40 Labs: Laboratory Results - last 24 hr 04/30/21 06:40 WBC 11.5 H RBC 4.58 Hgb 13.9 Hct 41.0 MCV 89.5 MCH 30.3 MCHC 33.8 RDW 13.0 Plt Count 171 Neut % (Auto) 75.5 H Lymph % (Auto) 15.0 L Lucas % (Auto) 8.8 Eos % (Auto) 0.4 L Baso % (Auto) 0.3 Neut # (Auto) 8700 H Lymph # (Auto) 1700 Lucas # (Auto) 1000 H Eos # (Auto) 0 Baso # (Auto) 0 PFSH Medical History (Updated 04/27/21 @ 12:53 by Malu Lim RN) Allergic rhinitis (04/25/13) Cuboid syndrome of right foot Cyst in hand Easy bruisability Elevated homocysteine Foreign body of ear, left History of sinus problem IBS (irritable bowel syndrome) Obstructive sleep apnea syndrome (04/25/13) Parkinson's disease (~09/2016) Pes planus Pure hypercholesterolemia (11/26/16) Surgical History (Updated 04/27/21 @ 12:50 by Malu Lim RN) History of tonsillectomy History of vasectomy Hx of colostomy (02/2021) Status post hernia repair (1978) Family History Brother Age: 70 Hypertension Heart disease Mother PAD (peripheral artery disease) Heart valve insufficiency Sister Age: 64 Depression with anxiety Osteoporosis Social History household members: spouse Smoking Status: Former smoker alcohol intake: current substance use type: does not use Assessment & Plan Post-op Postoperative Procedures: Procedures Operation Date: 04/29/21 08:30 Actual Procedure Side Surgeon p Colostomy Reversal Jennifer Payan MD s Colonoscopy thru stoma Not Applicable Jennifer Payan MD Postoperative day: 1 Postoperative status: doing well Postoperative status narrative: No complications, acute blood loss anemia Postoperative plan narrative: Dressing change daily, Augmentin for prophylaxis. Diet at tolerated. Continue cohen cath. Time Spent With Patient Time with patient: 15-24 minutes Quality VTE Deep Vein Thrombosis/Pulmonary Embolism Present on Admission: No
[2021-04-30] MEDS: AMOXICILLIN/CLAV 500/125 MG 1 TAB PO ×3 (11:16→20:32)
--- NOTE | 2021-04-30 15:22 | PC.NURSE ---
Addendum entered by Robyn Mac R.N. 04/30/21 17:29: pt tolerated his general diet for lunch and dinner. pt passing gas. Original Note: midline and LLQ dressing changed using sterile procedure. old dressing was saturated. donnie intact on both sites.
--- NOTE | 2021-04-30 15:23 | CM.DANOTE ---
Addendum entered by Anjana Casarez R.N. 05/01/21 14:46: Faxed F2F and DC summary to [facility] and CM called Salima at [facility] and let her know the patient is DC today and will need to resume nursing wound care. Anjana casarez RN Case Ralph Original Note: DCP Assessment: Patient is a 75 yr old male who just had a colostomy reversal preformed by Dr Payan. CM met with patient at the bedside and explained role. patient was alert and oriented at time of CM visit. patient states he lives with his Isabella in a two story home and will need to manurer 15 steps in the home. Patient was up working with PT but states that today he didn't do very well but that he usually needs a few days after surgery to get moving better. patient states he is independent at baseline and utilizes [facility] services for wound care management and would like to keep working with them for Nursing wound care management only. he does not want PT or OT at this time. Patient states he usually walks 2 miles a day and is very active so he doesn't feel he will need the extra help. Patient also has Parkinson at baseline but says he is doing well at this time. but did need a Fww last time in the hospital and utilized one here today with PT. Patient currently has a FWW at home and will use it at [place] if he needs to. Cm called [facility] and he is currently a patient and they will just need a new F2F with nursing wound care orders and the DC summary sent to them when patient is ready to DC. Patient states he has been eating clear liquids all day but that he has not been feeling sick at all and he is excited to no longer have a colostomy. I: Medicare and commercial insurance Plan: DC home with [facility] re-established- will need new F2F and DC summary faxed to [facility] at [place]. No other DC planning needs identified Anjana Casarez RN Case Ralph Discharge Planning/Care Management Advanced directive, confirm from FAMILY Start: 04/29/21 12:12 Freq: Q24H Status: Active Protocol: Document 04/29/21 12:12 [email or web address] (Rec: 04/29/21 12:13 KDK [id number]) Advance Directive, confirm on record Time 12:13 Person contacted Talon Kimberly received No CM Discharge Assessment Start: 04/30/21 15:12 Freq: Status: Active Protocol: Document 04/30/21 15:12 HS (Rec: 04/30/21 15:18 HS [id number]) Discharge Planning Assessment Assigned Revenue Integrity Analyst Anjana Casarez RN Case manger DPOA/Assigned Designee Name Isabella Claros - Contact Information [phone] Advance Directives? Yes Advance Directives on File No History Provided By Patient,Medical Record Prior Living Arrangements House Household Members spouse Type of transporation used prior to Drives own vehicle admit Independent with ADL's Yes Is patient alert and oriented? Yes Caregiver for Another No Community Services used prior to Home Health Nurse admission: Comment Home health nurse to help with wound care from colostomy reversal DME Already Rented / Owned Elevated Toilet Seat,FWW / Walker Patient/Family Preference Home with Home Health Barriers to Discharge No Discharge Plan Home with Home Health Transportation Arrangement Spouse Referrals Initiated Home Health Medicare Choice List Provided Yes SNF/HH Preference Patient already has [facility] established and will just need a DC summary with new F2F with what he needs nursing for . Contact Name/Phone [facility] cantacted Whiteboard Updated in Patient Room with Yes name and ext. # of Revenue Integrity Analyst Review Status In Process Next Review Type Continued Stay Review Pre-Anesthesia Assessment Start: 04/27/21 12:45 Freq: Status: Complete Protocol: Document 04/27/21 12:45 CAB (Rec: 04/27/21 12:53 CAB [id number]) Pre-Anesthesia Assessment Patient Information Reviewed Via Chart Review Comment COVID screen @ 04/27/21 Negative Primary Care Provider Ashley Romano Seen Specialist in Last 12 Months Yes Specialist Seen Senior Benefits Analyst,General surgeon, Sleep specialist Primary Language Monegasque Preferred Language Monegasque Strip Cleaner Required No Height 181.61 cm Weight 79.379 kg Body Mass Index (BMI) 24.0 Hearing Ability Hard of Hearing,Use of Hearing Aid Dentition Type Partial- Upper Comment Hx Parkinson's Hx Anesthesia Reactions No Hx Family Anesthesia Reaction No Hx Malignant Hyperthermia No Hx Blood Transfusions No Hx Blood Transfusion Reaction No Anesthesia Review Requested No Fiberglass Autobody Repairer No alcohol intake current alcohol intake frequency 0-2 drinks per day Smoking Status Former smoker Tobacco type pipe Substance Use Type does not use Patient is completely paralyzed or No completely immobile Mental Status Oriented to own ability Does patient have MARTÍNEZ/SOB No Hx Sleep Apnea Yes CPAP/BIPAP use prescribed and used routinely Currently Taking a Beta Sri No Anti-Coagulant Therapy No Hx Pacemaker/ICD No Pacemaker Rep Required? No Bladder Pattern Frequency,Retention,Urgency Diabetes No Presence of External or Internal Medical No Devices Received a COVID vaccine? Yes Marital Status Lives With spouse Patient Discharge Plan Description Return Home Do You Have Any Spiritual Beliefs That No May Affect Your HC Choices? Do You Have Any Cultural Practices That No May Affect Your HC Choices? Emergency Contact Name Talon Claros Emergency Contact Phone Number [phone] Advance Directives? No Power of Motorcycle Tester Yes Power of Motorcycle Tester Name Talon Claros CBC 04/30/21 Range/Units 06:40 WBC 11.5 H (4.5-11.0) X10^3/uL RBC 4.58 (4.5-5.9) X10^6/uL Hgb 13.9 (13.5-17.5) g/dL Hct 41.0 (41-53) % Plt Count 171 (150-400) X10^3/uL Neut # (Auto) 8700 H (6610-1969) /uL Lymph # (Auto) 1700 (5620-0882) /uL [place] # (Auto) 1000 H (0-900) /uL Eos # (Auto) 0 (0-450) /uL Baso # (Auto) 0 (0-100) /uL Intake and Output 04/29/21 04/30/21 04/30/21 23:59 07:59 15:59 Intake Total 1050 / 2150 1300 / 1750 450 / 1750 Output Total 200 / 400 1700 / 2650 950 / 2650 Balance 850 / 1750 -400 / -900 -500 / -900 Intake: IV 1000 / 1000 Lactated Ringers 1,000 ml @ 80 1000 / 1000 mls/hr IV CONT STEPHEN Rx#:[id number] Oral 1050 / 1050 300 / 750 450 / 750 Output: Urine Amount (Catheter) 200 / 400 1700 / 2650 950 / 2650 Other: Percent Meal Consumed 100% Stool Size Smear
--- NOTE | 2021-05-01 01:24 | PC.NURSE ---
a/o, pleasant and cooperative. 1pa ADL and mobility. denies BTP, incision to abd is covered, dressings CDI. + bowel tones all quads. hyperactive/active. reports passing gas. only BM smears thus far. cohen patent, draining copious amounts clear yellow urine to gravity bag. Talon is at bedside over night. no c/o, slept well thru the NOC.
[2021-05-01 04:00] VITALS: BP 145/89; PULSE 71; RESP 18; TEMP 37.1; O2SAT 97
[2021-05-01 08:00] VITALS: O2SAT 96
[2021-05-01 09:35] VITALS: BP 88/53; PULSE 70; RESP 16; TEMP 36.7; O2SAT 98
[2021-05-01 09:37] VITALS: BP 105/56
[2021-05-01] MEDS: CARBIDOPA-LEVODOPA 25/100 TABLET 1 EACH PO ×2 (09:43→12:24)
[2021-05-01] MEDS: AMOXICILLIN/CLAV 500/125 MG 1 TAB PO (09:43)
[2021-05-01] MEDS: GABAPENTIN 300 MG CAPSULE PO (09:43)
[2021-05-01] MEDS: ENOXAPARIN 40 MG/0.4 ML SYRINGE SUBCUT (09:43)
--- NOTE | 2021-05-01 11:36 | PT.IPTN ---
Current Diagnoses Volvulus (04/29/21) Encounter for screening for malignant neoplasm of colon (04/29/21) Surgery Performed Operation Date: 04/29/21 08:30 Actual Procedures p Colostomy Reversal - Jennifer Payan MD s Colonoscopy thru stoma(Not Applicable) - Jennifer Payan MD Physical Therapy Treatment Note M2 PT-IP Current Condition Start: 04/29/21 16:27 Freq: NEEDED Status: Active Protocol: Document 04/30/21 09:55 AB (Rec: 04/30/21 13:05 AB [id number]) Physical Therapy Current Condition Current Condition Evaluation Date 04/30/21 Treatment Diagnosis colostomy reversal; difficulty in walking Onset Date 04/29/21 M3 PT-IP Subjective Start: 04/29/21 16:27 Freq: NEEDED Status: Active Protocol: Document 05/01/21 11:22 RBD (Rec: 05/01/21 12:34 RBD [id number]) Subjective Physical Therapy Visit Type Type Treatment Note Visit Start Time 11:22 Visit Stop Time 11:36 Total Visit Minutes 14 Number of SUPERVISOR SAMPLE Visits 1 Physical Therapy Visit Comments Patient Comments agreeable to do PT M4 PT-IP Mobility and Gait Start: 04/29/21 16:27 Freq: NEEDED Status: Active Protocol: Document 05/01/21 11:22 RBD (Rec: 05/01/21 12:34 RBD [id number]) PT-Bed Mobility Assessment Scooting Scooting to Edge of Bed Independent PT-Transfer Assessment Sit to and From Stand Sit to and from Stand Standby Assistance,Contact Guard Assistance,1 Person Assistance,Use of Upper Extremities Equipment Transfer Assistive Device Gait Belt,Front Wheeled Walker Orthotic/Prosthetic Devices or Brace: No Transfers Transfer Destination Chair Transfer Technique ambulated using FWW Transfer Ability Level of Assist Standby Assistance,Contact Guard Assistance,1 Person Assistance,Use of Upper Extremities Comments Mobility Comments Pt sitting in chair and spouse in the room upon arrival. CGA w/ FWW for sit<>stand. Pt required Min A w/ cueing for FWW managment when ambulating to practice stairs. Patient CGA and verbal cueing for single platform stair and walker management. Pt demonstated fatuige w/ shuffling gate ~50 ft from room. Ambulated to rooom w/ FWW and SBA stand<>sit in chair. All needs and call light with in reach. Gait Assessment Gait Gait Assistance Required: Contact Guard Assist,Minimum Assistance,1 Person Assist Distance (Feet) 300 Able to Maintain Weight Bearing Status Yes During Gait Assistive Devices Assistive Device Gait Belt,Front Wheeled Walker Orthotic/Prosthetic Devices or Brace: No Gait Deviations General Gait Pattern Decreased Stride Length, Decreased Feet Clearance,Step- to Gait Factors Limiting Gait Function Factors Limiting Gait Function Decreased Activity Tolerance, Decreased Strength,Difficulty Following Directions,Limited Range of Motion,Poor Balance, Poor Safety Awareness PT-Balance Assessment Sitting Balance and Reactions Static Sitting Balance Ability Good Dynamic Sitting Balance Ability Good Standing Balance and Reactions Static Standing Balance Ability Good Dynamic Standing Balance Ability Good Device Used FWW M5 PT-IP Objective Assessments Start: 04/29/21 16:27 Freq: NEEDED Status: Active Protocol: Document 04/30/21 09:55 AB (Rec: 04/30/21 13:05 AB [id number]) Orientation Orientation/Cognition Level of Alertness Alert Orientation Name,Place,Situation Language Function Ability No Deficits Noted Safety Awareness Decreased Safety Awareness Memory Description Short Term Impaired Gross Range of Motion Lower Extremity ROM Assessment Within Functional Limits Strength Lower Extremity Strength Assessment Within Functional Limits M6 PT-IP Treatment Start: 04/29/21 16:27 Freq: NEEDED Status: Active Protocol: Document 05/01/21 11:22 RBD (Rec: 05/01/21 12:34 RBD [id number]) Physical Therapy Treatment Education Education Provided Precautions,Safety M7 PT-IP Assessment and Plan Start: 04/29/21 16:27 Freq: NEEDED Status: Active Protocol: Document 05/01/21 11:22 RBD (Rec: 05/01/21 12:34 RBD [id number]) PT Summary Assessment and Plan Potential Rehabilitation Potential Good Status of Condition at Evaluation Evolving Summary Impairments Pain,ROM,Strength,Balance, Coordination,Sensation,Tone, Cognition,Bed Mobility, Transfers,Gait,Activity Tolerance Progress Towards Goals Progressing Toward Goals Assessment Summary Pt able to ambulate to and from practice stair w/ FWW and CGA. Increased cueing required as pt fatigued. Spouse present for entirety of treatment. She feels comfortable performing and is familiar with safety performing caregiver duties. Due to patient impulsiveness will need care 24/ at home. Goals Bed Mobility Goal Independent Transfer Goal Independent,Front Wheeled Walker Gait Goal Independent,Front Wheel Walker Gait Distance 200 Other Goals improve ambulation without AD 100 ft SBA up/down 1 step FWW SBA up/down 12 steps B rails SBA Days to Meet Goals 10 Frequency of Treatment Frequency Of Treatment Once a Day Treatment Plan Physical Therapy Treatment Plan Bed Mobility Training,Transfer Training,Gait Training, Therapeutic Exercise,Balance Retraining,Post Op Education, Discharge Planning,Hot or Cold Pack,Neuromuscular Re-ed, Coordination Retraining,Manual Therapy Recommendations To Nursing Amount of Assist Needed 1 Person Assist Discharge Recommendations PT Discharge Recommendations Home with 13/12 Assist Available,Outpatient PT Transportation Needs at Discharge Private Vehicle
--- NOTE | 2021-05-01 12:27 | P.DS_ITS ---
History of Present Illness History of Present Illness Date Patient Seen: 05/01/21 Time Patient Seen: 12:27 Chief complaint: SCREEN COLONOSCOPY W/COLOSTOMY REVERSAL Narrative: Screening colonoscopy and colostomy reversal. Discharge Providers Provider Date of admission: 04/29/21 07:23 Discharge Date: 05/01/21 Primary care physician: Ashley Romano DO Consults: 04/29/21 10:34 Consult to Discharge Planning Routine Comment: 04/29/21 10:38 Consult to Physical Therapy Evaluate & Treat Comment: Parkinson Physician Instructions: Evaluate and Treat Discharge provider: Jennifer Payan MD Summary Hospital Course Discharge Diagnosis: S/p colostomy reversal for sigmoid volvulus Hospital Course: Uncomplicated. Status at Discharge Cognitive/behavioral status at discharge: oriented Functional status at discharge: uses cane/walker Overall status at discharge: patient is progressing back to baseline Time Spent with Patient Time spent: Less than 30 minutes Exam Vital Signs (past 8 hours): - 05/01/21 09:35 05/01/21 09:37 Temperature 98.1 F Pulse Rate 70 Respiratory Rate 16 Blood Pressure 88/53 L 105/56 L Pulse Oximetry 98 Oxygen Delivery Method Room Air Oxygen Flow Rate 0 Narrative Exam Narrative: + BM, abdomin is soft, dressing is dry with schmitz of old drainage. No infection Const General: cooperative Objective Labs Result Diagrams: 04/30/21 06:40 [facility] Medical History (Updated 04/27/21 @ 12:53 by Malu Lim RN) Allergic rhinitis (04/25/13) Cuboid syndrome of right foot Cyst in hand Easy bruisability Elevated homocysteine Foreign body of ear, left History of sinus problem IBS (irritable bowel syndrome) Obstructive sleep apnea syndrome (04/25/13) Parkinson's disease (~09/2016) Pes planus Pure hypercholesterolemia (11/26/16) Surgical History (Updated 04/27/21 @ 12:50 by Malu Lim RN) History of tonsillectomy History of vasectomy Hx of colostomy (02/2021) Status post hernia repair (1978) Family History Brother Age: 70 Hypertension Heart disease Mother PAD (peripheral artery disease) Heart valve insufficiency Sister Age: 64 Depression with anxiety Osteoporosis Social History household members: spouse Smoking Status: Former smoker alcohol intake: current substance use type: does not use Discharge Assessment & Plan Assessment and Plan Assessment: S/p screening colonoscopy with no polyps. Plan: repeat colonoscopy in 10 years. S/p colostomy reversal. Plan: follow up 10 days for staple removal. Discharge Plan Discharge Plan Patient Disposition: Home Discharge orders & Medications Prescriptions: New celecoxib [Celebrex] 200 mg Capsule 200 mg PO BID PRN (Reason: Pain, Moderate (4-6)) Qty: 30 0RF oxycodone-acetaminophen 5-325 mg Tablet 1 tab PO Q4HR PRN (Reason: Pain, Moderate (4-6)) Qty: 10 0RF amoxicillin-pot clavulanate [Augmentin] 500-125 mg Tablet 1 tab PO TID Qty: 6 0RF Continued glutathione 50 mg capsule 50 mg PO DAILY 0RF vitamin B complex [Super B-50 Complex] Capsule 1 cap PO DAILY 0RF cholecalciferol (vitamin D3) 125 mcg (5,000 unit) capsule 5,000 unit PO DAILY 0RF ascorbic acid (vitamin C) 500 mg capsule 500 mg PO DAILY 0RF alpha lipoic acid 200 mg tablet 200 mg PO QAM 0RF omega-3 fatty acids [Fish Oil Concentrate] 1,000 mg capsule 1,000 mg PO DAILY 0RF carbidopa-levodopa 25-100 mg tablet 1 tab PO TID 0RF Label Comments: takes at 8am, 11am, and 5pm Rx Instructions: Instructed patient to take Carbidopa prior to leaving the house; Follow up/Referrals: Jennifer Payan MD [Physician] - Ashley Romano DO [Primary Care Provider] - Diet/Activity/Treatments Diet: Diet as Tolerated Activity: as tolerated Other treatments: Needs outpatient physical therapy Visit Report/Discharge Packet Instructions: DI for Colostomy or Ileostomy Reversal Discharge Data Primary Care Provider: Ashley Romano VTE Deep Vein Thrombosis/Pulmonary Embolism Present on Admission: No
--- NOTE | 2021-05-01 19:44 | PC.NURSE ---
Discharge: Pt feels ready to d/c to home. Dr. Payan here and gave pt d/c instructions. Pt is tolerating diet w/out problems. Noonan out and has voided x2 w/out diff. No use of po pain meds, pt reports he doesn't need them. Reviewed d/c packet. Rx has been esent and spouse/pt aware. Questions answered. Pt d/c to home via auto w/spouse.
== END 2021-05-01 15:00 | disposition home or self-care (01) | DRG 331 ==
PROVIDERS: Admitting Provider Surgery; PCP Family Medicine; Referring Provider Surgery; Visit Provider Surgery
PROC: 0DBE0ZZ Excision of Large Intestine, Open Approach (ICD-10-PCS; CPT 44620; principal; 2021-04-29 08:30)
PROC: 0DJD8ZZ Inspection of Lower Intestinal Tract, Via Natural or Artificial Opening Endoscopic (ICD-10-PCS; CPT 45378; 2021-04-29 08:30)
DX: Z43.3 Encounter for attention to colostomy (principal); G20 Parkinson's disease; G47.33 Obstructive sleep apnea (adult) (pediatric); Z12.11 Encounter for screening for malignant neoplasm of colon; Z87.891 Personal history of nicotine dependence; Z20.822 Contact with and (suspected) exposure to COVID-19
CPT/HCPCS: 36415; 44620; 85025; 87635; 94762; 97116; 97162; C9803; J0690; J1100; J1650; J2405; J2704; J3010

== ENCOUNTER → 2022-01-14 09:05 | Outpatient (CLI) | payer MEDICARE, OTHER, SELFPAY ==
[2021-04-29 12:05] VITALS: BMI 24.0
--- NOTE | 2022-01-14 09:09 | DI.RAD.S_ITS ---
PROCEDURE: XR KNEE LT 3V INDICATIONS: left knee pain, swelling TECHNIQUE: 3 views of the knee were acquired. COMPARISON: None. FINDINGS: Bones: No acute fractures or dislocations. No suspicious bony lesions. Moderate tricompartmental degenerative changes of the left knee. Small oblong density adjacent to the medial femoral condyle likely represents a small osteophyte. This is seen only on the frontal view. Degenerative changes are most pronounced in the patellofemoral compartment. Soft tissues: Small joint effusion. No suspicious soft tissue calcifications. IMPRESSION: Left knee without acute fracture or dislocation. Moderate tricompartmental degenerative changes most pronounced in the patellofemoral compartment. Small suprapatellar joint effusion. Dictated by: Yohannes Saez M.D. on 01/14/2022 at 10:22 Approved by: Yohannes Saez M.D. on 01/14/2022 at 10:25
== END ==
PROVIDERS: PCP Family Medicine; Referring Provider Family Medicine; Visit Provider Family Medicine
DX: M25.562 Pain in left knee (principal); M25.462 Effusion, left knee
CPT/HCPCS: 73562

== ENCOUNTER → 2022-03-15 07:58 | Outpatient (CLI) | payer MEDICARE, OTHER, SELFPAY ==
[2021-04-29 12:05] VITALS: BMI 24.0
[2022-03-15 08:29] LABS: Add Manual Diff / Slide Review NO; Basophils Absolute Auto 100 /uL (0-100); Basophils Percent Auto 0.8 % (0-2); Eosinophils Absolute Auto 200 /uL (0-450); Eosinophils Percent Auto 3.4 % (2-4); Hematocrit 42.9 % (41-53); Hemoglobin 14.7 g/dL (13.5-17.5); Lymphocytes Absolute Auto 1700 /uL (1100-4500); Lymphocytes Percent Auto 29.2 % (25-40); Mean Corpuscular HGB Conc 34.4 % (30-36); Mean Corpuscular Hemoglobin 30.8 PG (26-34); Mean Corpuscular Volume 89.6 fL (80-100); Monocytes Absolute Auto 400 /uL (0-900); Monocytes Percent Auto 7.2 % (3-14); Neutrophils Absolute Auto 3500 /uL (1500-7000); Neutrophils Percent Auto 59.4 % (50-75); Platelet Count 147 X10^3/uL (150-400); Red Blood Cell Count 4.78 X10^6/uL (4.5-5.9); Red Cell Distribution Width 13.9 % (11.6-14.8)
[2022-03-15 08:41] LABS: Alanine Aminotransferase 9 IU/L (<50); Albumin 4.1 g/dL (3.5-5.0); Albumin Globulin Ratio 1.6 (1.0-2.8); Alkaline Phosphatase 51 U/L (38-126); Aspartate Aminotransferase 29 IU/L (17-59); BUN Creatinine Ratio 17.9 (6-22); Bilirubin Total 0.4 mg/dL (0.2-1.3); Blood Urea Nitrogen 17 mg/dL (9-20); Calcium 8.5 mg/dL (8.4-10.2); Carbon Dioxide 28 mmol/L (22-32); Chloride 107 mmol/L (98-107); Cholesterol 180 mg/dL (140-199); Estimated Glomerular Filt Rate > 60 mL/min (>60); Globulin 2.5 g/dL (1.7-4.1); Glucose 97 mg/dL (80-110); HDL Cholesterol 44 mg/dL (40-60); HEMOLYSIS 16 (0-50); LDL Cholesterol Calculated 125 mg/dL (<100); Potassium 4.3 mmol/L (3.4-5.1); Sodium 142 mmol/L (137-145); Total Protein 6.6 g/dL (6.3-8.2); Triglycerides 55 mg/dL (35-150)
[2022-03-15 09:11] LABS: TSH w/ Reflex to FT4 2.36 uIU/mL (0.47-4.68)
== END ==
PROVIDERS: PCP Family Medicine; Referring Provider Family Medicine; Visit Provider Family Medicine
DX: D69.6 Thrombocytopenia, unspecified (principal); E03.2 Hypothyroidism due to medicaments and other exogenous substances; E78.00 Pure hypercholesterolemia, unspecified; G20 Parkinson's disease; T56.891A Toxic effect of other metals, accidental (unintentional), initial encounter
CPT/HCPCS: 36415; 80053; 80061; 84443; 85025

== ENCOUNTER → 2022-04-19 12:01 | Outpatient (CLI) | payer MEDICARE, OTHER, SELFPAY ==
[2021-04-29 12:05] VITALS: BMI 24.0
[2022-04-19 13:21] LABS: COVID19 -Nasal RAPID Negative (Negative)
--- NOTE | 2022-04-19 14:14 | PM.TREADMILL ---
Cardiac Stress Test Report Referral & Results Date Patient Seen: 04/19/22 Requesting provider: Evans Oseguera Indication: Chest symptoms Rest ECG: Unremarkable with occasional PVCs Procedure Note: Today following both written and verbal informed consent, the patient was exercised according to a standard Drew protocol. The patient exercised for a total of 3 minutes 19 seconds achieving a maximum heart rate of 102. Patient's maximum systolic blood pressure was 100. This was an estimated 4.6 MET's. There were no ST-T segment changes identified PVCs tended to disappear as patient exercise Impression: Patient was unable to keep up with the treadmill long enough to achieve target heart rate. This inability to exercise was almost certainly secondary to patient's underlying parkinsonism. To the extent of the treadmill that was performed we did not see any evidence of ischemia However if clinical concern warrants suggest repeating this study with pharmacological stress rather than exercise stress Clinical correlation suggested Please note: Actual ECG tracings can be found in the PACS system.
== END ==
PROVIDERS: PCP Family Medicine; Referring Provider Family Medicine; Visit Provider Family Medicine
DX: R07.9 Chest pain, unspecified (principal); E78.00 Pure hypercholesterolemia, unspecified; G20 Parkinson's disease; Z20.822 Contact with and (suspected) exposure to COVID-19
CPT/HCPCS: 87635; 93016; 93017; 93018

== ENCOUNTER → 2022-11-10 09:41 | Outpatient (CLI) | payer MEDICARE, OTHER, SELFPAY ==
[2021-04-29 12:05] VITALS: BMI 24.0
--- NOTE | 2022-11-10 09:43 | DI.US.S_ITS ---
PROCEDURE: US CAROTID DOPPLER BI INDICATIONS: PLAQUE ON DENTAL X-RAY TECHNIQUE: Color and pulse Doppler interrogation was performed of both carotid systems, with image documentation and velocity measurements. COMPARISON: None. FINDINGS: Stenosis calculations are based on SRU (Society of Radiologists in Ultrasound) criteria. The flow velocities and the arterial waveforms are normal within both carotid arterial systems. Minimal atherosclerotic plaque is seen on both sides. The estimated degree of internal carotid artery stenosis is less than 50%. Antegrade flow is confirmed within both vertebral arteries. IMPRESSION: No hemodynamically significant stenosis is seen. Dictated by: Rodrigo Lantigua M.D. on 11/10/2022 at 12:48 Approved by: Rodrigo Lantigua M.D. on 11/10/2022 at 12:49
== END ==
PROVIDERS: PCP Family Medicine; Referring Provider Family Medicine; Visit Provider Family Medicine
DX: I65.29 Occlusion and stenosis of unspecified carotid artery (principal)
CPT/HCPCS: 93880

== ENCOUNTER → 2023-05-02 08:53 | Outpatient (CLI) | payer MEDICARE, OTHER, SELFPAY ==
[2023-03-03 16:52] VITALS: BMI 24.0
[2023-05-02 10:23] LABS: Add Manual Diff / Slide Review NO; Basophils Absolute Auto 100 /uL (0-100); Eosinophils Absolute Auto 300 /uL (0-450); Eosinophils Percent Auto 4.5 % (2-4); Hematocrit 44.9 % (41-53); Hemoglobin 15.5 g/dL (13.5-17.5); Lymphocytes Absolute Auto 1500 /uL (1100-4500); Lymphocytes Percent Auto 23.7 % (25-40); Mean Corpuscular HGB Conc 34.6 % (30-36); Mean Corpuscular Hemoglobin 31.3 PG (26-34); Mean Corpuscular Volume 90.5 fL (80-100); Monocytes Absolute Auto 400 /uL (0-900); Monocytes Percent Auto 6.6 % (3-14); Neutrophils Absolute Auto 4100 /uL (1500-7000); Neutrophils Percent Auto 64.2 % (50-75); Platelet Count 168 X10^3/uL (150-400); Red Blood Cell Count 4.96 X10^6/uL (4.5-5.9); White Blood Cell Count 6.4 X10^3/uL (4.5-11.0)
[2023-05-02 10:53] LABS: Alanine Aminotransferase 8 IU/L (<50); Albumin 4.1 g/dL (3.5-5.0); Albumin Globulin Ratio 1.6 (1.0-2.8); Alkaline Phosphatase 50 U/L (38-126); Aspartate Aminotransferase 30 IU/L (17-59); BUN Creatinine Ratio 17.4 (6-22); Bilirubin Total 0.7 mg/dL (0.2-1.3); Blood Urea Nitrogen 16 mg/dL (9-20); Carbon Dioxide 27 mmol/L (22-32); Chloride 106 mmol/L (98-107); Cholesterol 196 mg/dL (140-199); Estimated Glomerular Filt Rate > 60 mL/min (>60); Globulin 2.6 g/dL (1.7-4.1); Glucose 91 mg/dL (80-110); HDL Cholesterol 34 mg/dL (40-60); HEMOLYSIS < 15 (0-50); LDL Cholesterol Calculated 150 mg/dL (<100); Potassium 4.3 mmol/L (3.4-5.1); Sodium 139 mmol/L (137-145); Total Protein 6.7 g/dL (6.3-8.2); Triglycerides 61 mg/dL (35-150)
[2023-05-02 11:19] LABS: Prostate Specific Antigen Scrn 1.42 ng/mL (0.1-4.0)
[2023-05-02 11:21] LABS: TSH w/ Reflex to FT4 2.13 uIU/mL (0.47-4.68)
== END ==
PROVIDERS: PCP Family Medicine; Referring Provider Family Medicine; Visit Provider Family Medicine
DX: Z00.00 Encounter for general adult medical examination without abnormal findings (principal); Z12.5 Encounter for screening for malignant neoplasm of prostate; D69.6 Thrombocytopenia, unspecified; E03.2 Hypothyroidism due to medicaments and other exogenous substances; T56.891A Toxic effect of other metals, accidental (unintentional), initial encounter; E78.00 Pure hypercholesterolemia, unspecified; G20.A1 Parkinson's disease without dyskinesia, without mention of fluctuations
CPT/HCPCS: 36415; 80053; 80061; 84443; 85025; G0103

== ENCOUNTER → 2023-07-20 14:45 | Outpatient (CLI) | payer MEDICARE, OTHER, SELFPAY ==
[2023-03-03 16:52] VITALS: BMI 24.0
--- NOTE | 2023-07-20 14:47 | DI.RAD.S_ITS ---
PROCEDURE: XR CHEST 2V INDICATIONS: Cough TECHNIQUE: 2 views of the chest were acquired. COMPARISON: [facility], CR, XR CHEST 2V, 03/03/2021, 16:15. FINDINGS: Surgical changes and devices: None. Lungs and pleura: Streaky retrocardiac opacity. Mediastinum: Mediastinal contours are normal. Heart size is normal. Bones and chest wall: No suspicious bony abnormalities. Soft tissues appear unremarkable. IMPRESSION: Streaky retrocardiac opacity which could represent atelectasis versus developing. Dictated by: Ana Mejia M.D. on 07/20/2023 at 21:31 Approved by: Ana Mejia M.D. on 07/20/2023 at 21:32
== END ==
PROVIDERS: PCP Family Medicine; Referring Provider Nurse Practitioner Family; Visit Provider Nurse Practitioner Family
DX: R05.9 Cough, unspecified (principal)
CPT/HCPCS: 71046

== ENCOUNTER 2023-10-17 19:51 | Emergency (ER) | payer MEDICARE, OTHER, SELFPAY ==
[2023-03-03 16:52] VITALS: BMI 24.0
[2023-10-17 19:52] VITALS: BP 190/88; PULSE 76; RESP 20; TEMP 36.3; O2SAT 96; BMI 25.0
--- NOTE | 2023-10-17 20:16 | ED.NAVMDI ---
HPI - Nausea/Vomiting/Diarrhea General Chief complaint: Nausea/Vomiting/Diarrhea Stated complaint: choking/food stuck Time Seen by Provider: 10/17/23 20:02 Source: patient Mode of arrival: Ambulatory History of Present Illness HPI Narrative: 78-year-old male with history of Parkinson's disease presents by private vehicle from home for possible food bolus. Patient was eating caught and asparagus when he fell something catch in his throat. at bedside states that patient has a bad habit of not thoroughly chewing his food before swallowing. Patient tried to drink water at home but was unable to pass any liquids. He tried to walk around, stretch, and cough up the impacted food, however he was unsuccessful and they decided to present to the ER for evaluation. While EN route to the emergency department patient threw up asparagus like material, and by the time of arrival to the emergency department he reported feeling much better. He states he was able to tolerate his saliva and has been able to tolerate small sips of water. Patient states that he has felt food gets caught before, but this is the 1st time it has not gone down with water. Related Data Home Medications Medication Instructions Recorded Confirmed alpha lipoic acid 200 mg tablet 200 mg PO QAM 06/27/19 08/04/23 ascorbic acid (vitamin C) 500 mg 500 mg PO DAILY 06/27/19 08/04/23 capsule cholecalciferol (vitamin D3) 125 5,000 unit PO DAILY 06/27/19 08/04/23 mcg (5,000 unit) capsule glutathione 50 mg capsule 50 mg PO DAILY 06/27/19 08/04/23 omega-3 fatty acids 1,000 mg 1,000 mg PO DAILY 06/27/19 08/04/23 capsule (Fish Oil Concentrate) vitamin B complex (Super B-50 1 cap PO DAILY 06/27/19 08/04/23 Complex capsule) Respironics DreamStation 08/25/21 08/04/23 Previous Rx's Medication Instructions Recorded Parking Permit... #1 ea 01/14/22 carbidopa 25 mg-levodopa 100 mg 1 tab PO QID #360 tabs 08/27/22 tablet Allergies Allergy/AdvReac Type Severity Reaction Status Date / Time apple Allergy Mild Verified 08/04/23 14:40 gluten Allergy Verified 08/04/23 14:40 milk Allergy Verified 08/04/23 14:40 pear Allergy Verified 08/04/23 14:40 Review of Systems Review of Systems Narrative: See HPI Patient History Medical History Easy bruisability History of sinus problem Colostomy in place Volvulus Cuboid syndrome of right foot Pes planus IBS (irritable bowel syndrome) Elevated homocysteine Cyst in hand Parkinson's disease (~09/2016) Pure hypercholesterolemia (11/26/16) Obstructive sleep apnea syndrome (04/25/13) Allergic rhinitis (04/25/13) Foreign body of ear, left Surgical History Hx of colostomy (02/2021) History of vasectomy Status post hernia repair (1978) History of tonsillectomy Family History Brother Age: 73 Hypertension Heart disease Mother PAD (peripheral artery disease) Heart valve insufficiency Sister Age: 67 Depression with anxiety Osteoporosis Social History household members: spouse Smoking Status: Former smoker alcohol intake: current substance use type: does not use Smoking Status: Former smoker alcohol intake frequency: 0-2 drinks per day Substance Use Type: does not use Exam Initial Vital Signs Initial Vital Signs: Vital Signs Temperature 97.3 F L 10/17/23 19:52 Pulse Rate 76 10/17/23 19:52 Respiratory Rate 20 10/17/23 19:52 Blood Pressure 190/88 H 10/17/23 19:52 Pulse Oximetry 96 10/17/23 19:52 Oxygen Delivery Method Room Air 10/17/23 19:52 Const: Awake, alert, no acute distress, nontoxic appearing Cardiac: regular rate, regular rhythm RESP: unlabored, clear bilaterally, no wheezing GI: Soft, nontender, nondistended, no rebound, no guarding MSK: Atraumatic, full range of motion, pulses equal Skin: Warm, Dry, intact, no rashes Neuro: AO x3, CN II-XII grossly intact, mild resting tremor (baseline per patient) Course Vital Signs Vital signs: Vital Signs - 8 hr 10/17/23 19:52 10/17/23 20:46 Temperature 97.3 F L Pulse Rate 76 83 Respiratory Rate 20 16 Blood Pressure 190/88 H 168/78 H Pulse Oximetry 96 97 Oxygen Delivery Method Room Air Room Air MDM - Nausea/Vomiting/Diarrhea Differential Diagnosis Differential diagnosis: Likely traveler's diarrhea, food poisoning and gastroenteritis MDM Narrative Medical decision making narrative: Possible food bolus at home, patient vomited EN route to the emergency department and has since been able to tolerate sips of water and his saliva. Reports a mild sore throat, but states that he has been trying to cough for the last hour and a half to get the food bolus dislodged. Patient given soda and crackers, able to tolerate these without difficulty. Patient states he feels improved and ready to go home. Patient was advised to thoroughly to his food before swallowing. Referral to General surgery for possible endoscopy provided. Discharge Plan Departure Patient Disposition: Home Clinical Impression: Food bolus obstruction of intestine Instructions: Steakhouse Syndrome Activity Restrictions/Additional Instructions: Today you were able to swallow crackers and soda, which means you do not have a current obstruction. Please return if your symptoms recur and you are not able to tolerate saliva or fluids. Otherwise a referral has been provided to General surgery to discuss possibility of endoscopy in the future. Prescriptions: No Action carbidopa-levodopa 25-100 mg tablet 1 tab PO QID Qty: 360 1RF (DME) Parking Permit... See Rx Instructions .Route .MEDSUPPLY Qty: 1 0RF Rx Instructions: I find this patient to be medically disabled and qualified for Disabled Parking as indicated and signed on the Accompanying Disabled Parking Application for individuals glutathione 50 mg capsule 50 mg PO DAILY vitamin B complex [Super B-50 Complex] Capsule 1 cap PO DAILY cholecalciferol (vitamin D3) 125 mcg (5,000 unit) capsule 5,000 unit PO DAILY ascorbic acid (vitamin C) 500 mg capsule 500 mg PO DAILY alpha lipoic acid 200 mg tablet 200 mg PO QAM omega-3 fatty acids [Fish Oil Concentrate] 1,000 mg capsule 1,000 mg PO DAILY (DME) Respironics DreamStation See Rx Instructions .Route .MEDSUPPLY Rx Instructions: CPAP Min: 5 Max: 16 DME: Referrals: Jennifer Payan MD [Physician] - Evans Oseguera MD [Primary Care Provider] - Stand Alone Forms: Patient Portal/API
--- NOTE | 2023-10-17 20:43 | PC.NURSE ---
Pt states that his dinner got stuck in his throat, but prior to arrival coughed it up and able to dislodge it out. Pt given 2 packets of saltine crackers and a can of jose mist. Pt tolerated well.
[2023-10-17 20:46] VITALS: BP 168/78; PULSE 83; RESP 16; O2SAT 97
== END 2023-10-17 20:49 | disposition home or self-care (01) ==
PROVIDERS: Emergency Provider Emergency Medicine; PCP Family Medicine
DX: K56.699 Other intestinal obstruction unspecified as to partial versus complete obstruction (principal)
CPT/HCPCS: 99281; 99282

== ENCOUNTER → 2024-04-16 08:17 | Outpatient (CLI) | payer MEDICARE, OTHER, SELFPAY ==
[2023-03-03 16:52] VITALS: BMI 24.0
[2024-04-16 09:11] LABS: Add Manual Diff / Slide Review NO; Basophils Absolute Auto 0 /uL (0-100); Basophils Percent Auto 0.5 % (0-2); Eosinophils Absolute Auto 200 /uL (0-450); Eosinophils Percent Auto 2.6 % (2-4); Hematocrit 44.3 % (41-53); Hemoglobin 14.9 g/dL (13.5-17.5); Lymphocytes Absolute Auto 1300 /uL (1100-4500); Lymphocytes Percent Auto 18.2 % (25-40); Mean Corpuscular HGB Conc 33.6 % (30-36); Mean Corpuscular Hemoglobin 30.9 PG (26-34); Mean Corpuscular Volume 91.9 fL (80-100); Monocytes Absolute Auto 500 /uL (0-900); Monocytes Percent Auto 6.9 % (3-14); Neutrophils Absolute Auto 5200 /uL (1500-7000); Neutrophils Percent Auto 71.8 % (50-75); Platelet Count 139 X10^3/uL (150-400); Red Blood Cell Count 4.82 X10^6/uL (4.5-5.9); Red Cell Distribution Width 13.9 % (11.6-14.8); White Blood Cell Count 7.3 X10^3/uL (4.5-11.0)
[2024-04-16 09:33] LABS: Alanine Aminotransferase 8 IU/L (<50); Albumin 3.9 g/dL (3.5-5.0); Albumin Globulin Ratio 1.8 (1.0-2.8); Alkaline Phosphatase 53 U/L (38-126); Aspartate Aminotransferase 29 IU/L (17-59); BUN Creatinine Ratio 14.3 (6-22); Bilirubin Total 0.8 mg/dL (0.2-1.3); Blood Urea Nitrogen 14 mg/dL (9-20); Calcium 8.9 mg/dL (8.4-10.2); Carbon Dioxide 27 mmol/L (22-32); Chloride 108 mmol/L (98-107); Cholesterol 172 mg/dL (140-199); Estimated Glomerular Filt Rate > 60 mL/min (>60); Globulin 2.2 g/dL (1.7-4.1); Glucose 88 mg/dL (80-110); HDL Cholesterol 40 mg/dL (40-60); HEMOLYSIS < 15 (0-50); LDL Cholesterol Calculated 117 mg/dL (<100); Potassium 4.3 mmol/L (3.4-5.1); Sodium 140 mmol/L (137-145); Total Protein 6.1 g/dL (6.3-8.2); Triglycerides 75 mg/dL (35-150)
[2024-04-16 10:02] LABS: TSH w/ Reflex to FT4 2.88 uIU/mL (0.47-4.68)
[2024-04-16 10:04] LABS: Prostate Specific Antigen Scrn 1.39 ng/mL (0.1-4.0)
[2024-04-16 10:05] LABS: Creatinine Urine Random 38.52 mg/dL
[2024-04-16 10:10] LABS: Microalbumin Urine Random < 0.6 mg/dL (0-1.6)
== END ==
PROVIDERS: PCP Family Medicine; Referring Provider Family Medicine; Visit Provider Family Medicine
DX: Z12.5 Encounter for screening for malignant neoplasm of prostate (principal); D69.6 Thrombocytopenia, unspecified; E78.00 Pure hypercholesterolemia, unspecified; I95.1 Orthostatic hypotension; G20.A1 Parkinson's disease without dyskinesia, without mention of fluctuations
CPT/HCPCS: 36415; 80053; 80061; 82043; 82570; 84443; 85025; G0103

== ENCOUNTER → 2024-08-17 15:03 | Outpatient (CLI) | payer MEDICARE, OTHER, SELFPAY ==
[2023-03-03 16:52] VITALS: BMI 24.0
--- NOTE | 2024-08-17 15:05 | DI.RAD.S_ITS ---
PROCEDURE: XR KNEE RT 4V INDICATIONS: Right knee swelling TECHNIQUE: 4 views of the knee were acquired. COMPARISON: [facility], CR, XR KNEE LT 3V, 01/14/2022, 9:20. FINDINGS: Bones: No fractures or dislocations. Mild to moderate tricompartmental osteoarthritis is seen more notably in patellofemoral compartment. No suspicious bony lesions. Soft tissues: Moderate suprapatellar joint effusion is seen.. No suspicious soft tissue calcifications. IMPRESSION: No acute right knee fracture or dislocation. Moderate suprapatellar joint effusion. Mild to moderate tricompartmental osteoarthritis. Dictated by: Magen Whittington M.D. on 08/17/2024 at 16:00 Approved by: Magen Whittington M.D. on 08/17/2024 at 16:06
== END ==
PROVIDERS: PCP Family Medicine; Referring Provider Physician Assistant; Visit Provider Physician Assistant
DX: M17.11 Unilateral primary osteoarthritis, right knee (principal); M25.461 Effusion, right knee; M25.569 Pain in unspecified knee
CPT/HCPCS: 73564

== ENCOUNTER → 2025-05-01 08:17 | Outpatient (CLI) | payer MEDICARE, OTHER, SELFPAY ==
[2023-03-03 16:52] VITALS: BMI 24.0
[2025-05-01 08:38] LABS: Add Manual Diff / Slide Review NO; Hematocrit 41.6 % (41-53); Hemoglobin 14.2 g/dL (13.5-17.5); Lymphocytes Absolute Auto 1500 /uL (1100-4500); Mean Corpuscular HGB Conc 34.2 % (30-36); Mean Corpuscular Hemoglobin 30.9 PG (26-34); Mean Corpuscular Volume 90.3 fL (80-100); Platelet Count 142 X10^3/uL (150-400)
[2025-05-01 08:57] LABS: Alanine Aminotransferase 6 IU/L (<50); Albumin 4.2 g/dL (3.5-5.0); Albumin Globulin Ratio 1.8 (1.0-2.8); Alkaline Phosphatase 48 U/L (38-126); Blood Urea Nitrogen 23 mg/dL (9-20); Calcium 8.7 mg/dL (8.4-10.2); Carbon Dioxide 26 mmol/L (22-32); Chloride 109 mmol/L (98-107); Cholesterol 199 mg/dL (140-199); Estimated Glomerular Filt Rate > 60 mL/min (>60); Globulin 2.4 g/dL (1.7-4.1); Glucose 91 mg/dL (70-99); HDL Cholesterol 41 mg/dL (40-60); HEMOLYSIS < 15 (0-50); Potassium 3.9 mmol/L (3.4-5.1); Sodium 141 mmol/L (137-145); Total Protein 6.6 g/dL (6.3-8.2); Triglycerides 67 mg/dL (35-150)
[2025-05-01 09:28] LABS: TSH w/ Reflex to FT4 3.30 uIU/mL (0.47-4.68)
== END ==
PROVIDERS: PCP Family Medicine; Referring Provider Family Medicine; Visit Provider Family Medicine
DX: Z12.5 Encounter for screening for malignant neoplasm of prostate (principal); E78.00 Pure hypercholesterolemia, unspecified; D69.6 Thrombocytopenia, unspecified; G20.A2 Parkinson's disease without dyskinesia, with fluctuations; G47.33 Obstructive sleep apnea (adult) (pediatric)
CPT/HCPCS: 36415; 80053; 80061; 84443; 85025; G0103